=== PATIENT | female | born 1965 ===

== ENCOUNTER → 2020-07-31 13:25 | Outpatient (BNVA) | payer OTHER, SELFPAY | PROVIDERS: PCP Nurse Practitioner Family; Referring Provider Nurse Practitioner Family; Visit Provider Nurse Practitioner | DX: Z76.89 Persons encountering health services in other specified circumstances (principal) ==

== ENCOUNTER → 2020-09-20 13:15 | Outpatient (BNVA) | payer OTHER, SELFPAY | PROVIDERS: PCP Nurse Practitioner Family; Visit Provider Urology | DX: N39.41 Urge incontinence (principal); N32.81 Overactive bladder | CPT/HCPCS: 52000; 81002; 99212 ==

== ENCOUNTER 2020-09-25 07:12 | Day surgery (SDC) | payer OTHER, SELFPAY ==
[2020-09-19 10:15] VITALS: BMI 29.0
--- NOTE | 2020-09-22 08:25 | HO.ANESPROP2 ---
Documented by User: Zhanna Negroney 09/22/20 08:26 HPI - Anesthesia Eval Consult details Narrative: 54yo F for Colonoscopy *multiple allergies* PMFSH Past Medical History Medical History Anxiety Arthritis Asthma Back pain COPD (chronic obstructive pulmonary disease) Depression Erosive esophagitis GERD (gastroesophageal reflux disease) History of bipolar disorder Hx of ulcer disease Hx pulmonary embolism Lumbar herniated disc Panic attacks Family History Family History Father No problems noted. 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 If so, by whom?: No Advance Directives: No Advance Directives Information Provided: No Advance Directives on File: No Recently lost weight without trying: No Meds Allergies Allergy/AdvReac Type Severity Reaction Status Date / Time Sulfa (Sulfonamide Allergy Severe Swelling Verified 09/25/20 07:48 Antibiotics) azithromycin [Zithromax] Allergy Intermediate hives/GI Verified 09/25/20 07:48 upset hydrocodone [From VICODIN] Allergy Intermediate Rash Verified 09/25/20 07:48 naproxen [Aleve] Allergy Intermediate Rash Verified 09/25/20 07:48 oxycodone [OXYCODONE] Allergy Intermediate Rash Verified 09/25/20 07:48 Vicodin Allergy Intermediate Rash Verified 09/25/20 07:48 acetaminophen [From TYLENOL] AdvReac Intermediate RASH ALL Verified 09/25/20 07:48 OVER BODY Home Medications Medication Instructions Recorded Confirmed Type cholecalciferol (vitamin D3) 1 tab PO DAILY 09/19/20 09/19/20 History pantoprazole 1 tab PO BID 09/19/20 09/19/20 History ziprasidone HCl 1 cap PO BID 09/19/20 09/19/20 History zolpidem 1 tab PO BEDTIME 09/19/20 09/19/20 History Exam Exam Date and Time: September 22, 2020 0825 Height,Weight and Vital Signs: Height 5 ft 4 in Weight 76.657 kg Assessment and Plan Assessment Anesthesia Assessment: Chart Reviewed Documented by User: Ema Talbot 09/25/20 08:23 [facility] Past Medical History Medical History Anxiety Arthritis Asthma Back pain COPD (chronic obstructive pulmonary disease) Depression Erosive esophagitis GERD (gastroesophageal reflux disease) History of bipolar disorder Hx of ulcer disease Hx pulmonary embolism Lumbar herniated disc Panic attacks Family History Family History Father No problems noted. 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 If so, by whom?: No Advance Directives: No Advance Directives Information Provided: No Advance Directives on File: No Recently lost weight without trying: No Meds Allergies Allergy/AdvReac Type Severity Reaction Status Date / Time Sulfa (Sulfonamide Allergy Severe Swelling Verified 09/25/20 07:48 Antibiotics) azithromycin [Zithromax] Allergy Intermediate hives/GI Verified 09/25/20 07:48 upset hydrocodone [From VICODIN] Allergy Intermediate Rash Verified 09/25/20 07:48 naproxen [Aleve] Allergy Intermediate Rash Verified 09/25/20 07:48 oxycodone [OXYCODONE] Allergy Intermediate Rash Verified 09/25/20 07:48 Vicodin Allergy Intermediate Rash Verified 09/25/20 07:48 acetaminophen [From TYLENOL] AdvReac Intermediate RASH ALL Verified 09/25/20 07:48 OVER BODY Home Medications Medication Instructions Recorded Confirmed Type cholecalciferol (vitamin D3) 1 tab PO DAILY 09/19/20 09/19/20 History pantoprazole 1 tab PO BID 09/19/20 09/19/20 History ziprasidone HCl 1 cap PO BID 09/19/20 09/19/20 History zolpidem 1 tab PO BEDTIME 09/19/20 09/19/20 History Exam Airway Mallampati Class: II TM Dist: >3cm Neck ROM: Full Heart: RRR Lungs: CTA Assessment and Plan Assessment Anesthesia Assessment: Anesthesia Plan Discussed Final Anesthetic Review NPO: Yes ASA Class: II Final Preanesthetic Review: Meds/Allgs Chart Reviewed, Consent Obtained/Reviewed and Anes Risks/Benef Reviewed Patient Risk: Intermediate Procedure Risk: Low Anesthetic Plan Anesthetic Plan: MAC: Disposition: Standard PACU
[2020-09-25 07:50] VITALS: BP 109/72; PULSE 96; RESP 18; TEMP 36.6; O2SAT 97
[2020-09-25] MEDS: Lactated Ringers 1,000 ML 100 ML IVCONT (08:01)
--- NOTE | 2020-09-25 08:08 | W.PM.OPN ---
Operative Note Operative Note Date of Service: 09/25/20 Narrative: Pre-op diagnosis: Colon cancer screening, chronic constipation, FH of colon cancer, Post-op diagnosis: other (diverticulosis) Procedure: COLONOSCOPY TILL CECUM WITH RANDOM BIOPSIES Consent: Indications for the procedure and potential complications of bleeding, perforation, reaction to medications and missed diagnosis were discussed with the patient and informed consent was obtained. Instrument: Olympus PCF H 190 L variable stiffness pediatric colonoscope Monitoring: Vital signs and clinical assessment, intermittent blood pressure monitoring, continuous EKG monitoring, Pulse oximetry and Carbon Dioxide monitoring were done throughout the procedure. Colon withdrawl time was 16 minutes. Procedure: The patient was placed in the left lateral decubitis position and pre-procedure medications were administered. After a digital rectal examination of the ano-rectum, the video colonoscope was inserted into the rectum and advanced through the colon to the cecum. The colonoscope was slowly withdrawn in a retrograde panoramic fashion and the colon mucosa was carefully examined including a retroflexed view of the rectum. Findings and interventions are described below. Procedure Difficulty: Without difficulty Findings: Terminal Ileum: Not evaluated Cecum: Normal Ascending Colon: Normal Transverse Colon: Normal Descending Colon: Normal Sigmoid Colon: Patchy erythema with some scarring - biopsies were obtained. Moderate diverticulosis Rectum: Normal Ano-rectum: Moderate internal hemorrhoids Colon preparation: Excellent Impression and Post Procedure Diagnosis: Colonoscopy Findings: No polyps were detected. Patchy erythema with some scarring in the sigmoid colon - random biopsies were obtained from the right and left colon to check for IBD/microscopic colitis. Moderate diverticulosis seen in the sigmoid colon Plan: Await pathology results Patient has an appointment on 10/16/20 in the GI Clinic with Charisse Naranjo NP. Repeat Colonoscopy interval based on path results - in 5 years due to positive Family history Above findings were reviewed with the patient and diverticulosis handouts was given in the discharge area Surgeon: Julio Torres MD Anesthesia: MAC (Annie Parks, GHADA & Dr Talbot) Estimated blood loss (mL): 0 Pathology: other (A. Right colon, B. Left colon) Condition: stable Disposition: PACU
--- NOTE | 2020-09-25 08:08 | MHC.SHP ---
Pre-Procedural Eval Section A The patient is an INPATIENT: No The History & Physical has been completed within 30 days and I have reviewed it.: No Section B Chief Complaint: family hx of malignant neoplasm of digestive organ Details of Present Illness: She suffers from constipation and she has been using Miralax and MOM. She denies any upper GI problems. There are no prior problems with anesthesia or sedation. She has an extensive list of allergies. She denies any chronic respiratory problems or cardiac problems. Her sister of CRC at age 57. Relevant Family History (Specify if Yes): Yes Relevant Social History: Tobacco Use Present Medications: see Short Stay [facility] assessment Medical History: Significant History (Herniated disc, overactive bladder with urge incontinence, ) History of Previous Operations: Relevant previous surgery/procedure and date(s) (H/O esophagogastroduodenoscopy History of hysterectomy Hx of appendectomy Hx of colonoscopy) Allergies: Allergies Allergy/AdvReac Type Severity Reaction Status Date / Time Sulfa (Sulfonamide Allergy Severe Swelling Verified 09/25/20 07:48 Antibiotics) azithromycin [Zithromax] Allergy Intermediate hives/GI Verified 09/25/20 07:48 upset hydrocodone [From VICODIN] Allergy Intermediate Rash Verified 09/25/20 07:48 naproxen [Aleve] Allergy Intermediate Rash Verified 09/25/20 07:48 oxycodone [OXYCODONE] Allergy Intermediate Rash Verified 09/25/20 07:48 Vicodin Allergy Intermediate Rash Verified 09/25/20 07:48 acetaminophen [From TYLENOL] AdvReac Intermediate RASH ALL Verified 09/25/20 07:48 OVER BODY Review of Systems Sugical H&P ROS: Negative: Constitution, Cardiovascular and Respiratory and Yes, Specify: Gastrointestinal (chronic constipation) Exam Surgical H&P Exam: Normal: Heart, Normal: Lungs, Normal: Extremities and Normal: Abdomen Plan Diagnosis/Plan: Unchanged I have reviewed the history and physical and performed a pertinent physical examination on my patient. No changes have occurred unless specified.
--- NOTE | 2020-09-25 08:30 | HO.ANESPROP2 ---
ON LICENSE OF [facility] Past Medical History Medical History Anxiety Arthritis Asthma Back pain COPD (chronic obstructive pulmonary disease) Depression Erosive esophagitis GERD (gastroesophageal reflux disease) History of bipolar disorder Hx of ulcer disease Hx pulmonary embolism Lumbar herniated disc Panic attacks Family History Family History Father No problems noted. 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 If so, by whom?: No Advance Directives: No Advance Directives Information Provided: No Advance Directives on File: No Recently lost weight without trying: No Meds Allergies Allergy/AdvReac Type Severity Reaction Status Date / Time Sulfa (Sulfonamide Allergy Severe Swelling Verified 09/25/20 07:48 Antibiotics) azithromycin [Zithromax] Allergy Intermediate hives/GI Verified 09/25/20 07:48 upset hydrocodone [From VICODIN] Allergy Intermediate Rash Verified 09/25/20 07:48 naproxen [Aleve] Allergy Intermediate Rash Verified 09/25/20 07:48 oxycodone [OXYCODONE] Allergy Intermediate Rash Verified 09/25/20 07:48 Vicodin Allergy Intermediate Rash Verified 09/25/20 07:48 acetaminophen [From TYLENOL] AdvReac Intermediate RASH ALL Verified 09/25/20 07:48 OVER BODY Home Medications Medication Instructions Recorded Confirmed Type cholecalciferol (vitamin D3) 1 tab PO DAILY 09/19/20 09/19/20 History pantoprazole 1 tab PO BID 09/19/20 09/19/20 History ziprasidone HCl 1 cap PO BID 09/19/20 09/19/20 History zolpidem 1 tab PO BEDTIME 09/19/20 09/19/20 History Exam Exam Date and Time: September 25, 2020 0830 Height,Weight and Vital Signs: Height 5 ft 4 in Weight 76.657 kg Last Vital Signs Temp 97.8 F 09/25/20 07:50 Pulse 96 09/25/20 07:50 Resp 18 09/25/20 07:50 BP 109/72 09/25/20 07:50 Pulse Ox 97 09/25/20 07:50
[2020-09-25 09:26] VITALS: BP 117/75; PULSE 88; RESP 20; TEMP 36.8; O2SAT 98
[2020-09-25 09:41] VITALS: BP 115/71; PULSE 85; RESP 20; TEMP 36.8; O2SAT 98
--- NOTE | 2020-09-25 10:12 | HO.POSTANES ---
Post Anesthesia Evaluation Post Anesthesia Evaluation Vital Signs: Vital Signs Temp Pulse Resp BP Pulse Ox 09/25/20 09:41 98.3 F 85 20 115/71 98 09/25/20 09:26 98.3 F 88 20 117/75 98 09/25/20 07:50 97.8 F 96 18 109/72 97 Anesthesia: Monitored Mental Status: Awake Pain Control: Satisfactory Nausea/Vomiting: None Hydration: Adequate Anesthesia-Related Issues: No Anes. Related Issues
== END 2020-09-25 09:48 | disposition home or self-care (01) ==
PROVIDERS: PCP Nurse Practitioner Family; Visit Provider Internal Medicine Gastroenterology
PROC: 0DJD8ZZ Inspection of Lower Intestinal Tract, Via Natural or Artificial Opening Endoscopic (ICD-10-PCS; CPT 45378; principal; 2020-09-25 08:30)
DX: Z12.11 Encounter for screening for malignant neoplasm of colon (principal); Z80.0 Family history of malignant neoplasm of digestive organs; K63.89 Other specified diseases of intestine; K57.30 Diverticulosis of large intestine without perforation or abscess without bleeding; K59.09 Other constipation; K64.8 Other hemorrhoids; K21.9 Gastro-esophageal reflux disease without esophagitis; J44.9 Chronic obstructive pulmonary disease, unspecified; Z90.49 Acquired absence of other specified parts of digestive tract; Z86.711 Personal history of pulmonary embolism; F17.210 Nicotine dependence, cigarettes, uncomplicated; Z79.51 Long term (current) use of inhaled steroids; Z79.899 Other long term (current) drug therapy; Z88.1 Allergy status to other antibiotic agents; Z88.2 Allergy status to sulfonamides; Z88.8 Allergy status to other drugs, medicaments and biological substances; Z86.16 Personal history of COVID-19
CPT/HCPCS: 45380; 88305

== ENCOUNTER 2020-09-28 14:01 | Outpatient (REF) | payer OTHER, SELFPAY ==
--- NOTE | ~2020-09-28 | MR_ITS ---
MR LUMBAR SPINE WITHOUT IV CONTRAST CLINICAL INFORMATION: Urge incontinence. COMPARISON: Lumbar spine MRI 09/15/2017. TECHNIQUE: MRI of the lumbar spine was obtained using routine sequences without contrast. FINDINGS: There are 5 nonrib-bearing lumbar-type vertebral bodies. Lumbar alignment is normal. The vertebral body heights are maintained. Mild disc volume loss and partial disc desiccation at L1-L2. There is partial disc desiccation at the remaining lumbar levels which exhibit preserved disc volume. There is no bone marrow edema. There are no acute fractures. The conus terminates at the L1-L2 level. There are no significant soft tissue findings. L1-L2: A stable shallow central disc protrusion mildly narrows the central canal. There is no foraminal stenosis. L2-L3: Disc contour is normal. No central canal stenosis and no foraminal stenosis. L3-L4: There is a diffuse annular disc bulge exhibiting a similar superimposed small right lateral disc protrusion associated with a right lateral annular fissure. No central canal stenosis and no foraminal stenosis. L4-L5: Diffuse annular disc bulge with a superimposed small right lateral disc protrusion associated with an annular fissure that mildly narrows the right neural foramen without contacting the exiting right nerve root. L5-S1: Small annular disc bulge and mild bilateral facet arthropathy. No central canal stenosis. No foraminal stenosis. MR/MR lumbar spine wo con IMPRESSION: - At L1-L2, there is a stable small shallow central disc protrusion that mildly narrows the central canal. - At L3-L4, there is a stable small right lateral disc protrusion associated with an annular fissure that does not result in significant foraminal stenosis. - At L4-L5, there is a stable small right lateral disc protrusion associated with an annular fissure that mildly narrows the right neural foramen without contacting the exiting right nerve root.
== END 2020-09-28 14:02 | disposition home or self-care (01) ==
LOC: HO.MRI 14:01
PROVIDERS: Visit Provider Urology
DX: N39.41 Urge incontinence (principal)
CPT/HCPCS: 72148

== ENCOUNTER → 2020-10-16 10:00 | Outpatient (BNVA) | payer OTHER, SELFPAY | PROVIDERS: PCP Nurse Practitioner Family; Visit Provider Nurse Practitioner ==

== ENCOUNTER → 2020-10-20 12:56 | Outpatient (BNVA) | payer OTHER, SELFPAY | PROVIDERS: PCP Nurse Practitioner Family; Visit Provider Urology | DX: Z13.9 Encounter for screening, unspecified (principal); N32.81 Overactive bladder | CPT/HCPCS: 51798; 81002; 99212 ==

== ENCOUNTER → 2020-12-12 13:18 | Outpatient (BNVA) | payer OTHER, SELFPAY | PROVIDERS: PCP Nurse Practitioner Family; Visit Provider Urology | DX: N32.81 Overactive bladder (principal) | CPT/HCPCS: 99212 ==

== ENCOUNTER → 2021-02-08 14:56 | Outpatient (BNVA) | payer OTHER, SELFPAY | PROVIDERS: PCP Nurse Practitioner Family; Visit Provider Urology | DX: N32.81 Overactive bladder (principal) | CPT/HCPCS: 52287; J0585 ==

== ENCOUNTER → 2021-03-12 12:42 | Outpatient (BNVA) | payer OTHER, SELFPAY | PROVIDERS: PCP Nurse Practitioner Family | DX: N32.81 Overactive bladder (principal); N39.41 Urge incontinence | CPT/HCPCS: 51798; 99212 ==

== ENCOUNTER 2021-04-18 15:22 | Emergency (ER) | payer OTHER, SELFPAY ==
[2021-04-18 15:44] VITALS: BP 129/89; PULSE 88; RESP 18; TEMP 36.7; O2SAT 96; BMI 28.3
--- NOTE | 2021-04-18 15:58 | ED.GENADULT ---
HPI - General Adult General Chief complaint: Upper Respiratory Symptoms Stated complaint: cough, fever Time Seen by Provider: 04/18/21 15:58 Source: patient Mode of arrival: ambulatory Limitations: no limitations History of Present Illness HPI narrative: Patient history of asthma been coughing the last few days using inhaler no fever no body aches no headache patient already been vaccinated in January 2021 Related Data Home Medications Medication Instructions Recorded Confirmed cholecalciferol (vitamin D3) 50 1 tab PO DAILY 09/19/20 09/19/20 mcg (2,000 unit) tablet pantoprazole 40 mg tablet,delayed 1 tab PO BID 09/19/20 09/19/20 release ziprasidone HCl 60 mg capsule 1 cap PO BID 09/19/20 09/19/20 zolpidem 10 mg tablet 1 tab PO BEDTIME 09/19/20 09/19/20 Previous Rx's Medication Instructions Recorded lidocaine 5 % topical patch 1 patch TOPICAL DAILY PRN 30 Days 07/17/20 #30 ea mirabegron 25 mg tablet,extended 25 mg PO DAILY #60 tab 07/26/20 release 24 hr (Myrbetriq) clonazepam 0.5 mg tablet 0.5 mg PO BID PRN 30 Days #60 tab 08/02/20 tramadol 50 mg tablet 50 mg PO BID PRN #14 tab 10/17/20 oxybutynin chloride 10 mg 10 mg PO DAILY 90 Days #90 tab 10/20/20 tablet,extended release 24 hr mirabegron 50 mg tablet,extended 50 mg PO DAILY 90 Days #90 tab 11/13/20 release 24 hr ciprofloxacin HCl 250 mg tablet 250 mg PO DAILY 7 Days #7 tab 12/12/20 terazosin 1 mg capsule 1 mg PO BEDTIME 60 Days #60 cap 12/19/20 fluticasone 250 mcg-salmeterol 50 1 inh INHALATION BID 30 Days #60 ea 01/01/21 mcg/dose blistr powdr for inhalation albuterol sulfate 90 mcg/actuation 2 puff INHALATION Q4-6H PRN 30 01/15/21 aerosol inhaler Days #8.5 g trimethoprim 100 mg tablet 200 mg PO BID 5 Days #20 tab 02/08/21 cetirizine 10 mg tablet 10 mg PO DAILY #30 tab 02/12/21 tramadol 50 mg tablet 50 mg PO DAILY PRN 10 Days #10 tab 03/15/21 cyclobenzaprine 10 mg tablet 10 mg PO BID PRN #60 tab 03/31/21 meloxicam 15 mg tablet 15 mg PO DAILY PRN #30 tab 03/31/21 amoxicillin 875 mg-potassium 1 tab PO BID #20 tab 04/18/21 clavulanate 125 mg tablet (Augmentin) Allergies Allergy/AdvReac Type Severity Reaction Status Date / Time Sulfa (Sulfonamide Allergy Severe Swelling Verified 04/18/21 15:43 Antibiotics) azithromycin [Zithromax] Allergy Intermediate hives/GI Verified 04/18/21 15:43 upset hydrocodone [From VICODIN] Allergy Intermediate Rash Verified 04/18/21 15:43 naproxen [Aleve] Allergy Intermediate Rash Verified 04/18/21 15:43 oxycodone [OXYCODONE] Allergy Intermediate Rash Verified 04/18/21 15:43 acetaminophen [From TYLENOL] AdvReac Intermediate RASH ALL Verified 04/18/21 15:43 OVER BODY Review of Systems Review of Systems: Yes all other systems are reviewed and are negative PMFSH Past Medical History Medical History Anxiety Arthritis Asthma Back pain COPD (chronic obstructive pulmonary disease) Depression Erosive esophagitis GERD (gastroesophageal reflux disease) History of bipolar disorder Hx of ulcer disease Hx pulmonary embolism Lumbar herniated disc Panic attacks Surgical History H/O esophagogastroduodenoscopy History of hysterectomy Hx of appendectomy Hx of cholecystectomy Hx of colonoscopy Family History Family History Father No problems noted. 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 Oriented X3. No acute distress. ENT: Pharynx normal. Oral Mucosa moist Neck: Normal inspection. Neck supple. CVS: Normal heart rate and rhythm. Pulses normal. Respiratory: No respiratory distress. Equal air entry bilateral, no wheezing/rales/rhonchi Abdomen: Soft and nontender. Skin: Skin warm and dry. Normal skin color. Normal skin turgor. Extremities: No lower extremity edema. No calf tenderness Neuro: Oriented X 3. No motor deficit. Medical Decision Making MDM Narrative Medical decision making narrative: Patient with mild asthma and cough likely bronchitis discharge patient home on Augmentin Lab Data Lab results reviewed: Yes I reviewed the patient's lab results. Labs: Lab Results 04/18/21 Range/Units 16:30 COVID-19 ([facility]) Negative (Negative) COVID-19 Clin Com See Note Discharge Plan Discharge Clinical Impression: Acute bronchitis Patient Disposition: Home, Self-Care Instructions: Acute Bronchitis (ED) Additional Instructions: Take antibiotic and cough syrup as prescribed and follow with PCP Use inhaler as advised Prescriptions: New amoxicillin-pot clavulanate [Augmentin] 875-125 mg tablet 1 tab PO BID Qty: 20 RF: 0 No Action lidocaine 5 % adhesive patch,medicated 1 patch topical DAILY PRN (Reason: pain) 30 Days Qty: 30 RF: 0 mirabegron [Myrbetriq] 25 mg tablet extended release 24 hr 25 mg PO DAILY Qty: 60 RF: 3 clonazepam 0.5 mg tablet 0.5 mg PO BID PRN (Reason: anxiety) 30 Days Qty: 60 RF: 0 tramadol 50 mg tablet 50 mg PO BID PRN (Reason: pain) Qty: 14 RF: 0 oxybutynin chloride 10 mg tablet extended release 24hr 10 mg PO DAILY 90 Days Qty: 90 RF: 1 mirabegron 50 mg tablet extended release 24 hr 50 mg PO DAILY 90 Days Qty: 90 RF: 2 terazosin 1 mg capsule 1 mg PO BEDTIME 60 Days Qty: 60 RF: 4 fluticasone propion-salmeterol 250-50 mcg/dose blister with device 1 inh inhalation BID 30 Days Qty: 60 RF: 3 albuterol sulfate 90 mcg/actuation HFA aerosol inhaler 2 puff inhalation Q4-6H PRN (Reason: shortness of breath or wheezing) 30 Days Qty: 8.5 RF: 4 cetirizine 10 mg tablet 10 mg PO DAILY Qty: 30 RF: 2 tramadol 50 mg tablet 50 mg PO DAILY PRN (Reason: pain) 10 Days Qty: 10 RF: 0 cyclobenzaprine 10 mg tablet 10 mg PO BID PRN (Reason: for muscle spasm) Qty: 60 RF: 0 meloxicam 15 mg tablet 15 mg PO DAILY PRN (Reason: for joint pain) Qty: 30 RF: 2 pantoprazole 40 mg tablet,delayed release (DR/EC) 1 tab PO BID RF: 0 zolpidem 10 mg tablet 1 tab PO BEDTIME RF: 0 ziprasidone HCl 60 mg capsule 1 cap PO BID RF: 0 cholecalciferol (vitamin D3) 50 mcg (2,000 unit) tablet 1 tab PO DAILY RF: 0 ciprofloxacin HCl 250 mg tablet 250 mg PO DAILY 7 Days Qty: 7 RF: 0 trimethoprim 100 mg tablet 200 mg PO BID 5 Days Qty: 20 RF: 0 Interventions: ED Discharge Assessment Last Done: 04/18/21 17:31 Discharge Date/Time: 04/18/21 17:32
[2021-04-18 17:03] LABS: COVID-19 Test Negative (Negative)
== END 2021-04-18 17:32 | disposition home or self-care (01) ==
PROVIDERS: Emergency Provider Internal Medicine; PCP Nurse Practitioner Family
DX: J20.9 Acute bronchitis, unspecified (principal); R05 Cough; R50.9 Fever, unspecified; F17.210 Nicotine dependence, cigarettes, uncomplicated; Z71.6 Tobacco abuse counseling; Z79.899 Other long term (current) drug therapy; Z20.822 Contact with and (suspected) exposure to COVID-19
CPT/HCPCS: 36415; 87635; 99282; 99283

== ENCOUNTER → 2021-06-06 13:10 | Outpatient (BNVA) | payer OTHER, SELFPAY | PROVIDERS: PCP Nurse Practitioner Family | DX: N39.41 Urge incontinence (principal); R33.9 Retention of urine, unspecified | CPT/HCPCS: 51798; 99212 ==

== ENCOUNTER 2021-11-19 14:44 | Outpatient (REF) | payer OTHER, SELFPAY ==
--- NOTE | ~2021-11-19 | XR_ITS ---
EXAMINATION: XR KNEE, RIGHT CLINICAL INFORMATION: Sprain COMPARISON: None TECHNIQUE: Four views of the right knee. FINDINGS: Bones and soft tissues are normal. No fracture or joint effusion. Alignment is anatomic. Joint spaces are well maintained. No abnormal soft tissue calcification. XR/XR knee RT 4V IMPRESSION: Normal right knee.
== END 2021-11-19 14:45 | disposition home or self-care (01) ==
LOC: HO.HMGCX 14:44
PROVIDERS: PCP Nurse Practitioner Family; Visit Provider Internal Medicine
DX: S83.91XA Sprain of unspecified site of right knee, initial encounter (principal)
CPT/HCPCS: 73564

== ENCOUNTER 2022-11-19 11:26 | Outpatient (REF) | payer OTHER, SELFPAY ==
--- NOTE | ~2022-11-19 | XR_ITS ---
EXAMINATION: XR CHEST CLINICAL INFORMATION: Shortness of breath. COMPARISON: 01/26/2020 chest and rib radiographs. TECHNIQUE: 2 views of the chest were obtained. FINDINGS: No significant abnormality is noted involving the heart, lungs, mediastinum, bony thorax or soft tissues. XR/XR chest 2V IMPRESSION: No acute cardiopulmonary process.
[2022-11-19 14:15] LABS: Appearance Urine Clear; Color Urine Yellow; Glucose Urine UA Negative (Negative); Leukocyte Esterase Urine Small (1+) (Negative); Nitrite Urine Negative (Negative); Specific Gravity - Urine <= 1.005 (1.005-1.025); UMIC TRIGGER UACC YES; Urine Blood Negative (Negative); Urine Ketones Negative (Negative); Urine Protein Negative (Neg-Trace)
[2022-11-19 14:25] LABS: Basophils Absolute Auto 0.1 X10*3/uL (0.0-0.2); Basophils Percent Auto 1.6 % (0-2); Eosinophils Absolute Auto 0.2 X10*3/uL (0.0-0.4); Eosinophils Percent Auto 6.5 % (0-4); Hematocrit 27.8 % (37.0-47.0); Imm Gran Abs Auto 0.01 X10*3/uL (0.00-0.03); Imm Gran Pct Auto 0.3 % (0.0-0.4); Lymphocytes Absolute Auto 1.1 X10*3/uL (1.2-4.9); Lymphocytes Percent Auto 29.2 % (20-40); MANUAL DIFF FLAG SCAN; Mean Corpuscular HGB Conc 28.8 g/dl (31.0-35.0); Mean Corpuscular Hemoglobin 19.4 pg (27.0-33.0); Mean Corpuscular Volume 67.5 fL (80.0-98.0); Monocytes Absolute Auto 0.5 X10*3/uL (0.1-1.2); Monocytes Percent Auto 12.3 % (2-11); Neutrophils Absolute Auto 1.8 x10*3/uL (2.0-8.3); Neutrophils Percent Auto 50.1 % (45-73); PLT CLUMP 1; Red Blood Count 4.12 X10*6/uL (4.20-5.50); Red Cell Distribution Width 19.3 % (11.0-16.0); SCAN SMEAR FLAG 1
[2022-11-19 14:35] LABS: Bacteria Urine None Seen (None Seen); Hyaline Casts Urine 0-2 /LPF (0-2); RBC Urine 0-2 /HPF (0-2); Squamous Epithelial Cell Urine 0-2 /HPF (0-2); UACC Culture Trigger YES; WBC Urine 0-5 /HPF (0-5)
[2022-11-19 14:50] LABS: Platelet Count 351 X10*3/uL (160-400); White Blood Count 3.7 X10*3/uL (4.8-10.8)
[2022-11-19 15:01] LABS: Erythrocyte Sedimentation Rate 13 MM/HR (0-20)
[2022-11-19 15:23] LABS: SLIDE REVIEW VERIFIED
[2022-11-19 18:13] LABS: Alanine Aminotransferase < 6 U/L (0-31); Albumin Level 3.7 g/dL (3.5-5.0); Alkaline Phosphatase 39 U/L (39-117); Anion Gap 14 (12-20); Aspartate Amino Transferase 9 U/L (5-31); Bilirubin Total 0.6 mg/dL (0.0-1.0); Blood Urea Nitrogen 6 mg/dL (9-16); C Reactive Protein < 0.10 mg/dL (< or = 0.50); Calcium 9.2 mg/dL (8.4-10.2); Carbon Dioxide 23 mmol/L (22-29); Chloride 105 mmol/L (96-108); Cholesterol 125 mg/dL; Estimated Glomerular Filt Rate 55; Glucose Fasting 92 mg/dL (60-99); HDL Cholesterol 40 mg/dL; LDL Cholesterol Calculated 70 mg/dl; Potassium 3.7 mmol/L (3.3-5.1); Rheumatoid Factor < 13.0 IU/mL (<15.0); Sodium 138 mmol/L (135-145); Total Protein 6.9 g/dL (6.5-8.0); Triglycerides 76 mg/dL
[2022-11-19 18:18] LABS: TSH reflex Free T4 2.93 uIU/mL (0.32-4.0)
[2022-11-21 07:33] LABS: Lyme Abs Screen <0.90 index
[2022-11-21 13:53] LABS: Antibody to SS-A Antigen <1.0 NEG AI (<1.0 NEG); Antibody to SS-B Antigen <1.0 NEG AI (<1.0 NEG)
[2022-11-21 14:48] LABS: Cyclic Citrullinated Peptide <16 UNITS
[2022-11-21 15:59] LABS: Anti Nuclear Antibody Screen NEGATIVE (NEGATIVE)
== END 2022-11-19 11:27 | disposition home or self-care (01) ==
LOC: HO.HMGCX 11:26
PROVIDERS: PCP Nurse Practitioner Family; Visit Provider Nurse Practitioner Family
DX: Z00.00 Encounter for general adult medical examination without abnormal findings (principal); R06.02 Shortness of breath; M19.90 Unspecified osteoarthritis, unspecified site; S83.91XA Sprain of unspecified site of right knee, initial encounter; S83.92XA Sprain of unspecified site of left knee, initial encounter; X58.XXXA Exposure to other specified factors, initial encounter; Y93.9 Activity, unspecified; Y92.9 Unspecified place or not applicable; Y99.9 Unspecified external cause status
CPT/HCPCS: 36415; 71046; 80053; 80061; 81001; 84443; 85025; 85652; 86038; 86039; 86140; 86200; 86235; 86431; 86617; 86618; 87086

== ENCOUNTER 2022-11-20 12:40 | Emergency (ER) | payer OTHER, SELFPAY ==
[2022-11-20] VITALS (7 sets, daily range): BP systolic 113–140; BP diastolic 69–89; PULSE 83–97; RESP 14–22; TEMP 36.6–36.8; O2SAT 92–98; BMI 26.6
--- NOTE | ~2022-11-20 | CT_ITS ---
EXAMINATION: CT ABDOMEN AND PELVIS WITH CONTRAST CLINICAL INFORMATION: Left lower quadrant pain COMPARISON: CT scan abdomen pelvis 06/12/2018 TECHNIQUE: Multidetector volumetric images were obtained from the superior aspect of the liver through the pubic symphysis following administration 85 mL of Omnipaque 350 intravenous contrast. Sagittal and coronal reformatted images were obtained on the technologist's workstation. Oral contrast: No This CT examination was performed using dose optimization techniques as appropriate, variously including the following: *Automated exposure control *Adjustment of mA and/or kV according to patient size (this includes techniques or standardized protocols for targeted exams where dose is matched to indication/reason for exam; i.e. extremities or head) *Use of iterative reconstruction technique DLP: 614 mGy-cm FINDINGS: LUNG BASES: The visualized lung bases are unremarkable. LIVER, GALLBLADDER, AND BILIARY TREE: The liver is normal in size, shape, and attenuation. No focal hepatic lesion or biliary ductal dilatation is present. Status post cholecystectomy PANCREAS: Unremarkable. SPLEEN: Unremarkable. ADRENAL GLANDS: Unremarkable. KIDNEYS AND URETERS: The kidneys are normal in size, shape, and attenuation. No hydronephrosis, hydroureter, or calculi seen. No perinephric stranding. BLADDER: Unremarkable. GASTROINTESTINAL TRACT: The small and large bowel are unremarkable. The appendix is nonvisualized. Surgical clips right abdomen near the cecum may be from prior appendectomy. Correlate with history.. ABDOMINAL WALL: No significant hernia is appreciated. LYMPH NODES: Normal. VASCULAR: Unremarkable. PELVIC VISCERA: Unremarkable. OSSEOUS STRUCTURES: Unremarkable. CT/CT abdomen pelvis w IV con IMPRESSION: No acute abnormality CT scan abdomen pelvis. Fleischner guidelines were followed.
--- NOTE | ~2022-11-20 | XR_ITS ---
EXAMINATION: XR CHEST CLINICAL INFORMATION: Dyspnea on exertion COMPARISON: November 19, 2022 and January 26, 2020 TECHNIQUE: 2 views of the chest were obtained. FINDINGS: No significant abnormality is noted involving the heart, lungs, mediastinum, bony thorax or soft tissues. XR/XR chest 2V IMPRESSION: No acute disease.
--- NOTE | 2022-11-20 12:45 | ED.SOB ---
HPI - SOB/Dyspnea General Chief Complaint: Upper Respiratory Symptoms <ELISA Masterson - Last Filed: 11/20/22 12:51> Stated Complaint: Diff Breathing Trouble Walking <ELISA Masterson - Last Filed: 11/20/22 12:51> Time Seen by Provider: 11/20/22 15:55 <ELISA Masterson - Last Filed: 11/20/22 12:51> Source: patient and RN notes reviewed <Jose Miguel Gracia - Last Filed: 11/20/22 20:13> Mode of arrival: ambulatory <Jose Miguel Gracia - Last Filed: 11/20/22 20:13> Limitations: no limitations <Jose Miguel Gracia - Last Filed: 11/20/22 20:13> History of Present Illness HPI Narrative: 57-year-old female with past medical history significant for depression, anxiety, COPD, arthritis overactive bladder presents for evaluation of low H&H. Patient reports she has had dyspnea on exertion for over 1 month She states after walking for short distance she has to stop and catch her breath because she is fatigued Patient also reports nausea and vomiting for last 2 days. She states that she has had black stools for the last 4 weeks She has not seen any bright red blood in her stool Patient reports increased anxiety and depression because ?I had to bury my mother last week. ? Patient went to her PCP yesterday for depression and also mention that she was short of breath. She had labs and a chest x-ray. Patient was told by her PCP to come to the hospital today because her hemoglobin was 8 and the last test they had was over 11. <Jose Miguel Gracia - Last Filed: 11/20/22 20:13> Related Data Home Medications: Home Medications Medication Instructions Recorded Confirmed ziprasidone HCl 60 mg capsule 1 cap PO BID 09/19/20 11/19/22 Previous Rx's Medication Instructions Recorded cetirizine 10 mg tablet 10 mg PO DAILY #90 tabs 07/21/22 fluticasone 250 mcg-salmeterol 50 1 inh inhalation Q12H 30 days #60 07/21/22 mcg/dose blistr powdr for ea inhalation (Advair Diskus) tramadol 50 mg tablet 50 mg PO DAILY PRN pain 14 days 07/31/22 #14 tabs cholecalciferol (vitamin D3) 50 50 mcg PO DAILY 30 days #30 tabs 08/15/22 mcg (2,000 unit) tablet sennosides 8.6 mg tablet (Senna 8.6 mg PO BEDTIME PRN constipation 09/25/22 Lax) #90 tabs meloxicam 15 mg tablet 15 mg PO DAILY PRN for joint pain 10/20/22 #30 tabs pantoprazole 40 mg tablet,delayed 40 mg PO BID 30 days #60 tabs 10/20/22 release fluticasone propionate 50 1 spray intranasal DAILY #9.9 mL 11/02/22 mcg/actuation nasal spray,suspension (Flonase Allergy Relief) clonazepam 0.5 mg tablet 0.5 mg PO BID PRN anxiety 30 days 11/05/22 #60 tabs albuterol sulfate 90 mcg/actuation 2 puff inhalation Q4-6H PRN 11/11/22 aerosol inhaler shortness of breath or wheezing 30 days #8.5 grams cyclobenzaprine 10 mg tablet 10 mg PO DAILY PRN muscle spasm 30 11/14/22 days #30 tabs hydroxyzine HCl 25 mg tablet 25 mg PO BEDTIME PRN severe 11/19/22 anxiety 30 days #30 tabs <ELISA Masterson - Last Filed: 11/20/22 12:51> Allergies/Adverse Reactions: Allergies Allergy/AdvReac Type Severity Reaction Status Date / Time Sulfa (Sulfonamide Allergy Severe Swelling Verified 11/20/22 12:43 Antibiotics) azithromycin [Zithromax] Allergy Intermediate hives/GI Verified 11/20/22 12:43 upset hydrocodone [From VICODIN] Allergy Intermediate Rash Verified 11/20/22 12:43 naproxen [Aleve] Allergy Intermediate Rash Verified 11/20/22 12:43 oxycodone [OXYCODONE] Allergy Intermediate Rash Verified 11/20/22 12:43 acetaminophen [From TYLENOL] AdvReac Intermediate RASH ALL Verified 11/20/22 12:43 OVER BODY <ELISA Masterson - Last Filed: 11/20/22 12:51> Review of Systems Constitutional: Constitutional: Reports as per HPI, Denies chills, Denies fever(s) and Denies headache(s) <Jose Miguel Gracia - Last Filed: 11/20/22 20:13> ENT: Denies headache(s) <Jose Miguel Gracia - Last Filed: 11/20/22 20:13> Cardiovascular: Cardiovascular: Denies chest pain, Denies chest pain at rest, Denies chest pain with activity, Reports dyspnea and Reports dyspnea on exertion <Jose Miguel Gracia - Last Filed: 11/20/22 20:13> Respiratory: Respiratory: Denies chest congestion, Denies cough, Denies pain with cough, Reports dyspnea and Reports dyspnea on exertion <Jose Miguel Gracia - Last Filed: 11/20/22 20:13> Gastrointestinal: Gastrointestinal: Reports abdominal pain, Reports melena, Denies hematochezia, Denies loose stools, Reports vomiting and Denies hematemesis <Jose Miguel Gracia - Last Filed: 11/20/22 20:13> Genitourinary: Genitourinary: Denies dysuria <Jose Miguel Gracia - Last Filed: 11/20/22 20:13> Musculoskeletal: Musculoskeletal: Denies back pain <Jose Miguel Gracia - Last Filed: 11/20/22 20:13> Neurologic: Denies headache(s) and Denies focal weakness <Jose Miguel Gracia - Last Filed: 11/20/22 20:13> [facility] Past Medical History Medical History: Medical History (Updated 11/20/22 @ 20:13 by Jose Miguel Gracia) Anxiety Arthritis Asthma Back pain COPD (chronic obstructive pulmonary disease) Depression Erosive esophagitis GERD (gastroesophageal reflux disease) History of bipolar disorder Hx of ulcer disease Hx pulmonary embolism Lumbar herniated disc Panic attacks Urinary retention <ELISA Masterson - Last Filed: 11/20/22 12:51> Surgical History: Surgical History H/O esophagogastroduodenoscopy History of hysterectomy Hx of appendectomy Hx of cholecystectomy Hx of colonoscopy <ELISA Masterson - Last Filed: 11/20/22 12:51> Family History Family History: Family History Father No problems noted. Mother HTN (hypertension) Asthma High cholesterol Heart problem Diabetes mellitus Sister Liver cancer <ELISA Masterson - Last Filed: 11/20/22 12:51> Social History Social History: Social History Housing: Apartment Are you a primary child care sitter to a significant other at home: No Do you presently have visiting nurse or other home services: Yes ([employer]) Alcohol intake: current Alcohol intake frequency: holidays/special occasions only Alcohol type: beer and wine Patient Tobacco Use Status: Former Tobacco user Cigarettes Per Day: 2 Years Smoked: 10+ Smoked in Last 30 Days: No e-Cigarette/Vaping Use: Currently Using Second Hand Smoke Exposure: No Use of substances other than those prescribed or required for medical reasons: No Advance Directives: No Advance Directives Information Provided: No Patient : No service: No Current occupational status: unemployed Cognitive needs: No Hearing needs: No Vision needs: Yes <ELISA Masterson - Last Filed: 11/20/22 12:51> Physical Exam Vital Signs: Vital Signs: Last Vital Signs Temp 97.8 F 11/20/22 19:41 Pulse 89 11/20/22 19:41 Resp 22 H 11/20/22 19:41 BP 139/88 11/20/22 19:41 Pulse Ox 98 11/20/22 18:38 O2 Del Method Room Air 11/20/22 18:38 BMI result Body Mass Index 26.6 <ELISA Masterson - Last Filed: 11/20/22 12:51> Vital Signs: Last Vital Signs Temp 97.8 F 11/20/22 19:41 Pulse 89 11/20/22 19:41 Resp 22 H 11/20/22 19:41 BP 139/88 11/20/22 19:41 Pulse Ox 98 11/20/22 18:38 O2 Del Method Room Air 11/20/22 18:38 BMI result Body Mass Index 26.6 <Jose Miguel Gracia - Last Filed: 11/20/22 20:13> Const: General: healthy appearing, comfortable, no acute distress, alert and awake <Jose Miguel Gracia - Last Filed: 11/20/22 20:13> Nutritional Appearance: well nourished < Last Filed: 11/20/22 20:13> Orientation/consciousness: patient oriented x3 < Last Filed: 11/20/22 20:13> HEENT: Head: Yes normocephalic and Yes atraumatic < Last Filed: 11/20/22 20:13> Throat: Yes posterior oropharynx normal < Last Filed: 11/20/22 20:13> Eyes: Eyelids: Yes eyelids normal < Last Filed: 11/20/22 20:13> Conjunctivae: conjunctivae normal < Last Filed: 11/20/22 20:13> Sclerae: sclerae normal < Last Filed: 11/20/22 20:13> Corneas: corneas normal < Last Filed: 11/20/22 20:13> Pupils: Equal, round and reactive pupils present < Last Filed: 11/20/22 20:13> EOM: EOMs intact bilaterally < Last Filed: 11/20/22 20:13> Neck: Neck: Yes full ROM < Last Filed: 11/20/22 20:13> Resp: Effort & Inspection: normal respiratory effort, able to speak in complete sentences, no audible wheezes and not labored < Last Filed: 11/20/22 20:13> Auscultation: clear to auscultation bilaterally < Last Filed: 11/20/22 20:13> Cardio: Rate: regular rate < Last Filed: 11/20/22 20:13> Rhythm: regular rhythm < Last Filed: 11/20/22 20:13> GI: Inspection: No distended < Last Filed: 11/20/22 20:13> Palpation (GI): Soft to palpation, not firm, Tenderness to palpation present (GI) (without rebound or guarding) in the LLQ, no guarding and not rigid <Jose Miguel Gracia - Last Filed: 11/20/22 20:13> Auscultation: normoactive bowel sounds <Jose Miguel Gracia - Last Filed: 11/20/22 20:13> Skin: General skin exam: no rashes or lesions noted and elasticity normal <Jose Miguel Gracia - Last Filed: 11/20/22 20:13> Neuro: General: patient oriented x3 <Jose Miguel Gracia - Last Filed: 11/20/22 20:13> Cranial nerves: Yes CN's II-XII intact bilaterally, Yes Equal, round and reactive pupils present and Yes Bilaterally intact EOM present <Jose Miguel Gracia - Last Filed: 11/20/22 20:13> Cognition (Neuro): normal cognition <Jose Miguel Gracia - Last Filed: 11/20/22 20:13> Course Course Course Narrative: RME - 57 yo female with history of anxiety/depression, former smoker, bipolar disorder, PTSD, PUD, COPD who presents to the ER for evaluation of abnormal labs done at PCP yesterday. H/H 8/27.8 from 11.3/34.4 five years prior. She has history of anemia requiring transfusion in 2018. She reports worsening [place] for the last 2-3 month and generalized weakness with exertion. Last few days with ongoing nausea and vomiting, decreased PO since her mother . Vomitus yellow and brown. Also intermittent chest pains. Plan: repeat labs, EKG, CXR, guaiac stool <ELISA Masterson - Last Filed: 11/20/22 12:51> Medications Administered Discontinued Medications Generic Name Dose Route Start Last Admin Trade Name Freq PRN Reason Stop Dose Admin Magnesium Sulfate 2 gm in 50 mls @ 25 mls/hr 11/20/22 16:34 11/20/22 19:02 Magnesium Sulfate/H2o IV 11/20/22 18:33 Infused ONCE ONE Infusion Iohexol 100 ml 11/20/22 17:05 11/20/22 17:05 Iohexol 350 Mg/Ml 100 Ml Infus..Btl IV 11/20/22 17:06 85 ml ONCE ONE Administration Magnesium Oxide 800 mg 11/20/22 16:34 11/20/22 16:44 Magnesium Oxide 400 Mg Tablet PO 11/20/22 16:35 800 mg ONCE ONE Administration <ELISA Masterson - Last Filed: 11/20/22 12:51> Medications Administered Discontinued Medications Generic Name Dose Route Start Last Admin Trade Name Johanna PRN Reason Stop Dose Admin Magnesium Sulfate 2 gm in 50 mls @ 25 mls/hr 11/20/22 16:34 11/20/22 19:02 Magnesium Sulfate/H2o IV 11/20/22 18:33 Infused ONCE ONE Infusion Iohexol 100 ml 11/20/22 17:05 11/20/22 17:05 Iohexol 350 Mg/Ml 100 Ml Infus..Btl IV 11/20/22 17:06 85 ml ONCE ONE Administration Magnesium Oxide 800 mg 11/20/22 16:34 11/20/22 16:44 Magnesium Oxide 400 Mg Tablet PO 11/20/22 16:35 800 mg ONCE ONE Administration <Jose Miguel Gracia - Last Filed: 11/20/22 20:13> Medical Decision Making Medical Decision Making [facility] Narrative: 57-year-old female presents for evaluation of multiple complaints including shortness of breath on exertion, abdominal pain black stools. Patient's hemoglobin is 7.6. Her last outpatient hemoglobin was 07/07/2018 was 11.3. Then of course yesterday she was 8.0 she reported. Given that she is 7.6 today and short of breath on exertion, we will transfuse 1 unit packed red blood cells. The patient's guaiac negative from below with brown stool. Will get a CT scan given her abdominal pain. She did have a colonoscopy in September of 2020 that did not show any evidence of malignancy. Patient's magnesium was noted to be low at 1.3 and this will be replaced IV and p.o.. Further workup as indicated by imaging. Patient's vital signs remained stable. Chest x-ray is clear <Jose Miguel Gracia - Last Filed: 11/20/22 20:13> Differential Diagnosis Symptomatic anemia Blood loss anemia GI bleed Bronchitis Pneumonia CHF <Jose Miguel Gracia - Last Filed: 11/20/22 20:13> Lab Data [facility] Lab Attestation statement: I reviewed the patient's lab results. <Jose Miguel Gracia - Last Filed: 11/20/22 20:13> Critical magnesium of 1.3 <Jose Miguel Gracia - Last Filed: 11/20/22 20:13> Result Diagrams: 11/20/22 13:05 11/20/22 13:05 <ELISA Masterson - Last Filed: 11/20/22 12:51> Labs: Lab Results 11/20/22 11/20/22 11/20/22 Range/Units 13:05 13:05 13:05 WBC 5.1 (4.8-10.8) X10*3/uL RBC 3.83 L (4.20-5.50) X10*6/uL Hgb 7.6 L (12.0-16.0) g/dl Hct 25.6 L (37.0-47.0) % MCV 66.8 L (80.0-98.0) fL MCH 19.8 L (27.0-33.0) pg MCHC 29.7 L (31.0-35.0) g/dl RDW 19.2 H (11.0-16.0) % Plt Count 317 (160-400) X10*3/uL MPV 10.7 (9.4-12.3) fL Immature Gran % (Auto) 0.0 (0.0-0.4) % Neut % (Auto) 61.9 (45-73) % Lymph % (Auto) 19.7 L (20-40) % [place] % (Auto) 9.1 (2-11) % Eos % (Auto) 8.1 H (0-4) % Baso % (Auto) 1.2 (0-2) % Lymph # (Auto) 1.0 L (1.2-4.9) X10*3/uL [place] # (Auto) 0.5 (0.1-1.2) X10*3/uL Eos # (Auto) 0.4 (0.0-0.4) X10*3/uL Baso # (Auto) 0.1 (0.0-0.2) X10*3/uL Abs Immat Gran (auto) 0.00 (0.00-0.03) X10*3/uL Absolute Neuts (auto) 3.1 (2.0-8.3) x10*3/uL Absolute Nucleated RBC 0.000 (0.0-0.012) X10*3/uL Nucleated RBC % (auto) 0.0 (0.0-0.2) /100WBC Smear Tech's Comments VERIFIED PT 12.6 (10.0-13.1) SEC INR 1.1 (0.9-1.1) APTT 40.1 H (26.0-36.4) SEC Sodium 138 (135-145) mmol/L Potassium 3.7 (3.3-5.1) mmol/L Chloride 105 (96-108) mmol/L Carbon Dioxide 24 (22-29) mmol/L Anion Gap 13 (12-20) BUN 8 L (9-16) mg/dL Creatinine 1.16 (0.5-1.4) mg/dL Estim Creat Clear Calc 50.2 Estimated GFR 48 Random Glucose 105 (60-115) mg/dL Calcium 8.7 (8.4-10.2) mg/dL Magnesium 1.3 L* (1.6-2.6) mg/dL Iron 8 L (30-160) mcg/dL TIBC 277 (228-428) mcg/dL % Saturation 3 L (15-50) % Unsat Iron Binding 269 ug/dL Total Bilirubin 0.4 (0.0-1.0) mg/dL Direct Bilirubin < 0.2 (0.0-0.5) mg/dL AST 9 (5-31) U/L ALT < 6 (0-31) U/L Alkaline Phosphatase 38 L (39-117) U/L Troponin I High Sens (<3.5-17.0) ng/L B-Natriuretic Peptide (<100) pg/mL Total Protein 6.3 L (6.5-8.0) g/dL Albumin 3.4 L (3.5-5.0) g/dL Urine Color Urine Appearance Urine pH (5.0-9.0) Ur Specific [place] (1.005-1.025) Urine Protein (Neg-Trace) mg/dL Urine Glucose (UA) (Negative) mg/dL Urine Ketones (Negative) mg/dL Urine Blood (Negative) Urine Nitrite (Negative) Ur Leukocyte Esterase (Negative) Urine RBC (0-2) /HPF Urine WBC (0-5) /HPF Ur Squamous Epith Cells (0-2) /HPF Urine Bacteria (None Seen) Hyaline Casts (0-2) /LPF Stool Occult Blood (NEGATIVE) Blood Type Antibody Screen Crossmatch 11/20/22 11/20/22 11/20/22 Range/Units 13:05 13:05 14:55 WBC (4.8-10.8) X10*3/uL RBC (4.20-5.50) X10*6/uL Hgb (12.0-16.0) g/dl Hct (37.0-47.0) % MCV (80.0-98.0) fL MCH (27.0-33.0) pg MCHC (31.0-35.0) g/dl RDW (11.0-16.0) % Plt Count (160-400) X10*3/uL MPV (9.4-12.3) fL Immature Gran % (Auto) (0.0-0.4) % Neut % (Auto) (45-73) % Lymph % (Auto) (20-40) % [place] % (Auto) (2-11) % Eos % (Auto) (0-4) % Baso % (Auto) (0-2) % Lymph # (Auto) (1.2-4.9) X10*3/uL [place] # (Auto) (0.1-1.2) X10*3/uL Eos # (Auto) (0.0-0.4) X10*3/uL Baso # (Auto) (0.0-0.2) X10*3/uL Abs Immat Gran (auto) (0.00-0.03) X10*3/uL Absolute Neuts (auto) (2.0-8.3) x10*3/uL Absolute Nucleated RBC (0.0-0.012) X10*3/uL Nucleated RBC % (auto) (0.0-0.2) /100WBC Smear Tech's Comments PT (10.0-13.1) SEC INR (0.9-1.1) APTT (26.0-36.4) SEC Sodium (135-145) mmol/L Potassium (3.3-5.1) mmol/L Chloride (96-108) mmol/L Carbon Dioxide (22-29) mmol/L Anion Gap (12-20) BUN (9-16) mg/dL Creatinine (0.5-1.4) mg/dL Estim Creat Clear Calc Estimated GFR Random Glucose (60-115) mg/dL Calcium (8.4-10.2) mg/dL Magnesium (1.6-2.6) mg/dL Iron (30-160) mcg/dL TIBC (228-428) mcg/dL % Saturation (15-50) % Unsat Iron Binding ug/dL Total Bilirubin (0.0-1.0) mg/dL Direct Bilirubin (0.0-0.5) mg/dL AST (5-31) U/L ALT (0-31) U/L Alkaline Phosphatase (39-117) U/L Troponin I High Sens 4.1 (<3.5-17.0) ng/L B-Natriuretic Peptide 382 H (<100) pg/mL Total Protein (6.5-8.0) g/dL Albumin (3.5-5.0) g/dL Urine Color Urine Appearance Urine pH (5.0-9.0) Ur Specific [place] (1.005-1.025) Urine Protein (Neg-Trace) mg/dL Urine Glucose (UA) (Negative) mg/dL Urine Ketones (Negative) mg/dL Urine Blood (Negative) Urine Nitrite (Negative) Ur Leukocyte Esterase (Negative) Urine RBC (0-2) /HPF Urine WBC (0-5) /HPF Ur Squamous Epith Cells (0-2) /HPF Urine Bacteria (None Seen) Hyaline Casts (0-2) /LPF Stool Occult Blood (NEGATIVE) Blood Type AB Positive Antibody Screen NEGATIVE Crossmatch See Detail 11/20/22 11/20/22 Range/Units 16:17 16:47 WBC (4.8-10.8) X10*3/uL RBC (4.20-5.50) X10*6/uL Hgb (12.0-16.0) g/dl Hct (37.0-47.0) % MCV (80.0-98.0) fL MCH (27.0-33.0) pg MCHC (31.0-35.0) g/dl RDW (11.0-16.0) % Plt Count (160-400) X10*3/uL MPV (9.4-12.3) fL Immature Gran % (Auto) (0.0-0.4) % Neut % (Auto) (45-73) % Lymph % (Auto) (20-40) % [place] % (Auto) (2-11) % Eos % (Auto) (0-4) % Baso % (Auto) (0-2) % Lymph # (Auto) (1.2-4.9) X10*3/uL [place] # (Auto) (0.1-1.2) X10*3/uL Eos # (Auto) (0.0-0.4) X10*3/uL Baso # (Auto) (0.0-0.2) X10*3/uL Abs Immat Gran (auto) (0.00-0.03) X10*3/uL Absolute Neuts (auto) (2.0-8.3) x10*3/uL Absolute Nucleated RBC (0.0-0.012) X10*3/uL Nucleated RBC % (auto) (0.0-0.2) /100WBC Smear Tech's Comments PT (10.0-13.1) SEC INR (0.9-1.1) APTT (26.0-36.4) SEC Sodium (135-145) mmol/L Potassium (3.3-5.1) mmol/L Chloride (96-108) mmol/L Carbon Dioxide (22-29) mmol/L Anion Gap (12-20) BUN (9-16) mg/dL Creatinine (0.5-1.4) mg/dL Estim Creat Clear Calc Estimated GFR Random Glucose (60-115) mg/dL Calcium (8.4-10.2) mg/dL Magnesium (1.6-2.6) mg/dL Iron (30-160) mcg/dL TIBC (228-428) mcg/dL % Saturation (15-50) % Unsat Iron Binding ug/dL Total Bilirubin (0.0-1.0) mg/dL Direct Bilirubin (0.0-0.5) mg/dL AST (5-31) U/L ALT (0-31) U/L Alkaline Phosphatase (39-117) U/L Troponin I High Sens (<3.5-17.0) ng/L B-Natriuretic Peptide (<100) pg/mL Total Protein (6.5-8.0) g/dL Albumin (3.5-5.0) g/dL Urine Color Yellow Urine Appearance Clear Urine pH 6.0 (5.0-9.0) Ur Specific [place] <= 1.005 (1.005-1.025) Urine Protein Negative (Neg-Trace) mg/dL Urine Glucose (UA) Negative (Negative) mg/dL Urine Ketones Negative (Negative) mg/dL Urine Blood Negative (Negative) Urine Nitrite Negative (Negative) Ur Leukocyte Esterase Large (3+) H (Negative) Urine RBC 0-2 (0-2) /HPF Urine WBC 6-10 H (0-5) /HPF Ur Squamous Epith Cells 3-5 (0-2) /HPF Urine Bacteria None Seen (None Seen) Hyaline Casts 3-5 (0-2) /LPF Stool Occult Blood NEGATIVE (NEGATIVE) Blood Type Antibody Screen Crossmatch <ELISA Masterson - Last Filed: 11/20/22 12:51> Lab Results 11/20/22 11/20/22 11/20/22 Range/Units 13:05 13:05 13:05 WBC 5.1 (4.8-10.8) X10*3/uL RBC 3.83 L (4.20-5.50) X10*6/uL Hgb 7.6 L (12.0-16.0) g/dl Hct 25.6 L (37.0-47.0) % MCV 66.8 L (80.0-98.0) fL MCH 19.8 L (27.0-33.0) pg MCHC 29.7 L (31.0-35.0) g/dl RDW 19.2 H (11.0-16.0) % Plt Count 317 (160-400) X10*3/uL MPV 10.7 (9.4-12.3) fL Immature Gran % (Auto) 0.0 (0.0-0.4) % Neut % (Auto) 61.9 (45-73) % Lymph % (Auto) 19.7 L (20-40) % [place] % (Auto) 9.1 (2-11) % Eos % (Auto) 8.1 H (0-4) % Baso % (Auto) 1.2 (0-2) % Lymph # (Auto) 1.0 L (1.2-4.9) X10*3/uL [place] # (Auto) 0.5 (0.1-1.2) X10*3/uL Eos # (Auto) 0.4 (0.0-0.4) X10*3/uL Baso # (Auto) 0.1 (0.0-0.2) X10*3/uL Abs Immat Gran (auto) 0.00 (0.00-0.03) X10*3/uL Absolute Neuts (auto) 3.1 (2.0-8.3) x10*3/uL Absolute Nucleated RBC 0.000 (0.0-0.012) X10*3/uL Nucleated RBC % (auto) 0.0 (0.0-0.2) /100WBC Smear Tech's Comments VERIFIED PT 12.6 (10.0-13.1) SEC INR 1.1 (0.9-1.1) APTT 40.1 H (26.0-36.4) SEC Sodium 138 (135-145) mmol/L Potassium 3.7 (3.3-5.1) mmol/L Chloride 105 (96-108) mmol/L Carbon Dioxide 24 (22-29) mmol/L Anion Gap 13 (12-20) BUN 8 L (9-16) mg/dL Creatinine 1.16 (0.5-1.4) mg/dL Estim Creat Clear Calc 50.2 Estimated GFR 48 Random Glucose 105 (60-115) mg/dL Calcium 8.7 (8.4-10.2) mg/dL Magnesium 1.3 L* (1.6-2.6) mg/dL Iron 8 L (30-160) mcg/dL TIBC 277 (228-428) mcg/dL % Saturation 3 L (15-50) % Unsat Iron Binding 269 ug/dL Total Bilirubin 0.4 (0.0-1.0) mg/dL Direct Bilirubin < 0.2 (0.0-0.5) mg/dL AST 9 (5-31) U/L ALT < 6 (0-31) U/L Alkaline Phosphatase 38 L (39-117) U/L Troponin I High Sens (<3.5-17.0) ng/L B-Natriuretic Peptide (<100) pg/mL Total Protein 6.3 L (6.5-8.0) g/dL Albumin 3.4 L (3.5-5.0) g/dL Urine Color Urine Appearance Urine pH (5.0-9.0) Ur Specific [place] (1.005-1.025) Urine Protein (Neg-Trace) mg/dL Urine Glucose (UA) (Negative) mg/dL Urine Ketones (Negative) mg/dL Urine Blood (Negative) Urine Nitrite (Negative) Ur Leukocyte Esterase (Negative) Urine RBC (0-2) /HPF Urine WBC (0-5) /HPF Ur Squamous Epith Cells (0-2) /HPF Urine Bacteria (None Seen) Hyaline Casts (0-2) /LPF Stool Occult Blood (NEGATIVE) Blood Type Antibody Screen Crossmatch 11/20/22 11/20/22 11/20/22 Range/Units 13:05 13:05 14:55 WBC (4.8-10.8) X10*3/uL RBC (4.20-5.50) X10*6/uL Hgb (12.0-16.0) g/dl Hct (37.0-47.0) % MCV (80.0-98.0) fL MCH (27.0-33.0) pg MCHC (31.0-35.0) g/dl RDW (11.0-16.0) % Plt Count (160-400) X10*3/uL MPV (9.4-12.3) fL Immature Gran % (Auto) (0.0-0.4) % Neut % (Auto) (45-73) % Lymph % (Auto) (20-40) % [place] % (Auto) (2-11) % Eos % (Auto) (0-4) % Baso % (Auto) (0-2) % Lymph # (Auto) (1.2-4.9) X10*3/uL [place] # (Auto) (0.1-1.2) X10*3/uL Eos # (Auto) (0.0-0.4) X10*3/uL Baso # (Auto) (0.0-0.2) X10*3/uL Abs Immat Gran (auto) (0.00-0.03) X10*3/uL Absolute Neuts (auto) (2.0-8.3) x10*3/uL Absolute Nucleated RBC (0.0-0.012) X10*3/uL Nucleated RBC % (auto) (0.0-0.2) /100WBC Smear Tech's Comments PT (10.0-13.1) SEC INR (0.9-1.1) APTT (26.0-36.4) SEC Sodium (135-145) mmol/L Potassium (3.3-5.1) mmol/L Chloride (96-108) mmol/L Carbon Dioxide (22-29) mmol/L Anion Gap (12-20) BUN (9-16) mg/dL Creatinine (0.5-1.4) mg/dL Estim Creat Clear Calc Estimated GFR Random Glucose (60-115) mg/dL Calcium (8.4-10.2) mg/dL Magnesium (1.6-2.6) mg/dL Iron (30-160) mcg/dL TIBC (228-428) mcg/dL % Saturation (15-50) % Unsat Iron Binding ug/dL Total Bilirubin (0.0-1.0) mg/dL Direct Bilirubin (0.0-0.5) mg/dL AST (5-31) U/L ALT (0-31) U/L Alkaline Phosphatase (39-117) U/L Troponin I High Sens 4.1 (<3.5-17.0) ng/L B-Natriuretic Peptide 382 H (<100) pg/mL Total Protein (6.5-8.0) g/dL Albumin (3.5-5.0) g/dL Urine Color Urine Appearance Urine pH (5.0-9.0) Ur Specific [place] (1.005-1.025) Urine Protein (Neg-Trace) mg/dL Urine Glucose (UA) (Negative) mg/dL Urine Ketones (Negative) mg/dL Urine Blood (Negative) Urine Nitrite (Negative) Ur Leukocyte Esterase (Negative) Urine RBC (0-2) /HPF Urine WBC (0-5) /HPF Ur Squamous Epith Cells (0-2) /HPF Urine Bacteria (None Seen) Hyaline Casts (0-2) /LPF Stool Occult Blood (NEGATIVE) Blood Type AB Positive Antibody Screen NEGATIVE Crossmatch See Detail 11/20/22 11/20/22 Range/Units 16:17 16:47 WBC (4.8-10.8) X10*3/uL RBC (4.20-5.50) X10*6/uL Hgb (12.0-16.0) g/dl Hct (37.0-47.0) % MCV (80.0-98.0) fL MCH (27.0-33.0) pg MCHC (31.0-35.0) g/dl RDW (11.0-16.0) % Plt Count (160-400) X10*3/uL MPV (9.4-12.3) fL Immature Gran % (Auto) (0.0-0.4) % Neut % (Auto) (45-73) % Lymph % (Auto) (20-40) % [place] % (Auto) (2-11) % Eos % (Auto) (0-4) % Baso % (Auto) (0-2) % Lymph # (Auto) (1.2-4.9) X10*3/uL [place] # (Auto) (0.1-1.2) X10*3/uL Eos # (Auto) (0.0-0.4) X10*3/uL Baso # (Auto) (0.0-0.2) X10*3/uL Abs Immat Gran (auto) (0.00-0.03) X10*3/uL Absolute Neuts (auto) (2.0-8.3) x10*3/uL Absolute Nucleated RBC (0.0-0.012) X10*3/uL Nucleated RBC % (auto) (0.0-0.2) /100WBC Smear Tech's Comments PT (10.0-13.1) SEC INR (0.9-1.1) APTT (26.0-36.4) SEC Sodium (135-145) mmol/L Potassium (3.3-5.1) mmol/L Chloride (96-108) mmol/L Carbon Dioxide (22-29) mmol/L Anion Gap (12-20) BUN (9-16) mg/dL Creatinine (0.5-1.4) mg/dL Estim Creat Clear Calc Estimated GFR Random Glucose (60-115) mg/dL Calcium (8.4-10.2) mg/dL Magnesium (1.6-2.6) mg/dL Iron (30-160) mcg/dL TIBC (228-428) mcg/dL % Saturation (15-50) % Unsat Iron Binding ug/dL Total Bilirubin (0.0-1.0) mg/dL Direct Bilirubin (0.0-0.5) mg/dL AST (5-31) U/L ALT (0-31) U/L Alkaline Phosphatase (39-117) U/L Troponin I High Sens (<3.5-17.0) ng/L B-Natriuretic Peptide (<100) pg/mL Total Protein (6.5-8.0) g/dL Albumin (3.5-5.0) g/dL Urine Color Yellow Urine Appearance Clear Urine pH 6.0 (5.0-9.0) Ur Specific [place] <= 1.005 (1.005-1.025) Urine Protein Negative (Neg-Trace) mg/dL Urine Glucose (UA) Negative (Negative) mg/dL Urine Ketones Negative (Negative) mg/dL Urine Blood Negative (Negative) Urine Nitrite Negative (Negative) Ur Leukocyte Esterase Large (3+) H (Negative) Urine RBC 0-2 (0-2) /HPF Urine WBC 6-10 H (0-5) /HPF Ur Squamous Epith Cells 3-5 (0-2) /HPF Urine Bacteria None Seen (None Seen) Hyaline Casts 3-5 (0-2) /LPF Stool Occult Blood NEGATIVE (NEGATIVE) Blood Type Antibody Screen Crossmatch <Jose Miguel Gracia - Last Filed: 11/20/22 20:13> Independent Interpretation I performed an independent interpretation of an: EKG (Sinus rhythm with a rate of 91 beats per minute. No ST segment elevation VA) and Plain X-Ray <Jose Miguel Gracia - Last Filed: 11/20/22 20:13> Interpretation: Chest x-ray without acute finding <Jose Miguel Gracia - Last Filed: 11/20/22 20:13> Discharge Plan Discharge Clinical Impression: Symptomatic anemia <ELISA Masterson - Last Filed: 11/20/22 12:51> Patient Disposition: Home, Self-Care <ELISA Masterson - Last Filed: 11/20/22 12:51> Instructions: Anemia (ED) <ELISA Masterson - Last Filed: 11/20/22 12:51> Additional Instructions: Your blood work was significant for an anemia with a hemoglobin of 7.6. Given that your short of breath and fatigue, your given 1 unit packed red blood cell transfusion to treat symptomatic anemia. There was no evidence of bleeding including in your stool CT scan did not show any acute findings Follow-up with your primary doctor and your GI doctor <ELISA Masterson - Last Filed: 11/20/22 12:51> Prescriptions: No Action cetirizine 10 mg tablet 10 mg PO DAILY Qty: 90 2RF fluticasone propion-salmeterol [Advair Diskus] 250-50 mcg/dose blister with device 1 inh inhalation Q12H 30 Days Qty: 60 2RF tramadol 50 mg tablet 50 mg PO DAILY PRN (Reason: pain) 14 Days Qty: 14 0RF cholecalciferol (vitamin D3) 50 mcg (2,000 unit) tablet 50 mcg PO DAILY 30 Days Qty: 30 3RF sennosides [Senna Lax] 8.6 mg tablet 8.6 mg PO BEDTIME PRN (Reason: constipation) Qty: 90 0RF meloxicam 15 mg tablet 15 mg PO DAILY PRN (Reason: for joint pain) Qty: 30 2RF pantoprazole 40 mg tablet,delayed release (DR/EC) 40 mg PO BID 30 Days Qty: 60 1RF fluticasone propionate [Flonase Allergy Relief] 50 mcg/actuation spray,suspension 1 spray intranasal DAILY Qty: 9.9 1RF Rx Instructions: administer into each nostril clonazepam 0.5 mg tablet 0.5 mg PO BID PRN (Reason: anxiety) 30 Days Qty: 60 0RF albuterol sulfate 90 mcg/actuation HFA aerosol inhaler 2 puff inhalation Q4-6H PRN (Reason: shortness of breath or wheezing) 30 Days Qty: 8.5 4RF cyclobenzaprine 10 mg tablet 10 mg PO DAILY PRN (Reason: muscle spasm) 30 Days Qty: 30 0RF ziprasidone HCl 60 mg capsule 1 cap PO BID hydroxyzine HCl 25 mg tablet 25 mg PO BEDTIME PRN (Reason: severe anxiety) 30 Days Qty: 30 0RF <ELISA Masterson - Last Filed: 11/20/22 12:51>
--- NOTE | 2022-11-20 12:49 | ECG_ITS ---
Test Reason : sob Blood Pressure : / mmHG Vent. Rate : 091 BPM Atrial Rate : 091 BPM P-R Int : 164 ms QRS Dur : 096 ms QT Int : 324 ms P-R-T Axes : 067 017 -19 degrees QTc Int : 398 ms Normal sinus rhythm Minimal voltage criteria for LVH, may be normal variant ( Hung product ) Nonspecific ST and T wave abnormality Abnormal ECG When compared with ECG of 11-JUN-2018 22:00, Nonspecific T wave abnormality now evident in Inferior leads T wave inversion now evident in Anterior leads QT has shortened Referred By: Kate Manzano Electronically Signed By:DEANGELO ABTISTA
[2022-11-20 13:29] LABS: Basophils Absolute Auto 0.1 X10*3/uL (0.0-0.2); Basophils Percent Auto 1.2 % (0-2); Eosinophils Absolute Auto 0.4 X10*3/uL (0.0-0.4); Eosinophils Percent Auto 8.1 % (0-4); Hematocrit 25.6 % (37.0-47.0); Hemoglobin 7.6 g/dl (12.0-16.0); Lymphocytes Percent Auto 19.7 % (20-40); MANUAL DIFF FLAG SCAN; Mean Corpuscular HGB Conc 29.7 g/dl (31.0-35.0); Mean Corpuscular Hemoglobin 19.8 pg (27.0-33.0); Mean Corpuscular Volume 66.8 fL (80.0-98.0); Mean Platelet Volume 10.7 fL (9.4-12.3); Monocytes Absolute Auto 0.5 X10*3/uL (0.1-1.2); Monocytes Percent Auto 9.1 % (2-11); Neutrophils Absolute Auto 3.1 x10*3/uL (2.0-8.3); Neutrophils Percent Auto 61.9 % (45-73); PLT CLUMP 1; Red Blood Count 3.83 X10*6/uL (4.20-5.50); Red Cell Distribution Width 19.2 % (11.0-16.0); SCAN SMEAR FLAG 1
[2022-11-20 13:35] LABS: INTERNATIONAL NORM RATIO 1.1 (0.9-1.1); Prothrombin Time 12.6 SEC (10.0-13.1)
[2022-11-20 13:37] LABS: Partial Thromboplastin Time 40.1 SEC (26.0-36.4)
[2022-11-20 13:44] LABS: B Type Natriuretic Peptide 382 pg/mL (<100)
[2022-11-20 13:49] LABS: Troponin-I High Sensitivity 4.1 ng/L (<3.5-17.0)
[2022-11-20 13:52] LABS: Platelet Count 317 X10*3/uL (160-400); White Blood Count 5.1 X10*3/uL (4.8-10.8)
[2022-11-20 13:53] LABS: Alanine Aminotransferase < 6 U/L (0-31); Albumin Level 3.4 g/dL (3.5-5.0); Alkaline Phosphatase 38 U/L (39-117); Anion Gap 13 (12-20); Aspartate Amino Transferase 9 U/L (5-31); Bilirubin Direct < 0.2 mg/dL (0.0-0.5); Bilirubin Total 0.4 mg/dL (0.0-1.0); Blood Urea Nitrogen 8 mg/dL (9-16); Calcium 8.7 mg/dL (8.4-10.2); Carbon Dioxide 24 mmol/L (22-29); Chloride 105 mmol/L (96-108); Creatinine Clr Calc Pharmacy 50.2; Estimated Glomerular Filt Rate 48; Glucose Random 105 mg/dL (60-115); Iron 8 mcg/dL (30-160); Magnesium 1.3 mg/dL (1.6-2.6); Percent Iron Saturation 3 % (15-50); Potassium 3.7 mmol/L (3.3-5.1); SLIDE REVIEW VERIFIED; Sodium 138 mmol/L (135-145); Total Iron Binding Capacity 277 mcg/dL (228-428); Total Protein 6.3 g/dL (6.5-8.0); Unsaturated Iron Binding 269 ug/dL
--- OUTSIDE RECORDS SUMMARY | 2022-11-20 15:15 | XMS_ITS ---
Author Name Sylvester Cortez Jr Address [address] [place] [address] Organization [facility] Address [address] [place] [address] Care Team Providers Care Apparatus Operator Name Role Phone Sylvester Cortez Jr Unavailable PROBLEMS Type Condition ICD9-CM Code [id number] Code Onset Dates Condition Status SNOMED Code Problem Epigastric pain R10.13 Active 99879523 Problem Gastroesophageal reflux disease with esophagitis without hemorrhage K21.00 Active Problem Gastroesophageal reflux disease without esophagitis K21.9 Active 28333340 5 Problem Erosive esophagitis K22.10 Active 4071 9004 ALLERGIES Substance Reaction Event Type Date Status Tylenol Unknown Drug Allergy Oct, Active ENCOUNTERS Encounter Location Date Diagnosis [facility] [address] [place] [phone] Oct, [facility] [address] [place] [phone] Oct, [facility] [address] [place] [address] Sep, [facility] [address] [place] [address] Sep, [facility] [address] [place] [address] Mar, [facility] [address] [place] [phone] Mar, [facility] [address] [place] [address] 08 Feb, 2021 [facility] [address] [place] [address] Oct, [facility] [address] [place] [address] 04 Oct, 2020 Gastroesophageal reflux disease with esophagitis without hemorrhage K21.00 [facility] [address] [place] [address] 03 Oct, 2020 [facility] [address] [place] [address] 13 Aug, 2020 [facility] [address] [place] [address] Jun, [facility] [address] [place] [address] Oct, [facility] [address] [place] [address] Jun, Epigastric pain R10.13 [facility] [address] [place] [address] December, Epigastric pain R10.13 [facility] [address] [place] [phone] Aug, [facility] [address] [place] [address] 15 Aug, 2018 Epigastric pain R10.13 [facility] [address] [place] [address] 16 Jun, 2018 Erosive esophagitis K22.10 and Epigastric pain R10.13 [facility] [address] [place] [address] May, [facility] [address] [place] [address] 05 Jan, 2018 Gastroesophageal reflux disease without esophagitis K21.9 [facility] [address] [place] [address] 04 Jul, 2017 Gastroesophageal reflux disease without esophagitis K21.9 [facility] [address] [place] [address] 05 Feb, 2017 Gastroesophageal reflux disease without esophagitis K21.9 [facility] [address] [place] [address] 14 Sep, 2016 [facility] [address] [place] [address] Aug, Gastroesophageal reflux disease without esophagitis K21.9 [facility] [address] [place] [address] Jun, [facility] [address] [place] [address] December, [facility] [address] [place] [address] May, [facility] [address] [place] [address] Jan, [facility] [address] [place] [address] Nov, [facility] [address] [place] [address] Oct, [facility] [address] [place] [address] Apr, [facility] [address] [place] [address] December, [facility] [address] [place] [address] December, [facility] [address] [place] [address] Jul, [facility] [address] [place] [address] Aug, [facility] [address] [place] [address] Aug, Esophageal reflux 530.81 [facility] [address] [place] [address] Jul, [facility] [address] [place] [address] Mar, [facility] [address] [place] [address] December, [facility] [address] [place] [address] December, [facility] [address] [place] [address] December, [facility] [address] [place] [address] December, [facility] [address] [place] [address] December, [facility] [address] [place] [address] December, [facility] [address] [place] [address] May, [facility] [address] [place] [address] May, [facility] [address] [place] [phone] Jun, [facility] [address] [place] [phone] May, [facility] [address] [place], [place] [phone] May, [facility] [address] [place], [place] [phone] Feb, IMMUNIZATIONS Vaccine Route Administration Date Status Influenza Unknown Jul 11, 2017 Administered SOCIAL HISTORY Qualifiers Date Current Smoker REASON FOR REFERRAL FUNCTIONAL STATUS PLAN OF CARE Activity Details VITAL SIGNS Weight 172 lbs 2020-10-26 Weight 185 lbs 2018-07-10 Weight 200 lbs 2016-09-18 Weight 154 lbs 2012-09-24 Height 65.5 in 2020-10-26 Height 65.5 in 2018-07-10 Height 65.5 in 2016-09-18 Height 65.5 in 2012-09-24 BMI 28.18 kg/m2 2020-10-26 BMI 30.31 kg/m2 2018-07-10 BMI 32.77 kg/m2 2016-09-18 BMI 25.23 kg/m2 2012-09-24 Heart Rate 88 /min 2016-09-18 Heart Rate 76 /min 2012-09-24 Temperature 97.3 degrees Fahrenheit Blood pressure systolic 000 mm Hg Blood pressure diastolic 00 mm Hg 2020-10 MEDICATIONS Medication Instructions Dosage Frequency Start Date End Date Duration Status Ibuprofen Active clonazePAM 0.5mg Orally prn 1 tablet Active Vitamin D Active Pantoprazole Sodium 40 MG Orally Once a day 1 tablet 24h Sep, 30 days Active Cyclobenzaprine HCl Active Geodon 60 MG Orally Twice a day 1 capsule with food 12h Active PROCEDURES Procedure Date Ordered Result Body Site BMI<30 AND >=22 CALC & DOCU Jul 10, 2018 COLORECTAL CA SCREEN DOC REV Jul 10, 2018 DOC MEDS VERIFIED W/PT OR RE October 26, 2020 UPPER GI ENDOSCOPY, BIOPSY Jun 12, 2018 COLORECTAL CA SCREEN DOC REV October 26, 2020 FLU IMMUNIZE ORDER/ADMIN Jul 10, 2018 PT TOBACCO SCREEN RCVD TLK Jul 10, 2018 DOC MEDS VERIFIED W/PT OR RE Jul 10, 2018 BP NOT ASSESS PATIENT NOT ELIGIBLE October 26, 2020 PT TOBACCO SCREEN RCVD TLK October 26, 2020 BP SCR PRFRM RCMDD DEFIND SCR INTVL Jul 10, 2018 RESULTS Name Result Date Reference Range GI BIOPSY 2018-09-11 G.I. BIOPSY GI BIOPSY 2018-06-12 G.I. BIOPSY REASON FOR VISIT PT TO GO TO ER, new script for pantoprazole , pantoprazole , refill pantoprazole, need PA for protonix , refill, pantoprazole refill, ov recall, patient presents today for esophagitis , COVID Screen,r/f request protonix , Refill , , requesting r/f protonix, r/f request protonix, erosive esophag itis, refill, patient presents today for epigastric pain, ? ov/procedure, refill on protonix, refill request/protonix 40 mg, requesting refill on protonix, vomiting, Patient presents today for a follow up for reflux., Needs refill, refill, refill/protonix/rite aid, Pt no show, FOLLOW UP, Needs refills, Pt no show, esophageal reflux, esophageal reflux, Pt no show, OFFICE FOLLOW UP, office recall, refill request, refil request, Needs RX Refill on Protonix, Office F/up, Follow up reflux, f/u reflux, cancelling appointment, refill, Protonix Prescription , NEED HARD COPY, RX, NO SHOW, Refills Insurance Providers Health Insurance Type Health Plan Insurance Address Health Plan Insurance Phone Health Plan Insurance Name Health Plan Coverage Dates Member ID Patient Relationship to Subscriber Patient Address Patient Phone Patient Name Patient Date of Subscriber ID Subscriber Name Subscriber Date of Group No MEDICAID OF [employer] [address] [place] [phone] [place] self [place] Mikey LOPEZ [id number] [facility] [address] [facility] [phone] [facility] self [place] Mikey LOPEZ [id number] [facility] [address] [address] [facility] [id number] [facility] self [place] Mikey LOPEZ [id number]
[2022-11-20 16:27] LABS: OBS Int Ctl Valid YES; OBS1 NEGATIVE (NEGATIVE)
[2022-11-20] MEDS: Magnesium Oxide 400 MG TABLET 800 MG PO (16:44)
[2022-11-20] MEDS: Magnesium Sulfate/H2O 2 GM/50 ML PIGGYBACK IV (16:45)
[2022-11-20] MEDS: iohexoL 350 MG/ML 100 ML INFUS..BTL IV (17:05)
[2022-11-20 17:08] LABS: Appearance Urine Clear; Color Urine Yellow; Glucose Urine UA Negative (Negative); Leukocyte Esterase Urine Large (3+) (Negative); Nitrite Urine Negative (Negative); Specific Gravity - Urine <= 1.005 (1.005-1.025); UMIC TRIGGER UACC YES; Urine Blood Negative (Negative); Urine Ketones Negative (Negative); Urine Protein Negative (Neg-Trace)
[2022-11-20 17:54] LABS: Bacteria Urine None Seen (None Seen); RBC Urine 0-2 /HPF (0-2); UACC Culture Trigger YES
== END 2022-11-20 22:37 | disposition home or self-care (01) ==
PROVIDERS: Physician Assistant; Emergency Provider Emergency Medicine; PCP Nurse Practitioner Family
DX: D64.9 Anemia, unspecified (principal); R06.02 Shortness of breath; J44.9 Chronic obstructive pulmonary disease, unspecified; R10.2 Pelvic and perineal pain; Z87.891 Personal history of nicotine dependence; Z79.899 Other long term (current) drug therapy
CPT/HCPCS: 36415; 36430; 71046; 74177; 80048; 80076; 81001; 81003; 82272; 83540; 83735; 83880; 84484; 85025; 85610; 85730; 86850; 86900; 86901; 86923; 93005; 96365; 99285; J3475; P9016; Q9967

== ENCOUNTER 2022-11-29 12:51 | Outpatient (REF) | payer OTHER, SELFPAY ==
--- NOTE | 2022-11-29 17:22 | PFT_ITS ---
FLOWS: 1. FEV1 72% of predicted at 1.87 L. 2. FVC 73% of predicted at 2.40 L. 3. FEV1 to FVC ratio of 0.78. 4. No bronchodilator response. LUNG VOLUMES: 1. Total lung capacity 76% of predicted at 3.87 L. 2. Residual volume 80% of predicted at 1.60 L. 3. Slow vital capacity 73% of predicted at 2.27 L. 4. Expiratory reserve volume 89% of predicted at 0.79 L. 5. Diffusion capacity is moderately decreased, diffusion capacity adjusted, being mildly decreased after correction for alveolar ventilation. IMPRESSION: Moderate restrictive ventilatory defect with no bronchodilator response. Decreased diffusion capacity to give restrictive ventilatory defect suggest underlying pulmonary parenchymal disease. Clinical correlation is advised. MD NESSA Lambert/MODL / [id number]
== END 2022-11-29 12:52 | disposition home or self-care (01) ==
LOC: HO.RESP 12:51
PROVIDERS: PCP Nurse Practitioner Family; Visit Provider Nurse Practitioner Family
DX: R06.02 Shortness of breath (principal); F17.200 Nicotine dependence, unspecified, uncomplicated
CPT/HCPCS: 94060; 94727; 94729

== ENCOUNTER 2022-12-02 14:30 | Outpatient (REF) | payer OTHER, SELFPAY ==
[2022-12-02 16:40] LABS: Hemoglobin 11.3 g/dl (12.0-16.0)
[2022-12-02 16:42] LABS: Hematocrit 38.3 % (37.0-47.0); Immature Retic Fraction 27.3 % (3.0-15.9); Mean Corpuscular HGB Conc 29.5 g/dl (31.0-35.0); Mean Corpuscular Hemoglobin 20.5 pg (27.0-33.0); Mean Corpuscular Volume 69.4 fL (80.0-98.0); Platelet Count 387 X10*3/uL (160-400); Red Blood Count 5.52 X10*6/uL (4.20-5.50); Red Cell Distribution Width 25.7 % (11.0-16.0); Retic HGB Equivalent 31.7 pg (30.0-35.0); Reticulocyte Percent 1.4 % (0.5-1.8); Reticulocytes Absolute 0.076 X10*6/uL (0.026-0.095); White Blood Count 7.7 X10*3/uL (4.8-10.8)
[2022-12-02 17:01] LABS: PLT ABN DIST 1
[2022-12-02 17:03] LABS: Alanine Aminotransferase 9 U/L (0-31); Albumin Level 4.4 g/dL (3.5-5.0); Alkaline Phosphatase 51 U/L (39-117); Anion Gap 14 (12-20); Aspartate Amino Transferase 15 U/L (5-31); Bilirubin Total 1.3 mg/dL (0.0-1.0); Blood Urea Nitrogen 10 mg/dL (9-16); Calcium 10.2 mg/dL (8.4-10.2); Carbon Dioxide 24 mmol/L (22-29); Chloride 106 mmol/L (96-108); Estimated Glomerular Filt Rate 50; Glucose Random 88 mg/dL (60-115); Potassium 4.8 mmol/L (3.3-5.1); Sodium 139 mmol/L (135-145); Total Protein 8.4 g/dL (6.5-8.0)
== END 2022-12-02 14:31 | disposition home or self-care (01) ==
LOC: HO.HMGCLDS 14:30
PROVIDERS: PCP Nurse Practitioner Family; Visit Provider Nurse Practitioner Family
DX: D64.9 Anemia, unspecified (principal)
CPT/HCPCS: 36415; 80053; 85027; 85045

== ENCOUNTER 2023-03-17 11:01 | Outpatient (AMB) | payer OTHER, SELFPAY ==
--- OUTSIDE RECORDS SUMMARY | 2023-03-17 11:03 | XMS_ITS ---
Author Name Sylvester Cortez Jr Address [address] [place] [address] Organization [facility] Address [address] [place] [address] Care Team Providers Care Summer Child Caregiver Name Role Phone Sylvester Cortez Jr Unavailable PROBLEMS Type Condition ICD9-CM Code [id number] Code Onset Dates Condition Status SNOMED Code Problem Epigastric pain R10.13 Active 78018423 Problem Gastroesophageal reflux disease with esophagitis without hemorrhage K21.00 Active Problem Gastroesophageal reflux disease without esophagitis K21.9 Active 98162108 5 Problem Erosive esophagitis K22.10 Active 4071 9004 ALLERGIES Substance Reaction Event Type Date Status Tylenol Unknown Drug Allergy Oct, Active ENCOUNTERS Encounter Location Date Diagnosis [facility] [address] [place] [address] December, [facility] [address] [place] [address] Oct, [facility] [address] [place] [address] Oct, [facility] [address] [place] [address] Oct, [facility] [address] [place] [address] Sep, [facility] [address] [place] [address] Sep, [facility] [address] [place] [address] 10 Mar, 2021 [facility] [address] [place] [address] Mar, [facility] [address] [place] [address] 08 Feb, 2021 [facility] [address] [place] [address] 04 Oct, 2020 [facility] [address] [place] [address] 04 Oct, 2020 Gastroesophageal reflux disease with esophagitis without hemorrhage K21.00 [facility] [address] [place] [address] 03 Oct, 2020 [facility] [address] [place] [address] 13 Aug, 2020 [facility] [address] [place] [address] Jun, [facility] [address] [place] [address] Oct, [facility] [address] [place] [address] Jun, Epigastric pain R10.13 [facility] [address] [place] [address] December, Epigastric pain R10.13 [facility] [address] [place] [phone] Aug, [facility] [address] [place] [address] 15 Aug, 2018 Epigastric pain R10.13 [facility] [address] [place] [address] 16 Jun, 2018 Erosive esophagitis K22.10 and Epigastric pain R10.13 [facility] [address] [place] [address] May, [facility] [address] [place] [address] 05 Jan, 2018 Gastroesophageal reflux disease without esophagitis K21.9 [facility] [address] [place] [address] 04 Jul, 2017 Gastroesophageal reflux disease without esophagitis K21.9 [facility] [address] [place] [address] Feb, Gastroesophageal reflux disease without esophagitis K21.9 [facility] [address] [place] [address] 14 Sep, 2016 [facility] [address] [place] [address] Aug, Gastroesophageal reflux disease without esophagitis K21.9 [facility] [address] [place] [address] Jun, [facility] [address] [place] [address] December, [facility] [address] [place] [address] May, [facility] [address] [place] [address] Jan, [facility] [address] [place] [address] Nov, [facility] [address] [place] [address] Oct, [facility] [address] [place] [address] Apr, [facility] [address] [place] [address] December, [facility] [address] [place] [address] December, [facility] [address] [place] [address] Jul, [facility] [address] [place] [address] Aug, [facility] [address] [place] [address] Aug, Esophageal reflux 530.81 [facility] [address] [place] [address] Jul, [facility] [address] [place] [address] Mar, [facility] [address] [place] [address] December, [facility] [address] [place] [address] December, [facility] [address] [place] [address] December, [facility] [address] [place] [address] December, [facility] [address] [place] [address] December, [facility] [address] [place] [address] December, [facility] [address] [place] [address] May, [facility] [address] [place] [address] May, [facility] [address] [place], [place] [phone] Jun, [facility] [address] [place] [phone] May, [facility] [address] [place], [place] [phone] May, [facility] [address] [place], [place] [phone] Feb, IMMUNIZATIONS Vaccine Route Administration Date Status [...] ASSESS PATIENT NOT ELIGIBLE October 26, 2020 INIT HOSP-MOD CPLX Jun 12, 2018 PT TOBACCO SCREEN RCVD TLK October 26, 2020 BP SCR PRFRM RCMDD DEFIND SCR INTVL Jul 10, 2018 RESULTS Name Result Date Reference Range GI BIOPSY 2018-09-11 G.I. BIOPSY GI BIOPSY 2018-06-12 G.I. BIOPSY REASON FOR VISIT abd pain, Pr was running late/N/S as well, Patient presents today for anemia, PT TO GO TO ER, new script for pantoprazole , pantoprazole , refill pantoprazole, need PA for protonix , refill, pantoprazole refill, ov recall, patient presents today for esophagitis , COVID Screen, r/f request protonix , Refill , , requesting r/f protonix, r/f request protonix, erosive esophagitis, refill, patientpresents today for epigastric pain, ? ov/procedure, refill [...] ID Subscriber Name Subscriber Date of Group [facility] [address] [facility] [id number] [facility] self PERSIDIA Mikey LOPEZ [id number] [facility] [address] [address] [facility] [id number] [facility] self PERSIDIA Mikey LOPEZ [id number] [employer] [place] [facility] [address] [facility] [place] [address] [employer] [place] [facility] self PERSIDIA Mikey LOPEZ [id number] 4
--- NOTE | 2023-03-17 12:38 | AM.OFFWIN_ITS ---
Intake Vital Signs 03/17/23 12:39 Height 5 ft 4 in BP 120/72 Blood Pressure Location Lt brachial Position Sitting Pulse 92 Pulse Source Pulse Oximeter Temp 95.6 F L Temp Source Temporal Artery Scan Pulse Oximetry (%) 95 Oxygen Delivery Method Room Air Intake Visit Reasons: EST/nose bleeds/Face swelling Intake Note: Pt is here c/o constant nose bleeds and face swelling. Patient Tobacco Use Status: Current everyday Tobacco user Allergies Sulfa (Sulfonamide Antibiotics) Allergy (Severe, Verified 03/17/23 12:38) Swelling azithromycin [Zithromax] Allergy (Intermediate, Verified 03/17/23 12:38) hives/GI upset hydrocodone [From VICODIN] Allergy (Intermediate, Verified 03/17/23 12:38) Rash naproxen [Aleve] Allergy (Intermediate, Verified 03/17/23 12:38) Rash oxycodone [OXYCODONE] Allergy (Intermediate, Verified 03/17/23 12:38) Rash acetaminophen [From TYLENOL] Adverse Reaction (Intermediate, Verified 03/17/23 12:38) RASH ALL OVER BODY Do you need a note to return to daycare/school/sports/work: No HPI HPI Comments History of Present Illness Details 57-year-old female presents with 2 months of daily nose bleeds, h eadaches, and the swelling in the bridge of her nose. She has tried izto-lmm-kaqhzhc medications to help alleviate her headache, and the swelling, and has used nose sprays to stop the bleeding with no effect. PFSH Medical History Anxiety Arthritis Asthma Back pain COPD (chronic obstructive pulmonary disease) Depression Disorder of lung parenchyma Erosive esophagitis GERD (gastroesophageal reflux disease) History of bipolar disorder Hx of ulcer disease Hx pulmonary embolism Lumbar herniated disc Panic attacks Urinary retention Surgical History H/O esophagogastroduodenoscopy History of hysterectomy Hx of appendectomy Hx of cholecystectomy Hx of colonoscopy Family History Father No problems noted. 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) Alcohol intake: current Alcohol intake frequency: holidays/special occasions only Alcohol type: beer and wine Patient Tobacco Use Status: Current everyday Tobacco user Cigarettes Per Day: 2 Years Smoked: 10+ e-Cigarette/Vaping Use: Currently Using Second Hand Smoke Exposure: No service: No Current occupational status: unemployed Cognitive needs: No Hearing needs: No Vision needs: Yes Review of Systems Const Details: Constitutional: No Fever, No Chills ENT/Mouth: No Ear Pain, No Hoarseness, No sore throat, positive nose bleeds, pos itive facial swelling Eyes: No Eye Pain, No Swelling, No Redness, No Foreign Body Cardiovascular: No Chest Pain, No SOB Respiratory: No Cough, No Dyspnea Gastrointestinal: No Nausea, No Vomiting, No Diarrhea, No abdominal Pain Genitourinary: No Dysuria, No Hematuria Musculoskeletal: No joint pain, No Myalgias, No Joint Swelling Skin: No Skin lacerations, No rash Neuro: No Weakness, No Numbness, No Paresthesias, No Loss of Consciousness, No Dizziness, positive Headache All systems reviewed & are unremarkable except as noted in HPI and below Physical Exam Vital Signs: Last Vital Signs Temp 95.6 F L 03/17/23 12:39 Pulse 92 03/17/23 12:39 BP 120/72 03/17/23 12:39 Pulse Ox 95 03/17/23 12:39 Oxygen Delivery Method Room Air 03/17/23 12:39 Appearance: Alert. Oriented X3. No acute distress. Eyes: Pupils equal, round and reactive to light. ENT: Pharynx normal. Dried blood to the left naris. Nasal bridge is swollen bilaterally, tender to palpation. Neck: Normal inspection. Neck supple. CVS: Normal heart rate and rhythm. Pulses normal. Respiratory: No respiratory distress. Breath sounds normal. Skin: Skin warm and dry. Normal skin color. Normal skin turgor. Extremities: Gait balanced and coordinated. Neuro: No motor deficit. No sensory deficit. Cranial nerves 2-12 intact. Assessment & Plan Assessment & Plan (1) Facial swelling: Code(s): R22.0 - Localized swelling, mass and lump, head Plan 57-year-old female presents with 2 months of daily nose bleeds, increase in facial swelling. Specifically around the bridge of the nose bilaterally, and headaches that have worsened over the past 2 weeks. Patient states that her son came home from the , and stated that she needed to see a doctor. Patient states that she did not seek medical attention because she could not get into her primary care. Patient has dried blood clots to the left narrow, swelling from the bridge of the nose that extends to the infraorbital hollows bilaterally. Bridge of nose is tender to palpation. This patient requires CT scan imaging and labs. Highly suspicious for septal and sinus abscess versus malignancy. High suspicion for infectious etiology. Plan of care is for patient to follow up in the emergency department. Patient would like to present to [facility]. Provider to provider report given by this FOREST WORKER to provider in triage. Patient understands the gravity of her situation, and that she must present to the emergency department for evaluation. Patient Instructions: You presented to urgent care for evaluation of 2 months of nose bleeding and facial swelling with headaches. Please present to the emergency department for evaluation. Coding Level of Care Code Est Pt Level 3 (97195) Diagnoses Facial swelling R22.0
[2023-03-17 12:39] VITALS: BP 120/72; PULSE 92; TEMP 35.3; O2SAT 95
== END 2023-03-17 13:06 | disposition home or self-care (01) ==
PROVIDERS: PCP Nurse Practitioner Family; Visit Provider Nurse Practitioner Family
DX: R22.0 Localized swelling, mass and lump, head (principal)
CPT/HCPCS: 99213

== ENCOUNTER 2023-03-17 14:01 | Outpatient (REF) | payer OTHER, SELFPAY | END 2023-03-17 14:02 | disposition home or self-care (01) | LOC: HO.XRAY 14:01 | PROVIDERS: PCP Nurse Practitioner Family; Visit Provider Nurse Practitioner Family | DX: Z13.89 Encounter for screening for other disorder (principal) ==

== ENCOUNTER 2023-03-17 14:15 | Emergency (ER) | payer OTHER, SELFPAY ==
--- OUTSIDE RECORDS SUMMARY | 2023-03-17 14:52 | XMS_ITS ---
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 Name Role Phone Sylvester Cortez Jr Unavailable PROBLEMS Type Condition ICD9-CM Code [id number] Code Onset Dates Condition Status SNOMED Code Problem Epigastric pain R10.13 Active 10638758 Problem Gastroesophageal reflux disease with esophagitis without hemorrhage K21.00 Active Problem Gastroesophageal reflux disease without esophagitis K21.9 Active 34019854 5 Problem Erosive esophagitis K22.10 Active 4071 9004 ALLERGIES Substance Reaction Event Type Date Status Tylenol Unknown Drug Allergy Oct, Active ENCOUNTERS Encounter Location Date Diagnosis [facility] [address] [place] [address] December, [facility] [address] [place] [address] Oct, [facility] [address] [place] [address] Oct, [facility] [address] [place] [address] Oct, [facility] [address] [place] [address] Sep, [facility] [address] [place] [address] Sep, [facility] [address] [place] [address] 10 Mar, 2021 [facility] [address] [place] [address] Mar, [facility] [address] [place] [address] 08 Feb, 2021 [facility] [address] [place] [address] 04 Oct, 2020 [facility] [address] [place] [address] 04 Oct, 2020 Gastroesophageal reflux disease with esophagitis without hemorrhage K21.00 [facility] [address] [place] [address] 03 Oct, 2020 [facility] [address] [place] [address] 13 Aug, 2020 [facility] [address] [place] [address] Jun, [facility] [address] [place] [address] Oct, [facility] [address] [place] [address] Jun, Epigastric pain R10.13 [facility] [address] [place] [address] December, Epigastric pain R10.13 [facility] Out[facility] [address] [place] [id number] Aug, [facility] [address] [place] [address] 15 Aug, 2018 Epigastric pain R10.13 [facility] [address] [place] [address] 16 Jun, 2018 Erosive esophagitis K22.10 and Epigastric pain R10.13 [facility] [address] [place] [address] May, [facility] [address] [place] [address] 05 Jan, 2018 Gastroesophageal reflux disease without esophagitis K21.9 [facility] [address] [place] [address] 04 Jul, 2017 Gastroesophageal reflux disease without esophagitis K21.9 [facility] [address] [place] [address] Feb, Gastroesophageal reflux disease without esophagitis K21.9 [facility] [address] [place] [address] 14 Sep, 2016 [facility] [address] [place] [address] Aug, Gastroesophageal reflux disease without esophagitis K21.9 [facility] [address] [place] [address] Jun, [facility] [address] [place] [address] December, [facility] [address] [place] [address] May, [facility] [address] [place] [address] Jan, [facility] [address] [place] [address] Nov, [facility] [address] [place] [address] Oct, [facility] [address] [place] [address] Apr, [facility] [address] [place] [address] December, [facility] [address] [place] [address] December, [facility] [address] [place] [address] Jul, [facility] [address] [place] [address] Aug, [facility] [address] [place] [address] Aug, Esophageal reflux 530.81 [facility] [address] [place] [address] Jul, [facility] [address] [place] [address] Mar, [facility] [address] [place] [address] December, [facility] [address] [place] [address] December, [facility] [address] [place] [address] December, [facility] [address] [place] [address] December, [facility] [address] [place] [address] December, [facility] [address] [place] [address] December, [facility] [address] [place] [address] May, [facility] [address] [place] [address] May, [facility] [address] [place] [id number] Jun, [facility] [address] [place] [id number] May, [facility] [address] [place], [place] [phone] May, [facility] [address] [place], [place] [phone] Feb, IMMUNIZATIONS Vaccine Route Administration Date Status [...] ID Subscriber Name Subscriber Date of Group [facility] [address] [facility] [id number] [facility] self PERSIDIA Mikey LOPEZ [id number] [facility] [address] [address] [employer] [id number] [facility] self PERSIDIA Mikey LOPEZ [id number] [employer] [place] [facility] [address] [facility] [address] [employer] [place] [facility] self PERSIDIA Mikey LOPEZ [id number]
== END 2023-03-17 14:56 | disposition left against medical advice (07) ==
PROVIDERS: Emergency Provider Emergency Medicine; PCP Nurse Practitioner Family
DX: R04.0 Epistaxis (principal); S09.90XA Unspecified injury of head, initial encounter; X58.XXXA Exposure to other specified factors, initial encounter; Y93.9 Activity, unspecified; Y92.9 Unspecified place or not applicable; Y99.9 Unspecified external cause status

== ENCOUNTER 2023-03-17 15:03 | Emergency (ER) | payer OTHER, SELFPAY ==
--- NOTE | ~2023-03-17 | XR_ITS ---
EXAMINATION: XR CHEST CLINICAL INFORMATION: Shortness of breath. COMPARISON: 11/20/2022 chest radiographs. TECHNIQUE: 2 views of the chest were obtained. FINDINGS: Mild asymmetric markings are seen in the left perihilar region. There are no pleural effusions. The heart and mediastinal structures are unremarkable. XR/XR chest 2V IMPRESSION: Asymmetric left perihilar region appear mildly increased compared to the previous study. This could be projectional however a developing infiltrate cannot be excluded. If symptoms persist or worsen, short-term repeat PA and lateral views of chest are recommended as clinically indicated to assess for more short-term change.
[2023-03-17 15:05] VITALS: BP 138/93; PULSE 96; RESP 18; TEMP 36; O2SAT 92; BMI 26.3
--- NOTE | 2023-03-17 15:07 | ED.GENADULT ---
HPI - General Adult General Chief complaint: Epistaxis Stated complaint: nose bleed Related Data Home Medications Medication Instructions Recorded Confirmed ziprasidone HCl 60 mg capsule 1 cap PO BID 09/19/20 12/02/22 Previous Rx's Medication Instructions Recorded albuterol sulfate 90 mcg/actuation 2 puff inhalation Q4-6H PRN 11/11/22 aerosol inhaler shortness of breath or wheezing 30 days #8.5 grams tramadol 50 mg tablet 50 mg PO DAILY PRN pain 14 days 12/05/22 #14 tabs clonazepam 0.5 mg tablet 0.5 mg PO BID PRN anxiety 30 days 12/10/22 #60 tabs cetirizine 10 mg tablet 10 mg PO DAILY #90 tabs 01/01/23 albuterol sulfate 90 mcg/actuation 2 puff inhalation Q6H PRN 02/13/23 aerosol inhaler shortness of breath or wheezing #6.7 grams doxycycline hyclate 100 mg capsule 100 mg PO BID 7 days #14 caps 02/13/23 prednisone 20 mg tablet 40 mg (2 x 20 mg) PO DAILY 5 days 02/13/23 #10 tabs fluticasone propionate 50 1 spray intranasal DAILY #9.9 mL 02/21/23 mcg/actuation nasal spray,suspension (Flonase Allergy Relief) fluticasone 250 mcg-salmeterol 50 1 inh inhalation Q12H #180 ea 02/24/23 mcg/dose blistr powdr for inhalation (Advair Diskus) pantoprazole 40 mg tablet,delayed 40 mg PO BID #180 tabs 03/07/23 release amoxicillin 875 mg-potassium 1 tab PO BID #20 tabs 03/19/23 clavulanate 125 mg tablet fluticasone propionate 50 1 spray intranasal DAILY #16 grams 03/19/23 mcg/actuation nasal spray,suspension meloxicam 15 mg tablet 15 mg PO DAILY PRN for joint pain 03/19/23 #30 tabs cholecalciferol (vitamin D3) 50 50 mcg PO DAILY #90 tabs 04/04/23 mcg (2,000 unit) tablet cyclobenzaprine 10 mg tablet 10 mg PO DAILY PRN muscle spasm 30 04/07/23 days #30 tabs hydroxyzine HCl 25 mg tablet 25 mg PO BEDTIME PRN severe 04/30/23 anxiety 30 days #30 tabs Allergies Allergy/AdvReac Type Severity Reaction Status Date / Time Sulfa (Sulfonamide Allergy Severe Swelling Verified 03/19/23 09:38 Antibiotics) azithromycin [Zithromax] Allergy Intermediate hives/GI Verified 03/19/23 09:38 upset hydrocodone [From VICODIN] Allergy Intermediate Rash Verified 03/19/23 09:38 naproxen [Aleve] Allergy Intermediate Rash Verified 03/19/23 09:38 oxycodone [OXYCODONE] Allergy Intermediate Rash Verified 03/19/23 09:38 acetaminophen [From TYLENOL] AdvReac Intermediate RASH ALL Verified 03/19/23 09:38 OVER BODY PMFSH Past Medical History Medical History Anxiety Arthritis Asthma Back pain COPD (chronic obstructive pulmonary disease) Depression Disorder of lung parenchyma Erosive esophagitis GERD (gastroesophageal reflux disease) History of bipolar disorder Hx of ulcer disease Hx pulmonary embolism Lumbar herniated disc Panic attacks Urinary retention Surgical History H/O esophagogastroduodenoscopy History of hysterectomy Hx of appendectomy Hx of cholecystectomy Hx of colonoscopy Family History Family History Father No problems noted. Mother HTN (hypertension) Asthma High cholesterol Heart problem Diabetes mellitus Sister Liver cancer Social History Social History Housing: Apartment Are you a primary care management assistant to a significant other at home: No Do you presently have visiting nurse or other home services: Yes ([employer]) Alcohol intake: current Alcohol intake frequency: holidays/special occasions only Alcohol type: beer and wine Patient Tobacco Use Status: Current everyday Tobacco user Cigarettes Per Day: 2 Years Smoked: 10+ e-Cigarette/Vaping Use: Currently Using Second Hand Smoke Exposure: No service: No Current occupational status: unemployed Cognitive needs: No Hearing needs: No Vision needs: Yes Physical Exam ED Vital Signs: BMI result Body Mass Index 26.3 Course Course Course Narrative: RME- 57-year-old female presents for evaluation of swelling to the left side of the face and nose. She also reports frequent nose bleeds and ?pus. ? She states that it is draining ?orange fluid. Also complains of congestion, facial pain and headaches. Plan for labs including coags, LFTs pain with a CT scan of the sinuses with IV contrast and a CT scan of brain without contrast. Patient was sent from urgent care. Patient's oxygen saturation 92% on room air in triage Medical Decision Making Lab Data 03/17/23 15:52 03/17/23 15:52 Labs: Lab Results 03/17/23 Range/Units 15:52 WBC 9.0 (4.8-10.8) X10*3/uL RBC 4.45 (4.20-5.50) X10*6/uL Hgb 12.2 (12.0-16.0) g/dl Hct 37.0 (37.0-47.0) % MCV 83.1 (80.0-98.0) fL MCH 27.4 (27.0-33.0) pg MCHC 33.0 (31.0-35.0) g/dl RDW 19.6 H (11.0-16.0) % Plt Count 322 (160-400) X10*3/uL MPV 10.9 (9.4-12.3) fL Immature Gran % (Auto) 0.2 (0.0-0.4) % Neut % (Auto) 63.0 (45-73) % Lymph % (Auto) 20.5 (20-40) % [place] % (Auto) 8.0 (2-11) % Eos % (Auto) 7.7 H (0-4) % Baso % (Auto) 0.6 (0-2) % Lymph # (Auto) 1.8 (1.2-4.9) X10*3/uL [place] # (Auto) 0.7 (0.1-1.2) X10*3/uL Eos # (Auto) 0.7 H (0.0-0.4) X10*3/uL Baso # (Auto) 0.1 (0.0-0.2) X10*3/uL Abs Immat Gran (auto) 0.02 (0.00-0.03) X10*3/uL Absolute Neuts (auto) 5.6 (2.0-8.3) x10*3/uL Absolute Nucleated RBC 0.000 (0.0-0.012) X10*3/uL Nucleated RBC % (auto) 0.0 (0.0-0.2) /100WBC PT 12.2 (10.0-13.1) SEC INR 1.1 (0.9-1.1) APTT 42.5 H (26.0-36.4) SEC Sodium 142 (135-145) mmol/L Potassium 3.9 (3.3-5.1) mmol/L Chloride 108 (96-108) mmol/L Carbon Dioxide 27 (22-29) mmol/L Anion Gap 11 L (12-20) BUN 8 L (9-16) mg/dL Creatinine 0.80 (0.5-1.4) mg/dL Estim Creat Clear Calc 72.3 Estimated GFR > 60 Random Glucose 94 (60-115) mg/dL Calcium 9.6 (8.4-10.2) mg/dL Total Bilirubin 0.9 (0.0-1.0) mg/dL AST 12 (5-31) U/L ALT 8 (0-31) U/L Alkaline Phosphatase 56 (39-117) U/L Total Protein 7.4 (6.5-8.0) g/dL Albumin 3.7 (3.5-5.0) g/dL Lipase 7 L (8-78) U/L Discharge Plan Discharge Clinical Impression: Headache Patient Disposition: Elopement Prescriptions: No Action albuterol sulfate 90 mcg/actuation HFA aerosol inhaler 2 puff inhalation Q4-6H PRN (Reason: shortness of breath or wheezing) 30 Days Qty: 8.5 4RF tramadol 50 mg tablet 50 mg PO DAILY PRN (Reason: pain) 14 Days Qty: 14 0RF clonazepam 0.5 mg tablet 0.5 mg PO BID PRN (Reason: anxiety) 30 Days Qty: 60 0RF cetirizine 10 mg tablet 10 mg PO DAILY Qty: 90 2RF fluticasone propionate [Flonase Allergy Relief] 50 mcg/actuation spray,suspension 1 spray intranasal DAILY Qty: 9.9 1RF Rx Instructions: administer into each nostril fluticasone propion-salmeterol [Advair Diskus] 250-50 mcg/dose blister with device 1 inh inhalation Q12H Qty: 180 1RF pantoprazole 40 mg tablet,delayed release (DR/EC) 40 mg PO BID Qty: 180 1RF meloxicam 15 mg tablet 15 mg PO DAILY PRN (Reason: for joint pain) Qty: 30 2RF cholecalciferol (vitamin D3) 50 mcg (2,000 unit) tablet 50 mcg PO DAILY Qty: 90 1RF cyclobenzaprine 10 mg tablet 10 mg PO DAILY PRN (Reason: muscle spasm) 30 Days Qty: 30 0RF hydroxyzine HCl 25 mg tablet 25 mg PO BEDTIME PRN (Reason: severe anxiety) 30 Days Qty: 30 0RF ziprasidone HCl 60 mg capsule 1 cap PO BID amoxicillin-pot clavulanate 875-125 mg tablet 1 tab PO BID Qty: 20 0RF fluticasone propionate 50 mcg/actuation spray,suspension 1 spray intranasal DAILY Qty: 16 0RF Rx Instructions: administer into each nostril doxycycline hyclate 100 mg capsule 100 mg PO BID 7 Days Qty: 14 0RF prednisone 20 mg tablet 40 mg PO DAILY 5 Days Qty: 10 0RF albuterol sulfate 90 mcg/actuation HFA aerosol inhaler 2 puff inhalation Q6H PRN (Reason: shortness of breath or wheezing) Qty: 6.7 0RF Interventions: ED Discharge Assessment Last Done: 03/17/23 19:37 Discharge Date/Time: 03/17/23 19:37
[2023-03-17 15:58] LABS: MANUAL DIFF FLAG NO
[2023-03-17 16:06] LABS: Basophils Absolute Auto 0.1 X10*3/uL (0.0-0.2); Basophils Percent Auto 0.6 % (0-2); Eosinophils Absolute Auto 0.7 X10*3/uL (0.0-0.4); Eosinophils Percent Auto 7.7 % (0-4); Hemoglobin 12.2 g/dl (12.0-16.0); INTERNATIONAL NORM RATIO 1.1 (0.9-1.1); Imm Gran Abs Auto 0.02 X10*3/uL (0.00-0.03); Imm Gran Pct Auto 0.2 % (0.0-0.4); Lymphocytes Absolute Auto 1.8 X10*3/uL (1.2-4.9); Lymphocytes Percent Auto 20.5 % (20-40); Mean Corpuscular Hemoglobin 27.4 pg (27.0-33.0); Mean Corpuscular Volume 83.1 fL (80.0-98.0); Mean Platelet Volume 10.9 fL (9.4-12.3); Monocytes Absolute Auto 0.7 X10*3/uL (0.1-1.2); Neutrophils Absolute Auto 5.6 x10*3/uL (2.0-8.3); Platelet Count 322 X10*3/uL (160-400); Prothrombin Time 12.2 SEC (10.0-13.1); Red Blood Count 4.45 X10*6/uL (4.20-5.50); Red Cell Distribution Width 19.6 % (11.0-16.0)
[2023-03-17 16:09] LABS: Partial Thromboplastin Time 42.5 SEC (26.0-36.4)
[2023-03-17 16:16] LABS: Alanine Aminotransferase 8 U/L (0-31); Albumin Level 3.7 g/dL (3.5-5.0); Alkaline Phosphatase 56 U/L (39-117); Anion Gap 11 (12-20); Aspartate Amino Transferase 12 U/L (5-31); Bilirubin Total 0.9 mg/dL (0.0-1.0); Blood Urea Nitrogen 8 mg/dL (9-16); Calcium 9.6 mg/dL (8.4-10.2); Carbon Dioxide 27 mmol/L (22-29); Chloride 108 mmol/L (96-108); Creatinine Clr Calc Pharmacy 72.3; Estimated Glomerular Filt Rate > 60; Glucose Random 94 mg/dL (60-115); Lipase 7 U/L (8-78); Potassium 3.9 mmol/L (3.3-5.1); Sodium 142 mmol/L (135-145); Total Protein 7.4 g/dL (6.5-8.0)
--- OUTSIDE RECORDS SUMMARY | 2023-03-17 19:36 | XMS_ITS ---
Author Name Sylvester Cortez Jr Address [address] [place] [address] 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 [address] [place] [address] December, [facility] [address] [place] [address] Oct, [facility] [address] [place] [address] Oct, [facility] [address] [place] [phone] Oct, [facility] [address] [place] [address] Sep, [facility] [address] [place] [address] Sep, [facility] [address] [place] [address] 10 Mar, 2021 [facility] [address] [place] [address] Mar, [facility] [address] [place] [address] 08 Feb, 2021 [facility] [address] [place] [address] 04 Oct, 2020 [facility] [address] [place] [address] 04 Oct, 2020 Gastroesophageal reflux disease with esophagitis without hemorrhage K21.00 [facility] [address] [place] [address] 03 Oct, 2020 [facility] [address] [place] [address] 13 Aug, 2020 [facility] [address] [place] [address] Jun, [facility] [address] [place] [address] Oct, [facility] [address] [place] [address] Jun, Epigastric pain R10.13 [facility] [address] [place] [address] December, Epigastric pain R10.13 [facility] Outpatient [address] [place] [id number] Aug, [facility] [address] [place] [address] 15 Aug, 2018 Epigastric pain R10.13 [facility] [address] [place] [address] 16 Jun, 2018 Erosive esophagitis K22.10 and Epigastric pain R10.13 [facility] [address] [place] [address] May, [facility] [address] [place] [address] 05 Jan, 2018 Gastroesophageal reflux disease without esophagitis K21.9 [facility] [address] [place] [address] 04 Jul, 2017 Gastroesophageal reflux disease without esophagitis K21.9 [facility] [address] [place] [address] Feb, Gastroesophageal reflux disease without esophagitis K21.9 [facility] [address] [place] [address] 14 Sep, 2016 [facility] [address] [place] [address] Aug, Gastroesophageal reflux disease without esophagitis K21.9 [facility] [address] [place] [address] Jun, [facility] [address] [place] [address] December, [facility] [address] [place] [address] May, [facility] [address] [place] [address] Jan, [facility] [address] [place] [address] Nov, [facility] [address] [place] [address] Oct, [facility] [address] [place] [address] Apr, [facility] [address] [place] [address] December, [facility] [address] [place] [address] December, [facility] [address] [place] [address] Jul, [facility] [address] [place] [address] Aug, [facility] [address] [place] [address] Aug, Esophageal reflux 530.81 [facility] [address] [place] [address] Jul, [facility] [address] [place] [address] Mar, [facility] [address] [place] [address] December, [facility] [address] [place] [address] December, [facility] [address] [place] [address] December, [facility] [address] [place] [address] December, [facility] [address] [place] [address] December, [facility] [address] [place] [address] December, [facility] [address] [place] [address] May, [facility] [address] [place] [address] May, [facility] ER [address] [place] [phone] Jun, [facility] ER [address] [place], [place] [phone] May, [facility] ER [address] [place], [place] [id number] May, [facility] ER [address] [place], [place] [phone] Feb, IMMUNIZATIONS Vaccine Route Administration Date Status [...] Subscriber Name Subscriber Date of Group No [facility] [address] [address] [facility] [id number] [facility] Plan self PERSNOY LOPEZ [id number] [employer] [place] [employer]HEALTH [address] [facility] [address] [employer] [place] self PERSIDIA Mikey LOPEZ [id number] [address] [place] [address] [address] [facility] [address] [facility] self PERSIDIA Mikey LOPEZ [id number]
== END 2023-03-17 19:37 | disposition left against medical advice (07) ==
LOC: HO.ED 19:34
PROVIDERS: Physician Assistant; Emergency Provider Emergency Medicine; PCP Nurse Practitioner Family
DX: R04.0 Epistaxis (principal); R22.0 Localized swelling, mass and lump, head; F17.210 Nicotine dependence, cigarettes, uncomplicated; Z86.711 Personal history of pulmonary embolism; Z79.899 Other long term (current) drug therapy
CPT/HCPCS: 36415; 71046; 80053; 83690; 85025; 85610; 85730; 99282; 99283

== ENCOUNTER 2023-03-19 09:29 | Emergency (ER) | payer OTHER, SELFPAY ==
[2023-03-19 09:38] VITALS: BP 158/98; PULSE 92; RESP 16; TEMP 36.6; O2SAT 98; BMI 26.3
--- OUTSIDE RECORDS SUMMARY | 2023-03-19 10:08 | XMS_ITS ---
Author Name Sylvester Cortez Jr Address [address] [place] [address] Organization [facility] Address [address] [place] [address] Care Team Providers Care Bottom Presser Name Role Phone Sylvester Cortez Jr Unavailable [phone] PROBLEMS Type Condition ICD9-CM Code [id number] Code Onset Dates Condition Status SNOMED Code Problem Epigastric pain R10.13 Active 62095193 Problem Gastroesophageal reflux disease with esophagitis without hemorrhage K21.00 Active Problem Gastroesophageal reflux disease without esophagitis K21.9 Active 78591015 5 Problem Erosive esophagitis K22.10 Active 4071 9004 ALLERGIES Substance Reaction Event Type Date Status Tylenol Unknown Drug Allergy Oct, Active ENCOUNTERS Encounter Location Date Diagnosis [facility] [address] [place] [address] December, [facility] [address] [place] [address] Oct, [facility] [address] [place] [address] Oct, [facility] [address] [place] [address] Oct, [facility] [address] [place] [address] Sep, [facility] [address] [place] [address] Sep, [facility] [address] [place] [address] 10 Mar, 2021 [facility] [address] [place] [address] Mar, [facility] [address] [place] [address] 08 Feb, 2021 [facility] [address] [place] [address] 04 Oct, 2020 [facility] [address] [place] [address] 04 Oct, 2020 Gastroesophageal reflux disease with esophagitis without hemorrhage K21.00 [facility] [address] [place] [address] 03 Oct, 2020 [facility] [address] [place] [address] 13 Aug, 2020 [facility] [address] [place] [address] Jun, [facility] [address] [place] [address] Oct, [facility] [address] [place] [address] Jun, Epigastric pain R10.13 [facility] [address] [place] [address] December, Epigastric pain R10.13 [facility] Outpatient [address] [place] [phone] Aug, [facility] [address] [place] [address] 15 Aug, 2018 Epigastric pain R10.13 [facility] [address] [place] [address] 16 Jun, 2018 Erosive esophagitis K22.10 and Epigastric pain R10.13 [facility] [address] [place] [address] May, [facility] [address] [place] [address] 05 Jan, 2018 Gastroesophageal reflux disease without esophagitis K21.9 [facility] [address] [place] [address] 04 Jul, 2017 Gastroesophageal reflux disease without esophagitis K21.9 [facility] [address] [place] [address] Feb, Gastroesophageal reflux disease without esophagitis K21.9 [facility] [address] [place] [address] 14 Sep, 2016 [facility] [address] [place] [address] Aug, Gastroesophageal reflux disease without esophagitis K21.9 [facility] [address] [place] [address] Jun, [facility] [address] [place] [address] December, [facility] [address] [place] [address] May, [facility] [address] [place] [address] Jan, [facility] [address] [place] [address] Nov, [facility] [address] [place] [address] Oct, [facility] [address] [place] [address] Apr, [facility] [address] [place] [address] December, [facility] [address] [place] [address] December, [facility] [address] [place] [address] Jul, [facility] [address] [place] [address] Aug, [facility] [address] [place] [address] Aug, Esophageal reflux 530.81 [facility] [address] [place] [address] Jul, [facility] [address] [place] [address] Mar, [facility] [address] [place] [address] December, [facility] [address] [place] [address] December, [facility] [address] [place] [address] December, [facility] [address] [place] [address] December, [facility] [address] [place] [address] December, [facility] [address] [place] [address] December, [facility] [address] [place] [address] May, [facility] [address] [place] [address] May, [facility] ER [address] [place], [place] [phone] Jun, [facility] ER [address] [place], [place] [phone] May, [facility] ER [address] [place], [place] [phone] May, [facility] ER [address] [place], [place] [phone] Feb, IMMUNIZATIONS Vaccine Route Administration Date Status [...] TOBACCO SCREEN RCVD TLK Jul 10, 2018 [facility] Jun 12, 2018 BP NOT ASSESS PATIENT NOT ELIGIBLE October 26, 2020 DOC MEDS VERIFIED W/PT OR RE Jul 10, 2018 PT TOBACCO SCREEN RCVD TLK October [...] Subscriber Date of Group No [place] [address] [facility] [place] [address] [place] self PERSIDIA Mikey LOPEZ [id number] [address] [place] [address] [address] [facility] [place] [address] [facility] self PERSIDIA Mikey LOPEZ [id number] [facility] Plan [address] [address] [facility] [id number] [facility] Plan self PERSIDIA Mikey LOPEZ [id number]
--- NOTE | 2023-06-05 10:05 | ED.GENADULT ---
HPI - General Adult General Chief complaint: Headache Stated complaint: Recheck on ct scan? Time Seen by Provider: 03/19/23 10:17 Source: patient Limitations: no limitations History of Present Illness HPI narrative: Patient presents for headache. Patient was seen on March 17 for nose bleed. Patient has a history of arthritis, asthma, COPD, depression, reflux, bipolar disorder. She is complaining of swelling of the left side of her face and nose. She was having frequent nose bleeds and pus. She states that she was having orange fluid drainage at that time. Patient have a lab testing at that time with a normal CBC, normal metabolic panel. A CT scan was ordered but she did not get the results of that she left prior to full evaluation. Patient does report improving symptoms at this time. Pain is mild to moderate nature. There is no clear relieving or exacerbating features. The pain does not radiate. Patient is unable to describe the pain Related Data Home Medications Medication Instructions Recorded Confirmed ziprasidone HCl 60 mg capsule 1 cap PO BID 09/19/20 12/02/22 Previous Rx's Medication Instructions Recorded tramadol 50 mg tablet 50 mg PO DAILY PRN pain 14 days 12/05/22 #14 tabs clonazepam 0.5 mg tablet 0.5 mg PO BID PRN anxiety 30 days 12/10/22 #60 tabs cetirizine 10 mg tablet 10 mg PO DAILY #90 tabs 01/01/23 albuterol sulfate 90 mcg/actuation 2 puff inhalation Q6H PRN 02/13/23 aerosol inhaler shortness of breath or wheezing #6.7 grams doxycycline hyclate 100 mg capsule 100 mg PO BID 7 days #14 caps 02/13/23 prednisone 20 mg tablet 40 mg (2 x 20 mg) PO DAILY 5 days 02/13/23 #10 tabs fluticasone propionate 50 1 spray intranasal DAILY #9.9 mL 02/21/23 mcg/actuation nasal spray,suspension (Flonase Allergy Relief) fluticasone 250 mcg-salmeterol 50 1 inh inhalation Q12H #180 ea 02/24/23 mcg/dose blistr powdr for inhalation (Advair Diskus) pantoprazole 40 mg tablet,delayed 40 mg PO BID #180 tabs 03/07/23 release amoxicillin 875 mg-potassium 1 tab PO BID #20 tabs 03/19/23 clavulanate 125 mg tablet fluticasone propionate 50 1 spray intranasal DAILY #16 grams 03/19/23 mcg/actuation nasal spray,suspension meloxicam 15 mg tablet 15 mg PO DAILY PRN for joint pain 03/19/23 #30 tabs cholecalciferol (vitamin D3) 50 50 mcg PO DAILY #90 tabs 04/04/23 mcg (2,000 unit) tablet cyclobenzaprine 10 mg tablet 10 mg PO DAILY PRN muscle spasm 30 04/07/23 days #30 tabs hydroxyzine HCl 25 mg tablet 25 mg PO BEDTIME PRN severe 04/30/23 anxiety 30 days #30 tabs albuterol sulfate 90 mcg/actuation 2 puff inhalation Q4-6H PRN 05/26/23 aerosol inhaler shortness of breath or wheezing 30 days #8.5 grams Allergies Allergy/AdvReac Type Severity Reaction Status Date / Time Sulfa (Sulfonamide Allergy Severe Swelling Verified 03/19/23 09:38 Antibiotics) azithromycin [Zithromax] Allergy Intermediate hives/GI Verified 03/19/23 09:38 upset hydrocodone [From VICODIN] Allergy Intermediate Rash Verified 03/19/23 09:38 naproxen [Aleve] Allergy Intermediate Rash Verified 03/19/23 09:38 oxycodone [OXYCODONE] Allergy Intermediate Rash Verified 03/19/23 09:38 acetaminophen [From TYLENOL] AdvReac Intermediate RASH ALL Verified 03/19/23 09:38 OVER BODY PMFSH Past Medical History Medical History Disorder of lung parenchyma Urinary retention Arthritis Lumbar herniated disc Back pain GERD (gastroesophageal reflux disease) Hx pulmonary embolism Erosive esophagitis Hx of ulcer disease Depression Anxiety Panic attacks History of bipolar disorder COPD (chronic obstructive pulmonary disease) Asthma Surgical History Hx of cholecystectomy Hx of colonoscopy H/O esophagogastroduodenoscopy Hx of appendectomy History of hysterectomy Family History Family History Father No problems noted. 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) Alcohol intake: current Alcohol intake frequency: holidays/special occasions only Alcohol type: beer and wine Patient Tobacco Use Status: Current everyday Tobacco user Cigarettes Per Day: 2 Years Smoked: 10+ e-Cigarette/Vaping Use: Currently Using Second Hand Smoke Exposure: No service: No Current occupational status: unemployed Cognitive needs: No Hearing needs: No Vision needs: Yes Physical Exam ED Vital Signs: BMI result Body Mass Index 26.3 GEN: Well developed, no acute distress, alert, oriented HEENT: Normocephalic, atraumatic, normal external ears, nose appears normal Eyes: Normal to appearance Neck: Supple, no lymphadenopathy Respiratory: Talks in complete sentences, no respiratory distress Extremities: No clubbing cyanosis or edema Neurologic: No focal neurologic deficits, cranial nerves 2-12 intact, gait normal Skin: No rash Course Reevaluation(s) Reevaluation #1: I reviewed lab test, chest x-ray.. There are abnormalities noted compared to previous imaging. Patient will be treated for sinusitis. This could also treat any pulmonary infiltrate. Medical Decision Making Medical Decision Making MDM Narrative: Patient presents for nasal discharge, and sinus pressure. I reviewed previous imaging study, laboratory analysis. Differential diagnosis includes sinusitis, viral infection, bacterial infection. Plan will be to discharge patient on Augmentin and Flonase. Patient follow-up with her primary care provider as needed Differential Diagnosis Differential Diagnoses: The differential diagnosis associated with the presentation includes (See above) Independent Interpretation I performed an independent interpretation of an: Plain X-Ray (Increased markings noted on chest x-ray) Prescription Management I considered prescription management with: Antibiotic Chronic Conditions Patient?s care impacted by: Other (Asthma) Discharge Plan Discharge Clinical Impression: Facial swelling, Sinusitis Patient Disposition: Home, Self-Care Instructions: Rhinosinusitis (ED) Prescriptions: New amoxicillin-pot clavulanate 875-125 mg tablet 1 tab PO BID Qty: 20 0RF fluticasone propionate 50 mcg/actuation spray,suspension 1 spray intranasal DAILY Qty: 16 0RF Rx Instructions: administer into each nostril No Action tramadol 50 mg tablet 50 mg PO DAILY PRN (Reason: pain) 14 Days Qty: 14 0RF clonazepam 0.5 mg tablet 0.5 mg PO BID PRN (Reason: anxiety) 30 Days Qty: 60 0RF cetirizine 10 mg tablet 10 mg PO DAILY Qty: 90 2RF fluticasone propionate [Flonase Allergy Relief] 50 mcg/actuation spray,suspension 1 spray intranasal DAILY Qty: 9.9 1RF Rx Instructions: administer into each nostril fluticasone propion-salmeterol [Advair Diskus] 250-50 mcg/dose blister with device 1 inh inhalation Q12H Qty: 180 1RF pantoprazole 40 mg tablet,delayed release (DR/EC) 40 mg PO BID Qty: 180 1RF meloxicam 15 mg tablet 15 mg PO DAILY PRN (Reason: for joint pain) Qty: 30 2RF cholecalciferol (vitamin D3) 50 mcg (2,000 unit) tablet 50 mcg PO DAILY Qty: 90 1RF cyclobenzaprine 10 mg tablet 10 mg PO DAILY PRN (Reason: muscle spasm) 30 Days Qty: 30 0RF hydroxyzine HCl 25 mg tablet 25 mg PO BEDTIME PRN (Reason: severe anxiety) 30 Days Qty: 30 0RF albuterol sulfate 90 mcg/actuation HFA aerosol inhaler 2 puff inhalation Q4-6H PRN (Reason: shortness of breath or wheezing) 30 Days Qty: 8.5 4RF ziprasidone HCl 60 mg capsule 1 cap PO BID doxycycline hyclate 100 mg capsule 100 mg PO BID 7 Days Qty: 14 0RF prednisone 20 mg tablet 40 mg PO DAILY 5 Days Qty: 10 0RF albuterol sulfate 90 mcg/actuation HFA aerosol inhaler 2 puff inhalation Q6H PRN (Reason: shortness of breath or wheezing) Qty: 6.7 0RF Referrals: Gregory Redd MD [Physician] - 1 week Interventions: ED Discharge Assessment Last Done: 03/19/23 11:35 Discharge Date/Time: 03/19/23 11:35
== END 2023-03-19 11:35 | disposition home or self-care (01) ==
PROVIDERS: Emergency Provider Emergency Medicine; PCP Nurse Practitioner Family
DX: R51.9 Headache, unspecified (principal); R04.0 Epistaxis; F17.200 Nicotine dependence, unspecified, uncomplicated
CPT/HCPCS: 99282; 99283

== ENCOUNTER 2023-06-23 13:18 | Outpatient (AMB) | payer OTHER, SELFPAY ==
--- OUTSIDE RECORDS SUMMARY | 2023-06-23 13:21 | XMS_ITS | Patient Health Record ---
Author Name Unknown Organization [facility] Address [address] [place] [address] Care Team Providers Care Audio Visual Specialist Name Role Phone RAMON WILD Primary Care Provider Sylvester Hernadez Jr Unavailable oyula, ignatiuis Unavailable Unavailable ALLERGIES Allergen (clinical drug ingredient) Drug/Non Drug Allergy documented on EMR Reaction Allergy Type Onset Date Status acetaminophen Tylenol Unknown Drug Allergy Act esteban REASON FOR REFERRAL No Information MEDICATIONS Medication SIG (Take, Route, Frequency, Duration) Notes Start Date End Date Status Vitamin D Active Cyclobenzaprine HCl Active Ibuprofen PRN Active clonazePAM 0.5mg 1 tablet Orally prn Active Geodon 60 MG 1 capsule with food Orally Twice a day Active Pantoprazole Sodium 40 MG 1 tablet Orall y Once a day for 30 days 10/02/2022 Active IMMUNIZATIONS Vaccine Route Administration Date Status Comme nts Influenza Unknown 07/11/2017 Administered Influenza Unknown 10/26/2020 Refused SOCIAL HISTORY Tobacco Use: Social History Observation Description Date Details (start date - stop date) Current Smoker NA - NA Sex Assigned At : Social History Observation Description Sex Assigned At Unknown Tobacco Use/Smoking Question Answer Notes Patient is a current smoker How often do you smoke cigarettes? some days, bu t not every day How many cigarettes a day do you smoke? 5 or les s How soon after you wake up d o you smoke your first cigarette? after 60 minutes Are you interested in quitting? Thinking about q uitting PROBLEMS Problem Type ICD Code Onset Dates Problem Status W/U Status Risk SNOMED Code Notes Problem Epigastric pain (R10.13) Active confirmed 48172140 Problem Gastroesophageal reflux disease without esophagitis (K21.9) Active confirmed 066966506 Problem Erosive esophagitis (K22.10) Active confirmed 55404204 Problem Gastroesophageal reflux disease with esophagitis without hemorrhage (K21.00) Active confirmed 980841805 Encounters Encounter Location Date Provider Diagnosis [facility] [address] [place] [phone] 02/17/2023 Sylvester Cortez Jr [facility] [address] [place] [address] 12/23/2022 Sylvester Cortez Jr [facility] [address] [place] [address] 09/27/2022 Sylvester Cortez Jr [facility] [address] [place] [address] 2022 Sylvester Cortez Jr [facility] [address] [place] [address] 11/13/2022 Sylvester Cortez Jr [facility] [address] [place] [phone] 11/19/2022 Sylvester Cortez Jr [facility] [address] [place] [phone] 11/21/2022 Sylvester Cortez Jr [facility] [address] [place] [phone] 12/23/2022 Sylvester Cortez Jr PLAN OF TREATMENT No Information Insurance Providers Payer Name Payer Address Payer Phone Subscriber Number Group Number Insured Name Patient Relationship to Insured Coverage Start Date Coverage End Date [facility]ister [facility] [address] [address] [place], [place] [id number] NADIA LOPEZ Self - patient is the insured [place] [address] [place] [address] [id number] NADIA LOPEZ Self - patient is the insured MEDICAL (GENERAL) HISTORY Medical History History ICD Code gerd liver abscess many years ago blood clots and pulmonary emboli many ye ars ago bipolar disease COPD back pain Surgical History Surgery Date(Month/Year) hysterectomy appendectomy cholecystectomy 08/2016
[2023-06-23 15:21] VITALS: BP 148/80; PULSE 113; O2SAT 90; BMI 25.1
--- NOTE | 2023-06-23 15:21 | MHC.OFFWIV ---
Intake Vital Signs 06/23/23 15:21 Height 5 ft 4 in Weight 146 lb 8 oz BMI 25.1 BP 148/80 H Blood Pressure Location Rt brachial Position Sitting Pulse 113 H Pulse Source Pulse Oximeter Pulse Oximetry (%) 90 L Oxygen Delivery Method Room Air Intake Visit Reasons: EP, sinus congestion (masked) Intake Note: Patient is here today for sinus infection, Pt states was treated at an urgent care, but symptoms haven't got better. Patient Tobacco Use Status: Former Tobacco user Allergies Sulfa (Sulfonamide Antibiotics) Allergy (Severe, Verified 06/23/23 15:47) Swelling azithromycin [Zithromax] Allergy (Intermediate, Verified 06/23/23 15:47) hives/GI upset hydrocodone [From VICODIN] Allergy (Intermediate, Verified 06/23/23 15:47) Rash naproxen [Aleve] Allergy (Intermediate, Verified 06/23/23 15:47) Rash oxycodone [OXYCODONE] Allergy (Intermediate, Verified 06/23/23 15:47) Rash acetaminophen [From TYLENOL] Adverse Reaction (Intermediate, Verified 06/23/23 15:47) RASH ALL OVER BODY Medication List - Last Reconciled 06/23/23 by Abdullahi Chavez MD albuterol sulfate 90 mcg/actuation 2 puffs inhalation Q4-6H PRN 30 days albuterol sulfate 90 mcg/actuation 2 puffs inhalation Q6H PRN amoxicillin-pot clavulanate 875-125 mg 1 tab PO BID cetirizine 10 mg PO DAILY cholecalciferol (vitamin D3) 50 mcg PO DAILY clonazepam 0.5 mg PO BID PRN 30 days cyclobenzaprine 10 mg PO DAILY PRN 30 days doxycycline hyclate 100 mg PO BID 7 days fluticasone propion-salmeterol 250-50 mcg/dose (Advair Diskus) 1 inh inhalation Q12H fluticasone propionate 50 mcg/actuation 1 spray intranasal DAILY fluticasone propionate 50 mcg/actuation (Flonase Allergy Relief) 1 spray intranasal DAILY hydroxyzine HCl 25 mg PO BEDTIME PRN 30 days meloxicam 15 mg PO DAILY PRN pantoprazole 40 mg PO BID prednisone 40 mg (2 x 20 mg) PO DAILY 5 days tramadol 50 mg PO DAILY PRN 14 days ziprasidone HCl 1 cap PO BID HPI EP, sinus congestion (masked) HPI Details 57-year-old female presents to the office for a sick visit. Patient is reporting a nonhealing ulcer near the nasal septum. patient has received 1 round of antibiotics and cream with minimal relief. Continues to have discomfort at the edge of the ulcer. [facility] Medical History Disorder of lung parenchyma Urinary retention Arthritis Lumbar herniated disc Back pain GERD (gastroesophageal reflux disease) Hx pulmonary embolism Erosive esophagitis Hx of ulcer disease Depression Anxiety Panic attacks History of bipolar disorder COPD (chronic obstructive pulmonary disease) Asthma Surgical History Hx of cholecystectomy Hx of colonoscopy H/O esophagogastroduodenoscopy Hx of appendectomy History of hysterectomy Family History Father No problems noted. 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) Alcohol intake: current Alcohol intake frequency: holidays/special occasions only Alcohol type: beer and wine Patient Tobacco Use Status: Former Tobacco user Cigarettes Per Day: 2 Years Smoked: 10+ e-Cigarette/Vaping Use: Currently Using Second Hand Smoke Exposure: No service: No Current occupational status: unemployed Cognitive needs: No Hearing needs: No Vision needs: Yes Physical Exam Vital Signs: Last Vital Signs Pulse 113 H 06/23/23 15:21 BP 148/80 H 06/23/23 15:21 Pulse Ox 90 L 06/23/23 15:21 Oxygen Delivery Method Room Air 06/23/23 15:21 BMI result Body Mass Index 25.1 Skin Other: Ulcerating lesion at the nasal septum. No bleeding. Pale granulation tissue. Assessment & Plan Assessment & Plan (1) Ulcer, nasal, septum: Code(s): J34.0 - Abscess, furuncle and carbuncle of nose Plan: bacitracin ointment and stat ENT appointment requested. PCP informed of the same. Coding Level of Care Code Est Pt Level 4 (32942) Diagnoses Ulcer, nasal, septum J34.0
== END 2023-06-23 15:41 | disposition home or self-care (01) ==
PROVIDERS: PCP Nurse Practitioner Family; Visit Provider Internal Medicine
DX: J34.0 Abscess, furuncle and carbuncle of nose (principal)
CPT/HCPCS: 99214

== ENCOUNTER 2023-10-14 08:37 | Outpatient (AMB) | payer OTHER, SELFPAY ==
--- NOTE | 2023-10-14 08:43 | A.OFFPC_ITS ---
Vital Signs 10/14/23 08:47 Height 5 ft 4 in Weight 154 lb 4 oz BMI 26.5 BP 138/82 Blood Pressure Location Lt brachial Position Sitting Pulse 90 Pulse Source Pulse Oximeter Pulse Oximetry (%) 95 Oxygen Delivery Method Room Air Intake Visit Reasons: PE Intake Note: pt is here for physical exam ,requesting handicap placard. General Maintenance Helper Required: No Allergies Sulfa (Sulfonamide Antibiotics) Allergy (Severe, Verified 10/14/23 08:48) Swelling azithromycin [Zithromax] Allergy (Intermediate, Verified 10/14/23 08:48) hives/GI upset hydrocodone [From VICODIN] Allergy (Intermediate, Verified 10/14/23 08:48) Rash naproxen [Aleve] Allergy (Intermediate, Verified 10/14/23 08:48) Rash oxycodone [OXYCODONE] Allergy (Intermediate, Verified 10/14/23 08:48) Rash acetaminophen [From TYLENOL] Adverse Reaction (Intermediate, Verified 10/14/23 08:48) RASH ALL OVER BODY Medication List - Last Reconciled 10/14/23 by KASH Urbina- cetirizine 10 mg PO DAILY cholecalciferol (vitamin D3) 50 mcg PO DAILY clonazepam 0.5 mg PO BID PRN 30 days cyclobenzaprine 10 mg PO DAILY PRN 30 days fluticasone propion-salmeterol 250-50 mcg/dose (Advair Diskus) 1 inh inhalation Q12H fluticasone propionate 50 mcg/actuation (Flonase Allergy Relief) 1 spray intranasal DAILY hydroxyzine HCl 25 mg PO BEDTIME PRN 30 days meloxicam 15 mg PO DAILY PRN pantoprazole 40 mg PO BID tramadol 50 mg PO DAILY PRN 14 days ziprasidone HCl 1 cap PO BID Tobacco use date assessed: 10/14/23 Dental Screening Dental Screen Date: 10/14/23 Did you have a dental visit in the last 12 months?: Yes Did you have a dental problem in the last 6 months where you did not have access to dental care?: No Was dental information given to patient?: Patient has dentist HPI PE HPI Details Pt is here for a PE. Will order labs. Colon screen is up to date. Due for mammo, will order. Pt has a hx of vitamin D deficiency, will order bone density. Pt c/o right hip pain. She reports that this is worse with movement. Will order XR. Pt has been smoking up to a pack per day since age 11. Will refer to thoracic. [facility] Medical History Disorder of lung parenchyma Urinary retention Arthritis Lumbar herniated disc Back pain GERD (gastroesophageal reflux disease) Hx pulmonary embolism Erosive esophagitis Hx of ulcer disease Depression Anxiety Panic attacks History of bipolar disorder COPD (chronic obstructive pulmonary disease) Asthma Surgical History Hx of cholecystectomy Hx of colonoscopy H/O esophagogastroduodenoscopy Hx of appendectomy History of hysterectomy Family History Father No problems noted. Mother HTN (hypertension) Asthma High cholesterol Heart problem Diabetes mellitus Sister Liver cancer Social History Housing: Apartment Are you a primary medicare nurse to a significant other at home: No Do you presently have visiting nurse or other home services: Yes ([employer]) Alcohol intake: current Alcohol intake frequency: holidays/special occasions only Alcohol type: beer and wine Patient Tobacco Use Status: Former Tobacco user Cigarettes Per Day: 2 Years Smoked: 10+ e-Cigarette/Vaping Use: Currently Using Second Hand Smoke Exposure: No service: No Current occupational status: unemployed Cognitive needs: No Hearing needs: No Vision needs: Yes Questionnaire PHQ-9 Over the last 2 weeks, how often have you been bothered by any of the following problems? 1. Little interest or pleasure in doing things: nearly every day 2. Feeling down, depressed, or hopeless: nearly every day 3. Trouble falling or staying asleep, or sleeping too much: nearly every day 4. Feeling tired or having little energy: nearly every day 5. Poor appetite or overeating: nearly every day 6. Feeling bad about yourself - or that you are a failure or have let yourself or your family down: nearly every day 7. Trouble concentrating on things, such as reading the newspaper or watching television: nearly every day 8. Moving or speaking so slowly that other people could have noticed. Or the opposite - being so fidgety or restless that you have been moving around a lot more than usual: nearly every day 9. Thoughts that you would be better off or of hurting yourself in some way: nearly every day Total score: 27 Depression Screening Interpretation: Positive Depression Screening Done: Yes [id number] - PHQ-9 Billing: Yes Source: Developed by Drs. Ovi Portillo, Tila Herrera, Sam Montesinos and colleagues, with an educational sherine from [email or web address]. Thrive Questionnaire Date Thrive assessed: 10/14/23 I am a: Patient What is your living situation today?: I have a steady place to live Within the past 12 months, did the food you bought not last and you didn't have the money to get more?: Never true Within the past 12 months, did you worry whether your food would run out before you got money to buy more?: Never true Do you have trouble paying for medicines?: No Do you have trouble getting transportation to medical appointments?: No Do you have trouble paying your heating and electricity bill?: No Do you have trouble taking care of your child, family member or friend?: No Do you have trouble with day-to-day activities such as bathing, preparing meals, shopping, managing finances, etc.?: No Are you currently unemployed and looking for a job?: No Are you interested in more education?: No Please select the resources that you would like help with: None Currently or been in a relationship where the following occur: no concerns reported THRIVE Score: 0 ANTOINETTE-7 AMB Questionnaire ANTOINETTE-7 Date ANTOINETTE - 7 assessed: 10/14/23 Feeling nervous, anxious, or on edge: 3 = Nearly every day Not being able to stop or control worryin = Nearly every day Worrying too much about different things: 3 = Nearly every day Trouble relaxin = Nearly every day Being so restless that it is hard to sit still: 3 = Nearly every day Becoming easily annoyed or irritable: 3 = Nearly every day Feeling afraid as if something awful might happen: 3 = Nearly every day Total ANTOINETTE-7 score (0-4 normal; 5-9 mild; 10-14 moderate; 15-21 severe): 21 Source: Developed by Drs. Ovi Portillo, Tila Herrera, Sam Montesinos and colleagues, with an educational sherine from [email or web address]. ANTOINETTE-7 Assessment Billing ANTOINETTE-7 Assessment Tool: ANTOINETTE-7 Assessment 03315 Review of Systems Const Denies chills and Denies fever(s) Eyes Denies blurry vision ENT Denies vertigo, Denies dizziness and Denies sore throat Card Denies chest pain at rest, Denies chest pain with activity, Denies diaphoresis, Denies dyspnea and Denies dyspnea on exertion Resp Denies cough, Denies dyspnea, Denies dyspnea on exertion and Denies wheezing GI Denies abdominal pain, Denies melena, Denies hematochezia, Denies constipation, Denies diarrhea and Denies loose stools Denies hematuria Musc Denies numbness and Denies tingling Skin/Breast Denies lesions Neuro Denies vertigo, Denies dizziness, Denies numbness and Denies tingling Psych Denies anxiety, Denies depression, Denies homicidal ideation, Denies suicidal ideation and Denies other (substance abuse) Aller/Immun Denies wheezing Physical exam (Primary Care) Vital Signs: Last Vital Signs Pulse 90 10/14/23 08:47 BP 138/82 10/14/23 08:47 Pulse Ox 95 10/14/23 08:47 Oxygen Delivery Method Room Air 10/14/23 08:47 BMI result Body Mass Index 26.5 Tobacco/Smoking Status: Tobacco use Status Tobacco use date assessed 10/14/23 10/14/23 08:53 Patient Tobacco Use Status Former Tobacco user 10/14/23 08:43 e-Cigarette/Vaping Use Currently Using 10/14/23 08:43 PHQ-9: PHQ-9 Score PHQ-9: Total score 27 10/14/23 08:58 Depression Screening Interpretation: Positive Thrive Assessment: Date of Thrive Assessment Date Thrive assessed 10/14/23 10/14/23 08:53 Currently or been in a relationship where the following occur: no concerns reported Const General: cooperative Nutritional Appearance: well nourished Orientation/consciousness: patient oriented x3 HENMT Other: cerumen noted bilat, after ear lavage TMs not seen Head: Yes normal to inspection, Yes normocephalic and Yes atraumatic Eyes General: appearance normal, both eyes and all related structures Alignment and Position: alignment normal and position normal Neck Neck: Yes normal visual inspection and Yes no lymphadenopathy Thyroid: Thyroid normal Resp Effort & Inspection: normal respiratory effort Auscultation: clear to auscultation bilaterally Cardio Rate: regular rate Rhythm: regular rhythm Heart sounds: S1 normal heart sound present, S2 normal heart sound present and no murmurs GI Palpation (GI): Soft to palpation and nontender Auscultation: normal bowel sounds Skin Rashes: no rashes Neuro General: patient oriented x3, moves all extremities, no focal motor deficits and deep tendon reflexes 2+ bilaterally Romberg Test: Negative Extrem Other: right hip pain exacerbated with pt in supine position with right knee to chest raises and RLE raises, pain with deep palpation of right hip Psych Appearance: grossly normal Mental Status: mental status grossly normal Speech and movement: Normal speech and movement present Affect: normal affect Attitude: cooperative Thought process: Normal thought process present Thought content: Normal thought content present Insight: Good insight present (Psych) Judgement: Good judgement present (Psych) Office Procedures Cerumen Removal From which ear canal was the cerumen removed: bilateral Removal: irrigation Notes: patient tolerated procedure well (unable to extract cerumen, recommended use of drops to soften cerumen) and no complications [id number] Irrigation/Lavage Immunizations pneumoc 20-marily conj-dip cr(PF) 0.5 mL IM syringe Performing Provider: ROSANA Urbina Performing Location: [facility] Administered by: Mitul Dickens CMA on 10/14/23 09:29 Dose Route Admin Location Dispensed Lot Number Expiration Date [facility] Learning Officer 0.5 mL IM Left Deltoid 0.5 mL [id number] 03/25/24 [employer] VIS Given Date VIS Provided VIS Publication Date 10/14/23 Single Vaccine 21 Eligibility Eligibility Date Funding Source Not [facility] Eligible 10/14/23 Private Assessment and Plan Assessment & Plan (1) Physical exam: Code(s): Z00.00 - Encounter for general adult medical examination without abnormal findings Plan: Labs ordered (2) Vitamin D deficiency: Code(s): E55.9 - Vitamin D deficiency, unspecified Plan: Bone density ordered (3) Smoker: Code(s): F17.200 - Nicotine dependence, unspecified, uncomplicated Plan: Referred to thoracic (4) Right hip pain: Code(s): M25.551 - Pain in right hip Plan: XR ordered (5) Excessive cerumen in both ear canals: Code(s): H61.23 - Impacted cerumen, bilateral Plan: Will have pt use debrox at home, will follow up in 3 months for ear lavage Plan The patient agreed to the use of a ophthalmic medical technician for this encounter. Scribed for KASH Burciaga-BC by Corinne Fletcher ophthalmic medical technician, on 10/14/2023 at 08:55 EST. Orders: Orders TSH reflex Free T4 Today Z00.00 - Encounter for general adult medical examination without abnormal findings UA CC w/rflx Micro + Cult Today Z00.00 - Encounter for general adult medical examination without abnormal findings Vitamin D 25-OH Total Today E55.9 - Vitamin D deficiency, unspecified MM screening mammo BI Today Z12.31 - Encounter for screening mammogram for malignant neoplasm of breast XR DEXA axial skeleton Today E55.9 - Vitamin D deficiency, unspecified XR hip RT min 2V Today M25.551 - Pain in right hip Pneumococcal 20 Immunization Today Z23 - Encounter for immunization Complete Blood Count Auto Diff Today Z00.00 - Encounter for general adult medical examination without abnormal findings Comprehensive [place]. Panel Fast Today Z00.00 - Encounter for general adult medical examination without abnormal findings Lipid Panel Today Z00.00 - Encounter for general adult medical examination without abnormal findings Referrals Thoracic Surgery Referral F17.200 - Nicotine dependence, unspecified, uncomplicated Coding Level of Care Code Est Pt Prev Care 40-64y(01759) Diagnoses Physical exam Z00.00 Vitamin D deficiency E55.9 Smoker F17.200 Right hip pain M25.551 Excessive cerumen in both ear canals H61.23 CPT Codes Office Procedure - CPT: 13013-Atx Irrigation/Lavage ([id number]) Additional Codes ANTOINETTE-7 Assessment Billing - ANTOINETTE-7 Assessment Tool: ANTOINETTE-7 Assessment [id number] ([id number])
[2023-10-14 08:47] VITALS: BP 138/82; PULSE 90; O2SAT 95; BMI 26.5
== END 2023-10-14 09:31 | disposition home or self-care (01) ==
PROVIDERS: PCP Nurse Practitioner Family; Visit Provider Nurse Practitioner Family
DX: Z00.00 Encounter for general adult medical examination without abnormal findings (principal); E55.9 Vitamin D deficiency, unspecified; F17.210 Nicotine dependence, cigarettes, uncomplicated; Z23 Encounter for immunization; H61.23 Impacted cerumen, bilateral; M25.551 Pain in right hip
CPT/HCPCS: 69209; 90471; 90677; 99396

== ENCOUNTER 2023-11-11 08:53 | Outpatient (AMB) | payer OTHER, SELFPAY ==
[2023-11-11 09:23] VITALS: BP 110/90; PULSE 103; TEMP 36.2; O2SAT 95; BMI 25.1
--- NOTE | 2023-11-11 09:23 | AM.OFFWIN_ITS ---
Intake Vital Signs 11/11/23 09:23 Height 5 ft 4 in Weight 146 lb BMI 25.1 BP 110/90 H Blood Pressure Location Lt brachial Position Sitting Pulse 103 H Pulse Source Pulse Oximeter Temp 97.2 F Temp Source Temporal Artery Scan Pulse Oximetry (%) 95 Oxygen Delivery Method Room Air Intake Visit Reasons: EP Allergic reaction Intake Note: pt is here today for allergic reaction started 2 weeks ago Patient Tobacco Use Status: Former Tobacco user Allergies Sulfa (Sulfonamide Antibiotics) Allergy (Severe, Verified 11/11/23 10:03) Swelling azithromycin [Zithromax] Allergy (Intermediate, Verified 11/11/23 10:03) hives/GI upset hydrocodone [From VICODIN] Allergy (Intermediate, Verified 11/11/23 10:03) Rash naproxen [Aleve] Allergy (Intermediate, Verified 11/11/23 10:03) Rash oxycodone [OXYCODONE] Allergy (Intermediate, Verified 11/11/23 10:03) Rash acetaminophen [From TYLENOL] Adverse Reaction (Intermediate, Verified 11/11/23 10:03) RASH ALL OVER BODY Medication List - Last Reconciled 11/11/23 by Abdullahi Chavez MD cetirizine 10 mg PO DAILY cholecalciferol (vitamin D3) 50 mcg PO DAILY clonazepam 0.5 mg PO BID PRN 30 days cyclobenzaprine 10 mg PO DAILY PRN 30 days fluticasone propion-salmeterol 250-50 mcg/dose (Advair Diskus) 1 inh inhalation Q12H fluticasone propionate 50 mcg/actuation (Flonase Allergy Relief) 1 spray intranasal DAILY hydroxyzine HCl 25 mg PO BEDTIME PRN 30 days meloxicam 15 mg PO DAILY PRN pantoprazole 40 mg PO BID tramadol 50 mg PO DAILY PRN 14 days ziprasidone HCl 1 cap PO BID Do you need a note to return to daycare/school/sports/work: No HPI EP Allergic reaction HPI Details 58-year-old female presents to the [facility] for a sick visit. She is complaining of swelling around the right eye, swelling on the right side of the cheek for the past few days. Running nose and itchy eyes. Postnasal drip present. No fevers or chills. [facility] Medical History Disorder of lung parenchyma Urinary retention Arthritis Lumbar herniated disc Back pain GERD (gastroesophageal reflux disease) Hx pulmonary embolism Erosive esophagitis Hx of ulcer disease Depression Anxiety Panic attacks History of bipolar disorder COPD (chronic obstructive pulmonary disease) Asthma Surgical History Hx of cholecystectomy Hx of colonoscopy H/O esophagogastroduodenoscopy Hx of appendectomy History of hysterectomy Family History Father No problems noted. Mother HTN (hypertension) Asthma High cholesterol Heart problem Diabetes mellitus Sister Liver cancer Social History Housing: Apartment Are you a primary lawn care professional to a significant other at home: No Do you presently have visiting nurse or other home services: Yes ([employer]) Alcohol intake: current Alcohol intake frequency: holidays/special occasions only Alcohol type: beer and wine Patient Tobacco Use Status: Former Tobacco user Cigarettes Per Day: 2 Years Smoked: 10+ e-Cigarette/Vaping Use: Currently Using Second Hand Smoke Exposure: No service: No Current occupational status: unemployed Cognitive needs: No Hearing needs: No Vision needs: Yes Physical Exam Vital Signs: Last Vital Signs Temp 97.2 F 11/11/23 09:23 Pulse 103 H 11/11/23 09:23 BP 110/90 H 11/11/23 09:23 Pulse Ox 95 11/11/23 09:23 Oxygen Delivery Method Room Air 11/11/23 09:23 BMI result Body Mass Index 25.1 Const General: cooperative and healthy appearing Nutritional Appearance: well nourished Orientation/consciousness: patient oriented x3 Limitations: no limitations HEENT Head: Yes normal to inspection Eyes General: appearance normal, both eyes and all related structures Neck Neck: Yes normal visual inspection Chest Chest palpation & inspection: normal palpation of entire chest wall Resp Effort & Inspection: normal respiratory effort Skin Other: Face: Mild periorbital puffiness and skin over the maxillary sinus slightly puffy skin. Conjunctiva in both eyes appear normal. Neuro General: patient oriented x3 Assessment & Plan Assessment & Plan (1) Facial swelling: Code(s): R22.0 - Localized swelling, mass and lump, head Plan: Trial of prednisone given. If symptoms do not improve to follow-up here. Coding Level of Care Code Est Pt Level 3 (37878) Diagnoses Facial swelling R22.0
== END 2023-11-11 10:24 | disposition home or self-care (01) ==
PROVIDERS: PCP Nurse Practitioner Family; Visit Provider Internal Medicine
DX: R22.0 Localized swelling, mass and lump, head (principal)
CPT/HCPCS: 99213

== ENCOUNTER 2023-12-08 09:39 | Outpatient (REF) | payer OTHER, SELFPAY ==
--- NOTE | ~2023-12-08 | XR_ITS ---
EXAMINATION: XR HIP, RIGHT CLINICAL INFORMATION: Right hip pain. COMPARISON: 07/29/2019. TECHNIQUE: Two views of the right hip. FINDINGS: Redemonstration of clips in the right pelvis. Mild degenerative changes with joint space narrowing and hypertrophic change right hip. Right hip alignment preserved. Degenerative changes in the imaged lower lumbar spine. Mild degenerative changes right sacroiliac joint. XR/XR hip RT min 2V IMPRESSION: Mild degenerative changes in the right hip.
[2023-12-08 10:34] LABS: MANUAL DIFF FLAG NO
[2023-12-08 10:40] LABS: Basophils Absolute Auto 0.1 X10*3/uL (0.0-0.2); Basophils Percent Auto 0.8 % (0-2); Eosinophils Absolute Auto 0.8 X10*3/uL (0.0-0.4); Eosinophils Percent Auto 12.5 % (0-4); Hematocrit 38.4 % (37.0-47.0); Hemoglobin 13.2 g/dl (12.0-16.0); Imm Gran Abs Auto 0.02 X10*3/uL (0.00-0.03); Imm Gran Pct Auto 0.3 % (0.0-0.4); Lymphocytes Absolute Auto 1.9 X10*3/uL (1.2-4.9); Lymphocytes Percent Auto 29.4 % (20-40); Mean Corpuscular HGB Conc 34.4 g/dl (31.0-35.0); Mean Corpuscular Hemoglobin 29.5 pg (27.0-33.0); Mean Corpuscular Volume 85.7 fL (80.0-98.0); Mean Platelet Volume 11.6 fL (9.4-12.3); Monocytes Absolute Auto 0.5 X10*3/uL (0.1-1.2); Monocytes Percent Auto 8.5 % (2-11); Neutrophils Absolute Auto 3.1 x10*3/uL (2.0-8.3); Neutrophils Percent Auto 48.5 % (45-73); Platelet Count 289 X10*3/uL (160-400); Red Blood Count 4.48 X10*6/uL (4.20-5.50); Red Cell Distribution Width 14.4 % (11.0-16.0); White Blood Count 6.4 X10*3/uL (4.8-10.8)
[2023-12-08 12:01] LABS: Alanine Aminotransferase 9 U/L (0-31); Albumin Level 3.7 g/dL (3.5-5.0); Alkaline Phosphatase 52 U/L (39-117); Anion Gap 12 (12-20); Aspartate Amino Transferase 14 U/L (5-31); Bilirubin Total 0.4 mg/dL (0.0-1.0); Blood Urea Nitrogen 14 mg/dL (9-16); Calcium 9.5 mg/dL (8.4-10.2); Carbon Dioxide 21 mmol/L (22-29); Chloride 109 mmol/L (96-108); Cholesterol 160 mg/dL (<200); Estimated Glomerular Filt Rate > 60; Glucose Fasting 93 mg/dL (60-99); HDL Cholesterol 37 mg/dL (>40); LDL Cholesterol Calculated 99 mg/dL (<100); Potassium 3.9 mmol/L (3.3-5.1); Sodium 138 mmol/L (135-145); TSH reflex Free T4 2.25 uIU/mL (0.32-4.0); Total Protein 7.6 g/dL (6.5-8.0); Triglycerides 121 mg/dL (<150); Vitamin D 25-OH Total 51.2 ng/mL (>30)
[2023-12-08 13:57] LABS: Appearance Urine Cloudy; Color Urine Yellow; Glucose Urine UA Negative (Negative); Leukocyte Esterase Urine Large (3+) (Negative); Nitrite Urine Negative (Negative); PH 5.5 (5.0-9.0); Specific Gravity - Urine 1.025 (1.005-1.025); UMIC TRIGGER UACC YES; Urine Blood Negative (Negative); Urine Ketones Negative (Negative); Urine Protein Trace mg/dL (Neg-Trace)
[2023-12-08 14:00] LABS: Bacteria Urine Trace (None Seen); Hyaline Casts Urine 0-2 /LPF (0-2); RBC Urine 0-2 /HPF (0-2); Squamous Epithelial Cell Urine >20 /HPF (0-2); UACC Culture Trigger YES; WBC Urine 21-50 /HPF (0-5)
== END 2023-12-08 09:40 | disposition home or self-care (01) ==
LOC: HO.HMGCX 09:39
PROVIDERS: PCP Nurse Practitioner Family; Visit Provider Nurse Practitioner Family
DX: Z00.00 Encounter for general adult medical examination without abnormal findings (principal); E55.9 Vitamin D deficiency, unspecified; M25.551 Pain in right hip
CPT/HCPCS: 36415; 73502; 80053; 80061; 81001; 82306; 84443; 85025; 87086

== ENCOUNTER 2023-12-21 13:38 | Emergency (ER) | payer OTHER, SELFPAY ==
--- NOTE | ~2023-12-21 | CT_ITS ---
EXAMINATION: CT HEAD WITHOUT CONTRAST CT FACIAL BONES WITHOUT CONTRAST CLINICAL INFORMATION: Bilateral sinus mass. Oral infection. Assess for osteomyelitis or abscess. COMPARISON: CT scan of the head 01/26/2020. TECHNIQUE: Multidetector CT imaging of the head and facial bones was performed following the intravenous administration of 85 mL of Omnipaque 350. Coronal and sagittal reformatted images were generated at the technologist workstation. DLP: 1783 mGy-cm. FINDINGS: CT head: There is no evidence of acute intracranial hemorrhage or territorial infarction. No abnormal mass-effect or midline shift is seen. Kim to white matter differentiation is well preserved. No extra-axial fluid collections are identified. There is no abnormal enhancement. The ventricles and sulci are normal in size. Brain parenchymal attenuation is unremarkable. There are no acute osseous or soft tissue abnormalities. There is severe hyperostosis frontalis interna. The mastoid air cells are well-aerated. Multiple polyps/cysts are demonstrated in the bilateral maxillary sinuses and there is mucoperiosteal thickening in the anterior left ethmoid air cells. The nasal septum is deviated to the right. There are secretions in the superior nasopharynx posteriorly. Please see below for more complete details. CT facial bones: There is extensive thickening of the anterior soft tissues in the nasal region and upper lip particularly on the right. There is a defect in the cartilaginous nasal septum. There is soft tissue fullness deep to the nasal bones bilaterally. There are no discrete fluid collections and there are no radiodense foreign bodies. FRONTAL SINUSES AND DRAINAGE PATHWAYS: The frontal sinuses are well developed bilaterally. They are well-aerated with patent frontal sinus drainage pathways. MAXILLARY SINUSES AND DRAINAGE PATHWAYS: The maxillary sinuses are well-developed bilaterally. There is relatively extensive mucoperiosteal thickening in the maxillary sinuses bilaterally with retention cyst formation and polyps. There is opacification of the left ostiomeatal complex. ETHMOID SINUSES: The ethmoid sinuses are well-developed bilaterally. There is mucoperiosteal thickening in the anterior and mid left ethmoid air cells. SPHENOID SINUSES AND DRAINAGE PATHWAYS: The sphenoid sinuses are well-aerated bilaterally. They are clear with patent sphenoethmoidal recesses.. NASAL CAVITY AND NASAL SEPTUM: As described above, there is a defect in the anterior nasal septum. The nasal septum is deviated to the right and there is a right-sided bony nasal septal spur. There are secretions in the superior nasopharynx posteriorly. There is no acute maxillofacial fracture. The mandible and mandibular condyles are intact. The bony orbital rims are intact. There is caries in multiple anterior mandibular teeth. There are no periapical lucencies in the mandible. In the maxilla there is severe caries of the residual T8 anteriorly, and there is a completely broken down right maxillary 2nd premolar tooth with periapical lucency. There are mildly prominent cervical lymph nodes, measuring up to 1.6 cm in the left level IIA region. The visualized upper cervical spine appears normal. The temporomandibular joints are intact.. CT/CT facial bones w IV con IMPRESSION: CT Head: 1. There are no acute bleeds or territorial infarcts. No masses are demonstrated. There is no abnormal enhancement. 2. There are no acute osseous or soft tissue abnormalities. CT Maxillofacial: 1. There is extensive thickening of the anterior soft tissues in the nasal region and upper lip particularly on the right. There is a defect in the cartilaginous nasal septum. There are no discrete fluid collections and there are no radiodense foreign bodies. 2. There is extensive paranasal sinus disease. There is rightward deviation of the nasal septum with a bony nasal septal spur. There are secretions in the posterior nasopharynx. 3. There is extensive caries in the maxilla and mandible. There is a broken down right maxillary 2nd premolar tooth with periapical lucency. 4. There are mildly prominent cervical lymph nodes.
[2023-12-21 14:16] VITALS: BP 154/106; PULSE 107; RESP 18; TEMP 36.5; O2SAT 94; BMI 24.9
--- NOTE | 2023-12-21 14:22 | ED_ITS ---
HPI - General Adult General Chief complaint: Dental/Oral Stated complaint: Oral infection Time Seen by Provider: 12/21/23 14:33 Source: patient Mode of arrival: ambulatory History of Present Illness HPI narrative: 58-year-old female with presentation for increasing mass and deformity of nose, she has been on several courses of nose drops and antibiotics, denies ever history of cocaine use and denies any fevers or chills. Related Data Home Medications ?Medication ?Instructions ?Recorded ?Confirmed ziprasidone HCl 60 mg capsule 1 cap PO BID 09/19/20 10/14/23 Previous Rx's ?Medication ?Instructions ?Recorded tramadol 50 mg tablet 50 mg PO DAILY PRN pain 14 days 12/05/22 #14 tabs clonazepam 0.5 mg tablet 0.5 mg PO BID PRN anxiety 30 days 12/10/22 #60 tabs pantoprazole 40 mg tablet,delayed 40 mg PO BID #180 tabs 03/07/23 release cyclobenzaprine 10 mg tablet 10 mg PO DAILY PRN muscle spasm 30 04/07/23 days #30 tabs fluticasone propionate 50 1 spray intranasal DAILY #48 grams 08/21/23 mcg/actuation nasal spray,suspension (Flonase Allergy Relief) cholecalciferol (vitamin D3) 50 50 mcg PO DAILY #90 tabs 09/29/23 mcg (2,000 unit) tablet fluticasone 250 mcg-salmeterol 50 1 inh inhalation Q12H #180 ea 09/29/23 mcg/dose blistr powdr for inhalation (Advair Diskus) cetirizine 10 mg tablet 10 mg PO DAILY PRN allergy 11/11/23 symptoms #10 tabs prednisone 20 mg tablet 60 mg (3 x 20 mg) PO DAILY #9 tabs 11/11/23 meloxicam 15 mg tablet 15 mg PO DAILY PRN for joint pain 11/18/23 #30 tabs amoxicillin 875 mg-potassium 1 tab PO BID #20 tabs 12/21/23 clavulanate 125 mg tablet tramadol 50 mg tablet 50 mg PO Q6H PRN pain #20 tabs 12/21/23 Allergies Allergy/AdvReac Type Severity Reaction Status Date / Time Sulfa (Sulfonamide Allergy Severe Swelling Verified 12/21/23 14:19 Antibiotics) azithromycin [Zithromax] Allergy Intermediate hives/GI Verified 12/21/23 14:19 upset hydrocodone [From VICODIN] Allergy Intermediate Rash Verified 12/21/23 14:19 naproxen [Aleve] Allergy Intermediate Rash Verified 12/21/23 14:19 oxycodone [OXYCODONE] Allergy Intermediate Rash Verified 12/21/23 14:19 acetaminophen [From TYLENOL] AdvReac Intermediate RASH ALL Verified 12/21/23 14:19 OVER BODY Review of Systems 2 Review of Systems: Pertinent positives and negatives as stated in HPI PMFSH Past Medical History Source: nursing notes reviewed Medical History Disorder of lung parenchyma Urinary retention Arthritis Lumbar herniated disc Back pain GERD (gastroesophageal reflux disease) Hx pulmonary embolism Erosive esophagitis Hx of ulcer disease Depression Anxiety Panic attacks History of bipolar disorder COPD (chronic obstructive pulmonary disease) Asthma Surgical History Hx of cholecystectomy Hx of colonoscopy H/O esophagogastroduodenoscopy Hx of appendectomy History of hysterectomy Family History Family History Father No problems noted. Mother HTN (hypertension) Asthma High cholesterol Heart problem Diabetes mellitus Sister Liver cancer Social History Social History Housing: Apartment Are you a primary post acute care nurse to a significant other at home: No Do you presently have visiting nurse or other home services: Yes ([employer]) Alcohol intake: current Alcohol intake frequency: holidays/special occasions only Alcohol type: beer and wine Patient Tobacco Use Status: Former Tobacco user Cigarettes Per Day: 2 Years Smoked: 10+ e-Cigarette/Vaping Use: Currently Using Second Hand Smoke Exposure: No Advance Directives: No Advance Directives Information Provided: Yes service: No Current occupational status: unemployed Cognitive needs: No Hearing needs: No Vision needs: Yes Physical Exam ED Vital Signs: Vital Signs - 24 hr 12/21/23 14:16 12/21/23 15:04 Temperature 97.7 F 98.6 F Pulse Rate 107 H 90 Respiratory Rate 18 18 Blood Pressure 154/106 H 146/91 H Pulse Oximetry 94 94 Oxygen Delivery Method Room Air Room Air BMI result Body Mass Index 24.9 VITAL SIGNS: Reviewed. GENERAL: Well developed, well nourished, in no acute distress. HEAD: Normocephalic/atraumatic, EYES: PERRLA, EOMI intact without pain, no nystagmus/pallor/icterus noted EARS: Ext canals without abnormality, TMs non-bulging and non-erythematous NOSE: Nose is shifted to the right with complete loss of nasolabial fold on the right and a swelling that is non erythematous or indurated located, the right nare is noted to be somewhat edematous with what appears to be necrotic tissue, left Moss demonstrates what appears to be a clot and involvement of the sinus cavity on correlating with intra oral evaluation I see no violation of the hard palate OROPHARYNX: no oral lesions noted, multiple dental caries, intact hard and soft palate, posterior pharynx clear and non-erythematous without noted tonsillar enlargement/erythema/exudates NECK: Supple, no adenopathy LUNGS: Normal breath sounds. No adventitious sounds or accessory muscle use. SpO2<97> CARDIOVASCULAR: Regular rate and rhythm without noted murmurs ABDOMEN: Soft, non-tender, non-distended with bowel sounds. MUSCULOSKELETAL: No tenderness, deformities, or effusions noted on gross inspection. EXTREMITIES: No cyanosis, clubbing or edema. SKIN: Inspection of the skin reveals no rashes NEUROLOGIC: Alert and oriented x 4. Strength and sensation to light touch were grossly intact x 4. Course Course Course Narrative: RME: 58 year female presents to ED severe nasal sinus infection chronic for the past 3 months. Patient face disifigured and left nares has ulcerated chronic wound with drainge. patient brought to the ED immediatley. labs, clindamycin, and CT scan face ordreed Medications Administered Discontinued Medications Generic Name Dose Route Start Last Admin Trade Name Freq PRN Reason Stop Dose Admin Sodium Chloride 1,000 mls @ 999 mls/hr 12/21/23 14:19 12/21/23 16:32 Ns IV 12/21/23 15:19 Infused .Q1H1M STA Infusion Piperacillin Sod/Tazobactam 50 mls @ 100 mls/hr 12/21/23 17:25 12/21/23 17:36 Sod 3.375 gm/ Sodium Chloride IV 12/21/23 17:54 100 mls/hr ONCE ONE Administration Iohexol 100 ml 12/21/23 15:43 12/21/23 15:44 Iohexol 350 Mg/Ml 100 Ml Infus..Btl IV 12/21/23 15:44 85 ml ONCE ONE Administration Ketorolac Tromethamine 30 mg 12/21/23 17:25 12/21/23 17:36 Ketorolac Tromethamine 30 Mg/Ml Vial IVPUSH 12/21/23 17:26 30 mg ONCE ONE Administration Medical Decision Making Medical Decision Making MDM Narrative: 58-year-old female with history and clinical presentation that appears to be a mass, patient does have history of smoking but denies any cocaine use, states that she has used a significant amount of nasal sprays previously, she has been evaluated several times by both primary care as well as ENT and as per her history everyone thought it was secondary to dental infection. I did tell the patient I had concerns that it was a mass. Signed out to Dr Sanchez. Patient's CT scan reviewed shows chronic sinusitis with bone loss will advised to continue clindamycin which was prescribed by nurse practitioner on 12/13 patient will be seeing Dr. Arboleda for further evaluation Differential Diagnosis Differential Diagnoses: The differential diagnosis associated with the presentation includes Please see the discussion above Admission/Observation Consideration of admission/observation: Escalation of care including admission/observation considered Please see the discussion above Lab Data 12/21/23 14:38 12/21/23 14:38 Labs: Lab Results 12/21/23 12/21/23 Range/Units 14:38 15:56 WBC 10.3 (4.8-10.8) X10*3/uL RBC 4.42 (4.20-5.50) X10*6/uL Hgb 13.3 (12.0-16.0) g/dl Hct 37.1 (37.0-47.0) % MCV 83.9 (80.0-98.0) fL MCH 30.1 (27.0-33.0) pg MCHC 35.8 H (31.0-35.0) g/dl RDW 15.0 (11.0-16.0) % Plt Count 297 (160-400) X10*3/uL MPV 11.8 (9.4-12.3) fL Immature Gran % (Auto) Cancelled Neut % (Auto) Cancelled Lymph % (Auto) Cancelled [place] % (Auto) Cancelled Eos % (Auto) Cancelled Baso % (Auto) Cancelled Lymph # (Auto) Cancelled [place] # (Auto) Cancelled Eos # (Auto) Cancelled Baso # (Auto) Cancelled Abs Immat Gran (auto) Cancelled Absolute Neuts (auto) Cancelled Absolute Nucleated RBC 0.000 (0.0-0.012) X10*3/uL Nucleated RBC % (auto) 0.0 (0.0-0.2) /100WBC Neutrophils % (Manual) 77 H (45-73) % Band Neutrophils % 0 L (3-5) % Lymphocytes % (Manual) 12 L (20-40) % Monocytes % (Manual) 7 (2-11) % Eosinophils % (Manual) 4 (0-4) % Abs Neuts (Manual) 7.9 (2.0-8.3) X10*3/uL Lymphocytes # (Manual) 1.2 (1.2-4.9) X10*3/uL Monocytes # (Manual) 0.7 (0.1-1.2) X10*3/uL Eosinophils # (Manual) 0.4 (0.0-0.4) X10*3/uL Platelet Estimate NORMAL (NORMAL) Plt Morphology Comment NORMAL RBC Morphology NOTED Ovalocytes 1+ (5-14) /OIF Acanthocytes (Spur) 1+ (0-2) /OIF Rouleaux PRESENT Sodium 138 (135-145) mmol/L Potassium 4.3 (3.3-5.1) mmol/L Chloride 108 (96-108) mmol/L Carbon Dioxide 20 L (22-29) mmol/L Anion Gap 14 (12-20) BUN 10 (9-16) mg/dL Creatinine 1.25 (0.5-1.4) mg/dL Estim Creat Clear Calc 44.6 Estimated GFR 44 Random Glucose 102 (60-115) mg/dL Lactic Acid 1.5 (0.5-2.0) mmol/L Calcium 9.9 (8.4-10.2) mg/dL Total Bilirubin 0.4 (0.0-1.0) mg/dL AST 16 (5-31) U/L ALT 8 (0-31) U/L Alkaline Phosphatase 51 (39-117) U/L Total Protein 8.3 H (6.5-8.0) g/dL Albumin 4.0 (3.5-5.0) g/dL Urine Color Yellow Urine Appearance Clear Urine pH 6.0 (5.0-9.0) Ur Specific [place] 1.015 (1.005-1.025) Urine Protein Negative (Neg-Trace) mg/dL Urine Glucose (UA) Negative (Negative) mg/dL Urine Ketones Negative (Negative) mg/dL Urine Blood Negative (Negative) Urine Nitrite Negative (Negative) Ur Leukocyte Esterase Negative (Negative) Discharge Plan Discharge Clinical Impression: Facial swelling, Chronic frontoethmoidal sinusitis Patient Disposition: Home, Self-Care Instructions: Sinusitis (ED) Additional Instructions: You have severe sinusitis with loss of bone likely chronic See ENT specialist as advised Take antibiotic Augmentin twice daily for 10 days Tramadol for pain Prescriptions: New tramadol 50 mg tablet 50 mg PO Q6H PRN (Reason: pain) Qty: 20 0RF amoxicillin-pot clavulanate 875-125 mg tablet 1 tab PO BID Qty: 20 0RF No Action tramadol 50 mg tablet 50 mg PO DAILY PRN (Reason: pain) 14 Days Qty: 14 0RF clonazepam 0.5 mg tablet 0.5 mg PO BID PRN (Reason: anxiety) 30 Days Qty: 60 0RF pantoprazole 40 mg tablet,delayed release (DR/EC) 40 mg PO BID Qty: 180 1RF cyclobenzaprine 10 mg tablet 10 mg PO DAILY PRN (Reason: muscle spasm) 30 Days Qty: 30 0RF fluticasone propionate [Flonase Allergy Relief] 50 mcg/actuation spray,suspension 1 spray intranasal DAILY Qty: 48 1RF Rx Instructions: administer into each nostril fluticasone propion-salmeterol [Advair Diskus] 250-50 mcg/dose blister with device 1 inh inhalation Q12H Qty: 180 1RF cholecalciferol (vitamin D3) 50 mcg (2,000 unit) tablet 50 mcg PO DAILY Qty: 90 1RF meloxicam 15 mg tablet 15 mg PO DAILY PRN (Reason: for joint pain) Qty: 30 0RF ziprasidone HCl 60 mg capsule 1 cap PO BID prednisone 20 mg tablet 60 mg PO DAILY Qty: 9 0RF cetirizine 10 mg tablet 10 mg PO DAILY PRN (Reason: allergy symptoms) Qty: 10 0RF Referrals: Farzad Lafleur [Physician] - 1 week Print Language: Polish
[2023-12-21 14:53] LABS: Lactic Acid 1.5 mmol/L (0.5-2.0)
[2023-12-21 14:56] LABS: Hematocrit 37.1 % (37.0-47.0); Hemoglobin 13.3 g/dl (12.0-16.0); Mean Corpuscular HGB Conc 35.8 g/dl (31.0-35.0); Mean Corpuscular Hemoglobin 30.1 pg (27.0-33.0); Mean Corpuscular Volume 83.9 fL (80.0-98.0); Mean Platelet Volume 11.8 fL (9.4-12.3); Platelet Count 297 X10*3/uL (160-400); Red Blood Count 4.42 X10*6/uL (4.20-5.50)
[2023-12-21] MEDS: 0.9 % Sodium Chloride 1,000 ML 999 ML IV (14:56)
[2023-12-21 14:57] LABS: WBC ABN SCTR FOR CBC 1
[2023-12-21 14:58] LABS: Alanine Aminotransferase 8 U/L (0-31); Alkaline Phosphatase 51 U/L (39-117); Anion Gap 14 (12-20); Aspartate Amino Transferase 16 U/L (5-31); Bilirubin Total 0.4 mg/dL (0.0-1.0); Blood Urea Nitrogen 10 mg/dL (9-16); Calcium 9.9 mg/dL (8.4-10.2); Carbon Dioxide 20 mmol/L (22-29); Chloride 108 mmol/L (96-108); Creatinine Clr Calc Pharmacy 44.6; Estimated Glomerular Filt Rate 44; Glucose Random 102 mg/dL (60-115); Potassium 4.3 mmol/L (3.3-5.1); Sodium 138 mmol/L (135-145); Total Protein 8.3 g/dL (6.5-8.0)
[2023-12-21 15:04] VITALS: BP 146/91; PULSE 90; RESP 18; TEMP 37; O2SAT 94
[2023-12-21 15:16] LABS: Band Neutrophils Percent 0 % (3-5); Eosinophils Percent Manual 4 % (0-4); Lymphocytes Percent Manual 12 % (20-40); Monocytes Percent Manual 7 % (2-11); Neutrophils Percent Manual 77 % (45-73)
[2023-12-21 15:18] LABS: RBC Morphology NOTED
[2023-12-21 15:19] LABS: Acanthocytes 1+ (0-2) /OIF; Ovalocytes 1+ (5-14) /OIF; Rouleau PRESENT
[2023-12-21 15:21] LABS: Platelet Estimate NORMAL (NORMAL)
[2023-12-21 15:22] LABS: Eosinophils Absolute Manual 0.4 X10*3/uL (0.0-0.4); Lymphocytes Absolute Manual 1.2 X10*3/uL (1.2-4.9); Monocytes Absolute Manual 0.7 X10*3/uL (0.1-1.2); Neutrophils Absolute Manual 7.9 X10*3/uL (2.0-8.3); Platelet Morphology Comment NORMAL; White Blood Count 10.3 X10*3/uL (4.8-10.8)
[2023-12-21] MEDS: iohexoL 350 MG/ML 100 ML INFUS..BTL IV (15:44)
--- NOTE | 2023-12-21 16:00 | PC.NURSE ---
iv established, fluids infusing. patient alert and oriented with even and unlabored respirations. growth noted to patient's nose - states this has been ongoing. ambulated to bathroom independently with steady gait to provide urine sample. awaiting results from ct scan. call rodrigues within reach.
[2023-12-21 16:05] LABS: Appearance Urine Clear; Color Urine Yellow; Glucose Urine UA Negative (Negative); Leukocyte Esterase Urine Negative (Negative); Nitrite Urine Negative (Negative); Specific Gravity - Urine 1.015 (1.005-1.025); Urine Blood Negative (Negative); Urine Ketones Negative (Negative); Urine Protein Negative (Neg-Trace)
[2023-12-21] MEDS: Ketorolac Tromethamine 30 MG/ML VIAL IVPUSH (17:36)
[2023-12-21] MEDS: Piperacillin Sodium/Tazobactam 3.375 GM in 0.9 % Sodium Chloride 50 ML IV (17:36)
--- NOTE | 2023-12-21 17:44 | PC.NURSE ---
antibiotics infusing, plan for discharge after
[2023-12-21 18:23] VITALS: BP 146/91; PULSE 90; RESP 18; TEMP 37; O2SAT 94
== END 2023-12-21 18:24 | disposition home or self-care (01) ==
PROVIDERS: Physician Assistant; Student in an Organized Health Care Education/Training Program; Emergency Provider Internal Medicine; PCP Nurse Practitioner Family
DX: J32.9 Chronic sinusitis, unspecified (principal); R22.0 Localized swelling, mass and lump, head; J44.9 Chronic obstructive pulmonary disease, unspecified; Z86.711 Personal history of pulmonary embolism
CPT/HCPCS: 36415; 70460; 70487; 80053; 81003; 83605; 85007; 85027; 87040; 96361; 96374; 96375; 99285; J1885; J2543; Q9967

== ENCOUNTER 2024-02-16 12:49 | Outpatient (AMB) | payer OTHER, SELFPAY ==
--- NOTE | 2024-02-16 13:01 | A.OFFPC_ITS ---
Vital Signs 02/16/24 13:02 Height 5 ft 4 in Weight 142 lb BMI 24.4 BP 110/68 Blood Pressure Location Lt brachial Position Sitting Pulse 98 Pulse Source Pulse Oximeter Pulse Oximetry (%) 96 Oxygen Delivery Method Room Air Intake Visit Reasons: Pre Op-bilat nasal procedure Intake Note: pt is here for pre-op clearance for nasal surgery Allergies Sulfa (Sulfonamide Antibiotics) Allergy (Severe, Verified 02/16/24 13:40) Swelling azithromycin [Zithromax] Allergy (Intermediate, Verified 02/16/24 13:40) hives/GI upset hydrocodone [From VICODIN] Allergy (Intermediate, Verified 02/16/24 13:40) Rash naproxen [Aleve] Allergy (Intermediate, Verified 02/16/24 13:40) Rash oxycodone [OXYCODONE] Allergy (Intermediate, Verified 02/16/24 13:40) Rash tramadol Allergy (Intermediate, Verified 02/16/24 13:40) Itching,burning skin acetaminophen [From TYLENOL] Adverse Reaction (Intermediate, Verified 02/16/24 13:40) RASH ALL OVER BODY Medication List - Last Reconciled 02/16/24 by KASH Fisher cetirizine 10 mg PO DAILY PRN cholecalciferol (vitamin D3) 50 mcg PO DAILY clonazepam 0.5 mg PO BID PRN 30 days ferrous sulfate 324 mg PO DAILY fluticasone propion-salmeterol 250-50 mcg/dose (Advair Diskus) 1 inh inhalation Q12H meloxicam 15 mg PO DAILY PRN pantoprazole 40 mg PO BID trazodone 100 mg PO BEDTIME PRN ziprasidone HCl 1 cap PO BID zolpidem 10 mg PO BEDTIME PRN Tobacco use date assessed: 02/16/24 Dental Screening Dental Screen Date: 10/14/23 HPI HPI Comments History of Present Illness Details Patient is a 58-year-old female who I am meeting for the 1st time in for preoperative clearance. Patient is having procedure bilateral nasal procedure for frequent nasal bleeds and thickening of the anterior soft tissues of the nasal and upper lip region with a cartilaginous defect. Patient was also found to have large perforation of the nasal septum and right-sided nasal mass. She has a past medical history significant for: Anemia, depression anxiety, asthma, insomnia, bipolar disorder, GERD. Patient has been instructed to withhold clonazepam, zolpidem, cetirizine, and meloxicam prior to the surgical procedure. She states this procedure will be taking place in x3 days. Patient had EKG performed in office. 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 1. Little interest or pleasure in doing things: nearly every day 2. Feeling down, depressed, or hopeless: nearly every day 3. Trouble falling or staying asleep, or sleeping too much: nearly every day 4. Feeling tired or having little energy: nearly every day 5. Poor appetite or overeating: nearly every day 6. Feeling bad about yourself - or that you are a failure or have let yourself or your family down: nearly every day 7. Trouble concentrating on things, such as reading the newspaper or watching television: not at all 8. Moving or speaking so slowly that other people could have noticed. Or the opposite - being so fidgety or restless that you have been moving around a lot more than usual: nearly every day 9. Thoughts that you would be better off or of hurting yourself in some way: nearly every day Total score: 24 Depression Screening Interpretation: Positive Depression Screening Done: Yes 52986 - PHQ-9 Billing: Yes Source: Developed by Drs. Ovi Portillo, Tila Herrera, Sam Montesinos and colleagues, with an educational sherine from [employer]. Thrive Questionnaire Date Thrive assessed: 10/14/23 AUDIT C Alcohol Use Questionnaire (AUDIT-C) 1. How often do you have a drink containing alcohol?: Monthly or less 2. How many drinks containing alcohol do you have on a typical day when you are drinking?: 1 or 2 3. How often do you have six or more drinks on one occasion?: Never Total Score: 1 ANTOINETTE-7 AMB Questionnaire ANTOINETTE-7 Date ANTOINETTE - 7 assessed: 02/16/24 Feeling nervous, anxious, or on edge: 2 = More than half the days Not being able to stop or control worryin = Nearly every day Worrying too much about different things: 3 = Nearly every day Trouble relaxin = Nearly every day Being so restless that it is hard to sit still: 0 = Not at all Becoming easily annoyed or irritable: 3 = Nearly every day Feeling afraid as if something awful might happen: 1 = Several days Total ANTOINETTE-7 score (0-4 normal; 5-9 mild; 10-14 moderate; 15-21 severe): 15 Source: Developed by Drs. Ovi Portillo, Tila Herrera, Sam Montesinos and colleagues, with an educational sherine from [employer]. ANTOINETTE-7 Assessment Billing ANTOINETTE-7 Assessment Tool: ANTOINETTE-7 Assessment 38086 Review of Systems Const All systems reviewed & are unremarkable except as noted in HPI and below Denies chills and Denies fever(s) Card Denies chest pain and Denies dyspnea Resp Denies chest congestion, Denies cough, Denies dyspnea and Denies wheezing GI Denies diarrhea, Denies nausea and Denies vomiting Psych Denies homicidal ideation and Denies suicidal ideation Aller/Immun Denies wheezing Physical exam (Primary Care) Vital Signs: Last Vital Signs Pulse 98 02/16/24 13:02 BP 110/68 02/16/24 13:02 Pulse Ox 96 02/16/24 13:02 Oxygen Delivery Method Room Air 02/16/24 13:02 Care Plan Goal for BP management: Blood pressure is controlled, vitals are stable. BMI result Body Mass Index 24.4 Tobacco/Smoking Status: Tobacco use Status Tobacco use date assessed 02/16/24 02/16/24 13:12 Patient Tobacco Use Status Former Tobacco user 02/16/24 13:12 e-Cigarette/Vaping Use Currently Using 02/16/24 13:12 PHQ-9: PHQ-9 Score PHQ-9: Total score 02/16/24 13:12 Depression Screening Interpretation: Positive Thrive Assessment: Date of Thrive Assessment Date Thrive assessed 10/14/23 02/16/24 13:12 Const Other: Appearance: Alert.? Oriented X3.? No acute distress.? Head: Normocephalic. Eyes: Pupils equal, round and reactive to light.? ENT: Pharynx normal.?+right nasal mass. Neck: Normal inspection.? Neck supple.? CVS: Normal heart rate and rhythm.? Pulses normal.?+Systolic murmur. Respiratory: No respiratory distress.? Breath sounds normal.? Abdomen: Soft and nontender.? Neuro: Oriented X 3.? No motor deficit.? No sensory deficit. CN 2-12 intact Office Procedures EKG [id number], Complete Assessment and Plan Assessment & Plan (1) Pre-operative clearance: Comment: Patient is moderate cardiac risk for procedure. She has a past medical history significant for: Anemia, depression anxiety, asthma, insomnia, bipolar disorder, GERD. Patient has been instructed to withhold clonazepam, zolpidem, cetirizine, and meloxicam prior to the surgical procedure. She states this procedure will be taking place in x3 days. Patient had EKG performed in office. Code(s): Z01.818 - Encounter for other preprocedural examination (2) Anemia: Comment: H&H from 2 months prior is normal. Code(s): D64.9 - Anemia, unspecified Qualifiers: Anemia type: unspecified type Qualified Code(s): D64.9 - Anemia, unspecified (3) Bipolar disorder: Comment: Controlled, utilizing zaprasidone Code(s): F31.9 - Bipolar disorder, unspecified Qualifiers: Active/Remission status: remission status unspecified Qualified Code(s): F31.9 - Bipolar disorder, unspecified (4) Anxiety: Comment: Patient utilizing 0.5 clonazepam and zolpidem 10 mg p.o. bedtime. Patient has been instructed to withhold these medications the night before and day of procedure. Code(s): F41.9 - Anxiety disorder, unspecified (5) Reactive airway disease: Comment: Utilizing Advair Diskus with good effect Code(s): J45.909 - Unspecified asthma, uncomplicated Qualifiers: Asthma severity: unspecified severity Asthma persistence: unspecified Asthma complication type: uncomplicated Qualified Code(s): J45.909 - Unspecified asthma, uncomplicated Orders: Orders AMB EKG-In Office Today Z13.6 - Encounter for screening for cardiovascular disorders Coding Level of Care Code Est Pt Level 3 (70685) Diagnoses Pre-operative clearance Z01.818 Anemia, unspecified type D64.9 Anemia type: unspecified type Bipolar affective disorder, remission status unspecified F31.9 Active/Remission status: remission status unspecified Anxiety F41.9 Reactive airway disease without complication, unspecified asthma severity, unspecified whether persistent J45.909 Asthma severity: unspecified severity Asthma persistence: unspecified Asthma complication type: uncomplicated CPT Codes EKG - CPT: 32324-[id number], Complete ([id number]) Additional Codes ANTOINETTE-7 Assessment Billing - ANTOINETTE-7 Assessment Tool: ANTOINETTE-7 Assessment 59574 ([id number]) Time Spent (min) 28
[2024-02-16 13:02] VITALS: BP 110/68; PULSE 98; O2SAT 96; BMI 24.4
== END 2024-02-16 13:59 | disposition home or self-care (01) ==
PROVIDERS: PCP Nurse Practitioner Family; Visit Provider Nurse Practitioner Primary Care
DX: D64.9 Anemia, unspecified (principal); Z01.818 Encounter for other preprocedural examination; Z13.6 Encounter for screening for cardiovascular disorders; F31.9 Bipolar disorder, unspecified; F41.9 Anxiety disorder, unspecified; J45.909 Unspecified asthma, uncomplicated
CPT/HCPCS: 93000; 99213

== ENCOUNTER → 2024-04-06 11:20 | Outpatient (BNVA) | payer OTHER, SELFPAY | PROVIDERS: PCP Nurse Practitioner Family; Visit Provider Nurse Practitioner ==

== ENCOUNTER 2024-04-07 15:46 | Outpatient (AMB) | payer OTHER, SELFPAY ==
[2024-04-07 15:52] VITALS: BP 118/70; PULSE 98; O2SAT 96; BMI 24.2
--- NOTE | 2024-04-07 15:52 | A.OFFPC_ITS ---
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 Allergies Sulfa (Sulfonamide Antibiotics) Allergy (Severe, Verified 04/07/24 17:47) Swelling azithromycin [Zithromax] Allergy (Intermediate, Verified 04/07/24 17:47) hives/GI upset hydrocodone [From VICODIN] Allergy (Intermediate, Verified 04/07/24 17:47) Rash naproxen [Aleve] Allergy (Intermediate, Verified 04/07/24 17:47) Rash oxycodone [OXYCODONE] Allergy (Intermediate, Verified 04/07/24 17:47) Rash tramadol Allergy (Intermediate, Verified 04/07/24 17:47) Itching,burning skin acetaminophen [From TYLENOL] Adverse Reaction (Intermediate, Verified 04/07/24 17:47) RASH ALL OVER BODY Tobacco use date assessed: 02/16/24 Dental Screening Dental Screen Date: 10/14/23 HPI FOLLOW UP HPI Details Pt c/o confusion. She reports intermittently forgetting where she is when driving. Will order labs. Pt sees a psychiatrist and therapist. Denies any SI and HI. 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 1. Little interest or pleasure in doing things: nearly every day 2. Feeling down, depressed, or hopeless: nearly every day 3. Trouble falling or staying asleep, or sleeping too much: nearly every day 4. Feeling tired or having little energy: nearly every day 5. Poor appetite or overeating: nearly every day 6. Feeling bad about yourself - or that you are a failure or have let yourself or your family down: nearly every day 7. Trouble concentrating on things, such as reading the newspaper or watching television: nearly every day 8. Moving or speaking so slowly that other people could have noticed. Or the opposite - being so fidgety or restless that you have been moving around a lot more than usual: nearly every day 9. Thoughts that you would be better off or of hurting yourself in some way: more than half the days Total score: 26 Depression Screening Interpretation: Positive Depression Screening Follow-up: Existing condition and In treatment Depression Screening Done: Yes 70743 - PHQ-9 Billing: Yes Source: Developed by Drs. Ovi Portillo, Tila Herrera, Sam Montesinos and colleagues, with an educational sherine from [employer]. Thrive Questionnaire Date Thrive assessed: 04/07/24 I am a: Parent/Caregiver What is your living situation today?: I have a steady place to live Within the past 12 months, did the food you bought not last and you didn't have the money to get more?: I choose not to answer this question Within the past 12 months, did you worry whether your food would run out before you got money to buy more?: I choose not to answer this question Do you have trouble paying for medicines?: I choose not to answer this question Do you have trouble getting transportation to medical appointments?: I choose not to answer this question Do you have trouble paying your heating and electricity bill?: I choose not to answer this question Do you have trouble taking care of your child, family member or friend?: I choose not to answer this question Do you have trouble with day-to-day activities such as bathing, preparing meals, shopping, managing finances, etc.?: I choose not to answer this question Are you currently unemployed and looking for a job?: I choose not to answer this question Are you interested in more education?: I choose not to answer this question Please select the resources that you would like help with: None Currently or been in a relationship where the following occur: I choose not to answer THRIVE Score: 0 AUDIT C Alcohol Use Questionnaire (AUDIT-C) 1. How often do you have a drink containing alcohol?: 2-4 times a month 2. How many drinks containing alcohol do you have on a typical day when you are drinking?: 1 or 2 3. How often do you have six or more drinks on one occasion?: Never Total Score: 2 Score Reviewed/Action Taken: Yes ANTOINETTE-7 AMB Questionnaire ANTOINETTE-7 Date ANTOINETTE - 7 assessed: 04/07/24 Feeling nervous, anxious, or on edge: 1 = Several days Not being able to stop or control worryin = Several days Worrying too much about different things: 1 = Several days Trouble relaxin = Several days Being so restless that it is hard to sit still: 2 = More than half the days Becoming easily annoyed or irritable: 1 = Several days Feeling afraid as if something awful might happen: 1 = Several days Total ANTOINETTE-7 score (0-4 normal; 5-9 mild; 10-14 moderate; 15-21 severe): 8 Source: Developed by Drs. Ovi Portillo, Tila Herrera, Sam Montesinos and colleagues, with an educational sherine from [employer]. ANTOINETTE-7 Assessment Billing ANTOINETTE-7 Assessment Tool: ANTOINETTE-7 Assessment 26527 Review of Systems Const Reports as per HPI Physical exam (Primary Care) Vital Signs: Last Vital Signs Pulse 98 04/07/24 15:52 BP 118/70 04/07/24 15:52 Pulse Ox 96 04/07/24 15:52 Oxygen Delivery Method Room Air 04/07/24 15:52 BMI result Body Mass Index 24.2 Tobacco/Smoking Status: Tobacco use Status Tobacco use date assessed 02/16/24 04/07/24 15:52 Patient Tobacco Use Status Former Tobacco user 04/07/24 15:52 e-Cigarette/Vaping Use Currently Using 04/07/24 15:52 PHQ-9: PHQ-9 Score PHQ-9: Total score 26 04/07/24 17:52 Depression Screening Interpretation: Positive Depression Screening Follow-up: Existing condition and In treatment Thrive Assessment: Date of Thrive Assessment Date Thrive assessed 04/07/24 04/07/24 15:53 Currently or been in a relationship where the following occur: I choose not to answer Const General: cooperative Orientation/consciousness: patient oriented x3 Resp Effort & Inspection: normal respiratory effort Auscultation: clear to auscultation bilaterally Cardio Rate: regular rate Rhythm: regular rhythm Heart sounds: S1 normal heart sound present and S2 normal heart sound present General: Yes no CVA tenderness Back/Spine/Pelvis Back: no CVA tenderness Neuro General: patient oriented x3 Cranial nerves: Yes CN's II-XII intact bilaterally Psych Appearance: grossly normal Mental Status: mental status grossly normal Speech and movement: Normal speech and movement present Affect: normal affect Attitude: cooperative Thought process: Normal thought process present Thought content: Normal thought content present Insight: Good insight present (Psych) Judgement: Good judgement present (Psych) Results AMB Urinalysis, Automated UA Leukoctes 15 Mekhi/uL Last Edit by Mitul Dickens CMA on 04/07/24 16:28 UA Nitrite Negative Last Edit by Mitul Dickens CMA on 04/07/24 16:28 UA Urobilinogen 0.2 mg/dL Last Edit by Mitul Dickens CMA on 04/07/24 16 :28 UA Protein 15 mg/dL Last Edit by Mitul Dickens CMA on 04/07/24 16:28 UA pH 6.0 Last Edit by Mitul Dickens CMA on 04/07/24 16:28 UA Blood 0 Sameer/uL Last Edit by Mitul Dickens CMA on 04/07/24 16:28 UA Specific [place] 1.025 Last Edit by Mitul Dickens CMA on 04/07/24 16:28 UA Ketone Positive Last Edit by Mitul Dickens CMA on 04/07/24 16:28 UA Bilirubin 1 mg/dL Last Edit by Mitul Dickens CMA on 04/07/24 16:28 UA Glucose 0 mg/dL Last Edit by Mitul Dickens CMA on 04/07/24 16:28 Results Reviewed Results Reviewed: Laboratory Last Values Urine pH (Auto) 6.0 04/07/24 16:27 Specific [place] (Auto) 1.025 04/07/24 16:27 Urine Protein (Auto) 15 mg/dL 04/07/24 16:27 Glucose (UA)(Auto) 0 mg/dL 04/07/24 16:27 Urine Ketones (Auto) Positive 04/07/24 16:27 Urine Blood (Auto) 0 Sameer/uL 04/07/24 16:27 Urine Nitrite (Auto) Negative 04/07/24 16:27 Urine Bilirubin (Auto) 1 mg/dL 04/07/24 16:27 Urine Urobilinogen (Auto) 0.2 mg/dL 04/07/24 16:27 Leukocyte Esterase (Auto) 15 Mekhi/uL 04/07/24 16:27 Assessment and Plan Assessment & Plan (1) Confusion: Code(s): R41.0 - Disorientation, unspecified Plan: Labs ordered, CT of head performed 11/2023. Plan The patient agreed to the use of a auditor medical claims for this encounter. Scribed for KP Burciaga by Corinne Fletcher auditor medical claims, on 04/07/2024 at 16:35 EST. Orders: Orders Comprehensive Met. Panel Today R41.0 - Disorientation, unspecified TSH reflex Free T4 Today R41.0 - Disorientation, unspecified Vitamin B12 and Folate Today R41.0 - Disorientation, unspecified Methylmalonic Acid Today R41.0 - Disorientation, unspecified Syphilis Screen Today R41.0 - Disorientation, unspecified AMB Urinalysis Automated Today Z13.9 - Encounter for screening, unspecified Complete Blood Count Auto Diff Today R41.0 - Disorientation, unspecified Homocysteine Today R41.0 - Disorientation, unspecified Lyme IgG/IgM w/reflex to WB Today R41.0 - Disorientation, unspecified Tick-borne Disease Molecular Today R41.0 - Disorientation, unspecified Medications: New cephalexin 250 mg PO BID 6 caps 0RF 3 days Coding Level of Care Code Est Pt Level 3 (74752) Diagnoses Confusion R41.0 Additional Codes ANTOINETTE-7 Assessment Billing - ANTOINETTE-7 Assessment Tool: ANTOINETTE-7 Assessment 59758 ([id number])
== END 2024-04-07 17:09 | disposition home or self-care (01) ==
PROVIDERS: PCP Nurse Practitioner Family; Visit Provider Nurse Practitioner Family
DX: R41.0 Disorientation, unspecified (principal)
CPT/HCPCS: 81003; 99213

== ENCOUNTER 2024-05-19 14:36 | Outpatient (AMB) | payer OTHER, SELFPAY ==
--- NOTE | 2024-05-19 11:17 | A.OFFVIS_ITS ---
Intake Visit Reasons: HDF Allergies Sulfa (Sulfonamide Antibiotics) Allergy (Severe, Verified 04/07/24 17:47) Swelling azithromycin [Zithromax] Allergy (Intermediate, Verified 04/07/24 17:47) hives/GI upset hydrocodone [From VICODIN] Allergy (Intermediate, Verified 04/07/24 17:47) Rash naproxen [Aleve] Allergy (Intermediate, Verified 04/07/24 17:47) Rash oxycodone [OXYCODONE] Allergy (Intermediate, Verified 04/07/24 17:47) Rash tramadol Allergy (Intermediate, Verified 04/07/24 17:47) Itching,burning skin acetaminophen [From TYLENOL] Adverse Reaction (Intermediate, Verified 04/07/24 17:47) RASH ALL OVER BODY HPI HPI HDF: Details: 58-year-old female recently seen [facility], with a history of PTSD, anxiety, gastric ulcer, tobacco use, cocaine use a nasal septal perforation found to have a nasal cavity mass with evidence of a lamellar osteomyelitis with the PSAR. She was eventually admitted for nasal debridement biopsy and started on IV antibiotics. During her hospital stay, on 05/02/2024, patient reported feeling anxious and had some shortness of breath. EKG showed abnormality, including anterior ST depressions. She was eventually seen by Pulmonary. Capillary TTE right heart strain noted with elevated pulmonary artery pressures, severely dilated RV with mildly decreased function and a capsule PASP of 108. RHC performed confirming diagnosis of pulmonary hypertension with a predominant pre capillary component. There was a suspected group for capital PH/CTEPH given CTPA with chronic appearing segmental and subsegmental pulmonary artery filling defects. Patient was then started onApixaban and was diuresed with IV Lasix for 2 days and then eventually transitioned to p.o. Lasix. Patient did receive a PICC line and was started on an IV cefepime. 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 U tox was positive for cocaine inpatient admitted to using inhalation cocaine. No DVTs noted to right lower extremity. Again, V/Q scan was abnormal with chronic pulmonary emboli found. In the setting of increased pulmonary artery systolic pressure is consistent with diagnosis of chronic thromboembolic pulmonary hypertension. [facility] Medical History (Updated 05/09/24 @ 13:05 by KP Urbina) Osteomyelitis of facial bone Cocaine use disorder Right leg pain Joint pain Herniated disc Urinary retention Sprain of left knee Sprain of right knee Arthritis Physical exam Screening for cervical cancer SOB (shortness of breath) Anxiety Carcinoma of nasal cavity Ulcer, nasal, septum Excessive cerumen in both ear canals Pre-operative clearance Nasal septum perforation Disorder of lung parenchyma Lumbar herniated disc Back pain GERD (gastroesophageal reflux disease) Hx pulmonary embolism Erosive esophagitis Hx of ulcer disease Depression Panic attacks History of bipolar disorder COPD (chronic obstructive pulmonary disease) Asthma Surgical History Hx of cholecystectomy Hx of colonoscopy H/O esophagogastroduodenoscopy Hx of appendectomy History of hysterectomy Family History Father No problems noted. Mother HTN (hypertension) Asthma High cholesterol Heart problem Diabetes mellitus Sister Liver cancer Social History Housing: Apartment Are you a primary emergency care attendant to a significant other at home: No Do you presently have visiting nurse or other home services: Yes ([employer]) Alcohol intake: current Alcohol intake frequency: holidays/special occasions only Alcohol type: beer and wine Patient Tobacco Use Status: Former Tobacco user Cigarettes Per Day: 2 Years Smoked: 10+ e-Cigarette/Vaping Use: Currently Using Second Hand Smoke Exposure: No service: No Current occupational status: unemployed Cognitive needs: No Hearing needs: No Vision needs: Yes Coding
[2024-05-19 14:39] VITALS: BP 88/56; PULSE 96; O2SAT 95; BMI 24.2
--- NOTE | 2024-05-19 14:45 | A.OFFPC_ITS ---
Vital Signs 05/19/24 14:39 05/19/24 16:18 Height 5 ft 4 in Weight 141 lb BMI 24.2 BP 88/56 L Blood Pressure Location Lt brachial Position Sitting Pulse 96 Pulse Source Pulse Oximeter Temp 98.9 F Temp Source Oral Pulse Oximetry (%) 95 Oxygen Delivery Method Room Air Intake Visit Reasons: HDF Allergies Sulfa (Sulfonamide Antibiotics) Allergy (Severe, Verified 05/19/24 14:42) Swelling azithromycin [Zithromax] Allergy (Intermediate, Verified 05/19/24 14:42) hives/GI upset hydrocodone [From VICODIN] Allergy (Intermediate, Verified 05/19/24 14:42) Rash naproxen [Aleve] Allergy (Intermediate, Verified 05/19/24 14:42) Rash oxycodone [OXYCODONE] Allergy (Intermediate, Verified 05/19/24 14:42) Rash tramadol Allergy (Intermediate, Verified 05/19/24 14:42) Itching,burning skin acetaminophen [From TYLENOL] Adverse Reaction (Intermediate, Verified 05/19/24 14:42) RASH ALL OVER BODY Medication List - Last Reconciled 05/19/24 by Dave Wray, MEDICAL DIRECTOR OCCUPATIONAL HEALTH- apixaban 5 mg PO BID cetirizine 10 mg PO DAILY cholecalciferol (vitamin D3) 50 mcg PO DAILY clonazepam 0.5 mg PO BID PRN 30 days ferrous sulfate 324 mg PO DAILY fluticasone propion-salmeterol 250-50 mcg/dose (Advair Diskus) 1 inh inhalation Q12H furosemide 20 mg PO DAILY [handheld showerhead As directed] meloxicam 15 mg PO DAILY PRN pantoprazole 40 mg PO BID Shower Chair As directed sodium chloride 0.65% (Saline Nasal) 2 sprays intranasal PRN trazodone 100 mg PO BEDTIME PRN ziprasidone HCl 1 cap PO BID ziprasidone HCl 80 mg PO BID zolpidem 10 mg PO BEDTIME PRN Tobacco use date assessed: 02/16/24 Dental Screening Dental Screen Date: 10/14/23 HPI HDF HPI Details Ms. Coffman was seen at [facility] on the 30 of April. History of PTSD, anxiety, tobacco use, cocaine use, and found to have a nasal septal perforation in the nasal cavity mass with evidence of a Lamellar osteomyelitis with PSAR. She was eventually admitted for nasal debridement and the biopsy and IV antibiotics were given postop. During her hospital stay she was found have shortness of breath and feeling anxious, EKG showed a anterior ST depression, she was then transferred to internal medicine service. At this point she was seen by pulmonary services TTE showed right heart strain and an elevated pulmonary artery pressure (severely dilated RV with mildly decreased function and capsule PASP of 108). Diagnosis of pulmonary hypertension was confirmed. Suspect group for PH/CTEPH given CTPA demonstrating chronic appearing segmental and subsegmental pulmonary artery filling defects. Patient was started on Apixaban and diuresed with IV Lasix for 2 days then transition to p.o. Lasix at the time of discharge. Patient was started on IV cefepime, via PICC line, on 05/01 and is to remain on this medication until 06/12/2024. Eventually a V/Q scan on 05/05/2024 did show evidence of CTEPH. There was a rheumatological workup pending. U tox screen did show positive for cocaine, patient reported using inhalation cocaine. Infectious Disease, Cardiology, Pulmonary, ENT all involved with her care, in the [facility]. Today, pt is here with her TRAINING AND DEVELOPMENT ASSISTANT. TRAINING AND DEVELOPMENT ASSISTANT and pt spoke. Follow up Appt as follows: May 25 pulmonary, jun 02 ID. Pt has a follow up with ENT during first week of May, reconstruction surgery scheduled during mid May. Pt reports she also has a follow up with cardiology during the beginning of May. Pt has VNA comes once a week, blood drawn from her PICC (assuming ID).VNA is also changing her PICC dressing weekly. TID antibiotics given via PICC, by TRAINING AND DEVELOPMENT ASSISTANT. Pt reports vomiting black tar , then clear phelgm x 2 small amt over last 2 days. Patient reported that this since ceased. She denies any bleeding from GI tract or urinary tract. She denies any bleeding from her nares. Pt further reports the chills currently, neg fever in office. Pt reported not using anymore cocaine since discharge. TRAINING AND DEVELOPMENT ASSISTANT reports last hemoglobin was 8.9 (drawn 2 days ago). Will repeat CBC, CMP, tomorrow (pt promised as did her TRAINING AND DEVELOPMENT ASSISTANT). Patient reports using a cream and nasal saline to her left nasal passage. She does report feeling fatigued overall, but seeing what she has went through, her current H&H, and current BP, this makes sense. Will continue to monitor labs myself as well. I plan to follow up with the patient next week, and also watching her closely. She further does report pains throughout her face and ribcage. I explained I will give her some tramadol. She know she cannot share this medication, drive on this medication, and only take as prescribed. Patient is also reporting some nausea, I will prescribed her Zofran. Major procedures: Endoscopy with nasal cautery on 04/30/2024 and a right heart catheterization on 05/04/2024. NOTE: I did mention to patient that if anything changes she needs to go directly to the ER. This includes any more vomiting/spitting up blood, increased nausea, feeling dizzy, feeling more fatigued, fevers, chills, blurred vision, or bleeding noted in her bowels, urine, vagina, nose. Will await H+H tomorrow. Denies any current CP, SOB, vomiting, bleeding. [facility] Medical History (Updated 05/19/24 @ 17:41 by KP Urbina) Osteomyelitis of facial bone Cocaine use disorder Right leg pain Joint pain Herniated disc Urinary retention Sprain of left knee Sprain of right knee Arthritis Physical exam Screening for cervical cancer SOB (shortness of breath) Anxiety Carcinoma of nasal cavity Ulcer, nasal, septum Excessive cerumen in both ear canals Pre-operative clearance Nasal septum perforation Disorder of lung parenchyma Lumbar herniated disc Back pain GERD (gastroesophageal reflux disease) Hx pulmonary embolism Erosive esophagitis Hx of ulcer disease Depression Panic attacks History of bipolar disorder COPD (chronic obstructive pulmonary disease) Asthma Surgical History Hx of cholecystectomy Hx of colonoscopy H/O esophagogastroduodenoscopy Hx of appendectomy History of hysterectomy Family History Father No problems noted. Mother HTN (hypertension) Asthma High cholesterol Heart problem Diabetes mellitus Sister Liver cancer Social History Housing: Apartment Are you a primary animal caretaker supervisor to a significant other at home: No Do you presently have visiting nurse or other home services: Yes (TRAINING AND DEVELOPMENT ASSISTANT) Alcohol intake: current Alcohol intake frequency: holidays/special occasions only Alcohol type: beer and wine Patient Tobacco Use Status: Former Tobacco user Cigarettes Per Day: 2 Years Smoked: 10+ e-Cigarette/Vaping Use: Currently Using Second Hand Smoke Exposure: No service: No Current occupational status: unemployed Cognitive needs: No Hearing needs: No Vision needs: Yes Questionnaire Thrive Questionnaire Date Thrive assessed: 04/07/24 ANTOINETTE-7 AMB Questionnaire ANTOINETTE-7 Date ANTOINETTE - 7 assessed: 04/07/24 Source: Developed by Drs. Ovi Portillo, Tila Herrera, Sam Montesinos and colleagues, with an educational sherine from [employer]. Review of Systems Const Reports as per HPI Physical exam (Primary Care) Vital Signs: Last Vital Signs Pulse 96 05/19/24 14:39 BP 88/56 L 05/19/24 14:39 Pulse Ox 95 05/19/24 14:39 Oxygen Delivery Method Room Air 05/19/24 14:39 BMI result Body Mass Index 24.2 Tobacco/Smoking Status: Tobacco use Status Tobacco use date assessed 02/16/24 05/19/24 14:46 Patient Tobacco Use Status Former Tobacco user 05/19/24 14:46 e-Cigarette/Vaping Use Currently Using 05/19/24 14:46 Thrive Assessment: Date of Thrive Assessment Date Thrive assessed 04/07/24 05/19/24 14:46 Const Other: speaking in complete sentences, joking around periodically (her typical) General: cooperative and no acute distress HENMT Other: Large open region visually tthrough left nare. Dried blood noted. No signs of facial cellulitis. Minimal maxillary tenderness noted with palpation. Head: Yes normal to inspection Resp Effort & Inspection: normal respiratory effort Auscultation: clear to auscultation bilaterally Cardio Rate: regular rate Rhythm: regular rhythm Heart sounds: S1 normal heart sound present, S2 normal heart sound present and Murmur heart sound present systolic (faint) Psych Appearance: well kempt Speech and movement: Normal speech and movement present Affect: normal affect Attitude: cooperative Assessment and Plan Assessment & Plan (1) Pulmonary HTN: Code(s): I27.20 - Pulmonary hypertension, unspecified Plan: Following up with pulmonology and Cardiology, denies any current shortness of breath, lungs are fairly clear. Reinforced the importance of her following up with her specialists (2) Cocaine abuse: Code(s): F14.10 - Cocaine abuse, uncomplicated Plan: Patient reports the last time she did cocaine this was 1 year ago, despite U tox positive. She reports no longer using cocaine (3) Osteomyelitis of facial bone: Comment: chronic lamellar osteomyelitis with PSAR and saddle nose deformity Code(s): M86.9 - Osteomyelitis, unspecified Plan: Continue antibiotics via PICC line, follow-up with the ENT as scheduled and ID. Reinforced the importance of keeping all specialist appointments (4) CTEPH (chronic thromboembolic pulmonary hypertension): Code(s): I27.24 - Chronic thromboembolic pulmonary hypertension Plan: Currently on Eliquis and taking as prescribed. (5) Fatigue: Code(s): R53.83 - Other fatigue Plan: Watching patient closely, will await H&H tomorrow in further labs. With any worsening symptoms patient knows to go to the ER Orders: Orders Complete Blood Count Auto Diff Today F14.10 - Cocaine abuse, uncomplicated, I27.20 - Pulmonary hypertension, unspecified, M86.9 - Osteomyelitis, unspecified TSH reflex Free T4 Today F14.10 - Cocaine abuse, uncomplicated, I27.20 - Pulmo nary hypertension, unspecified, M86.9 - Osteomyelitis, unspecified Ferritin Today F14.10 - Cocaine abuse, uncomplicated, I27.20 - Pulmonary hypertension, unspecified, M86.9 - Osteomyelitis, unspecified IRON PROFILE Today F14.10 - Cocaine abuse, uncomplicated, I27.20 - Pulmonary hypertension, unspecified, M86.9 - Osteomyelitis, unspecified Comprehensive Met. Panel Today F14.10 - Cocaine abuse, uncomplicated, I27.20 - Pulmonary hypertension, unspecified, M86.9 - Osteomyelitis, unspecified Magnesium Today R53.83 - Other fatigue Medications: New docusate sodium (Colace) 100 mg PO BID 30 days 60 caps 3RF ondansetron 4 mg PO Q8H 10 days PRN 30 tabs 0RF nausea and vomiting Discontinued meloxicam use sparingly, at risk for excessive bleeding Discontinued Reason: Doctor's Order 15 mg PO DAILY PRN 30 tabs 0RF for joint pain Coding Level of Care Code Est Pt Level 4 (44723) Diagnoses Pulmonary HTN I27.20 Cocaine abuse F14.10 Osteomyelitis of facial bone M86.9 CTEPH (chronic thromboembolic pulmonary hypertension) I27.24 Fatigue R53.83
[2024-05-19 16:18] VITALS: TEMP 37.2
== END 2024-05-19 16:28 | disposition home or self-care (01) ==
LOC: HO.HMCC 14:36
PROVIDERS: PCP Nurse Practitioner Family; Visit Provider Nurse Practitioner Family
DX: I27.20 Pulmonary hypertension, unspecified (principal); F14.10 Cocaine abuse, uncomplicated; M86.9 Osteomyelitis, unspecified; I27.24 Chronic thromboembolic pulmonary hypertension; R53.83 Other fatigue

== ENCOUNTER → 2024-05-19 14:36 | Outpatient (BNVA) | payer OTHER, SELFPAY | PROVIDERS: PCP Nurse Practitioner Family; Visit Provider Nurse Practitioner Family | DX: F14.10 Cocaine abuse, uncomplicated (principal); M86.9 Osteomyelitis, unspecified; I27.24 Chronic thromboembolic pulmonary hypertension | CPT/HCPCS: 99212 ==

== ENCOUNTER 2024-06-09 11:11 | Outpatient (AMB) | payer OTHER, SELFPAY ==
--- NOTE | 2024-06-09 11:13 | A.OFFPC_ITS ---
Vital Signs 06/09/24 11:14 Height 5 ft 4 in Weight 142 lb BMI 24.4 BP 100/60 Blood Pressure Location Rt brachial Position Sitting Pulse 96 Pulse Source Pulse Oximeter Pulse Oximetry (%) 94 Oxygen Delivery Method Room Air Intake Visit Reasons: F [facility] Intake Note: pt is here for HDF f/up for [facility], left against medical advise but states she wants tot go to ER [place] Required: No Allergies Sulfa (Sulfonamide Antibiotics) Allergy (Severe, Verified 06/09/24 12:33) Swelling azithromycin [Zithromax] Allergy (Intermediate, Verified 06/09/24 12:33) hives/GI upset hydrocodone [From VICODIN] Allergy (Intermediate, Verified 06/09/24 12:33) Rash naproxen [Aleve] Allergy (Intermediate, Verified 06/09/24 12:33) Rash oxycodone [OXYCODONE] Allergy (Intermediate, Verified 06/09/24 12:33) Rash tramadol Allergy (Intermediate, Verified 06/09/24 12:33) Itching,burning skin acetaminophen [From TYLENOL] Adverse Reaction (Intermediate, Verified 06/09/24 12:33) RASH ALL OVER BODY Medication List - Last Reconciled 06/09/24 by Dave Wray, KASH-BC cetirizine 10 mg PO DAILY cholecalciferol (vitamin D3) 50 mcg PO DAILY clonazepam 0.5 mg PO BID PRN 30 days docusate sodium (Colace) 100 mg PO BID 30 days ferrous sulfate 324 mg PO DAILY fluticasone propion-salmeterol 250-50 mcg/dose (Advair Diskus) 1 inh inhalation Q12H furosemide 20 mg PO DAILY [handheld showerhead As directed] ondansetron 4 mg PO Q8H PRN 10 days pantoprazole 40 mg PO BID Shower Chair As directed sodium chloride 0.65% (Saline Nasal) 2 sprays intranasal PRN tramadol 50 mg PO BID PRN 10 days trazodone 100 mg PO BEDTIME PRN ziprasidone HCl 1 cap PO BID ziprasidone HCl 80 mg PO BID zolpidem 10 mg PO BEDTIME PRN Tobacco use date assessed: 02/16/24 Dental Screening Dental Screen Date: 10/14/23 HPI [facility] HPI Details Pt was seen in the ER on 05/20 c/o fatigue, abdominal pain, dark stools, and coffee ground emesis. Hematocrit was less than 15 and hemoglobin was approximately 4. She was given 2 units PRBCs. Pt was noted to be hypotensive and her BP improved. CT of the chest/abdomen/pelvis showed no concerning findings including no PE or active extravasation. Pt was admitted for GI bleed and anemia. EGD was performed and showed no active source of bleeding, showed erosive esophagitis and a duodenal polyp. Her bleeding was thought to be due to pt possibly taking 3 doses of eliquis which caused bleeding from her previous nasal biopsy site. Pt's eliquis was held. Pt was on IV antibiotics for osteomyelitis through a PICC line but the company refused to continue providing this due to ongoing cocaine use (thought to be using the PICC for drug administration). Urine toxicology was positive for cocaine. She reports being given cocaine by her sister in a drink? She poses harm to herself due to using substances via her PICC line. Pt's PICC line was removed. Pt left the hospital AMA. She has not had any further bleeding from her nares, rectum, or vagina, I have boogers. Pt does report increased fatigue. She has been off her antibiotics for over a week. Pt looks better than when I saw her on 05/19. She is able to hold a conversation and speak in complete sentences. Sending pt to [place] ER for possible IV antibiotics/ CT scan for assessing PEs. Pt refuses to go to [facility]. [facility] [place] [facility]. Denies fever, chills, and dizziness. [facility] Medical History Osteomyelitis of facial bone Cocaine use disorder Right leg pain Joint pain Herniated disc Urinary retention Sprain of left knee Sprain of right knee Arthritis Physical exam Screening for cervical cancer SOB (shortness of breath) Anxiety Carcinoma of nasal cavity Ulcer, nasal, septum Excessive cerumen in both ear canals Pre-operative clearance Nasal septum perforation Disorder of lung parenchyma Lumbar herniated disc Back pain GERD (gastroesophageal reflux disease) Hx pulmonary embolism Erosive esophagitis Hx of ulcer disease Depression Panic attacks History of bipolar disorder COPD (chronic obstructive pulmonary disease) Asthma Surgical History Hx of cholecystectomy Hx of colonoscopy H/O esophagogastroduodenoscopy Hx of appendectomy History of hysterectomy Family History Father No problems noted. 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 10534 - PHQ-9 Billing: Patient declined-do not bill Source: Developed by Drs. Ovi Protillo, Tila Herrera, Sam Montesinos and colleagues, with an educational sherine from [email or web address]. Thrive Questionnaire Date Thrive assessed: 04/06/24 I am a: Parent/Caregiver What is your living situation today?: I have a steady place to live Within the past 12 months, did the food you bought not last and you didn't have the money to get more?: I choose not to answer this question Within the past 12 months, did you worry whether your food would run out before you got money to buy more?: I choose not to answer this question Do you have trouble paying for medicines?: I choose not to answer this question Do you have trouble getting transportation to medical appointments?: I choose not to answer this question Do you have trouble paying your heating and electricity bill?: I choose not to answer this question Do you have trouble taking care of your child, family member or friend?: I choose not to answer this question Do you have trouble with day-to-day activities such as bathing, preparing meals, shopping, managing finances, etc.?: I choose not to answer this question Are you currently unemployed and looking for a job?: I choose not to answer this question Are you interested in more education?: I choose not to answer this question Please select the resources that you would like help with: None Currently or been in a relationship where the following occur: I choose not to answer THRIVE Score: 0 ANTOINETTE-7 AMB Questionnaire ANTOINETTE-7 Date ANTOINETTE - 7 assessed: 04/07/24 Source: Developed by Drs. Ovi Portillo, Tila Herrera, Sam Montesinos and colleagues, with an educational sherine from [email or web address]. ANTOINETTE-7 Assessment Billing ANTOINETTE-7 Assessment Tool: pt declined-do not bill Review of Systems Const Reports as per HPI Physical exam (Primary Care) Vital Signs: Last Vital Signs Pulse 96 06/09/24 11:14 BP 100/60 06/09/24 11:14 Pulse Ox 94 06/09/24 11:14 Oxygen Delivery Method Room Air 06/09/24 11:14 BMI result Body Mass Index 24.4 Tobacco/Smoking Status: Tobacco use Status Tobacco use date assessed 02/16/24 06/09/24 11:17 Patient Tobacco Use Status Former Tobacco user 06/09/24 11:17 e-Cigarette/Vaping Use Currently Using 06/09/24 11:17 Thrive Assessment: Date of Thrive Assessment Date Thrive assessed 04/06/24 06/09/24 11:17 Currently or been in a relationship where the following occur: I choose not to answer Const General: cooperative Orientation/consciousness: patient oriented x3 HENMT Other: visualization through left nare large open cavity noted, no bloody drainage Resp Other: lungs fairly clear Effort & Inspection: normal respiratory effort and able to speak in complete sentences Cardio Rate: regular rate Rhythm: regular rhythm Heart sounds: S1 normal heart sound present and S2 normal heart sound present Neuro General: patient oriented x3 Psych Appearance: grossly normal Mental Status: mental status grossly normal Speech and movement: Normal speech and movement present Affect: normal affect Attitude: cooperative Thought process: Normal thought process present Thought content: Normal thought content present Insight: Good insight present (Psych) Judgement: Good judgement present (Psych) Coding Level of Care Code Est Pt Level 4 (14699) Diagnoses CTEPH (chronic thromboembolic pulmonary hypertension) I27.24 Cocaine abuse F14.10 Osteomyelitis of facial bone M86.9 Assessment & Plan Assessment & Plan (1) CTEPH (chronic thromboembolic pulmonary hypertension): Code(s): I27.24 - Chronic thromboembolic pulmonary hypertension Category: Medical Plan: referrd to ER (2) Cocaine abuse: Code(s): F14.10 - Cocaine abuse, uncomplicated Category: Medical Plan: referred to ER, despite pt saying she no longer uses (+ on drug screen recently, see [facility] documentation) (3) Osteomyelitis of facial bone: Comment: chronic lamellar osteomyelitis with PSAR and saddle nose deformity Code(s): M86.9 - Osteomyelitis, unspecified Category: Medical Plan: referred to ER (possible picc and antibiotic infusions)
[2024-06-09 11:14] VITALS: BP 100/60; PULSE 96; O2SAT 94; BMI 24.4
== END 2024-06-09 16:11 | disposition home or self-care (01) ==
PROVIDERS: PCP Nurse Practitioner Family; Visit Provider Nurse Practitioner Family
DX: I27.24 Chronic thromboembolic pulmonary hypertension (principal); F14.10 Cocaine abuse, uncomplicated; M86.9 Osteomyelitis, unspecified

== ENCOUNTER → 2024-06-09 11:11 | Outpatient (BNVA) | payer OTHER, SELFPAY | PROVIDERS: PCP Nurse Practitioner Family; Visit Provider Nurse Practitioner Family | DX: I27.24 Chronic thromboembolic pulmonary hypertension (principal); M86.9 Osteomyelitis, unspecified; F14.10 Cocaine abuse, uncomplicated | CPT/HCPCS: 99212 ==

== ENCOUNTER 2024-06-09 16:12 | Emergency (ER) | payer OTHER, SELFPAY ==
--- NOTE | ~2024-06-09 | CT_ITS ---
EXAMINATION: CT MAXILLOFACIAL WITHOUT CONTRAST CLINICAL INFORMATION: Osteomyelitis. COMPARISON: CT maxillofacial bones from 12/21/2023. TECHNIQUE: Multidetector helical imaging of the maxillofacial bones was performed in the axial plane without intravenous contrast. Generation of coronal and sagittal reformatted images. This CT examination was performed using dose optimization techniques as appropriate, variously including the following: *Automated exposure control *Adjustment of mA and/or kV according to patient size (this includes techniques or standardized protocols for targeted exams where dose is matched to indication/reason for exam; i.e. extremities or head) *Use of iterative reconstruction technique DLP: 517 mGy-cm FINDINGS: FRONTAL SINUSES AND DRAINAGE PATHWAYS: The frontal sinuses are clear. The frontoethmoidal recesses are patent. MAXILLARY SINUSES AND DRAINAGE PATHWAYS: Moderate mucosal thickening of the left maxillary sinus. Mild minimal thickening of the right maxillary sinus. The maxillary ostia and infundibula are patent. ETHMOID SINUSES: The ethmoid air cells are clear. The ethmoid roofs appear symmetric and intact. SPHENOID SINUS AND DRAINAGE PATHWAYS: The sphenoid sinus is clear. The sphenoethmoidal recesses are patent. The carotid canals are normally covered by bone. NASAL PASSAGE: Chronic dehiscence of the cartilaginous nasal septum. Moderate rightward nasal septal deviation of the remaining nasal septum. Moderate irregular soft tissue thickening in the anterior nasal cavity. Mild mucosal thickening of the remainder of the nasal passages. ORBITS: Normal appearance of the osseous orbits. The lamina papyracea are intact. No significant preseptal or retrobulbar edema. Bilateral lens extractions. Otherwise, normal appearance of the globes. Normal symmetric appearance of the extraocular musculature. No abnormalities of the intraconal or extraconal adipose tissue. Normal appearance of the optic nerve sheaths. Normal appearance of the lacrimal glands. No orbital fluid collections. No abnormalities of the orbital apices. TEMPOROMANDIBULAR JOINTS: The temporomandibular joints remain well aligned. Normal appearance of the temporomandibular joints. ADDITIONAL RELEVANT FINDINGS: No new osseous erosive changes. No evidence of maxillofacial bone fractures. The zygomatic arches remain intact. No nasal bone fracture. No evidence of mandibular or maxillary fracture. Multifocal odontogenic enamel erosions and periapical lucencies. The visualized mastoid air cells and middle ear cavities remain well aerated. Limited evaluation of the intracranial structures without significant abnormalities. The premaxillary, retromaxillary, pterygopalatine fossa, temporal fossa, and parapharyngeal adipose tissue is maintained. No demonstrated soft tissue abnormalities within the intrinsic tissues of the tongue. CT/CT facial bones wo IV con IMPRESSION: 1. No new osseous erosive changes to suggest osteomyelitis. 2. Chronic dehiscence of the cartilaginous nasal septum. Moderate rightward nasal septal deviation of the remaining nasal septum. Moderate irregular soft tissue thickening in the anterior nasal cavity. Mild mucosal thickening of the remainder of the nasal passages. 3. Moderate multifocal odontogenic disease. Electronically signed by: Anthony Garcia DO 06/10/2024 01:58 AM EDT RP
--- NOTE | ~2024-06-09 | CT_ITS ---
EXAMINATION: CT ANGIOGRAM OF THE CHEST WITH AND WITHOUT CONTRAST (CT PULMONARY ANGIOGRAM FOR PE) CLINICAL INFORMATION: rule out pe; SOB COMPARISON: CTA chest 04/12/2014 TECHNIQUE: Prior to contrast administration, noncontrast localization images were obtained. Subsequently, multidetector volumetric imaging was performed from the thoracic inlet to the pubic symphysis through the chest, abdomen, and pelvis following the administration of 65 mL Omnipaque 350 intravenous contrast. No contrast reaction reported Sagittal, coronal, and MIP oblique sagittal (through the chest only) reformatted images were obtained on the CT workstation, uploaded to PACS, and reviewed. This CT examination was performed using dose optimization techniques as appropriate, variously including the following: *Automated exposure control *Adjustment of mA and/or kV according to patient size (this includes techniques or standardized protocols for targeted exams where dose is matched to indication/reason for exam; i.e. extremities or head) *Use of iterative reconstruction technique Total exam dose-length product: 227 mGy-cm FINDINGS: QUALITY OF STUDY/CONTRAST BOLUS: Satisfactory. PULMONARY ARTERIES: There appears to be chronic appearing thrombus in a right lower lobe pulmonary artery which appears recanalized with a widely patent vessel running through this (see turner images). Aside from this, no other pulmonary artery abnormality is seen. No distal emboli are detected. In 2014, this blood vessel was normal. The pulmonary artery is dilated measuring 3.3 cm whereas in 2014 this measured 2.3 cm. There is also flattening of the intraventricular septum indicative of elevated right heart pressure. CORONARY ARTERY CALCIUM: None visualized THORACIC AORTA: No aneurysm or dissection. LUNG: There are nonspecific groundglass changes in the lungs along with bronchial thickening without bronchiectasis. No suspicious lung masses are seen. PLEURA: No pleural effusion or pneumothorax. MEDIASTINUM: There is mild cardiac enlargement which has increased in size when compared to 2014. No pericardial effusion. No hilar or mediastinal lymphadenopathy. There is mild septal bowing suggesting right heart strain. CHEST WALL/AXILLA: No axillary or internal mammary lymphadenopathy. OSSEOUS STRUCTURES: No acute or suspicious osseous abnormality. VISUALIZED ABDOMEN: No significant findings in the upper abdomen. CT/CT angio chest PE protocol IMPRESSION: 1. There is a chronic appearing thrombus in a right lower lobe pulmonary artery which appears recanalized and now widely patent with circumferential chronic mural thrombus. Treatment with anticoagulation and a repeat study in 3- 6 months may be of value. 2. Interval increase in heart size since 2014 with new evidence of elevated right heart pressure with dilated pulmonary artery and flattening of the intraventricular septum. 3. Nonspecific groundglass changes in the lungs with bronchial thickening. VTE: positive for chronic disease. Fleischner guidelines were followed. This critical result was discussed with Dr Rush immediately after the exam and it was ascertained that the content and urgency of the report was understood at the time of direct communication. Electronically signed by: Ravi Pulliam MD 06/09/2024 11:55 PM EDT
[2024-06-09 16:16] VITALS: BP 115/75; PULSE 100; RESP 19; TEMP 36.6; O2SAT 93; BMI 24.7
--- NOTE | 2024-06-09 16:29 | ED_ITS ---
HPI - General Adult General Chief complaint: General Medical Stated complaint: sent by DR Wray for antibiotics Time Seen by Provider: 06/09/24 19:20 History of Present Illness ED Provider: Adri SARABIA narrative: 58-year-old female with past medical history of osteomyelitis facial bone, substance abuse, acid reflux, pulmonary embolism currently not on eliquis, COPD/asthma, bipolar disorder, depression recently admitted to [facility] for hematemesis and osteomyelitis presenting at the request of her PCP for treatment of her osteomyelitis. Patient reportedly left [facility] AMA after she was reportedly found to be using her PICC line for cocaine. She was seen by her PCP today who told her to come into the emergency department for IV antibiotics. Patient states she is still experiencing chest pain, shortness of breath, nasal discharge. Related Data Home Medications ?Medication ?Instructions ?Recorded ?Confirmed ziprasidone HCl 60 mg capsule 1 cap PO BID 09/19/20 06/09/24 trazodone 50 mg tablet 100 mg PO BEDTIME PRN 02/16/24 06/09/24 zolpidem 10 mg tablet 10 mg PO BEDTIME PRN 02/16/24 06/09/24 furosemide 20 mg tablet 20 mg PO DAILY 05/19/24 06/09/24 sodium chloride 0.65 % nasal spray 2 spray intranasal PRN congestion 05/19/24 06/09/24 aerosol (Saline Nasal) ziprasidone HCl 80 mg capsule 80 mg PO BID 05/19/24 06/09/24 Previous Rx's ?Medication ?Instructions ?Recorded clonazepam 0.5 mg tablet 0.5 mg PO BID PRN anxiety 30 days 12/10/22 #60 tabs Shower Chair #1 ea 03/09/24 handheld showerhead #1 ea 03/09/24 ferrous sulfate 324 mg (65 mg 324 mg PO DAILY #90 tabs 03/17/24 iron) tablet,delayed release cetirizine 10 mg tablet 10 mg PO DAILY #90 tabs 03/22/24 fluticasone 250 mcg-salmeterol 50 1 inh inhalation Q12H #180 ea 03/22/24 mcg/dose blistr powdr for inhalation (Advair Diskus) cholecalciferol (vitamin D3) 50 50 mcg PO DAILY #90 tabs 03/31/24 mcg (2,000 unit) tablet pantoprazole 40 mg tablet,delayed 40 mg PO BID #180 tabs 05/13/24 release docusate sodium 100 mg capsule 100 mg PO BID 30 days #60 caps 05/19/24 (Colace) ondansetron 4 mg disintegrating 4 mg PO Q8H PRN nausea and 05/19/24 tablet vomiting 10 days #30 tabs tramadol 50 mg tablet 50 mg PO BID PRN pain 10 days #20 05/29/24 tabs amoxicillin 875 mg-potassium 1 tab PO BID 10 days #20 tabs 06/10/24 clavulanate 125 mg tablet Allergies Allergy/AdvReac Type Severity Reaction Status Date / Time Sulfa (Sulfonamide Allergy Severe Swelling Verified 06/09/24 16:18 Antibiotics) azithromycin [Zithromax] Allergy Intermediate hives/GI Verified 06/09/24 16:18 upset hydrocodone [From VICODIN] Allergy Intermediate Rash Verified 06/09/24 16:18 naproxen [Aleve] Allergy Intermediate Rash Verified 06/09/24 16:18 oxycodone [OXYCODONE] Allergy Intermediate Rash Verified 06/09/24 16:18 acetaminophen [From TYLENOL] AdvReac Intermediate RASH ALL Verified 06/09/24 16:18 OVER BODY Review of Systems 2 Review of Systems: Patient endorses chest pain, shortness of breath, back pain, rhinorrhea Yes all other systems are reviewed and are negative PMFSH Past Medical History Medical History Osteomyelitis of facial bone Cocaine use disorder Right leg pain Joint pain Herniated disc Urinary retention Sprain of left knee Sprain of right knee Arthritis Physical exam Screening for cervical cancer SOB (shortness of breath) Anxiety Carcinoma of nasal cavity Ulcer, nasal, septum Excessive cerumen in both ear canals Pre-operative clearance Nasal septum perforation Disorder of lung parenchyma Lumbar herniated disc Back pain GERD (gastroesophageal reflux disease) Hx pulmonary embolism Erosive esophagitis Hx of ulcer disease Depression Panic attacks History of bipolar disorder COPD (chronic obstructive pulmonary disease) Asthma Surgical History Hx of cholecystectomy Hx of colonoscopy H/O esophagogastroduodenoscopy Hx of appendectomy History of hysterectomy Family History Family History Father No problems noted. Mother HTN (hypertension) Asthma High cholesterol Heart problem Diabetes mellitus Sister Liver cancer Social History Social History Housing: Apartment Are you a primary care support representative to a significant other at home: No Do you presently have visiting nurse or other home services: Yes ([employer]) Alcohol intake: current Alcohol intake frequency: holidays/special occasions only Alcohol type: beer and wine Patient Tobacco Use Status: Former Tobacco user Cigarettes Per Day: 2 Years Smoked: 10+ Smoked in Last 30 Days: Yes e-Cigarette/Vaping Use: Currently Using Second Hand Smoke Exposure: No Use of substances other than those prescribed or required for medical reasons: Yes Substance Use Type: Crack/Cocaine Advance Directives: No Advance Directives Information Provided: No Do you have a plan to hurt others: No Plan Patient : No service: No Current occupational status: unemployed Cognitive needs: No Hearing needs: No Vision needs: Yes Physical Exam ED Vital Signs: Vital Signs - 24 hr 06/09/24 16:16 06/09/24 19:42 06/10/24 01:43 Temperature 98 F 98.4 F 98.3 F Pulse Rate 100 93 89 Respiratory Rate 19 16 16 Blood Pressure 115/75 106/83 114/79 Pulse Oximetry 93 92 94 Oxygen Delivery Method Room Air Room Air Room Air BMI result Body Mass Index 24.7 Lungs clear to auscultation bilaterally; normal S1-S2 regular rate and rhythm Serous nasal drainage; maxillary tenderness to palpation Abdomen is soft nontender nondistended Course Course Course Narrative: This is a Rapid Medical Examination (RME) performed by Smith Kumari PA-C in triage. Full HPI, ROS, assessment and treatment plan per primary provider in the Main ED. 58 yo female w/ hx of arthritis, asthma, copd, depression, GERD, bipolar disorder, and polysubstnace use here requesting IV abx for osteomyelitis. I received an expect from [facility] Cheryl - patient has extensive recent medical history. She was recently evaluated at [facility] after snorting large amounts of cocaine leading to destruction of her nasal bone. Required facial reconstruction. She was also diagnosed with osteomyelitis at that time. PICC line was inserted and she was receiving IV antibiotics. She was also found to have multiple pulmonary emboli and started on Eliquis. Subsequently began to have epistaxis requiring nasal cauterization. Eliquis was discontinued 1 week ago. At [facility], it was suspected that patient was injecting drugs into her PICC line and this was removed. She then left [facility] AM. Presents today requesting further treatment. Plan: labs, lactic, blood cultures Records requested from [facility]. Reevaluation(s) Reevaluation #1: The patient was signed out to me by the previous emergency physician pending a 2nd troponin. The plan was to discharge the patient on Augmentin if the 2nd troponin was negative. The 2nd troponin is negative and the patient will be discharged. The patient is very eager for discharge. She will be given her 1st dose of Augmentin. Time: 03:27 Medications Administered Discontinued Medications Generic Name Dose Route Start Last Admin Trade Name Freq PRN Reason Stop Dose Admin Iohexol 100 ml 06/09/24 20:35 06/09/24 20:36 Iohexol 350 Mg/Ml 100 Ml Infus..Btl IV 06/09/24 20:36 65 ml ONCE ONE Administration Tramadol HCl 50 mg 06/10/24 02:30 06/10/24 02:39 Tramadol Hcl 50 Mg Tablet PO 06/10/24 02:31 50 mg ONCE ONE Administration Medical Decision Making Medical Decision Making MDM Narrative: This is a 58-year-old female here with a concerns for facial osteomyelitis. I am also considering PE, electrolyte abnormality, other underlying infection, sinusitis -labs and imaging studies ordered -labs notable for stable H&H, electrolytes within normal limits, mildly elevated creatinine, 1st troponin was 6.9 -UA clean and urine drug -CT showing chronic thrombus and pulmonary HTN which is not a new finding - patient's CT face did not show any new osteomyelitis - given patient's workup I feel that she will be safe for discharge of her 2nd troponin is negative. I told her that she needs to talk with her PCP about restarting her Eliquis. I did prescribe her Augmentin for nasal discharge the case this is a bacterial sinusitis. - I signed out to the night provider Lab Data 06/09/24 17:02 06/09/24 17:02 Labs: Lab Results 06/09/24 06/09/24 06/09/24 Range/Units 17:02 19:39 21:04 WBC 6.3 (4.8-10.8) X10*3/uL RBC 3.70 L (4.20-5.50) X10*6/uL Hgb 10.3 L D (12.0-16.0) g/dl Hct 31.7 L (37.0-47.0) % MCV 85.7 (80.0-98.0) fL MCH 27.8 (27.0-33.0) pg MCHC 32.5 (31.0-35.0) g/dl RDW 16.5 H (11.0-16.0) % Plt Count 373 D (160-400) X10*3/uL MPV 10.9 (9.4-12.3) fL Immature Gran % (Auto) Cancelled Neut % (Auto) Cancelled Lymph % (Auto) Cancelled [place] % (Auto) Cancelled Eos % (Auto) Cancelled Baso % (Auto) Cancelled Lymph # (Auto) Cancelled [place] # (Auto) Cancelled Eos # (Auto) Cancelled Baso # (Auto) Cancelled Abs Immat Gran (auto) Cancelled Absolute Neuts (auto) Cancelled Absolute Nucleated RBC 0.000 (0.0-0.012) X10*3/uL Nucleated RBC % (auto) 0.0 (0.0-0.2) /100WBC Neutrophils % (Manual) 67 (45-73) % Band Neutrophils % 0 L (3-5) % Lymphocytes % (Manual) 19 L (20-40) % Monocytes % (Manual) 9 (2-11) % Eosinophils % (Manual) 5 H (0-4) % Abs Neuts (Manual) 4.2 (2.0-8.3) X10*3/uL Lymphocytes # (Manual) 1.2 (1.2-4.9) X10*3/uL Monocytes # (Manual) 0.6 (0.1-1.2) X10*3/uL Eosinophils # (Manual) 0.3 (0.0-0.4) X10*3/uL Platelet Estimate NORMAL (NORMAL) Plt Morphology Comment NORMAL RBC Morphology NOTED Schistocytes 1+ (0-2) /OIF ESR 16 (0-20) MM/HR PT 12.2 (10.9-12.4) SEC INR 1.0 (0.9-1.1) APTT 30.7 (26.0-36.8) SEC Sodium 140 (135-145) mmol/L Potassium 3.8 (3.3-5.1) mmol/L Chloride 103 (96-108) mmol/L Carbon Dioxide 28 (22-29) mmol/L Anion Gap 13 (12-20) BUN 12 (9-16) mg/dL Creatinine 1.26 (0.5-1.4) mg/dL Estim Creat Clear Calc 41.0 Estimated GFR 43 Random Glucose 119 H (60-115) mg/dL Lactic Acid 1.8 (0.5-2.0) mmol/L Calcium 10.1 (8.4-10.2) mg/dL Magnesium 1.7 (1.6-2.6) mg/dL Total Bilirubin 0.7 (0.0-1.0) mg/dL AST 14 (5-31) U/L ALT 9 (0-31) U/L Alkaline Phosphatase 49 (39-117) U/L Troponin I High Sens 6.9 D (<3.5-17.0) ng/L C-Reactive Protein < 0.04 (< or = 0.50) mg/dL Total Protein 7.1 (6.5-8.0) g/dL Albumin 4.1 (3.5-5.0) g/dL Lipase 13 (8-78) U/L Procalcitonin < 0.02 ng/mL Urine Color Yellow Urine Appearance Clear Urine pH 8.5 (5.0-9.0) Ur Specific [place] 1.010 (1.005-1.025) Urine Protein Negative (Neg-Trace) mg/dL Urine Glucose (UA) Negative (Negative) mg/dL Urine Ketones Negative (Negative) mg/dL Urine Blood Negative (Negative) Urine Nitrite Negative (Negative) Ur Leukocyte Esterase Negative (Negative) Urine Opiates Screen Not Detected (Not Detect) Ur Buprenorphine Scrn Not Detected (Not Detect) ng/mL Ur Oxycodone Screen Not Detected (Not Detect) ng/mL Urine Methadone Screen Not Detected (Not Detect) ng/mL Urine Fentanyl Screen Not Detected (Not Detect) Ur Barbiturates Screen Not Detected (Not Detect) Ur Phencyclidine Scrn Not Detected (Not Detect) Ur Amphetamines Screen Not Detected (Not Detect) U Benzodiazepines Scrn Not Detected (Not Detect) Urine Cocaine Screen POSITIVE H (Not Detect) U Marijuana (THC) Screen Not Detected (Not Detect) 06/10/24 Range/Units 02:37 WBC (4.8-10.8) X10*3/uL RBC (4.20-5.50) X10*6/uL Hgb (12.0-16.0) g/dl Hct (37.0-47.0) % MCV (80.0-98.0) fL MCH (27.0-33.0) pg MCHC (31.0-35.0) g/dl RDW (11.0-16.0) % Plt Count (160-400) X10*3/uL MPV (9.4-12.3) fL Immature Gran % (Auto) Neut % (Auto) Lymph % (Auto) [place] % (Auto) Eos % (Auto) Baso % (Auto) Lymph # (Auto) [place] # (Auto) Eos # (Auto) Baso # (Auto) Abs Immat Gran (auto) Absolute Neuts (auto) Absolute Nucleated RBC (0.0-0.012) X10*3/uL Nucleated RBC % (auto) (0.0-0.2) /100WBC Neutrophils % (Manual) (45-73) % Band Neutrophils % (3-5) % Lymphocytes % (Manual) (20-40) % Monocytes % (Manual) (2-11) % Eosinophils % (Manual) (0-4) % Abs Neuts (Manual) (2.0-8.3) X10*3/uL Lymphocytes # (Manual) (1.2-4.9) X10*3/uL Monocytes # (Manual) (0.1-1.2) X10*3/uL Eosinophils # (Manual) (0.0-0.4) X10*3/uL Platelet Estimate (NORMAL) Plt Morphology Comment RBC Morphology Schistocytes /OIF ESR (0-20) MM/HR PT (10.9-12.4) SEC INR (0.9-1.1) APTT (26.0-36.8) SEC Sodium (135-145) mmol/L Potassium (3.3-5.1) mmol/L Chloride (96-108) mmol/L Carbon Dioxide (22-29) mmol/L Anion Gap (12-20) BUN (9-16) mg/dL Creatinine (0.5-1.4) mg/dL Estim Creat Clear Calc Estimated GFR Random Glucose (60-115) mg/dL Lactic Acid (0.5-2.0) mmol/L Calcium (8.4-10.2) mg/dL Magnesium (1.6-2.6) mg/dL Total Bilirubin (0.0-1.0) mg/dL AST (5-31) U/L ALT (0-31) U/L Alkaline Phosphatase (39-117) U/L Troponin I High Sens 9.3 (<3.5-17.0) ng/L C-Reactive Protein (< or = 0.50) mg/dL Total Protein (6.5-8.0) g/dL Albumin (3.5-5.0) g/dL Lipase (8-78) U/L Procalcitonin ng/mL Urine Color Urine Appearance Urine pH (5.0-9.0) Ur Specific [place] (1.005-1.025) Urine Protein (Neg-Trace) mg/dL Urine Glucose (UA) (Negative) mg/dL Urine Ketones (Negative) mg/dL Urine Blood (Negative) Urine Nitrite (Negative) Ur Leukocyte Esterase (Negative) Urine Opiates Screen (Not Detect) Ur Buprenorphine Scrn (Not Detect) ng/mL Ur Oxycodone Screen (Not Detect) ng/mL Urine Methadone Screen (Not Detect) ng/mL Urine Fentanyl Screen (Not Detect) Ur Barbiturates Screen (Not Detect) Ur Phencyclidine Scrn (Not Detect) Ur Amphetamines Screen (Not Detect) U Benzodiazepines Scrn (Not Detect) Urine Cocaine Screen (Not Detect) U Marijuana (THC) Screen (Not Detect) Discharge Plan Discharge Clinical Impression: Discharge from nose Patient Disposition: Home, Self-Care Additional Instructions: You have been started on an antibiotic for a possible sinus infection. The antibiotic is amoxicillin/clavulanate (also known as Augmentin). Please pick and shovel man the antibiotic at your pharmacy and take this medication 2 times a day, approximately every 12 hours. Please follow up soon with your primary care doctor. If you feel significantly worse please return to the emergency department. Prescriptions: New amoxicillin-pot clavulanate 875-125 mg tablet 1 tab PO BID 10 Days Qty: 20 0RF No Action clonazepam 0.5 mg tablet 0.5 mg PO BID PRN (Reason: anxiety) 30 Days Qty: 60 0RF (DME) Shower Chair Misc See Rx Instructions .Route Qty: 1 0RF Rx Instructions: As directed (DME) handheld showerhead See Rx Instructions .Route .MEDSUPPLY Qty: 1 0RF Rx Instructions: As directed ferrous sulfate 324 mg (65 mg iron) tablet,delayed release (DR/EC) 324 mg PO DAILY Qty: 90 1RF fluticasone propion-salmeterol [Advair Diskus] 250-50 mcg/dose blister with device 1 inh inhalation Q12H Qty: 180 1RF cetirizine 10 mg tablet 10 mg PO DAILY Qty: 90 1RF cholecalciferol (vitamin D3) 50 mcg (2,000 unit) tablet 50 mcg PO DAILY Qty: 90 1RF pantoprazole 40 mg tablet,delayed release (DR/EC) 40 mg PO BID Qty: 180 1RF tramadol 50 mg tablet 50 mg PO BID PRN (Reason: pain) 10 Days Qty: 20 0RF Rx Instructions: please take only as prescribed, do not share med, this is a Narcotic ziprasidone HCl 60 mg capsule 1 cap PO BID trazodone 50 mg tablet 100 mg PO BEDTIME PRN zolpidem 10 mg tablet 10 mg PO BEDTIME PRN ziprasidone HCl 80 mg capsule 80 mg PO BID furosemide 20 mg tablet 20 mg PO DAILY Saline Nasal 0.65 % aerosol,spray 2 spray intranasal PRN (Reason: congestion) docusate sodium [Colace] 100 mg capsule 100 mg PO BID 30 Days Qty: 60 3RF ondansetron 4 mg tablet,disintegrating 4 mg PO Q8H PRN (Reason: nausea and vomiting) 10 Days Qty: 30 0RF Referrals: Dave Wray, INDUSTRI[employer] TWISTING MACHINE OPERATOR-BC [Primary Care Provider] - (Sinusitis?) Print Language: [place] Islander
[2024-06-09 17:13] LABS: Hematocrit 31.7 % (37.0-47.0); Hemoglobin 10.3 g/dl (12.0-16.0); Mean Corpuscular HGB Conc 32.5 g/dl (31.0-35.0); Mean Corpuscular Hemoglobin 27.8 pg (27.0-33.0); Mean Corpuscular Volume 85.7 fL (80.0-98.0); Mean Platelet Volume 10.9 fL (9.4-12.3); Platelet Count 373 X10*3/uL (160-400); Red Cell Distribution Width 16.5 % (11.0-16.0)
[2024-06-09 17:30] LABS: Lactic Acid 1.8 mmol/L (0.5-2.0)
[2024-06-09 17:35] LABS: Alanine Aminotransferase 9 U/L (0-31); Albumin Level 4.1 g/dL (3.5-5.0); Alkaline Phosphatase 49 U/L (39-117); Anion Gap 13 (12-20); Aspartate Amino Transferase 14 U/L (5-31); Bilirubin Total 0.7 mg/dL (0.0-1.0); Blood Urea Nitrogen 12 mg/dL (9-16); C Reactive Protein < 0.04 mg/dL (< or = 0.50); Calcium 10.1 mg/dL (8.4-10.2); Carbon Dioxide 28 mmol/L (22-29); Chloride 103 mmol/L (96-108); Estimated Glomerular Filt Rate 43; Glucose Random 119 mg/dL (60-115); Lipase 13 U/L (8-78); Magnesium 1.7 mg/dL (1.6-2.6); Potassium 3.8 mmol/L (3.3-5.1); Sodium 140 mmol/L (135-145); Total Protein 7.1 g/dL (6.5-8.0)
[2024-06-09 17:43] LABS: WBC ABN SCTR FOR CBC 1
[2024-06-09 18:32] LABS: Erythrocyte Sedimentation Rate 16 MM/HR (0-20)
[2024-06-09 18:54] LABS: Eosinophils Percent Manual 5 % (0-4); Lymphocytes Percent Manual 19 % (20-40); Monocytes Percent Manual 9 % (2-11); Neutrophils Percent Manual 67 % (45-73)
[2024-06-09 18:56] LABS: Platelet Estimate NORMAL (NORMAL); Platelet Morphology Comment NORMAL; RBC Morphology NOTED; Schistocytes 1+ (0-2) /OIF
[2024-06-09 18:57] LABS: Band Neutrophils Percent 0 % (3-5); Eosinophils Absolute Manual 0.3 X10*3/uL (0.0-0.4); Lymphocytes Absolute Manual 1.2 X10*3/uL (1.2-4.9); Monocytes Absolute Manual 0.6 X10*3/uL (0.1-1.2); Neutrophils Absolute Manual 4.2 X10*3/uL (2.0-8.3); White Blood Count 6.3 X10*3/uL (4.8-10.8)
[2024-06-09 19:42] VITALS: BP 106/83; PULSE 93; RESP 16; TEMP 36.9; O2SAT 92
[2024-06-09 20:01] LABS: Appearance Urine Clear; Color Urine Yellow; Glucose Urine UA Negative (Negative); Leukocyte Esterase Urine Negative (Negative); Nitrite Urine Negative (Negative); PH 8.5 (5.0-9.0); Urine Blood Negative (Negative); Urine Ketones Negative (Negative); Urine Protein Negative (Neg-Trace)
[2024-06-09 20:10] LABS: Amphetamine Screen Urine Not Detected (Not Detect); Barbiturates, Urine Not Detected (Not Detect); Benzodiazepines Screen Urine Not Detected (Not Detect); Buprenorphine Scr Not Detected (Not Detect); Cannabinoid Screen Urine Not Detected (Not Detect); Cocaine Screen Urine POSITIVE (Not Detect); Fentanyl, urine Not Detected (Not Detect); Methadone Screen, Urine Not Detected (Not Detect); Opiate Screen Urine Not Detected (Not Detect); Oxycodone Screen Urine Not Detected (Not Detect); Phencyclidine Screen Urine Not Detected (Not Detect)
--- NOTE | 2024-06-09 20:30 | PC.NURSE ---
20gIV placed in the right outer forearm - patent/intact. pt waiting to go to CT at this time. plan of care ongoing.
[2024-06-09] MEDS: iohexoL 350 MG/ML 100 ML INFUS..BTL IV (20:36)
--- NOTE | 2024-06-09 21:08 | PC.NURSE ---
pt returned from CT at this time. labs obtained/sent to lab by [facility].
[2024-06-09 21:18] LABS: Prothrombin Time 12.2 SEC (10.9-12.4)
[2024-06-09 21:21] LABS: Partial Thromboplastin Time 30.7 SEC (26.0-36.8)
--- NOTE | 2024-06-09 21:35 | PC.NURSE ---
requesting for pt's belongings to be searched d/t previous incident at [facility] placed in pt's records. pt's belongings searched by security. no contraband found. belongings remain bedside w/ pt. CT scans remain pending at this time. otherwise resting in no apparent distress. no sob/wob noted. respirations remain even/unlabored. plan of care ongoing. call rodrigues placed within reach.
[2024-06-09 21:41] LABS: Troponin-I High Sensitivity 6.9 ng/L (<3.5-17.0)
[2024-06-09 21:57] LABS: Procalcitonin < 0.02 ng/mL
[2024-06-10 01:43] VITALS: BP 114/79; PULSE 89; RESP 16; TEMP 36.8; O2SAT 94
--- NOTE | 2024-06-10 01:53 | ECG_ITS ---
Test Reason : EVAL Blood Pressure : / mmHG Vent. Rate : 086 BPM Atrial Rate : 086 BPM P-R Int : 160 ms QRS Dur : 094 ms QT Int : 404 ms P-R-T Axes : 067 062 001 degrees QTc Int : 483 ms Normal sinus rhythm Right atrial enlargement Right ventricular hypertrophy with repolarization abnormality Prolonged QT Abnormal ECG When compared with ECG of 20-NOV-2022 13:21, T wave inversion more evident in Anterior leads QT has lengthened Referred By: Danny Rush Electronically Signed By:DEANGELO BATISTA
[2024-06-10] MEDS: traMADoL HCL 50 MG TABLET PO (02:39)
[2024-06-10 03:05] LABS: Troponin-I High Sensitivity 9.3 ng/L (<3.5-17.0)
[2024-06-10] MEDS: Amoxicillin/Potassium Clav 875 MG TABLET PO (03:29)
[2024-06-10 03:38] VITALS: BP 114/79; PULSE 89; RESP 16; TEMP 36.8; O2SAT 94
== END 2024-06-10 03:40 | disposition home or self-care (01) ==
PROVIDERS: Physician Assistant Medical; Student in an Organized Health Care Education/Training Program; Emergency Provider Emergency Medicine; PCP Nurse Practitioner Family
DX: J34.89 Other specified disorders of nose and nasal sinuses (principal); M86.9 Osteomyelitis, unspecified; F14.10 Cocaine abuse, uncomplicated; R06.02 Shortness of breath; J45.909 Unspecified asthma, uncomplicated; D64.9 Anemia, unspecified; Z87.891 Personal history of nicotine dependence; Z86.711 Personal history of pulmonary embolism; Z79.01 Long term (current) use of anticoagulants; Z79.899 Other long term (current) drug therapy
CPT/HCPCS: 36415; 70486; 71275; 80053; 80307; 81003; 83605; 83690; 83735; 84145; 84484; 85007; 85027; 85610; 85652; 85730; 86140; 87040; 93005; 99284; 99285; Q9967

== ENCOUNTER → 2024-06-10 01:53 | Outpatient (BNV) | payer OTHER, SELFPAY | PROVIDERS: Emergency Provider Emergency Medicine; PCP Nurse Practitioner Family; Visit Provider Internal Medicine | DX: R94.31 Abnormal electrocardiogram [ECG] [EKG] (principal) | CPT/HCPCS: 93010 ==

== ENCOUNTER 2024-08-02 15:34 | Outpatient (AMB) | payer OTHER, SELFPAY ==
[2024-08-02 15:36] VITALS: BP 118/76; PULSE 97; O2SAT 93; BMI 24.9
--- NOTE | 2024-08-02 15:36 | A.OFFPC_ITS ---
Vital Signs 08/02/24 15:36 Height 5 ft 4 in Weight 145 lb BMI 24.9 BP 118/76 Blood Pressure Location Rt brachial Position Sitting Pulse 97 Pulse Source Pulse Oximeter Pulse Oximetry (%) 93 Oxygen Delivery Method Room Air Intake Visit Reasons: 4 month f/u Intake Note: pt is here for 4 month follow up [employer] Officer Required: No Accompanied by: Self / Same As Patient Allergies Sulfa (Sulfonamide Antibiotics) Allergy (Severe, Verified 08/02/24 15:37) Swelling azithromycin [Zithromax] Allergy (Intermediate, Verified 08/02/24 15:37) hives/GI upset hydrocodone [From VICODIN] Allergy (Intermediate, Verified 08/02/24 15:37) Rash naproxen [Aleve] Allergy (Intermediate, Verified 08/02/24 15:37) Rash oxycodone [OXYCODONE] Allergy (Intermediate, Verified 08/02/24 15:37) Rash acetaminophen [From TYLENOL] Adverse Reaction (Intermediate, Verified 08/02/24 15:37) RASH ALL OVER BODY Tobacco use date assessed: 02/16/24 Dental Screening Dental Screen Date: 10/14/23 HPI 4 month f/u HPI Details Chief Complaint Follow-up for chronic health issues including osteomyelitis and gastrointestinal bleeding. History of Present Illness The patient is a 58-year-old female presenting with management needs for chronic and complex health conditions. Her issues include chronic osteomyelitis of the maxilla, originally diagnosed at the medial wall of the maxillary sinus due to cocaine use. She has had intermittent hospitalizations, on 07/16/2024, she was admitted due to coffee ground emesis, signifying a gastrointestinal bleed. This event required four units of blood cells for transfusion, though pressers were not needed. 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 Her bleeding was further exacerbated by Peptic Ulcer Disease, likely induced by NSAID use, and resulted in hemorrhagic shock. Diagnostic endoscopy revealed a [place] ([place]) Grade D esophageal ulcer, believed to be the bleeding source. The gastrointestinal team recommended follow-up endoscopy with in three to four months. Her hypotension, initially speculated to be due to cardiogenic shock, resolved without a clear source upon management of the GI bleed. Renal function, initially impaired with acute kidney injury, improved following fluid resuscitation. Despite the complex backgrounds, infectious disease specialists advised against further IV antibiotics, instead recommending follow-up with [facility]. Regarding pain management, the patient was transitioned to tramadol for minimal chest wall discomfort. Throughout, her hemoglobin improved, and she resumed normal dietary intake. Social History - Recent discharge from hospital stay, c madelinetly involved with visiting nursing services, every 2 days. - History of significant cocaine use, co ntributing to current medical conditions. - Expressed feelings of exhaustion from frequent hospitalizations. - Mentioned family dynamics concerning l ack of contact and support, pt denies any si or hi - Discussed challenges with medication m anagement, pt's [facility] provider will call me with updated med list (pt appears to be tolerating eliquis 5mg bid) Health Maintenance - Follow-up endoscopy recommended in thr ee to four months for GI tract assessment. - Close monitoring of anticoagulation th erapy due to bleeding risks. - Continuous follow-up with ear, nose, a nd throat (ENT) specialists and pulmonary care team advised. - Recommendations for substance use jonas hoskins noted. Review of Systems - Constitutional: Reports feeling tired and exhausted. - Cardiovascular: Denies current chest d iscomfort, palpitations reported previously. - Gastrointestinal: Reports tolerating f ood, denies current melena. - Musculoskeletal: Reports weakness and some difficulty with mobility. - Neurological: Denies current acute chloe rological deficits. - Psychiatric: Reports anxiety and stres s-related symptoms (denies any si or hi) Physical Exam General: Cooperative,comfortable, no acute distress and well developed Orientation: Patient oriented x3 Head: Normal to inspection Nose: Normal external nose present Eyes: Appearance normal, both eyes and all related structures Neck: Normal visual inspection and Yes full ROM Respiratory: Normal respiratory effort and able to speak in complete sentences. Clear to auscultation bilaterally Cardiovascular: Regular rate and rhythm. Normal S1 and S2 GI: Normal to inspection. Soft to palpation and nontender Skin: No rashes or lesions noted Neuro: Patient oriented x3 Extremities: Normal to inspection Results - Diagnostic endoscopy: [place] Grade D esoph ageal ulcer with a clean base discovered. - Blood transfusions: Administered due t o acute blood loss anemia secondary to GI bleed. Plan - Osteomyelitis: Follow up with [facility] for ongoing assessment and management (appt already set) - Gastrointestinal Bleeding: Continued m anagement with scheduled endoscopy in three to four months. - Chronic Thromboembolic Pulmonary Hyper tension: Restart Eliquis at a reduced dose under close monitoring given bleeding risks. follow up with [facility] (appt already set) - Hypotension Management: Ongoing monito ring of blood pressure within stable limits. - Acute Kidney Injury: Monitor renal fun ction, noting improvement upon fluid therapy. pt reports [facility] takes her blood often, sending to [facility] provider. Recommend labs sent to myself as well. - Peptic Ulcer Disease: Avoid NSAIDs, co ntinue observing dietary habits. follow up with gastro for follow up endo - Substance Use Disorder: Emphasize the importance of avoiding illicit drug use. Patient was informed and verbally consented to the use of an ambient scribe for clinic note documentation during this visit. Discussion Notes During our discussion, we reviewed the complex interplay of the patient?s medical conditions and the necessity for continued surveillance and specialty follow-ups. I reiterated the importance of compliance with anticoagulation therapy while balancing bleeding risk. The risks of her multiple underlying conditions, including osteomyelitis and chronic pulmonary hypertension, were discussed in-depth. The necessity of timely follow-up visits with ENT, pulmonary, and GI specialists was emphasized for closer observation. I reassured the patient regarding her recent progress, acknowledging the psychological burden of her health journey, while supporting incremental improvements. Patient Instructions - Follow up consistently with [facility] and pulmonary specialty teams. - Adhere strictly to medication regimen, specifically Eliquis. (requested pt drop off her CURRENT med list) Especially with eliquis dose. Was apparently last discharged on eliquid 2.5mg bid (started after 1 week from discharge), pt thinks she is currently on 5mg bid (without any current bleeding), will check into this with her home med list (her [facility] nurse could even call with her med list) - Monitor for any signs of bleeding or a cute symptoms and seek emergency care if they occur. - Maintain regular contact with her [facility]ly[facility]ant[facility] nurse and ensure medication adjustments are communicated. - Avoid NSAIDs and illicit drugs to prev ent exacerbation of current conditions. - Schedule and attend follow-up endoscop y in three to four months as recommended. - Implement strategies to manage stress and ensure adequate nutrition for recovery. [facility] Medical History Osteomyelitis of facial bone Cocaine use disorder Right leg pain Joint pain Herniated disc Urinary retention Sprain of left knee Sprain of right knee Arthritis Physical exam Screening for cervical cancer SOB (shortness of breath) Anxiety Carcinoma of nasal cavity Ulcer, nasal, septum Excessive cerumen in both ear canals Pre-operative clearance Nasal septum perforation Disorder of lung parenchyma Lumbar herniated disc Back pain GERD (gastroesophageal reflux disease) Hx pulmonary embolism Erosive esophagitis Hx of ulcer disease Depression Panic attacks History of bipolar disorder COPD (chronic obstructive pulmonary disease) Asthma Surgical History Hx of cholecystectomy Hx of colonoscopy H/O esophagogastroduodenoscopy Hx of appendectomy History of hysterectomy Family History Father No problems noted. Mother HTN (hypertension) Asthma High cholesterol Heart problem Diabetes mellitus Sister Liver cancer Social History Housing: Apartment Are you a primary healthcare architect to a significant other at home: No Do you presently have visiting nurse or other home services: Yes ([employer]) Alcohol intake: current Alcohol intake frequency: holidays/special occasions only Alcohol type: beer and wine Patient Tobacco Use Status: Former Tobacco user Cigarettes Per Day: 2 Years Smoked: 10+ e-Cigarette/Vaping Use: Currently Using Second Hand Smoke Exposure: No Substance Use Type: Crack/Cocaine service: No Current occupational status: unemployed Cognitive needs: No Hearing needs: No Vision needs: Yes Questionnaire Thrive Questionnaire Date Thrive assessed: 04/06/24 I am a: Parent/Caregiver What is your living situation today?: I have a steady place to live Within the past 12 months, did the food you bought not last and you didn't have the money to get more?: I choose not to answer this question Within the past 12 months, did you worry whether your food would run out before you got money to buy more?: I choose not to answer this question Do you have trouble paying for medicines?: I choose not to answer this question Do you have trouble getting transportation to medical appointments?: I choose not to answer this question Do you have trouble paying your heating and electricity bill?: I choose not to answer this question Do you have trouble taking care of your child, family member or friend?: I choose not to answer this question Do you have trouble with day-to-day activities such as bathing, preparing meals, shopping, managing finances, etc.?: I choose not to answer this question Are you currently unemployed and looking for a job?: I choose not to answer this question Are you interested in more education?: I choose not to answer this question Please select the resources that you would like help with: None Currently or been in a relationship where the following occur: I choose not to answer THRIVE Score: 0 ANTOINETTE-7 AMB Questionnaire ANTOINETTE-7 Date ANTOINETTE - 7 assessed: 04/07/24 Source: Developed by Drs. Ovi Portillo, Tila Herrera, Sam Montesinos and colleagues, with an educational sherine from [employer]. Physical exam (Primary Care) Vital Signs: Last Vital Signs Pulse 97 08/02/24 15:36 BP 118/76 08/02/24 15:36 Pulse Ox 93 08/02/24 15:36 Oxygen Delivery Method Room Air 08/02/24 15:36 BMI result Body Mass Index 24.9 Tobacco/Smoking Status: Tobacco use Status Tobacco use date assessed 02/16/24 08/02/24 15:39 Patient Tobacco Use Status Former Tobacco user 08/02/24 15:39 e-Cigarette/Vaping Use Currently Using 08/02/24 15:39 Thrive Assessment: Date of Thrive Assessment Date Thrive assessed 04/06/24 08/02/24 15:39 Currently or been in a relationship where the following occur: I choose not to answer Coding Level of Care Code Est Pt Level 4 (75036) Diagnoses CTEPH (chronic thromboembolic pulmonary hypertension) I27.24 Cocaine abuse F14.10 Osteomyelitis of facial bone M86.9 Esophageal bleeding K22.89 Anemia, unspecified type D64.9 Anemia type: unspecified type Assessment & Plan Assessment & Plan (1) CTEPH (chronic thromboembolic pulmonary hypertension): Code(s): I27.24 - Chronic thromboembolic pulmonary hypertension Category: Medical (2) Cocaine abuse: Code(s): F14.10 - Cocaine abuse, uncomplicated Category: Medical (3) Osteomyelitis of facial bone: Comment: 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
--- OUTSIDE RECORDS SUMMARY | 2024-08-04 16:24 | XMS_ITS | Continuity of Care Document ---
Author Organization [facility] ter Address [address] [place] [id number]- Care Team Providers Care Engineering Technician Parking Name Role Phone Kamala EMMANUEL, Dave Javier Primary Care Physician Encounter [facility] Date(s): 07/11/24 - 07/16/[address] [address]- Encounter Diagnosis GI bleed(Final) - 07/11/24 Hypotension(Final) - 07/11/24 Melena(Final) - 07/11/24 Esophagitis(Final) - 07/11/24 Discharge Disposition: A-Transfer VNA/Home Health Attending Physician: Apoorva Blue MD Admitting Physician: Paresh Giang MD Referring Physician: Not on Staff, Referring MD Encounter Type: Disch IP Allergies, Adverse Reactions, Alerts Substance Criticality Severity Reaction Reaction Severity Status acetaminophen Active penicillins Rash Active Immunizations Given and Recorded Vaccine Date Status Refusal Reason influenza virus vaccine, inactivated 05/21/24 Give n Medications Adempas 1 mg oral tablet 1 tablet = 1 mg, By Mouth, 3 times a day, # 90 tablet, 0 Refills, Maintenance, 07/11/24 12:29:00 PMEST, Tablet, Partial fill upon patient request if the prescription is for a schedule II opioid drug. Start Date: 07/11/24 Status: Ordered Quantity: 90.0 Unit: tablet Repeat number: 1 Advair Diskus 250 mcg-50 mcg inhalation powder 1, puffs, Inhalation, 2 times a day, # 180 each, Refills 0, Maintenance, 05/21/24 8:28:00 AM EDT, Powder Start Date: 05/21/24 Status: Ordered Quantity: 180.0 Unit: each Repeat number: 1 Ambien 10 mg oral tablet 1 tablet = 10 mg, By Mouth, Daily at bedtime, PRN for sleep, 0 Refills, Maintenance, 05/13/13 2:25:07 PM EDT, Tablet Start Date: 05/13/13 Status: Ordered Repeat number: 1 apixaban 2.5 mg oral tablet 1 tablet = 2.5 mg, By Mouth, 2 times a day, Start on 07/19, # 60 tablet, 0 Refills, Maintenance, 07/16/24 4:18:00 PM EST, Tablet, [facility], Partial fill upon patient request if the prescription is for a schedule II opioid drug., 163, cm, 07/15/24 15:04:00 EST, Height, 64.7, kg, 07/11/24 10:56:00 EST, Dry Weight Start Date: 07/16/24 Status: Ordered Quantity: 60.0 Unit: tablet Repeat number: 1 cetirizine 10 mg oral tablet 1 tablet = 10 mg, By Mouth, Daily, # 30 tablet, 0 Refills, Maintenance, 05/21/24 8:28:00 AM EDT, Tablet, Partial fill upon patient request if the prescription is for a schedule II opioid drug. Start Date: 05/21/24 Status: Ordered Quantity: 30.0 Unit: tablet Repeat number: 1 cholecalciferol 2000 intl units oral tablet 0 Refills, Maintenance, 05/21/24 8:28:00 AM EDT, Partial fill upon patient request if the prescription is for a schedule II opioid drug. Start Date: 05/21/24 Status: Ordered Repeat number: 1 ferrous sulfate 324 mg (65 mg elemental iron) oral delayed release tablet 1 tablet = 324 mg, By Mouth, Daily, # 100 tablet, 0 Refills, Maintenance, 05/21/24 8:28:00 AM EDT, CR Tablet, Partial fill upon patient request if the prescription is for a schedule II opioid drug. Start Date: 05/21/24 Status: Ordered Quantity: 100.0 Unit: tablet Repeat number: 1 furosemide 20 mg oral tablet 20 mg, 1, tablet, By Mouth, Daily, # 30 tablet, Refills 0, Maintenance, 05/21/24 8:28:00 AM EDT, Partial fill upon patient request if the prescription is for a schedule II opioid drug. Start Date: 05/21/24 Status: Ordered Quantity: 30.0 Unit: tablet Repeat number: 1 Klonopin 1 mg oral tablet 1 mg, 1, tablet, By Mouth, 2 times a day, PRN Anxiety, 0 Refills Start Date: 04/12/08 Status: Ordered Repeat number: 1 lidocaine 5% topical film 1 patch, Topically, Daily, remove patches after 12 hours, # 30 patch, 0 Refills, Maintenance, 07/11/24 12:30:00 PM EST, Film, Partial fill upon patient request if the prescription is for a schedule II opioid drug. Start Date: 07/11/24 Status: Ordered Quantity: 30.0 Unit: patch Repeat number: 1 ondansetron 4 mg oral tablet, disintegrating 1 tablet = 4 mg, By Mouth, Every 8 hours, PRN as needed for nausea/vomiting, 0 Refills, Maintenance, 05/21/24 8:27:00 AM EDT, DIS Tablet, Partial fill upon patient request if the prescription is for aschedule II opioid drug. Start Date: 05/21/24 Status: Ordered Repeat number: 1 pantoprazole 40 mg oral delayed release tablet = 40 mg, By Mouth, 2 times a day, # 180 tablet, 0 Refills, Maintenance, 07/16/24 4:16:00 PM EST, ECTablet, 163, cm, 07/15/24 15:04:00 EST, Height, 64.7, kg, 07/11/24 10:56:00 EST, Dry Weight Start Date: 07/16/24 Stop Date: 10/14/24 Status: Ordered Quantity: 180.0 Unit: tablet Repeat number: 1 sucralfate 1 gm/10 ml oral suspension 10 mL = 1 Gm, By Mouth, 3 times a day with meals and bedtime, # 840 mL, 0 Refills, Maintenance, 07/16/24 4:18:00 PM EST, Suspension, [facility], Partial fill upon patient request if theprescription is for a schedule II opioid drug., 163, cm, 07/15/24 15:04:00 EST, Height, 64.7, kg, 07/11/24 10:56:00 EST, Dry Weight Start Date: 07/16/24 Stop Date: 08/06/24 Status: Ordered Quantity: 840.0 Unit: mL Repeat number: 1 traMADol 50 mg oral tablet = 25 mg, By Mouth, Every 8 hours, PRN Pain , Moderate, for 3 days, # 7 tablet, 0 Refills, Acute 07/19/24 4:18:00 PM EST, 07/16/24 4:18:00 PM EST, Tablet, [facility], Partial fill upon patient request if the prescription is for a schedule II opioid drug., 163, cm, 07/15/24 15:04:00 EST, Height, 64.7, kg, 07/11/24 10:56:00 EST, Dry Weight Start Date: 07/16/24 Stop Date: 07/19/24 Status: Ordered Quantity: 7.0 Unit: tablet Repeat number: 1 traMADol 50 mg oral tablet 25 mg, Tablet, By Mouth, Every 6 hours, PRN for Pain , Moderate, Routine, 07/12/24 7:29:00 PM EST Start Date: 07/12/24 Stop Date: 07/17/24 Status: Discontinued Repeat number: 1 traZODone 50 mg oral tablet 50 mg, 1, tablet, By Mouth, Daily at bedtime, # 15 tablet, Refills 0, Maintenance, 05/21/24 8:27:00 AM EDT, Partial fill upon patient request if the prescription is for a schedule II opioid drug. Start Date: 05/21/24 Status: Ordered Quantity: 15.0 Unit: tablet Repeat number: 1 ziprasidone 80 mg oral capsule 1 capsule = 80 mg, By Mouth, 2 times a day, # 180 capsule, 0 Refills, Maintenance, 05/21/24 8:28:00 AM EDT, Capsule, Partial fill upon patient request if the prescription is for a schedule II opioid drug. Start Date: 05/21/24 Status: Ordered Quantity: 180.0 Unit: capsule Repeat number: 1 Results Radiology Reports * Exam Date Time Procedure Performing Provider Status 07/11/24 7:03 AM Chest Portable Stephani Irene; Auth (Verified) Notes: (Chest Portable) Reason For Exam: GI bleed;Other: RESULT: Chest Portable AP upright portable chest dated July 11, 2024 0654 hours. Comparison films are from May 20, 2024. HISTORY: GI bleed. FINDINGS: The cardiac silhouette is within normal limits for size. Hilar and mediastinal structuresare unremarkable. A PICC line is noted from the right. The tip of the catheter overlies the distal SVC. No airspace infiltrate or pleural effusion is identified. Visualized osseous structures are unremarkable. IMPRESSION: No evidence of acute pulmonary disease. Examination [address]. Thank you for allowing me to participate in the care of this patient. WSN: [id number] Ordering Physician: Penny Cordoba Dictated By: Ravi Ramirez MD Dictated Date/Time: 07/11/24 8:04 am Reviewed By: Ravi Ramirez MD Signed By: Ravi Ramirez MD Signed Date/Time: 07/11/24 8:04 am Transcribed By: DON Transcribed Date/Time: 07/11/24 8:04 am Vital Signs Most recent to oldest [Reference Range]: 1 2 3 Height 163 cm (07/15/24 3:04 PM) 163 cm (07/15/24 8:17 AM) 163 cm (07/15/24 8:06 AM) Weight 64.7 kg (07/11/24 10:56 AM) Oxygen Saturation [94-100 %] 90 % *L* (07/16/24 7:00 AM) 99 % (07/16/24 1:15 AM) 94 % (07/15/24 8:47 PM) Pulse Rate [55-90 bpm] 80 bpm (07/16/24 7:00 AM) 76 bpm (07/16/24 1:15 AM) 83 bpm (07/15/24 8:47 PM) Body Mass Index [18.5-24.99 kg/m2] 24.35 kg/m2 (07/11/24 10:56 AM) Blood Pressure [90-138/55-84 mm Hg] 132/77mm Hg (07/16/24 7:00 AM) 101/67mm Hg (07/16/24 1:15 AM) 130/75mm Hg (07/15/24 8:47 PM) Respiratory Rate [16-30 br/min] 16 br/min (07/16/24 9:07 AM) 18 br/min (07/16/24 7:00 AM) 16 br/min (07/16/24 1:15 AM) Temperature [96.8-100.4 DegF] 97.5 DegF (07/16/24 7:00 AM) 98.0 DegF (07/16/24 1:15 AM) 98.7 DegF (07/15/24 8:47 PM) Liters per Minute 2 L/min (07/13/24 9:11 AM) 2 L/min (07/13/24 6:00 AM) 2 L/min (07/13/24 12:49 AM) Mode of Delivery (Oxygen) Room air (07/16/24 7:00 AM) Room air (07/16/24 1:15 AM) Room air (07/15/24 8:47 PM) Blood pressure sites Arm, left (07/16/24 7:00 AM) Arm, left (07/16/24 1:15 AM) Arm, left (07/15/24 8:47 PM) Temperature Route Axillary (07/16/24 7:00 AM) Oral (07/16/24 1:15 AM) Oral (07/15/24 8:47 PM) Dry Weight 64.7 kg (07/11/24 10:56 AM) Weight Obtained Via Bed scale (07/11/24 10:56 AM) Dry Weight Obtained Via Bed scale (07/11/24 10:56 AM) Consult note * Jody MARS, Binh: PERFORM Event Display: Consultation Note Authored Date: Patient: ??NADIA LOPEZ ? Age:??58 Years?Sex:??Female?:??1965?? History of Present Illness Reason for consult: Hx of??pseudomonas OM??of maxillary sinus in a cocaine abuser?? 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 She was found to have bleed from the??distal esophageal ulcer which is now controlled.Throughout hospital course infectious workup remains negative. PT does not have any issues with hermaxillary sinus.? Review of Systems Neg for fevers, chills, n/v/d Physical Exam Vitals & Measurements Vital Signs?? Temperature: 97.5 DegF (07/16/24 07:00:00) Temperature Route: Axillary (07/16/24 07:00:00) Pulse Rate: 80 bpm (07/16/24 07:00:00) Respiratory Rate: 16 br/min (07/16/24 09:07:00) Systolic Blood Pressure: 132 mm Hg (07/16/24 07:00:00) Diastolic Blood Pressure: 77 mm Hg (07/16/24 07:00:00) Blood pressure sites: Arm, left (07/16/24 07:00:00) Mean Arterial Pressure: 89 mm Hg (07/15/24 15:04:00) Pulse Pressure: 55 mm Hg (07/16/24 07:00:00) Oxygen Saturation:??90 %??Low (07/16/24 07:00:00) Mode of Delivery (Oxygen): Room air (07/16/24 07:00:00) Early Warning Score: 4 (07/16/24 09:59:36) GEN: Comfortable on RA, NAD HEENT: MMM, anicteric, PERRLA, neck supple, normal exam of the sinuses?? CV: RRR no murmur is appreciated Pulm: CTABL lungs GI/: Soft, non-tender MSK: No joint swelling noted, no edema noted Assessment/Plan Assessment:??Pt with hx of??cocaine abuse??c/b Pseudomonas osteomyelitis (dx in early apr) who completed a course of IV abx is??here for GIB c/b??hemorrhagic shock. Pt has no clinical evidence of ongoing sinus infection or OM.?? -I do not see any indication to continue abx -She should f/u with ENT in [place] on discharge? ID will sing off care?? THank you?? Please reach out with any questions or concerns Total Time Spent I spent a total of?? 60+ minutes today reviewing the chart/medical records, speaking with the patient, formulating and discussing the treatment plan, and documenting the findings and encounter Problem List/Past Medical History Ongoing No qualifying data Medications Inpatient Ambien 5 mg oral tablet, 10 mg, By Mouth, Daily at bedtime, PRN Bisacodyl Supp, 10 mg= 1 supp, Rectally, 2 times a day, PRN Breo Ellipta 100 mcg-25 mcg Inhaler, 1 puffs, Inhalation, Daily Carafate Suspension, 1 Gm= 10 mL, By Mouth, 3 times a day with meals and bedtime Cefepime Extended IVPB, 2000 mg, IVPB, Every 12 hours GuaiFENEsin /Dextromethorphan Liquid, 5 mL, By Mouth, Every 4 hours, PRN KlonoPIN 1 mg oral tablet, 1 mg, By Mouth, 2 times a day, PRN Lidocaine 5% Patch, 1 each, Topically, Daily pantoprazole 40 mg oral delayed release tablet, 40 mg, By Mouth, 2 times a day Remove Lidocaine Patch, 1 each, Topically, Daily at bedtime traMADol 50 mg oral tablet, 25 mg, By Mouth, Every 6 hours, PRN traZODone 50 mg oral tablet, 50 mg, By Mouth, Daily at bedtime ziprasidone 80 mg oral capsule, 80 mg, By Mouth, 2 times a day Home Adempas 1 mg oral tablet, 1 mg= 1 tablet, By Mouth, 3 times a day Advair Diskus 250 mcg-50 mcg inhalation powder, 1 puffs, Inhalation, 2 times a day Ambien 10 mg oral tablet, 10 mg= 1 tablet, By Mouth, Daily at bedtime, PRN cetirizine 10 mg oral tablet, 10 mg= 1 tablet, By Mouth, Daily cholecalciferol 2000 intl units oral tablet Eliquis 5 mg oral tablet, 5 mg= 1 tablet, By Mouth, 2 times a day ferrous sulfate 324 mg (65 mg elemental iron) oral delayed release tablet, 324 mg= 1 tablet, By Mouth, Daily furosemide 20 mg oral tablet, 20 mg= 1 tablet, By Mouth, Daily ibuprofen 200 mg oral tablet, 400 mg= 2 tablet, By Mouth, 2 times a day, PRN Klonopin 1 mg oral tablet, 1 mg= 1 tablet, By Mouth, 2 times a day, PRN lidocaine 5% topical film, 1 patch, Topically, Daily ondansetron 4 mg oral tablet, disintegrating, 4 mg= 1 tablet, By Mouth, Every 8 hours, PRN pantoprazole 40 mg oral delayed release tablet, 40 mg= 1 tablet, By Mouth, Daily traZODone 50 mg oral tablet, 50 mg= 1 tablet, By Mouth, Daily at bedtime ziprasidone 80 mg oral capsule, 80 mg= 1 capsule, By Mouth, 2 times a day Antibiotic History Active Antibiotics Calendar Day Last Administered First Administered Cefepime??2,000 mg, 33.33 mL/hr, IVPB, Every 12 hours ?3 07/16/2024 03:21 07/14/2024 16:27 ? Stopped Antibiotics Stop Date/Time Last Administered First Administered Vancomycin??1,000 mg, 200 mL, 200 mL/hr, IVPB, Every 24 hours 07/15/2024 07:44 07/14/2024 10:49 07/12/2024 11:03 Cefepime??2,000 mg, 33.33 mL/hr, IVPB, Every 12 hours 07/14/2024 11:22 07/14/2024 05:28 07/12/2024 11:03 Allergies acetaminophen penicillins??(Rash) Social History Substance Abuse Use: Current. Type: Cocaine. Immunizations Vaccine Date Status influenza virus vaccine, inactivated 05/21/2024 Given * Palmer MARS, EDWARD,Karlo ISBELL: PERFORM Event Display: Consult Authored Date: [id number] Patient: ??NADIA LOPEZ ? Age:??58 Years?Sex:??Female?:??1965?? Department of Medicine Division of Pulmonary Medicine and Critical Care Pulmonary??Medicine ?? Pulmonary Vascular Disease Brief Input Note ?? 58-year-old female with past medical history of chronic thromboembolic pulmonary hypertension whichshe is currently on apixaban and riociguat.?? She had a history of Pseudomonas osteomyelitis where she has chronic pain issues following that and receives a lot of nonsteroidal anti-inflammatory drugs.?? She presented with upper GI bleeding that is leading to a concern of hemorrhagic shock and acute blood loss anemia.?? She had evidence of lactic acidosis as well.?? While anticoagulation was helduntil the episode of erosive esophagitis as a source of upper GI bleeding from NSAIDs to be sorted out, she needs to continue riociguat for preserving right ventricular function and avoid rebound pulmonary hypertension issues. ?? It seems that we might run into concerns of drug drug interaction between proton pump inhibitors and soluble granulate cyclase stimulators.?? I think it is important that we continue home medicationsto preserve the right ventricular function.?? If that is an absolute contraindication, I would probably favor considering sildenafil instead of riociguat if there are no as such drug drug interactions.?? However the dose of sildenafil might need to be considered on the upper dosage ranges of at least 40 mg 3 times a day. ?? In summary; 1.?? Continue riociguat 2.5 mg 3 times a day. 2.?? If there are concerns about continuing riociguat with drug drug interaction in the setting of PPIs, please run with pharmacy concerns about this drug drug interaction if they persist on sildenafil or not. 3.?? I would favor that we hold anticoagulation for a duration more than 1 week before we have to start back at least half dose apixaban of 2.5 mg twice a day if not a full dose after controlling thecurrent episodes of upper GI bleeding. ?? Karlo Chakraborty MD, MMWILIAN, A Rounding??Inpatient Pulmonary??vascular disease attending Division of Pulmonary Medicine and Critical Care Department of Medicine [facility]? Complex case with multiple medical problems that all are contributing to her underlying pulmonary disease situation. This note was dictated using a voice recognition software. Please excuse errors? * Camille Robison MD: PERFORM Event Display: Consultation Note Authored Date: Patient: ??NADIA LOPEZ ? Age:??58 Years?Sex:??Female?:??1965?? Referrring Provider Rochelle Sanchez MD Chief Complaint hematemesis Reason for Consultation hematemesis, melena, upper GI bleed History of Present Illness This is a 58-year-old female with a past medical history of GERD, prior history of peptic ulcer disease at outside hospitals requiring endoscopic therapy, anxiety, depression, history of pulmonary embolisms on Eliquis, pulmonary hypertension, question of a nasal mass being followed at [facility], Pseudomonas osteomyelitis of the laminar bone treated with IV cefepime via a PICC line whopresented to the ED with coffee-ground emesis. ?? Patient was recently at an assisted living facility and was found by staff covered in dark black emesis.?? Patient reports she was doing well until last night when she just suddenly began vomiting pitch black content.?? EMS were immediately called and she was brought into the ED for further evaluation.?? She states that previously her stools were brown however overnight noted very dark stool thatshe compares to ensure.?? Does not report any tobacco use, alcohol use, recent NSAID use.?? Of noteshe had a previous admission where she left AMA on 05/25 during which her course was also complicated by coffee-ground emesis for which upper endoscopy was performed revealing LA grade a erosive esophagitis, Pardeep lesions, and a duodenal bulb polyp.?? There was no clear source of her bleeding at the time but was felt that it may be related to the Pardeep lesions which were found.?? 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 ?? Upon arrival to the ED, patient had an episode of large-volume emesis which was consistent with coffee-ground/blood.?? She was tachycardic as well as hypotensive.?? I-STAT labs showed hematocrit less than 15 and undetectable hemoglobin.?? Blood was drawn patient was immediately started on uncrossed matched blood of which she received 2 units with improvement in her vitals.?? Unfortunately, patient became febrile after second unit and thus third unit could not be started.?? Aside from this she was also noted to have mild leukocytosis of 12.0, formal labs showing hemoglobin of 4.7 with MCV of 80.3, platelets 297, INR 1.1, unremarkable electrolytes, BUN 55, creatinine 1.30, normal liver enzymes and bilirubin, lactate 2.9.?? She also received IV PPI and 2000 units of Kcentra for Eliquis reversal.?? The case was ultimately discussed with the medical ICU team who will be taken the patient to their unit for further management. Review of Systems All relevant systems reviewed and are negative with the exception of those discussed in HPI Physical Exam Vitals & Measurements T:??100.3?F?? TMIN:??97.9?F?? TMAX:??100.3?F?? HR:??108??(Peripheral)?? RR:??16?? BP:??99/68?? SpO2:??99%?? General: No acute distress. Somewhat drowsy and slow to respond. HEENT: EOMI, mucous membranes moist Abdominal: Soft, nontender. Bowel sounds noted Extremities: No lower extremity edema Neuro: AAO x3 Psych: Affect appropriate Rectal: Unable to be performed by me personally as patient refused, ED team were able to perform earlier??and noted melena Assessment/Plan Assessment:??Problems ??? Acute on chronic anemia ??? Hematemesis/melena ??? History of Pardeep erosions ?? This patient's presentation with hematemesis, melena, and profound anemia likely point to a relatively slow upper GI bleed.??The fact that her hemoglobin was still low on initial arrival tells us that she probably was having a slow bleed for a long period and was able to compensate this long.??A brisk upper GI bleed likely would have resulted in hemodynamic instability with a higher hemoglobin due to lack of time for compensation.??At this point she has received 2 units of PRBCs and is relatively stable.??She will be going to the medical ICU for further management where we can also plan for endoscopic intervention.??In terms of differentials, she may be bleeding from her prior Pardeep erosions versus having developed ulceration from her prior esophagitis.??Either way needs upper endoscopyfor diagnostic and therapeutic purposes. ?? Recommendation/plan ??? IV PPI twice daily ??? Trend hemoglobin ??? Transfuse for hemoglobin less than 7 or if actively bleeding and hemodynamically unstable (as able with issue of tranfusion reaction) - Hold Eliquis ??? Maintain 2 large-bore IVs ??? We will plan for upper endoscopy at some point today.??Patient will need to be sedated for procedure.??Will leave decision to intubate to primary team. ?? Patient has been??seen and??discussed with Dr. Pal Robison PGY4 Pager: [phone] Problem List/Past Medical History Ongoing No qualifying data Medications Inpatient Zofran Inj, 4 mg, IV Push, Once, PRN Home Advair Diskus 250 mcg-50 mcg inhalation powder, 1 puffs, Inhalation, 2 times a day Ambien 10 mg oral tablet, 10 mg= 1 tablet, By Mouth, Daily at bedtime, PRN cetirizine 10 mg oral tablet, 10 mg= 1 tablet, By Mouth, Daily cholecalciferol 2000 intl units oral tablet ferrous sulfate 324 mg (65 mg elemental iron) oral delayed release tablet, 324 mg= 1 tablet, By Mouth, Daily furosemide 20 mg oral tablet, 20 mg= 1 tablet, By Mouth, Daily ibuprofen 200 mg oral tablet, 400 mg= 2 tablet, By Mouth, 2 times a day, PRN Klonopin 1 mg oral tablet, 1 mg= 1 tablet, By Mouth, 2 times a day, PRN meloxicam 15 mg oral tablet, 15 mg= 1 tablet, By Mouth, Daily, PRN ondansetron 4 mg oral tablet, disintegrating, 4 mg= 1 tablet, By Mouth, Every 8 hours, PRN pantoprazole 40 mg oral delayed release tablet, 40 mg= 1 tablet, By Mouth, Daily traZODone 50 mg oral tablet, 50 mg= 1 tablet, By Mouth, Daily at bedtime ziprasidone 80 mg oral capsule, 80 mg= 1 capsule, By Mouth, 2 times a day Allergies acetaminophen penicillins??(Rash) Lab Results Test Name Test Result Date/Time WBC 12.0 k/mm3 07/11/2024 06:46 EST RBC 1.83 m/mm3 07/11/2024 06:46 EST Hgb 4.7 Gm/dL 07/11/2024 06:46 EST Hct 14.7 % 07/11/2024 06:46 EST MCV 80.3 femtoliters 07/11/2024 06:46 EST MCH 25.7 pg 07/11/2024 06:46 EST MCHC 32.0 Gm/dL 07/11/2024 06:46 EST Platelet Count 297 k/mm3 07/11/2024 06:46 EST RDW-SD 50.7 femtoliters 07/11/2024 06:46 EST MPV 12.2 femtoliters 07/11/2024 06:46 EST Nucleated RBC (Automated) 1.0 #/100 WBC'S 07/11/2024 06:46 EST Abs. NRBC 0.1 k/mm3 07/11/2024 06:46 EST Abs. Neut 10.2 k/mm3 07/11/2024 06:46 EST Abs. Lymph 0.8 k/mm3 07/11/2024 06:46 EST Abs. Pine 0.9 k/mm3 07/11/2024 06:46 EST Abs. Eo 0.0 k/mm3 07/11/2024 06:46 EST Abs. Baso 0.0 k/mm3 07/11/2024 06:46 EST Neut % 84.8 % 07/11/2024 06:46 EST Lymph % 6.7 % 07/11/2024 06:46 EST Pine % 7.6 % 07/11/2024 06:46 EST Eos % 0.1 % 07/11/2024 06:46 EST Baso % 0.2 % 07/11/2024 06:46 EST Hematocrit (POC) POC Cartridge <15 % 07/11/2024 06:46 EST Imm Gran 0.6 % 07/11/2024 06:46 EST Abs. Imm Gran 0.1 k/mm3 07/11/2024 06:46 EST INR 1.1 07/11/2024 06:46 EST Sodium 140 mmol/L 07/11/2024 06:46 EST Potassium 3.8 mmol/L 07/11/2024 06:46 EST Chloride 101 mmol/L 07/11/2024 06:46 EST Bicarbonate Level 25 mmol/L 07/11/2024 06:46 EST Anion Gap 14 07/11/2024 06:46 EST Sodium (POC) POC Cartridge 138 mmol/L 07/11/2024 06:46 EST Potassium (POC) POC Cartridge 3.6 mmol/L 07/11/2024 06:46 EST Glucose Level 143 mg/dL 07/11/2024 06:46 EST Glucose (POC) POC Cartridge 137 07/11/2024 06:46 EST BUN 55 mg/dL 07/11/2024 06:46 EST Creatinine-Blood 1.30 mg/dL 07/11/2024 06:46 EST Estimated GFR Creatinine 47 ML/MIN/1.73 M2 07/11/2024 06:46 EST Calcium 9.7 mg/dL 07/11/2024 06:46 EST Ionized Calcium (POC) POC Cartridge 1.24 mmol/L 07/11/2024 06:46 EST Protein, Total 5.6 Gm/dL 07/11/2024 06:46 EST Albumin 3.3 Gm/dL 07/11/2024 06:46 EST AG Ratio 1.4 07/11/2024 06:46 EST Alkaline Phosphatase 48 units/L 07/11/2024 06:46 EST AST (SGOT) 17 units/L 07/11/2024 06:46 EST ALT (SGPT) 13 units/L 07/11/2024 06:46 EST Bilirubin, Total 0.5 mg/dL 07/11/2024 06:46 EST Lactate 2.9 mmol/L 07/11/2024 08:25 EST Lactate 2.9 mmol/L 07/11/2024 06:46 EST * Pal Manriquez MD, Dave Alcala: PERFORM Event Display: Consultation Note Authored Date: Attending Attestation:??I have seen and evaluated this patient. ??I have discussed the case and itsmanagement with the fellow and agree with the findings and plan as documented in the fellow???s note.? Admission evaluation note * Gracie MARS, Ruddy: PERFORM, MODIFY, MODIFY Event Display: Admission Note Authored Date: Patient: ??NADIA LOPEZ ? Age:??58 Years?Sex:??Female?:??1965?? 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 ?? Patient was??staying??at an assisted living facility and was found by staff covered in dark black emesis.??Patient reports she was doing well until last night when she just suddenly began vomiting pitch black content.??EMS were immediately called and she was brought into the ED for further evaluation.??She states that previously her stools were brown however overnight noted very dark stool that she compares to Ensure.??Does not report any tobacco use, alcohol use, recent NSAID use.??Of note shehad a previous admission where she left AMA on 05/25 during which her course was also complicated bycoffee-ground emesis for which upper endoscopy was performed revealing [place]??grade??A erosive esophagitis, Pardeep lesions, and a duodenal bulb polyp.??There was no clear source of her bleeding at the time but was felt that it may be related to the Pardeep lesions which were found.??There was also thoughts that the vomiting at that time may also been related to bleeding from this nasal mass that she has which is being followed by [facility]. ?? ED Course Upon arrival to the ED, patient had an episode of large-volume emesis which was consistent with coffee-ground/blood.?? She was tachycardic as well as hypotensive.?? I-STAT labs showed hematocrit lessthan 15 and undetectable hemoglobin.?? Blood was drawn patient was immediately started on uncrossed matched blood of which she received 2 units with improvement in her vitals.?? Unfortunately, patient became febrile after second unit and thus third unit could not be started.?? Aside from this she was also noted to have mild leukocytosis of 12.0, formal labs showing hemoglobin of 4.7 with MCV of 80.3, platelets 297, INR 1.1, unremarkable electrolytes, BUN 55, creatinine 1.30, normal liver enzymes and bilirubin, lactate 2.9.?? She also received IV PPI and 2000 units of Kcentra for apixaban reversal.? Interval events Patient arrived to the MICU on room air and not on vasopressors. Patient was calm, cooperative and oriented to time, place and person. No further vomiting or GI bleeding was noticed from the time of transport from the ED. Patient did complain that her mouth was dry. Physical exam revealed only mild??right subcostal tenderness. CXR was normal. A further 2 units of pRBC were ordered along with a unit of FFP and a unit of platelets. Discussed the patient with the blood bank, reported Tmax was 100.3 which was after a period of hypothermia which is not suggestive of a reaction. Workup ongoing but transfusions continued as risk is low and outweighed by benefit. Discussed with GI, initial thought was to stabilize further and potentially scope tomorrow but considering that patient likely had a slow chronic bleed and is high risk with her CTEPH medication and home blood thinners plan for endoscopy this afternoon per their recommendations. Patient maintained NPO. Review of Systems A full review of systems was completed and??was otherwise negative except as mentioned in history of present illness. Objective Measurements?? Height: 163 cm (07/11/24) Weight: 64.7 kg (07/11/24) Dry Weight: 64.7 kg (07/11/24) Body Mass Index: 24.35 kg/m2 (07/11/24) ? Vital Signs?? Temperature: 98 DegF (07/11/24 10:56:00) Temperature Route: Oral (07/11/24 10:56:00) Pulse Rate:??105 bpm??High (07/11/24 10:56:00) Heart Rate Monitored:??101 bpm??High (07/11/24 13:46:24) Respiratory Rate: 27 br/min (07/11/24 13:46:24) Systolic Blood Pressure: 105 mm Hg (07/11/24 13:40:00) Diastolic Blood Pressure:??86 mm Hg??High (07/11/24 13:40:00) Blood pressure sites: Arm, left (07/11/24 12:40:00) Mean Arterial Pressure: 82 mm Hg (07/11/24 10:56:00) Pulse Pressure: 24 mm Hg (07/11/24 11:00:00) Oxygen Saturation: 99 % (07/11/24 12:49:26) Liters per Minute: 2 L/min (07/11/24 12:00:00) Mode of Delivery (Oxygen): Nasal cannula (07/11/24 12:00:00) ? Physical Exam Constitutional: Alert, in no acute distress. Head EENT: Extraocular muscle movement intact.??Moist mucous membranes.?? Neck: Supple. No JVD. Cardiovascular: S1, S2 regular. No murmurs, rubs or gallops. Respiratory: Clear to auscultation. No wheezing or crackles. No use of accessory muscles. Gastrointestinal: Abdomen soft, non-tender, non-distended. Normal bowel sounds. Mild tenderness of the inferior margin of ribcage on the right but no abdominal tenderness. Extremities: No lower extremity pitting??edema. Neurologic: Awake, alert and oriented to time, place and person, Speech normal. No focal neurological deficits. Skin: No rash. Psychiatric: Normal mood and affect.?? 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 ? Neurologic Anxiety/Depression Insomnia History of cocaine use ?? Plan: - Delirium precautions - Continue home ziprasidone 80 mg BID??and trazodone 50 mg qHS, clonazepam 1 mg BID PRN, zolpidem 10 mg qHS PRN - Allergy to acetaminophen (hives),may need to consider other modalities for analgesia ? Cardiovascular Hemorrhagic shock Will focus on replation of blood rather than isotonic fluids or vasopressors ?? Plan: - Transfusing a total of 4 pRBCs, 1 FFP, 1 platelets ?? Respiratory Chronic thromboembolic Pulmonary Hypertension (CTEPH) Reportedly diagnosed with echo, right heart cath and VQ scan at [facility] within the past year On riociguat (guanylate cyclase agonist) and apixaban ?? Plan: - Hold riociguat temporarily due to potential concerns for hypotension as well as potential reactions with PPIs - Will attempt to contact patient's Pulm HTN clinic??at [facility]??(Dr. Judy Molina) to discuss continuation of medication ?? 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 Plan: - Blood cultures f/u - Monitor fever and WBC curve ?? Gastrointestinal Hematemesis Upper GI Bleed History of GERD with Grade A esophagitis History of peptic ulcer disease ?? Plan: - Pantoprazole 40 mg IV BID - GI consulted, plan for endoscopy later today - NPO until endoscopy -??Transfuse for hemoglobin less than 7 or if actively bleeding and hemodynamically unstable?? - Maintain 2 large-bore IVs - Hold apixaban ?? Renal Acute kidney injury stage 1 Likely secondary to ischemic ATN in the setting of reduced renal perfusion for an unknown amount oftime,may have some component of prerenal hypovolemic KATIE in the setting of acute hypovolemia ?? Plan: - Monitor I+O - Renally dose meds - Avoid nephrotoxins ?? Hematology/Oncology Acute blood loss anemia Patient has probably been slowly bleeding for a while as there is a significant H+H drop Unlikely had a true transfusion reactino, went from hypothermic to normothermic with transfusion oftrauma blood, no true fevers ?? Plan: - Repeat CBC after completing RBC and platelet transfusions - Followup transfusion reaction workup with blood bank - Hold apixaban - Monitor for signs of bleeding ?? Endocrinology/Nutrition No acute concerns ?? Plan: - POC q6h for 6 times ?? Musculoskeletal Right subcostal pain Pain likely in the setting of severe retching and vomiting Moving limbs independently ?? Plan: - Lidocaine patch for pain - Recommend PT evaluation post ICU stay ? Patient seen and discussed with the attending physician, Dr. Goldman. Ruddy Bowman?? Internal Medicine Resident PGY-2 Pager #[phone] Histories Allergies Allergies ?(Active and Proposed Allergies Only) penicillins? (Severity: Unknown severity, Onset: Unknown) ?Reactions: Rash acetaminophen? (Severity: Unknown severity, Onset: Unknown) ? Past Medical History/Problem List No problems documented. ? Past Surgical History No surgery history documented. ? Social History No social history documented. ? Family History No Family History documented. ? Medications Home Medications apixaban (Eliquis 5 mg oral tablet)?1?tab(s)?5?Milligram?By Mouth?2 times a day Cetirizine (cetirizine 10 mg oral tablet)?1?tab(s)?10?Milligram?By Mouth?Daily Clonazepam (Klonopin 1 mg oral tablet)?1?Milligram?1?tab(s)?By Mouth?Daily at Bedtime?0.5?0.5?1?1?twice a day?as needed?Anxiety Ferrous Sulfate (ferrous sulfate 324 mg (65 mg elemental iron) oral delayed release tablet)?1?tab(s)?324?Milligram?By Mouth?Daily Fluticasone-Salmeterol (Advair Diskus 250 mcg-50 mcg inhalation powder)?1?puff(s)?Inhalation?2 times a day Furosemide (furosemide 20 mg oral tablet)?20?Milligram?1?tablet?By Mouth?Daily Ibuprofen (ibuprofen 200 mg oral tablet)?400?Milligram?2?tablet?By Mouth?2 times a day?as needed?for pain Lidocaine Topical (lidocaine 5% topical film)?1?patch(es)?Topically?Daily?remove patches after 12 hours Ondansetron (ondansetron 4 mg oral tablet, disintegrating)?1?tab(s)?4?Milligram?By Mouth?Every 8 hours?as needed?as needed for nausea/vomiting Pantoprazole (pantoprazole 40 mg oral delayed release tablet)?1?tab(s)?40?Milligram?By Mouth?Daily riociguat (Adempas 1 mg oral tablet)?1?tab(s)?1?Milligram?By Mouth?3 times a day Trazodone (traZODone 50 mg oral tablet)?50?Milligram?1?tablet?By Mouth?Daily at bedtime Ziprasidone (ziprasidone 80 mg oral capsule)?1?capsule?80?Milligram?By Mouth?2 times a day Zolpidem (Ambien 10 mg oral tablet)?1?tab(s)?10?Milligram?By Mouth?Daily at bedtime?as needed?for sleep ? Inpatient Medications Medications (7) Active SCHEDULED: (3) Pantoprazole 40 mg Inj (Pantoprazole Inj) ??40 mg, IV Push Slowly, Every 12 hours Trazodone 50 mg Tablet (traZODone 50 mg oral tablet) ??50 mg, By Mouth, Daily at bedtime Ziprasidone 80mg Capsule (ziprasidone 80 mg oral capsule) ??80 mg, By Mouth, 2 times a day CONTINUOUS: (0) PRN: (4) Bisacodyl 10 mg Suppository (Bisacodyl Supp) ??10 mg 1 supp, Rectally, 2 times a day Clonazepam 1 mg Tablet (KlonoPIN 1 mg oral tablet) ??1 mg, By Mouth, 2 times a day Ondansetron 2mg/mL Inj (2mL Vial) (Zofran Inj) ??4 mg, IV Push, Once Zolpidem 5 mg Tablet (Ambien 5 mg oral tablet) ??10 mg, By Mouth, Daily at bedtime ? Results Recent Labs BLOOD BANK Blood Type AB Positive ()?? 07/11/2024 06:37 Antibody Screen Negative ()?? 07/11/2024 06:37 FFP Unit ID [id number] ()?? 07/11/2024 10:58 FFP Available XM ()?? 07/11/2024 10:58 PLT Unit ID [id number] ()?? 07/11/2024 10:47 PLT Available XM ()?? 07/11/2024 10:47 RBC Unit ID [id number] ()?? 07/11/2024 12:42 RBC Available IS ()?? 07/11/2024 12:42 ?? BLOOD COUNT & DIFF WBC 12.0 k/mm3 (High)?? 07/11/2024 06:46 RBC 1.83 m/mm3 (Low)?? 07/11/2024 06:46 Hgb 4.7 Gm/dL (Critical)?? 07/11/2024 06:46 Hct 14.7 % (Critical)?? 07/11/2024 06:46 MCV 80.3 femtoliters ()?? 07/11/2024 06:46 MCH 25.7 pg (Low)?? 07/11/2024 06:46 MCHC 32.0 Gm/dL (Low)?? 07/11/2024 06:46 Platelet Count 297 k/mm3 ()?? 07/11/2024 06:46 RDW-SD 50.7 femtoliters (High)?? 07/11/2024 06:46 MPV 12.2 femtoliters ()?? 07/11/2024 06:46 Nucleated RBC (Automated) 1.0 #/100 WBC'S ()?? 07/11/2024 06:46 Abs. NRBC 0.1 k/mm3 ()?? 07/11/2024 06:46 Abs. Neut 10.2 k/mm3 (High)?? 07/11/2024 06:46 Abs. Lymph 0.8 k/mm3 ()?? 07/11/2024 06:46 Abs. Pine 0.9 k/mm3 ()?? 07/11/2024 06:46 Abs. Eo 0.0 k/mm3 ()?? 07/11/2024 06:46 Abs. Baso 0.0 k/mm3 ()?? 07/11/2024 06:46 Neut % 84.8 % (High)?? 07/11/2024 06:46 Lymph % 6.7 % (Low)?? 07/11/2024 06:46 Pine % 7.6 % ()?? 07/11/2024 06:46 Eos % 0.1 % ()?? 07/11/2024 06:46 Baso % 0.2 % ()?? 07/11/2024 06:46 Hematocrit (POC) POC Cartridge <15 % (Critical)?? 07/11/2024 06:46 Imm Gran 0.6 % ()?? 07/11/2024 06:46 Abs. Imm Gran 0.1 k/mm3 ()?? 07/11/2024 06:46 ?? BLOOD GAS pH Venous (POC) POC Cartridge 7.51 (High)?? 07/11/2024 06:46 pCO2 Venous (POC) POC Cartridge 33.5 mm Hg (Low)?? 07/11/2024 06:46 pO2 Venous (POC) POC Cartridge 19 mm Hg (Low)?? 07/11/2024 06:46 Est Bicarbonate (POC) POC Cartridge 26.8 mmol/L ()?? 07/11/2024 06:46 % O2 Sat Venous (POC) POC Cartridge 36 ()?? 07/11/2024 06:46 Base Excess (POC) POC Cartridge 4 ()?? 07/11/2024 06:46 Specimen Type - Blood Gas VENOUS ()?? 07/11/2024 06:46 ?? CHEM GENERAL Sodium 140 mmol/L ()?? 07/11/2024 06:46 Potassium 3.8 mmol/L ()?? 07/11/2024 06:46 Chloride 101 mmol/L ()?? 07/11/2024 06:46 Bicarbonate Level 25 mmol/L ()?? 07/11/2024 06:46 Anion Gap 14 ()?? 07/11/2024 06:46 Sodium (POC) POC Cartridge 138 mmol/L ()?? 07/11/2024 06:46 Potassium (POC) POC Cartridge 3.6 mmol/L ()?? 07/11/2024 06:46 Glucose Level 143 mg/dL (High)?? 07/11/2024 06:46 Glucose (POC) POC Cartridge 137 (High)?? 07/11/2024 06:46 Glucose, POC 164 mg/dL (High)?? 07/11/2024 06:37 BUN 55 mg/dL (High)?? 07/11/2024 06:46 Creatinine-Blood 1.30 mg/dL (High)?? 07/11/2024 06:46 Estimated GFR Creatinine 47 ML/MIN/1.73 M2 ()?? 07/11/2024 06:46 Calcium 9.7 mg/dL ()?? 07/11/2024 06:46 Ionized Calcium (POC) POC Cartridge 1.24 mmol/L ()?? 07/11/2024 06:46 Protein, Total 5.6 Gm/dL (Low)?? 07/11/2024 06:46 Albumin 3.3 Gm/dL (Low)?? 07/11/2024 06:46 AG Ratio 1.4 ()?? 07/11/2024 06:46 Alkaline Phosphatase 48 units/L ()?? 07/11/2024 06:46 AST (SGOT) 17 units/L ()?? 07/11/2024 06:46 ALT (SGPT) 13 units/L ()?? 07/11/2024 06:46 Bilirubin, Total 0.5 mg/dL ()?? 07/11/2024 06:46 Lactate 2.9 mmol/L (High)?? 07/11/2024 08:25 ?? COAG INR 1.1 ()?? 07/11/2024 06:46 Protime (PT) 12.2 seconds (High)?? 07/11/2024 06:46 ?? MISC. CHEMISTRY Hold Gel Top SPECIMEN DISCARDED AFTER 1 WEEK ()?? 07/11/2024 06:46 ?? URINE OTHER Est Creatinine Clearance 40.03 mL/min ()?? 07/11/2024 11:06 ?? VIROLOGY COVID-19 by RT-PCR NEGATIVE ()?? 07/11/2024 10:23 ? * Danny Goldman DO: PERFORM Event Display: Admission Note Authored Date: I have seen and evaluated this patient.?? I have discussed the case and its management with the house staff/fellow/OVEN DUMPER/PA on rounds and agree with the documentation of the assessment and plan of care we developed together with the following highlights/additions/modifications. ?? Impression: 58F with PMH of CTEPH on apixaban and riociguat, GERD/PUD, depression/anxiety, polysubstance abuse,and h/o pseudomonas osteomyelitis, who was admitted 07/11/24 for coffee ground emesis, found to have acute blood loss anemia from UGIB. Her shock index was >1.0 this morning with elevated lactate and while she was receiving her first unit of trauma blood, there was concern for febrile reaction due to temp up to 100.3 per documented vitals. GI was able to scope her in the MICU and found erosiveesophagitis. Otherwise, she has remained stable and appears well on examination, however, has been given apixaban, and has unknown baseline regarding her PH and RV function. We were unable to get in touch with her PH provider in [place]. ?? Problems: Hemorrhagic shock Acute blood loss anemia KATIE - likely ischemic ATN Lactic acidosis UGIB 2/2 erosive esophagitis CTEPH ?? Plan: - Continue resuscitation for goal 4u RBCs total in addition to 1u FFP and 1u platelets (already s/papixaban) - Repeat CBC post-transfusions - Continue IV PPI BID - Continue home PRN clonazepam, zolpidem, and trazodone - Continue home riociguat for now - Will attempt to reach out again to PH provider tomorrow - Maribel for now - SCDs for DVT ppx - Hold home apixaban ?? This patient is critically ill due to the problems and diagnoses listed above, with a high probability of life-threatening deterioration or . I personally spent 90 minutes of non-overlapping critical care time evaluating and managing the patient, excluding time spent teaching or performing separately billable procedures. EKG study * Event Display: ECG 12-Lead Authored Date: Please click on pdf link to open report * Event Display: ECG 12-Lead Authored Date: Ventricular Rate: 87 BPM Atrial Rate: 87 BPM P-R Interval: 150 ms QRS Duration: 92 ms Q-T Interval: 408 ms QTC Calculation(Bazett): 490 ms P Lawton: -16 degrees R Lawton: 0 degrees T Lawton: 74 degrees Normal sinus rhythm Nonspecific ST and T wave abnormality Inferior infarct Prolonged of QT interval Abnormal ECG When compared with ECG of 14-Jul-2024 12:33, QT interval has lengthened Confirmed by Darnell Walker ([id number]) on 07/15/2024 7:51:34 AM Pope: Darnell Walker * Event Display: ECG 12-Lead Authored Date: Please click on pdf link to open report * Event Display: ECG 12-Lead Authored Date: Ventricular Rate: 87 BPM Atrial Rate: 87 BPM P-R Interval: 146 ms QRS Duration: 92 ms Q-T Interval: 390 ms QTC Calculation(Bazett): 469 ms P Lawton: -13 degrees R Lawton: 6 degrees T Lawton: 51 degrees Normal sinus rhythm Possible Inferior infarct , age undetermined Abnormal ECG When compared with ECG of 11-Jul-2024 07:51, Borderline criteria for Inferior infarct are now Present ST no longer depressed in Inferior leads Confirmed by Darnell Walker ([id number]) on 07/15/2024 7:50:33 AM Pope: Darnell Walker * Event Display: EKG Authored Date: * Event Display: ECG 12-Lead Authored Date: Please click on pdf link to open report * Event Display: ECG 12-Lead Authored Date: Ventricular Rate: 119 BPM Atrial Rate: 119 BPM P-R Interval: 140 ms QRS Duration: 88 ms Q-T Interval: 354 ms QTC Calculation(Bazett): 497 ms P Lawton: 72 degrees R Lawton: 38 degrees T Lawton: 21 degrees Sinus tachycardia Nonspecific ST and T wave abnormality Abnormal ECG When compared with ECG of 20-MAY-2024 10:21, No significant change was found Confirmed by ILANA NUÑEZ MD ([id number]) on 07/11/2024 9:28:37 AM Pope: LIANA NUÑEZ MD Cardiology * Event Display: Cardiac Rhythm Strips Authored Date: Hospital Progress note * Florecita Cardenas DO: PERFORM Event Display: Progress Note Hospital Authored Date: Patient: ??NADIA LOPEZ ? Age:??58 Years?Sex:??Female?:??1965?? Subjective Summary: Hospital day 4 , after??MICU??3 days ?? Ventilation:??Room Air ?? Vitals: Yesterday afternoon 1 blood pressure of 183/64, resolved to pain medications Overnight 110 over 70s to 80s Heart rate has been in 80s to 90s past 24 hours Room air, afebrile ?? I&O: X 5 stools yesterday- soft ?? Interval Updates: No acute events overnight.? This morning reports improvement of her abdominal pain, right chest pain.?? Still feeling right chest pain as it is exacerbated every time she coughs, but it is not as intense.?? Asking to advance her diet.?? Denying nausea, vomiting, fever, chills. ? Review of Systems Complete ROS reviewed, pertinent findings listed in HPI.?? Allergies Allergies ?(Active and Proposed Allergies Only) penicillins? (Severity: Unknown severity, Onset: Unknown) ?Reactions: Rash acetaminophen? (Severity: Unknown severity, Onset: Unknown) ? Past Medical History No problems documented. ? Social History Substance Abuse Details:??Use: Current. ??Type: Cocaine. ? Family History No Family History documented. ? Objective Vital Signs?? Temperature: 97.6 DegF (07/15/24 15:04:00) Temperature Route: Oral (07/15/24 15:04:00) Pulse Rate: 78 bpm (07/15/24 15:04:00) Respiratory Rate: 16 br/min (07/15/24 15:04:00) Systolic Blood Pressure: 118 mm Hg (07/15/24 15:04:00) Diastolic Blood Pressure: 74 mm Hg (07/15/24 15:04:00) Blood pressure sites: Arm, right (07/15/24 15:04:00) Mean Arterial Pressure: 89 mm Hg (07/15/24 15:04:00) Pulse Pressure: 44 mm Hg (07/15/24 15:04:00) Oxygen Saturation: 99 % (07/15/24 15:04:00) Mode of Delivery (Oxygen): Room air (07/15/24 15:04:00) Early Warning Score: 2 (07/15/24 16:27:16) ? Physical Exam General: Alert, in no distress. AO x3 HEENT:??PERRLA. EOMI. Anicteric sclera. Mucous membranes moist. Trachea midline. Neck: Supple, Full range of motion. No lymphadenopathy. Respiratory: Crackles at the right lung base. No wheezing, rales or rhonchi. Cardiovascular: S1 S2 present regular rate rhythm. No murmurs, rubs or gallops. Gastrointestinal: Abdomen soft, slightly tender to palpation in epigastric region improved from yesterday, non-distended. Normal bowel sounds. Neurologic: Cranial nerves II-XII grossly intact. No focal neurological deficits. Sensation intact bilaterally. Skin: No visible rashes or lesions. No petechiae or purpura.?? Musculoskeletal: Reproducible??right sided chest pain with palpation. No cyanosis or clubbing. No gross deformities. Normal range of motion. Lymphatics: No bilateral pitting edema. Psychiatric: Appropriate mood and congruent affect _ Home Medications apixaban (Eliquis 5 mg oral tablet)?1?tab(s)?5?Milligram?By Mouth?2 times a day Cetirizine (cetirizine 10 mg oral tablet)?1?tab(s)?10?Milligram?By Mouth?Daily Clonazepam (Klonopin 1 mg oral tablet)?1?Milligram?1?tab(s)?By Mouth?Daily at Bedtime?0.5?0.5?1?1?twice a day?as needed?Anxiety Ferrous Sulfate (ferrous sulfate 324 mg (65 mg elemental iron) oral delayed release tablet)?1?tab(s)?324?Milligram?By Mouth?Daily Fluticasone-Salmeterol (Advair Diskus 250 mcg-50 mcg inhalation powder)?1?puff(s)?Inhalation?2 times a day Furosemide (furosemide 20 mg oral tablet)?20?Milligram?1?tablet?By Mouth?Daily Ibuprofen (ibuprofen 200 mg oral tablet)?400?Milligram?2?tablet?By Mouth?2 times a day?as needed?for pain Lidocaine Topical (lidocaine 5% topical film)?1?patch(es)?Topically?Daily?remove patches after 12 hours Ondansetron (ondansetron 4 mg oral tablet, disintegrating)?1?tab(s)?4?Milligram?By Mouth?Every 8 hours?as needed?as needed for nausea/vomiting Pantoprazole (pantoprazole 40 mg oral delayed release tablet)?1?tab(s)?40?Milligram?By Mouth?Daily riociguat (Adempas 1 mg oral tablet)?1?tab(s)?1?Milligram?By Mouth?3 times a day Trazodone (traZODone 50 mg oral tablet)?50?Milligram?1?tablet?By Mouth?Daily at bedtime Ziprasidone (ziprasidone 80 mg oral capsule)?1?capsule?80?Milligram?By Mouth?2 times a day Zolpidem (Ambien 10 mg oral tablet)?1?tab(s)?10?Milligram?By Mouth?Daily at bedtime?as needed?for sleep ? Inpatient Medications Medications (14) Active SCHEDULED: (8) Breo Ellipta 100 mcg / 25 mcg Inhaler (Breo Ellipta 100 mcg-25 mcg Inhaler) ??1 puffs, Inhalation, Daily Cefepime 2 Gm Inj (Cefepime Extended IVPB) ??2,000 mg, IVPB, Every 12 hours Lidocaine 5% Topical Patch (Lidocaine 5% Patch) ??1 each, Topically, Daily Pantoprazole 40 mg EC Tablet (pantoprazole 40 mg oral delayed release tablet) ??40 mg, By Mouth, 2 times a day Remove Patch (Remove Lidocaine Patch) ??1 each, Topically, Daily at bedtime Sucralfate 1 Gm /10 mL susp (Carafate Suspension) ??1 Gm 10 mL, By Mouth, 3 times a day with meals and bedtime Trazodone 50 mg Tablet (traZODone 50 mg oral tablet) ??50 mg, By Mouth, Daily at bedtime Ziprasidone 80mg Capsule (ziprasidone 80 mg oral capsule) ??80 mg, By Mouth, 2 times a day CONTINUOUS: (1) Lactated Ringers (1000 mL) Cont IV 1,000 mL (LR 1,000 mL) ??1,000 mL, IV Infusion, 75 mL/hr PRN: (5) Bisacodyl 10 mg Suppository (Bisacodyl Supp) ??10 mg 1 supp, Rectally, 2 times a day Clonazepam 1 mg Tablet (KlonoPIN 1 mg oral tablet) ??1 mg, By Mouth, 2 times a day Dextromethorphan-Guaifenesin 20 mg-200 mg/10 mL Liqu UD (GuaiFENEsin /Dextromethorphan Liquid) ??5 mL, By Mouth, Every 4 hours TraMADOL 50 mg Tablet (traMADol 50 mg oral tablet) ??25 mg, By Mouth, Every 6 hours Zolpidem 5 mg Tablet (Ambien 5 mg oral tablet) ??10 mg, By Mouth, Daily at bedtime ? 72 Hour Antibiotic History Active Antibiotics Calendar Day Last Administered First Administered Cefepime??2,000 mg, 33.33 mL/hr, IVPB, Every 12 hours ?2 07/15/2024 15:50 07/14/2024 16:27 ? Stopped Antibiotics Stop Date/Time Last Administered First Administered Vancomycin??1,000 mg, 200 mL, 200 mL/hr, IVPB, Every 24 hours 07/15/2024 07:44 07/14/2024 10:49 07/12/2024 11:03 Cefepime??2,000 mg, 33.33 mL/hr, IVPB, Every 12 hours 07/14/2024 11:22 07/14/2024 05:28 07/12/2024 11:03 ? Results Recent Labs BLOOD BANK Blood Type AB Positive ()?? 07/14/2024 11:25 Antibody Screen Negative ()?? 07/14/2024 11:25 ?? BLOOD COUNT & DIFF WBC 5.9 k/mm3 ()?? 07/15/2024 08:32 RBC 3.47 m/mm3 (Low)?? 07/15/2024 08:32 Hgb 9.7 Gm/dL (Low)?? 07/15/2024 08:32 Hct 30.2 % (Low)?? 07/15/2024 08:32 MCV 87.0 femtoliters ()?? 07/15/2024 08:32 MCH 28.0 pg ()?? 07/15/2024 08:32 MCHC 32.1 Gm/dL (Low)?? 07/15/2024 08:32 Platelet Count 180 k/mm3 ()?? 07/15/2024 08:32 RDW-SD 52.5 femtoliters (High)?? 07/15/2024 08:32 MPV 11.5 femtoliters ()?? 07/15/2024 08:32 Nucleated RBC (Automated) 0.5 #/100 WBC'S ()?? 07/15/2024 08:32 Abs. NRBC 0.0 k/mm3 ()?? 07/15/2024 08:32 ?? CHEM GENERAL Sodium 139 mmol/L ()?? 07/15/2024 08:32 Potassium 3.6 mmol/L ()?? 07/15/2024 08:32 Chloride 107 mmol/L ()?? 07/15/2024 08:32 Bicarbonate Level 21 mmol/L (Low)?? 07/15/2024 08:32 Anion Gap 11 ()?? 07/15/2024 08:32 Glucose Level 108 mg/dL (High)?? 07/15/2024 08:32 BUN 19 mg/dL ()?? 07/15/2024 08:32 Creatinine-Blood 1.21 mg/dL (High)?? 07/15/2024 08:32 Estimated GFR Creatinine 51 ML/MIN/1.73 M2 ()?? 07/15/2024 08:32 Calcium 8.5 mg/dL (Low)?? 07/15/2024 08:32 Phosphorus 3.0 mg/dL ()?? 07/14/2024 08:34 Magnesium 1.8 mg/dL ()?? 07/14/2024 08:34 ?? TOXICOLOGY/TDM Vancomycin Level, Random 10.9 mg/L ()?? 07/15/2024 11:35 ?? URINE OTHER Est Creatinine Clearance 43.01 mL/min ()?? 07/15/2024 09:37 ? 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 Received 4 units pRBCs, 1 unit FFP, 1 unit platelets.??Admitted to MICU for??hemorrhagic shock in the setting of acute to subacute GI bleed, managed with transfusion and did not receive pressors. GI EGD revealed??LA grade D with clean-based distal esophageal ulcer that likely source of bleed. Transferred out of MICU 07/13. ?? Erosive esophagitis (K22.10):??, severe Hemorrhagic shock (R57.8):??resolved ABLA (acute blood loss anemia) (D62):??improving GI bleed (K92.2):? Presented with melena and significant drop in H&H to 4.7 Received 4 units pRBCs, 1 unit FFP, 1 unit platelets, hgb improved to 10.5 Admitted to the MICU for hypotension, tachycardia, transfusion requirements. Did not recieve pressors. Received KCentra for reversal of apixaban EGD with severe erosive esophagitis??LA grade D with clean-based distal esophageal ulcer Hgb now 9.7 ?? Plan: - CBC daily Per GI: - IV PPI??BID??during inpatient stay.??BID??on discharge for the next 3 months.??Once daily until repeat endoscopy in 3 to 4 months. - Carafate slurry, 1 g mixed with 10 cc warm water taken by mouth at mealtime and bedtime for 3 weeks - Advance diet as tolerated - Transfuse for hemoglobin less than 7 or if actively bleeding and hemodynamically unstable? Chest pain, non-cardiac ??(R07.89) Reproducible with palpation Likely in the setting of referred esophageal pain, gastric pain as this chest pain and new this admission Allergy to acetaminophen ?? Plan: -Decrease tramadol to 25: Holding parameters for somnolence in place, plan to wean - Cough suppressant dextromethorphan/guaifenesin with caveat that patient will use incentive spirometer - If continued pain, will consider changing to muscle relaxant.??Hestiant because of somnolence. ?? KATIE (acute kidney injury) (N17.9): improving?? Cr increase from 0.9 to 1.25 within 24 hours Likely prerenal etiology as decreased PO, physical exam hypovolemic Consider ATN as recent decrease BP Downtrending, today 1.21 ?? Plan: - 1 L IVF maintenance at 75mL/hr - Monitor BMP ? Fever (R50.9) resolved SIRS Criteria (R65.1): ?? Fever up to 104.4 with tachycardia and leukocytosis 12 hours after presentation source not clear; CXR no acute findings, UA not suggestive infection patient was being treated for maxillary sinus osteomyelitis with pseudomonas Per patient, completed course of antibiotics Vancomycin and cefepime were commenced and patient has defervesced with improvement in WCC Possibility fever could be 2/2 to acute withdrawal, however less likely. ?? Plan: - Follow up [facility] -??Discontinue vancomycin; continue cefepime and??will try to contact [place] for treatment history ?? CTEPH (chronic thromboembolic pulmonary hypertension) (I27.24):? Recent diagnosis this year Followed in [place] Consulted pulmonary, Dr. Chakraborty saw appreciate recs ?? Plan: - Hold apixaban for 1 week - Plan to restart apixaban at 2.5mg BID - Restart??riociguat??if family??brings it in? Anxiety (F41.9):??. Depression (F32.A):? Continue home ziprasidone 80 mg BID and trazodone 50 mg qHS, clonazepam 1 mg BID PRN, zolpidem 10 mg qHS PRN Patient continues??to be somnolent after receiving??clonazepam; monitor for somnolence, hold tramadol for somnolence ?? Quality Measures Diet:??Regular diet Access: Peripheral IV Anticoagulation:??Pneumoboots Code status:??FULL CODE ?? Florecita Cardenas, DO Internal Medicine and Pediatrics PGY-1 ?? Patient case and plan discussed with attending,??Apoorva Blue MD ? * Apoorva Blue MD: PERFORM Event Display: Progress Note Hospital Authored Date: [id number] Attending Attestation: I have seen and evaluated this patient. I have discussed the case and its management with the resident and agree with the findings and plan as documented in the resident???s note. * Luana Lyles RN: PERFORM, SIGN, VERIFY Event Display: Progress Note Hospital Authored Date: Patient: NADIA LOPEZ Age: 58 years Sex: Female : 1965 Associated Diagnoses: None Author: Luana Lyles RN Findings Problem Related to Alteration in Gastrointestinal : Alteration in Gastrointestinal Func/new 07/15/2024 11:00 EST Alteration in GI status Related to Gastric Hemorrhage, Other: UGIB 2/2 erosiveesophagitis Goals & Outcomes, Gastrointestinal Pt will maintain adequate GI function appropriate for pt, Ptwill resume/maintain adequate hemodynamic status, Gastric drainage will exhibit progressive clearing, Tissue perfusion will return to baseline Interventions, Gastrointestinal Assess/monitor abdomen for distention, tenderness, Assess/monitor abdominal girth & bowel function, Assess/monitor bowel pattern, bowel sounds, flatus, Assess/monitor number of bowel movements, Assess/monitor color, quantity, quality, consistency of stoo, Assess/monitor pt for nausea, vomiting, Assess/monitor effects of re-hydration, Assess/monitor intake &output, Assess if pt tolerating diet, Collaborate/Consult with Lettuce Trimmer; review recommendations, DVT prophylaxis as ordered, Elevate HOB to facilitate lung expansion, prevent aspiration, Establish toileting schedule for patient, Taking PO: Encourage/monitor intake & swallowing ability, Nasogastric to LWS as ordered;care per Standards of Practice, Provide info on community resources for education, support, Provide/encourage oral care if NPO, Teach Pt/caregiver diet & give copy of dietary instructions, Teach Pt/caregiver on bowel elimination interventions, Teach Pt/caregiver re: importance of bowel regime, Teach Pt/caregiver re: nutritional intake & dietary restrict, Teach/encourage deep breath & cough exercises, Teach/encourage use of incentive spirometer BH Goals/Interventions, Gastrointestinal Yes Gastrointestinal, Problem Start 07/12/2024 9:30 Reviewed plan with, Gastrointestinal Patient Patient Progression, Gastrointestinal Pt progressing according to plan . Nursing Data Cardiac Data. : Cardiac Data. 07/15/2024 11:00 EST Cardiovascular Symptoms None Nail Bed Color, Fingers [place] Skin Temperature Upper Extremities Warm Skin Temperature Lower Extremities Warm Heart Sounds S1, S2 Capillary Refill < 3 seconds . Gastrointestinal Data. : Gastrointestinal Data. 07/15/2024 11:00 EST Abdomen Soft, Tender RUQ Tenderness To palpation Bowel Sounds LUQ Present Bowel Sounds RUQ Present Bowel Sounds LLQ Present Bowel Sounds RLQ Present . Genitourinary Data. : Genitourinary Data. 07/15/2024 11:55 EST WNL . HEENT Data. : HEENT Assessment 07/15/2024 11:55 EST HEENT, Adult WNL . Integumentary Data. : Integumentary Data. 07/15/2024 11:54 EST Skin Color Normal for ethnicity Skin Description Fragile Skin Temperature Clammy Skin Integrity Intact Skin Turgor Elastic Mucous Membrane Color [place] Mucous Membrane Description Moist Integumentary WNL 07/15/2024 11:53 EST Sensory Perception No impairment Moisture Rarely moist Activity Walks frequently Mobility Completely limited Nutrition Probably inadequate Friction and Shear Potential problem Rigo Score 17 Nursing Care Plan initiated/updated Yes . Musculoskeletal Data. : Musculoskeletal Data. 07/15/2024 11:55 EST Musculoskeletal Symptoms Weakness Musculoskeletal WNL except 07/15/2024 11:00 EST Range of Motion Description Full motion . Neurological Data. : Neurological Data. 07/15/2024 11:55 EST Neurological Symptoms Lack of coordination Orientated to person, place, time Person, Place, Event Neuro WNL except 07/15/2024 11:00 EST Level of Consciousness Lethargy Facial Symmetry Symmetric Characteristics of Speech Slurred Memory Intact Swallow - Neuro Normal . Vital Signs : VITAL SIGNS SECTION 07/15/2024 8:17 EST Temperature 97.9 DegF Temperature Route Oral Pulse Rate 92 bpm H Respiratory Rate 18 br/min Systolic Blood Pressure 103 mm Hg Diastolic Blood Pressure 68 mm Hg Blood pressure sites Arm, left Mean Arterial Pressure 80 mm Hg Pulse Pressure 35 mm Hg Oxygen Saturation 91 % L Mode of Delivery (Oxygen) Room air . Narrative/Incidental Patient is A+O x4. Lungs rhonchorous bases on RA. Patient encouraged to use oxygen and educated on use of incentive spirometer. She is continent of both bladder and bowels and ambulates with standby assistance to the bathroom. PRN Klonopin and Tramadol given for anxiety and 8/10 ABD pain. LR running at 75ml/hr via L upper arm IV. Last BM 07/15. NSR on instrument maker and repairer #[id number]. Patient denies sob, and further episodes of pain. Patient tolerates regular diet well, and takes medications whole. Bed is locked and in lowest position with bed alarm engaged and call rodrigues within reach.. Discharge Information Rehabilitation Discharge : Rehab Discharge Index 07/14/2024 8:51 EST Comments on treatment indicated 58 y/o F adm with coffee- ground emesis. No acute PT indicated. I with all functional mobility. Rec home. Full chart review completed Yes * Luana Lyles RN: PERFORM, SIGN, VERIFY Event Display: Progress Note Hospital Authored Date: Patient: NADIA LOPEZ Age: 58 years Sex: Female : 1965 Associated Diagnoses: None Author: Luana Lyles RN Findings Problem Related to Alteration in Gastrointestinal : Alteration in Gastrointestinal Func/new 07/14/2024 19:00 EST Alteration in GI status Related to Gastric Hemorrhage, Other: UGIB 2/2 erosiveesophagitis Goals & Outcomes, Gastrointestinal Pt will maintain adequate GI function appropriate for pt, Ptwill resume/maintain adequate hemodynamic status, Gastric drainage will exhibit progressive clearing, Tissue perfusion will return to baseline Interventions, Gastrointestinal Assess/monitor abdomen for distention, tenderness, Assess/monitor abdominal girth & bowel function, Assess/monitor bowel pattern, bowel sounds, flatus, Assess/monitor number of bowel movements, Assess/monitor color, quantity, quality, consistency of stoo, Assess/monitor pt for nausea, vomiting, Assess/monitor effects of re-hydration, Assess/monitor intake &output, Collaborate/Consult with Lettuce Trimmer; review recommendations, DVT prophylaxis as ordered, Elevate HOB to facilitate lung expansion, prevent aspiration, Establish toileting schedule for patient,Taking PO: Encourage/monitor intake & swallowing ability, Enteral nutrition;check residuals; HOB >30 degrees, Nasogastric to LWS as ordered;care per Standards of Practice, Provide info on community resources for education, support, Teach Pt/caregiver diet & give copy of dietary instructions, Teach Pt/caregiver on bowel elimination interventions, Teach Pt/caregiver re: importance of bowel regime, Teach Pt/caregiver re: nutritional intake & dietary restrict, Teach/encourage deep breath & cough exercises, Teach/encourage use of incentive spirometer BH Goals/Interventions, Gastrointestinal Yes Gastrointestinal, Problem Start 07/12/2024 9:30 Reviewed plan with, Gastrointestinal Patient Patient Progression, Gastrointestinal Pt progressing according to plan . Nursing Data Cardiac Data. : Cardiac Data. 07/14/2024 18:50 EST Cardiovascular Symptoms None Heart Sounds S1, S2 Heart Rhythm Regular Pacemaker No Capillary Refill < 3 seconds attendant honor bar Yes Cardiovascular WNL except 07/14/2024 18:00 EST Nail Bed Color, Fingers [place] Skin Temperature Upper Extremities Warm Skin Temperature Lower Extremities Warm . Gastrointestinal Data. : Gastrointestinal Data. 07/14/2024 18:00 EST Gastrointestinal Symptoms Diarrhea Abdomen Tender Bowel Sounds LUQ Present Bowel Sounds RUQ Present Bowel Sounds LLQ Present Bowel Sounds RLQ Present . Genitourinary Data. : Genitourinary Data. 07/14/2024 18:50 EST WNL . Integumentary Data. : Integumentary Data. 07/14/2024 19:03 EST Sensory Perception Slightly limited Moisture Occasionally moist Activity Walks frequently Mobility Slightly limited Nutrition Probably inadequate Friction and Shear Potential problem Rigo Score 17 Nursing Care Plan initiated/updated Yes 07/14/2024 18:50 EST Sensory Perception No impairment 07/14/2024 18:49 EST Skin Color Normal for ethnicity Skin Description Fragile Skin Temperature Dry Skin Integrity Intact Skin Turgor Non-elastic Mucous Membrane Color [place] Mucous Membrane Description Moist Integumentary WNL . Musculoskeletal Data. : Musculoskeletal Data. 07/14/2024 18:50 EST Musculoskeletal WNL . Neurological Data. : Neurological Data. 07/14/2024 18:50 EST Neurological Symptoms None Level of Consciousness Full Consciousness Neuro WNL except Memory Short term loss . Vital Signs : VITAL SIGNS SECTION 07/14/2024 13:19 EST Temperature 97.7 DegF Temperature Route Oral Pulse Rate 90 bpm Respiratory Rate 16 br/min Systolic Blood Pressure 183 mm Hg H Diastolic Blood Pressure 64 mm Hg Blood pressure sites Arm, right Mean Arterial Pressure 104 mm Hg Pulse Pressure 119 mm Hg Oxygen Saturation 89 % L Mode of Delivery (Oxygen) Room air . Narrative/Incidental Patient is A+O x4, lethargic but appropriately arousable after receiving PRN Klonopin, provider made aware. Patient complains of chest pain from coughing Provider Florecita Cardenas made aware. EKG done, and vitals taken. No further interventions ordered. LCTA on RA. Patient tolerates full liquid diet and is requesting for diet to be advanced and takes medications whole. She ambulates with standby assistance to the bathroom. PRN tramadol given for abd pain with positive effect. L F IV and surrounding skin CDI. Bed is locked and in lowest position with call rodrigues within reach. . Discharge Information Rehabilitation Discharge : Rehab Discharge Index 07/14/2024 8:51 EST Comments on treatment indicated 58 y/o F adm with coffee- ground emesis. No acute PT indicated. I with all functional mobility. Rec home. Full chart review completed Yes Note * Israel Calvo RN: PERFORM Event Display: Discharge/Transfer Note Hospital Authored Date: [id number] Nursing Discharge Note Entered On: 07/16/2024 18:23 EST Performed On: 07/16/2024 18:22 EST by Israel Calvo RN Nursing Discharge Note 2 Discharge Time : 07/16/2024 17:30 EST Discharge Level of Care at Discharge : Homehealth/VNA Discharge VNA/Hospice/Home Care(v001) : [facility] [phone] Patient Left Unit Via : Wheelchair Patient Accompanied Off Unit with : Responsible adult DC Instructions Provided & Signed by Pt : Yes Patient Understands D/C Instructions : Yes Patient Instructions Discharge Signed : Yes Did Pt have Specialty Bed or Wound Vac : No Israel Calvo RN - 07/16/2024 18:22 EST * Florecita Cardenas DO: MODIFY, PERFORM Event Display: Discharge/Transfer Note Hospital Authored Date: [id number] Patient: ??NADIA LOPEZ ? Age:??58 Years?Sex:??Female?:??1965?? 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) Vomiting ([id number]) GI bleed (K92.2) Hypotension (I95.9) Melena (K92.1) Esophagitis (K20.90) ABLA (acute blood loss anemia) (D62) Hemorrhagic shock (R57.8) CTEPH (chronic thromboembolic pulmonary hypertension) (I27.24) Sepsis (A41.9) KATIE (acute kidney injury) (N17.9) Chest pain, non-cardiac (R07.89) Depression (F32.A) Anxiety (F41.9) Erosive esophagitis (K22.10) _ Discharge Medications apixaban (apixaban 2.5 mg oral tablet)?1?tab(s)?2.5?Milligram?By Mouth?2 times a day?Start on 07/19 Cetirizine (cetirizine 10 mg oral tablet)?1?tab(s)?10?Milligram?By Mouth?Daily Clonazepam (Klonopin 1 mg oral tablet)?1?Milligram?1?tab(s)?By Mouth?Daily at Bedtime?0.5?0.5?1?1?twice a day?as needed?Anxiety Ferrous Sulfate (ferrous sulfate 324 mg (65 mg elemental iron) oral delayed release tablet)?1?tab(s)?324?Milligram?By Mouth?Daily Fluticasone-Salmeterol (Advair Diskus 250 mcg-50 mcg inhalation powder)?1?puff(s)?Inhalation?2 times a day Furosemide (furosemide 20 mg oral tablet)?20?Milligram?1?tablet?By Mouth?Daily Lidocaine Topical (lidocaine 5% topical film)?1?patch(es)?Topically?Daily?remove patches after 12 hours Ondansetron (ondansetron 4 mg oral tablet, disintegrating)?1?tab(s)?4?Milligram?By Mouth?Every 8 hours?as needed?as needed for nausea/vomiting Pantoprazole (pantoprazole 40 mg oral delayed release tablet)?40?Milligram?By Mouth?2 times a day?for 90?Days riociguat (Adempas 1 mg oral tablet)?1?tab(s)?1?Milligram?By Mouth?3 times a day Sucralfate (sucralfate 1 gm/10 ml oral suspension)?10?Milliliter?1?gram?By Mouth?3 times a day with meals and bedtime?for 21?Days Tramadol (traMADol 50 mg oral tablet)?25?Milligram?By Mouth?Every 8 hours?as needed?Pain , Moderate?for 3?Days Trazodone (traZODone 50 mg oral tablet)?50?Milligram?1?tablet?By Mouth?Daily at bedtime Ziprasidone (ziprasidone 80 mg oral capsule)?1?capsule?80?Milligram?By Mouth?2 times a day Zolpidem (Ambien 10 mg oral tablet)?1?tab(s)?10?Milligram?By Mouth?Daily at bedtime?as needed?for sleep ? Inpatient Medications Medications (13) Active SCHEDULED: (8) Breo Ellipta 100 mcg / 25 mcg Inhaler (Breo Ellipta 100 mcg-25 mcg Inhaler) ??1 puffs, Inhalation, Daily Cefepime 2 Gm Inj (Cefepime Extended IVPB) ??2,000 mg, IVPB, Every 12 hours Lidocaine 5% Topical Patch (Lidocaine 5% Patch) ??1 each, Topically, Daily Pantoprazole 40 mg EC Tablet (pantoprazole 40 mg oral delayed release tablet) ??40 mg, By Mouth, 2 times a day Remove Patch (Remove Lidocaine Patch) ??1 each, Topically, Daily at bedtime Sucralfate 1 Gm /10 mL susp (Carafate Suspension) ??1 Gm 10 mL, By Mouth, 3 times a day with meals and bedtime Trazodone 50 mg Tablet (traZODone 50 mg oral tablet) ??50 mg, By Mouth, Daily at bedtime Ziprasidone 80mg Capsule (ziprasidone 80 mg oral capsule) ??80 mg, By Mouth, 2 times a day CONTINUOUS: (0) PRN: (5) Bisacodyl 10 mg Suppository (Bisacodyl Supp) ??10 mg 1 supp, Rectally, 2 times a day Clonazepam 1 mg Tablet (KlonoPIN 1 mg oral tablet) ??1 mg, By Mouth, 2 times a day Dextromethorphan-Guaifenesin 20 mg-200 mg/10 mL Liqu UD (GuaiFENEsin /Dextromethorphan Liquid) ??5 mL, By Mouth, Every 4 hours TraMADOL 50 mg Tablet (traMADol 50 mg oral tablet) ??25 mg, By Mouth, Every 6 hours Zolpidem 5 mg Tablet (Ambien 5 mg oral tablet) ??10 mg, By Mouth, Daily at bedtime ? Medications Started Pantoprazole (pantoprazole 40 mg oral delayed release tablet)?40?Milligram?By Mouth?2 times a day?for 90?Days Sucralfate (sucralfate 1 gm/10 ml oral suspension)?10?Milliliter?1?gram?By Mouth?3 times a day with meals and bedtime?for 21?Days Tramadol (traMADol 50 mg oral tablet)?25?Milligram?By Mouth?Every 8 hours?as needed?Pain , Moderate?for 3?Days Medications Discontinued Ibuprofen (ibuprofen 200 mg oral tablet)?400?Milligram?2?tablet?By Mouth?2 times a day?as needed?for pain Doses Changed apixaban (Eliquis 5 mg oral tablet)?1?tab(s)?5?Milligram?By Mouth?2 times a day was changed to apixaban (apixaban 2.5 mg oral tablet)?1?tab(s)?2.5?Milligram?By Mouth?2 times a day?Start on 07/19 PCP Follow-Up/Heads-Up Nadia presented to the hospital with coffee-ground emesis.?? Admitted to the ICU for managementof upper GI bleed.?? She required 4 units of blood cells however did not require pressors.?? She was evaluated by GI will follow-up with endoscopy in 3 to 4 months. ?? Of note, she had 1 fever during admission.?? No source identified, also in the setting of acute cardiogenic shock.?? She did receive vancomycin and cefepime.?? Her history of Pseudomonas osteomyelitis is complicated, patient reported completion of antibiotics on 06/26.?? However reached out to her [facility] clinic at which reviewed infectious disease notes in [place], that she had not completed additional cefepime treatment, left with a PICC line, and never represented for additional treatment.?? They removed her from their service.?? Our infectious disease team evaluated her and determined that she has no need for acute treatment, however she will need to follow-up with [facility] to track her progress. ?? On discharge he has minimal chest wall pain and we were able to decrease pain medication to tramadol 25.?? Discharged on 3-day course, but may benefit from switching to muscle relaxer if she continues to have pain. 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 Of note, presented to hospital with right PICC line in place. Removed. Received 4 units pRBCs, 1 unit FFP, 1 unit platelets.??Admitted to MICU for??hemorrhagic shock inthe setting of acute to subacute GI bleed, managed with transfusion and did not receive pressors. GI EGD revealed??LA grade D with clean-based distal esophageal ulcer that likely source of bleed. Notably, also had 1 fever on 07/11 for which she was treated with vancomycin and cefepime due to her history of Pseudomonas osteomyelitis. Transferred out of MICU 07/13. Her hemoglobin steadily up trended while on the medical floor. Remained afebrile, discontinued IV antibiotics. On 07/16 vital signs were stable, she was eating normally, voiding and stooling normally, and hemoglobin stabilized and she was determined to be safe for discharge to home with services. ?? Assessment and Plan Erosive esophagitis (K22.10):??, severe Hemorrhagic shock (R57.8):??resolved ABLA (acute blood loss anemia) (D62):??improving GI bleed (K92.2):? Presented with melena and significant drop in H&H to 4.7 Received 4 units pRBCs, 1 unit FFP, 1 unit platelets, hgb improved to 10.5 Admitted to the MICU for hypotension, tachycardia, transfusion requirements. Did not receive pressors. Received KCentra for reversal of apixaban EGD with severe erosive esophagitis??LA grade D with clean-based distal esophageal ulcer Hemoglobin improved to 9.7, stable ?? Recommendations: - IV PPI??BID??during inpatient stay.??BID??on discharge for the next 3 months.??Once daily until repeat endoscopy in 3 to 4 months. - Carafate slurry, 1 g mixed with 10 cc warm water taken by mouth at mealtime and bedtime for 3 weeks ? Chest pain, non-cardiac??(R07.89) Reproducible with palpation Likely in the setting of referred esophageal pain, gastric pain as this chest pain and new this admission Allergy to acetaminophen, cautious with NSAIDs as KATIE during admission ?? Recommendations: -Sent home on tramadol 25mg 3 day course to be used for acute pain - Cough suppressant dextromethorphan/guaifenesin?? - Follow up with PCP to track chest pain ?? KATIE (acute kidney injury) (N17.9):??resolved Cr increase from 0.9 to 1.25 within 24 hours Likely prerenal etiology as decreased PO, physical exam hypovolemic Improved after fluids ?? Recommendations: - Follow up with PCP in 3 days, repeat BMP at that time ? Fever (R50.9)??resolved SIRS Criteria (R65.1):?? Fever up to 104.4 with tachycardia and leukocytosis 12 hours after presentation CXR no acute findings, UA not suggestive infection, blood cultures no growth 48 hours Patient was being treated for maxillary sinus osteomyelitis with pseudomonas Vancomycin and cefepime were commenced and patient improved Possibility fever could be 2/2 to acute withdrawal, however less likely. Connected with [place] [facility] team who revealed that patient did not complete second IV antibiotic course recommended for pseudomonas, and that she was discharge from [place] ID service due to not following up/active drug use with PICC Consulted ID team here, recommended no need for antibiotics at this time as appears to be well treated, follow up with ENT ?? Recommendations: - Follow up final result blood culture -??Follow up with [place] [facility] for further tracking of osteomyelitis.? CTEPH (chronic thromboembolic pulmonary hypertension) (I27.24):? Followed in [place] Consulted pulmonary,??Dr. Chakraborty saw??while inpatient ?? Recommendations: - Hold apixaban for 1 week - Restart apixaban at 2.5mg BID on 07/19 - Follow up with [place] pulmonology? Anxiety (F41.9):??. Depression (F32.A):? Continued home ziprasidone 80 mg BID and trazodone 50 mg qHS, clonazepam 1 mg BID PRN, zolpidem 10 mg qHS PRN Follow up with PCP ? Objective Vital Signs?? Temperature: 97.5 DegF (07/16/24 07:00:00) Temperature Route: Axillary (07/16/24 07:00:00) Pulse Rate: 80 bpm (07/16/24 07:00:00) Respiratory Rate: 16 br/min (07/16/24 09:07:00) Systolic Blood Pressure: 132 mm Hg (07/16/24 07:00:00) Diastolic Blood Pressure: 77 mm Hg (07/16/24 07:00:00) Blood pressure sites: Arm, left (07/16/24 07:00:00) Pulse Pressure: 55 mm Hg (07/16/24 07:00:00) Oxygen Saturation:??90 %??Low (07/16/24 07:00:00) Mode of Delivery (Oxygen): Room air (07/16/24 07:00:00) Early Warning Score: 4 (07/16/24 09:59:36) ? Intake/Output? 07/11 09:07 07/16 07:00 07/15 07:00 07/14 07:00 07/13 07:00 ?? 07/16 16:02 07/16 16:02 07/16 06:59 07/15 06:59 07/14 06:59 Intake ? 2754.0 ?0 ?586 ?200 ?200 Output ?690 ?0 ?0 ?0 ?0 Net Total ? 2064.0 ?0 ?586 ?200 ?200 ? Urine Count ? 20 ?0 ?6 ?9 ?5 ? . Physical Exam General: Alert, in no distress. AO x3 HEENT:??EOMI. Anicteric sclera. Mucous membranes moist. Trachea midline. Neck: Supple, Full range of motion. No lymphadenopathy. Respiratory: Lungs bilateral clear to auscultation. No wheezing, rales or rhonchi. Cardiovascular: S1 S2 present regular rate rhythm. No murmurs, rubs or gallops. Gastrointestinal: Abdomen soft, non-tender, non-distended. Normal bowel sounds. Neurologic: Cranial nerves II-XII grossly intact. No focal neurological deficits. Sensation intact bilaterally. Skin: No visible rashes or lesions. No petechiae or purpura.?? Musculoskeletal: No cyanosis or clubbing. No gross deformities. Normal range of motion. Lymphatics: No bilateral pitting edema. Psychiatric: Appropriate mood and congruent affect Consultants Infectious disease Pulmonology Gastroenterology Patient Education Titles [employer] Patient Education - Esophageal Ulcer?? [employer] Patient Education - Upper GI (Gastrointestinal) Series?? [employer] Patient Education - When You Have Gastrointestinal (GI) Bleeding?? [employer] Patient Education - Upper Gastrointestinal (GI) Bleeding, Stable?? [employer] Patient Education - Esophagitis?? Patient Instructions DIAGNOSIS:??Upper GI bleed, esophagitis ? TEST RESULTS:??Endoscopy showing severe irritation to esophagus ? Your specific PATIENT CARE INSTRUCTIONS (what to do / when to return): You were diagnosed with a gastrointestinal bleed caused by severe irritation to your esophagus. Youwere treated with medications that reduce the acidity of your stomach juices, and coat the lining of your stomach and esophagus. You also received??blood transfusions to help replace what was lost from the bleeding. ?? Return for??evaluation??if you develop??vomiting??with??blood or??severe??pain in??your??stomach.??Avoid??medications like NSAIDs??that could??cause??bleeding. ?? You will??need to??follow??up with??GI??for another??endoscopy in??3-4 months ?? MEDICATIONS (what medications you should start (or stop) taking): - Take pantoprazole 40mg in the morning and at night before food for 3 months. - Talk??Carafate slurry, 1 g mixed with 10mL warm water taken by mouth at mealtime and bedtime for 3 weeks ?? DIAGNOSIS:??Chronic thromboembolic pulmonary hypertension, high blood pressure in your lung blood vessels caused by clots ?? Your specific PATIENT CARE INSTRUCTIONS (what to do / when to return): You were seen by of pulmonary hypertension specialist while in the hospital to follow-up on this chronic issue.?? Because of your bleeding, we stopped your Eliquis for 1 week.?? That 1 week will be up on 07/19. ? MEDICATIONS (what medications you should start (or stop) taking): Start taking Eliquis 2.5 mg twice daily on 1125 ?? DIAGNOSIS: Pseudomonas osteomyelitis of the nasal cavity ?? Your specific PATIENT CARE INSTRUCTIONS (what to do / when to return): You have been treated recently with IV antibiotics for a difficult to treat infection affecting thebones in your nose.?? While in the hospital we gave several days of this antibiotic antibiotic.?? Our infectious disease team here saw you and determined that you would not need further treatment at this point. ?? You will need to follow-up with your ENT (ears nose throat) doctor in [place] to determine if you need further treatment.??This is a hard to treat infection in a dangerous location that could result in if not completely treated.?? It is very important that you follow-up. Home Health Face to Face *Denotes mandatory curtis ?? *I certify that this patient is under my care and that I or an allowed non- physician working with me had a face to face encounter with the patient on this date:??07/16/2024 16:34 ?? *The encounter with the patient was in whole, or in part, for the following medical condition, which is the primary diagnosis(es) for home health care:??Osteomyelitis of maxilla (M27.2) Vomiting ([id number]) GI bleed (K92.2) Hypotension (I95.9) Melena (K92.1) Esophagitis (K20.90) ABLA (acute blood loss anemia) (D62) Hemorrhagic shock (R57.8) CTEPH (chronic thromboembolic pulmonary hypertension) (I27.24) Sepsis (A41.9) KATIE (acute kidney injury) (N17.9) Chest pain, non-cardiac (R07.89) Depression (F32.A) Anxiety (F41.9) Erosive esophagitis (K22.10) ?? *Select the indications for the discipline/s that are being arranged for this patient. Nursing (select all that apply): [_] None [_x] Medication management (reconciliation, teaching)?? [_x] Chronic disease management?? [_] Wound care and treatment?? [_] Home safety evaluation [_] Administer SQ/IM/IV medications?? [_] Cath care?? [_] Drain care?? [_] Trach or GT care?? Other _ Occupation Therapy (select all that apply): [x_] None [_] ADL Management [_] Fall prevention training [_] Energy conservation [_] Cognitive training Other _ Physical Therapy (select all that apply): [_x] None [_] Functional mobility training [_] Home exercise program to strengthen [_] Increase ROM?? [_] Falls prevention training [_] Home maintenance program for chronic disease Other _ Speech Therapy (select all that apply): [x_] None [_] Swallow evaluation and training [_] Speech and language training [_] Cognitive training to process, organize, and/or recall information Other _ ? *Homebound due to (select all that apply): [x_] Inability to leave home without assistance/supervision [x_] Inability to ambulate without assistance [_] Pain [_] Decreased strength and endurance [_] Unsteady gait [_] Severe SOB and fatigue [_] Impaired transfers [_] Inability to negotiate stairs [_] Limited weight bearing [_] Mental status change? *Physician Signature:??Florecita Cardenas, DO ?? *By signing this, I certify that I have personally evaluated the patient and agree with the findings and recommendations as documented above. ? Results Discharge Labs BACTERIOLOGY Blood Culture Results Preliminary report ()?? 07/12/2024 12:09 Blood Culture Specimen Source BLOOD ()?? 07/12/2024 12:09 Blood Culture Isolate 1 Comment ()?? 07/12/2024 12:09 Blood Cult 2 Results Preliminary report ()?? 07/12/2024 12:09 Blood Culture 2 Specimen Source BLOOD ()?? 07/12/2024 12:09 Blood Culture 2 Isolate 1 Comment ()?? 07/12/2024 12:09 ?? BLOOD BANK Blood Type AB Positive ()?? 07/14/2024 11:25 Antibody Screen Negative ()?? 07/14/2024 11:25 Transfusion Reaction Workup Provisional Dx: Possible TACO; Rpt to follow. ()?? 07/11/2024 19:34 FFP Unit ID [id number] ()?? 07/11/2024 10:58 FFP Available RE ()?? 07/11/2024 10:58 PLT Unit ID [id number] ()?? 07/11/2024 10:47 PLT Available RE ()?? 07/11/2024 10:47 RBC Unit ID [id number] ()?? 07/11/2024 12:42 RBC Available PT ()?? 07/11/2024 12:42 ? BLOOD COUNT & DIFF WBC 6.3 k/mm3 ()?? 07/16/2024 08:50 RBC 3.45 m/mm3 (Low)?? 07/16/2024 08:50 Hgb 9.7 Gm/dL (Low)?? 07/16/2024 08:50 Hct 30.1 % (Low)?? 07/16/2024 08:50 MCV 87.2 femtoliters ()?? 07/16/2024 08:50 MCH 28.1 pg ()?? 07/16/2024 08:50 MCHC 32.2 Gm/dL (Low)?? 07/16/2024 08:50 Platelet Count 192 k/mm3 ()?? 07/16/2024 08:50 RDW-SD 53.1 femtoliters (High)?? 07/16/2024 08:50 MPV 12.4 femtoliters ()?? 07/16/2024 08:50 Nucleated RBC (Automated) 0.3 #/100 WBC'S ()?? 07/16/2024 08:50 Abs. NRBC 0.0 k/mm3 ()?? 07/16/2024 08:50 Abs. Neut 8.5 k/mm3 (High)?? 07/13/2024 09:53 Abs. Lymph 0.4 k/mm3 (Low)?? 07/13/2024 09:53 Abs. Pine 0.9 k/mm3 ()?? 07/13/2024 09:53 Abs. Eo 0.1 k/mm3 ()?? 07/13/2024 09:53 Abs. Baso 0.0 k/mm3 ()?? 07/13/2024 09:53 Neut % 85.0 % (High)?? 07/13/2024 09:53 Lymph % 3.9 % (Low)?? 07/13/2024 09:53 Pine % 8.5 % ()?? 07/13/2024 09:53 Eos % 1.1 % ()?? 07/13/2024 09:53 Baso % 0.4 % ()?? 07/13/2024 09:53 Metamyelocyte % 0.9 % ()?? 07/12/2024 04:42 Band % 11.2 % (High)?? 07/12/2024 04:42 RBC Morphology SLIGHT ()?? 07/12/2024 04:42 Platelet Estimate ADEQUATE ()?? 07/12/2024 04:42 Hematocrit (POC) POC Cartridge <15 % (Critical)?? 07/11/2024 06:46 Retic Count 2.7 % (High)?? 07/11/2024 19:48 Retic Count Corrected 1.8 % ()?? 07/11/2024 19:48 Retic Production Index 1.2 % ()?? 07/11/2024 19:48 Imm Gran 1.1 % ()?? 07/13/2024 09:53 Abs. Imm Gran 0.1 k/mm3 ()?? 07/13/2024 09:53 ?? BLOOD GAS pH Venous (POC) POC Cartridge 7.51 (High)?? 07/11/2024 06:46 pCO2 Venous (POC) POC Cartridge 33.5 mm Hg (Low)?? 07/11/2024 06:46 pO2 Venous (POC) POC Cartridge 19 mm Hg (Low)?? 07/11/2024 06:46 Est Bicarbonate (POC) POC Cartridge 26.8 mmol/L ()?? 07/11/2024 06:46 % O2 Sat Venous (POC) POC Cartridge 36 ()?? 07/11/2024 06:46 Base Excess (POC) POC Cartridge 4 ()?? 07/11/2024 06:46 Specimen Type - Blood Gas VENOUS ()?? 07/11/2024 06:46 ? CARDIAC Nt-Probnp 45455 pg/mL (High)?? 07/12/2024 04:42 ? CHEM GENERAL Sodium 140 mmol/L ()?? 07/16/2024 08:50 Potassium 3.5 mmol/L (Low)?? 07/16/2024 08:50 Chloride 109 mmol/L (High)?? 07/16/2024 08:50 Bicarbonate Level 18 mmol/L (Low)?? 07/16/2024 08:50 Anion Gap 13 ()?? 07/16/2024 08:50 Sodium (POC) POC Cartridge 138 mmol/L ()?? 07/11/2024 06:46 Potassium (POC) POC Cartridge 3.6 mmol/L ()?? 07/11/2024 06:46 Glucose Level 113 mg/dL (High)?? 07/16/2024 08:50 Glucose (POC) POC Cartridge 137 (High)?? 07/11/2024 06:46 Glucose, POC 102 mg/dL (High)?? 07/13/2024 00:51 BUN 13 mg/dL ()?? 07/16/2024 08:50 Creatinine-Blood 1.17 mg/dL (High)?? 07/16/2024 08:50 Estimated GFR Creatinine 53 ML/MIN/1.73 M2 ()?? 07/16/2024 08:50 Calcium 8.3 mg/dL (Low)?? 07/16/2024 08:50 Ionized Calcium (POC) POC Cartridge 1.24 mmol/L ()?? 07/11/2024 06:46 Phosphorus 3.0 mg/dL ()?? 07/14/2024 08:34 Magnesium 1.8 mg/dL ()?? 07/14/2024 08:34 Protein, Total 5.8 Gm/dL (Low)?? 07/13/2024 09:54 Albumin 3.2 Gm/dL (Low)?? 07/13/2024 09:54 AG Ratio 1.2 ()?? 07/13/2024 09:54 LDH 248 units/L ()?? 07/11/2024 19:48 Alkaline Phosphatase 54 units/L ()?? 07/13/2024 09:54 AST (SGOT) 29 units/L ()?? 07/13/2024 09:54 ALT (SGPT) 24 units/L ()?? 07/13/2024 09:54 Bilirubin, Total 1.0 mg/dL ()?? 07/13/2024 09:54 Lactate 2.9 mmol/L (High)?? 07/11/2024 08:25 ?? COAG INR 1.1 ()?? 07/13/2024 09:53 Protime (PT) 11.4 seconds ()?? 07/13/2024 09:53 ?? IMMUNOLOGY GENERAL Haptoglobin 148 mg/dL ()?? 07/11/2024 19:48 ? MISC. CHEMISTRY Procalcitonin 6.10 ng/mL ()?? 07/12/2024 04:42 Hold Gel Top SPECIMEN DISCARDED AFTER 1 WEEK ()?? 07/11/2024 06:46 ?? TOXICOLOGY/TDM Vancomycin Level, Random 10.9 mg/L ()?? 07/15/2024 11:35 ? UA/URINALYSIS Appear/Color, Urine YELLOW ()?? 07/12/2024 13:11 Specific [place], Urine 1.021 ()?? 07/12/2024 13:11 pH, Urine 6.5 ()?? 07/12/2024 13:11 Albumin, Urine TRACE (Abnormal)?? 07/12/2024 13:11 Glucose, Urine NEGATIVE ()?? 07/12/2024 13:11 Ketones, Urine NEGATIVE ()?? 07/12/2024 13:11 Bilirubin, Urine NEGATIVE ()?? 07/12/2024 13:11 Hemoglobin, Urine NEGATIVE ()?? 07/12/2024 13:11 Nitrite, Urine NEGATIVE ()?? 07/12/2024 13:11 Leukocyte, Urine NEGATIVE ()?? 07/12/2024 13:11 Urobilinogen NORMAL mg/dL ()?? 07/12/2024 13:11 WBC's, Urine 4 /HPF ()?? 07/12/2024 13:11 RBC's, Urine <1 /HPF ()?? 07/12/2024 13:11 Squamous Epith 3 /HPF ()?? 07/12/2024 13:11 ?? URINE OTHER Est Creatinine Clearance 44.48 mL/min ()?? 07/16/2024 09:59 ? VIROLOGY COVID-19 by RT-PCR NEGATIVE ()?? 07/11/2024 10:23 ? 60 minutes spent on discharge ?? Florecita Cardenas, DO Internal Medicine and Pediatrics PGY-1 ?? Patient case and plan discussed with attending,??Apoorva Blue MD * Apoorva Blue MD: PERFORM Event Display: Discharge/Transfer Note Hospital Authored Date: Attending Attestation: I have seen and evaluated this patient. I have discussed the case and its management with the resident and agree with the findings and plan as documented in the resident???s note. * Israel Calvo RN: PERFORM Event Display: Patient Education/Instruction Authored Date: Inpatient Adult Discharge Instructions. [address] [id number] Name: NADIA LOPEZ : 1965?? Visit: 07/11/2024 09:07?? Current Date: 07/16/2024 16:47 ?? Account: [id number]?? Inpatient Adult Discharge Instructions We would like to thank you for allowing us to assist you with your healthcare needs. The following includes patient education materials and information regarding your injury/illness. Our entire staffstrives to provide an excellent experience for our patients and their families. PLEASE ENSURE YOU FOLLOW-UP PER THE INSTRUCTIONS BELOW! ?? YOUR OPINION IS IMPORTANT TO US! Please complete the survey you may receive by mail or email. Your feedback will be used to make improvements to the healthcare experiences of our patients and their families. Surveys are administered by [employer] ?? If further treatment with your primary care physician or another doctor is recommended, it is important for you to keep the appointment. Call your primary care physician or return to the Emergency Department immediately if your condition worsens, fails to improve, or new symptoms develop. If you need to find a doctor, you can call [facility] Link for a referral at [phone] or toll free at [phone] ([phone]) or log in to [email or web address].. ?? [facility], in keeping with [facility] guidance, no longer requires face masks for staff, patientsor visitors in most situations. Similiar to time spent indoors at other locations, there is the chance that you were exposed to repiratory viruses during your time with us (such as flu or COVID-19). If you develop symptoms concerning for a viral respiratory infection, please seek testing (and treatment if indicated) from your medical provider or home test kit. ?? You can view and manage your care through the patient portal or by using a health care genia of your choosing. [employer] is a website that allows you to securely view your medical information including your hospital discharge summary, office visit summaries, medications and follow-up visits. You can also request appointments, renew medications, and request access to your medical information using a health care genia of your choosing, or just ask a question. You can enroll at [email or web address] or register during your next office visit. You have been discharged from [facility], Patient Care Unit: D6A??. If you have any questions regarding these instructions, including results of studies pending, afteryou leave, please call us and we will be happy to assist you 17/03. [facility] Your Care Team Attending Physician Apoorva Blue MD?? Consulting Providers Apoorva Blue MD?? Discharging Providers Florecita Cardenas DO Reason for Your Visit GI bleed, hypotension?? Your Diagnosis Osteomyelitis of maxilla ABLA (acute blood loss anemia) KATIE (acute kidney injury) Anxiety Chest pain, non-cardiac CTEPH (chronic thromboembolic pulmonary hypertension) Depression Erosive esophagitis Hemorrhagic shock Sepsis Vomiting Tests Performed Below is a partial list of the tests performed during your hospitalization. You may have had other tests and procedures not included in this list. Please discuss all test results with your provider. BASE EXCESS POC CARTRIDGE Basic Metabolic Panel Blood Culture Blood Culture #2 Blood Culture 2 Results Blood Culture Result Blood Urea Nitrogen CALCIUM IONIZED POC CART CBC CBC w/ Differential Comprehensive Metabolic Panel COVID-19 (Novel Coronavirus), Rapid PCR Electrolytes GLUCOSE POC GLUCOSE POC CARTRIDGE Haptoglobin HEMATOCRIT POC CARTRIDGE HOLD GEL TUBE INR Lactic Acid Level LDH Magnesium Level Mg Level Phosphorus Level POTASSIUM POC CARTRIDGE PROBNP PROCALCITONIN PT (INR) Reticulocyte Ct SODIUM POC CARTRIDGE Transfusion Reaction Workup Type and Screen Urinalysis Complete Vancomycin Random VBG POC CARTRIDGE Portable Chest Add On Lab Order?? B Type Natriuretic Peptide (PROBNP)?? BUN (Blood Urea Nitrogen)?? Base Excess (Lab) POC Cartridge (BASE EXCESS POC CARTRIDGE)?? Basic Metabolic Panel?? Blood Culture?? Blood Culture #2?? Blood Culture 2 Results?? Blood Culture Result?? CBC?? CBC w/ Differential?? COVID-19 (Novel Coronavirus), Rapid PCR?? Complete Urinalysis (Urinalysis Complete)?? Comprehensive Metabolic Panel?? Creatinine?? Electrolytes?? Glucose (Lab) POC Cartridge (GLUCOSE POC CARTRIDGE)?? Glucose POC?? Haptoglobin?? Hematocrit (Lab) POC Cartridge (HEMATOCRIT POC CARTRIDGE)?? Hemoglobin (Lab) POC Cartridge (HEMOGLOBIN POC CARTRIDGE)?? Hold Gel Top Tube (HOLD GEL TUBE)?? Hold Lavender Tube (BB)?? INR (PT (INR))?? Ionized Calcium(POC) POC Cartridge (CALCIUM IONIZED POC CART)?? LDH?? Lactic Acid Level?? Magnesium Level?? Phosphorus Level?? Potassium (Lab) POC Cartridge (POTASSIUM POC CARTRIDGE)?? Procalcitonin Level (PROCALCITONIN)?? Reticulocyte Ct?? Sodium (Lab) POC Cartridge (SODIUM POC CARTRIDGE)?? Transfuse FFP (FFP, Transfuse)?? Transfuse Platelets (Platelets, Transfuse)?? Transfuse RBCs?? Transfusion Reaction Workup?? Type and Screen?? VBG (Lab) POC Cartridge (VBG POC CARTRIDGE)?? Vancomycin Random?? Chest Portable (Portable Chest)?? Primary Care Provider Dave Wray NP? Advance Directive Health Care Proxy on File Yes - Health Care Proxy Discharge Vitals Temperature: 97.5 DegF Height: 163 cm Pulse Rate: 80 bpm Weight: 64.7 kg Respiratory Rate: 16 br/min Body Mass Index: 24.35 kg/m2 Systolic Blood Pressure: 132 mm Hg Body surface area: 1.71 Diastolic Blood Pressure: 77 mm Hg ?? Oxygen Saturation:??90 %??Low ?? Studies Pending All studies ordered during this hospital stay have been completed unless listed below. Please discuss all pending results with your provider listed above in these instructions. ?? Add On Lab Order?? Creatinine?? Hold Lavender Tube (BB)?? Transfuse FFP (FFP, Transfuse)?? Transfuse Platelets (Platelets, Transfuse)?? Transfuse RBCs?? What to do next Instructions From Your Doctor DIAGNOSIS:??Upper GI bleed, esophagitis ? TEST RESULTS:??Endoscopy showing severe irritation to esophagus ? Your specific PATIENT CARE INSTRUCTIONS (what to do / when to return): You were diagnosed with a gastrointestinal bleed caused by severe irritation to your esophagus. Youwere treated with medications that reduce the acidity of your stomach juices, and coat the lining of your stomach and esophagus. You also received??blood transfusions to help replace what was lost from the bleeding. ?? Return for??evaluation??if you develop??vomiting??with??blood or??severe??pain in??your??stomach.??Avoid??medications like NSAIDs??that could??cause??bleeding. ?? You will??need to??follow??up with??GI??for another??endoscopy in??3-4 months ?? MEDICATIONS (what medications you should start (or stop) taking): - Take pantoprazole 40mg in the morning and at night before food for 3 months. - Talk??Carafate slurry, 1 g mixed with 10mL warm water taken by mouth at mealtime and bedtime for 3 weeks ?? DIAGNOSIS:??Chronic thromboembolic pulmonary hypertension, high blood pressure in your lung blood vessels caused by clots ?? Your specific PATIENT CARE INSTRUCTIONS (what to do / when to return): You were seen by of pulmonary hypertension specialist while in the hospital to follow-up on this chronic issue.?? Because of your bleeding, we stopped your Eliquis for 1 week.?? That 1 week will be up on 07/19. ? MEDICATIONS (what medications you should start (or stop) taking): Start taking Eliquis 2.5 mg twice daily on 1125 ?? DIAGNOSIS: Pseudomonas osteomyelitis of the nasal cavity ?? Your specific PATIENT CARE INSTRUCTIONS (what to do / when to return): You have been treated recently with IV antibiotics for a difficult to treat infection affecting thebones in your nose.?? While in the hospital we gave several days of this antibiotic antibiotic.?? Our infectious disease team here saw you and determined that you would not need further treatment at this point. ?? You will need to follow-up with your ENT (ears nose throat) doctor in [place] to determine if you need further treatment.??This is a hard to treat infection in a dangerous location that could result in if not completely treated.?? It is very important that you follow-up. ?? Orders? 07/16/24 16:36:00 EST?? Prescriptions??, ??07/16/24 16:36:00 EST?? You Need to Schedule the Following Appointments Follow Up with??Kamala EMMANUEL , Dave Javier When:??Within 3 to 5 days Where: [address] [place] [id number]- Discharge Medications JOHNSHIRLEYTRINA :1965 Visit Date:07/11/2024 Medications: Please continue your medications until treatment is completed or stopped by your provider. Medications not listed below should be discontinued. Discuss any questions related to medications with your provider. What How Much When Instructions Next Dose New Sucralfate (sucralfate 1 gm/ 10 ml oral suspension) 10 Milliliter Oral 3 times a day with meals and bedtime Duration: 21 Days Pickup at [place] [address] before dinner New Tramadol (traMADol 50 mg oral tablet) 25 Milligram Oral Every 8 hours as needed for Pain , Moderate Duration: 3 Days Pickup at [place] [address] as needed Changed Pantoprazole (pantoprazole 40 mg oral delayed release tablet) 40 Milligram Oral Twice a day Duration: 90 Days Pickup at [place] [address] tonight Changed apixaban (apixaban 2.5 mg oral tablet) 1 tab(s) Oral Twice a day Start on ?? Pickup at [place] [address] tonight Unchanged Cetirizine (cetirizine 10 mg oral tablet) 1 tab(s) Oral Daily tomorrow morning Unchanged Cholecalciferol (cholecalciferol 2000 intl units oral tablet) Unchanged Clonazepam (Klonopin 1 mg oral tablet) 1 tab(s) Oral Twice a day as needed for Anxiety as needed Unchanged Ferrous Sulfate (ferrous sulfate 324 mg (65 mg elemental iron) oral delayed release tablet) 1 tab(s) Oral Daily tomorrow morning Unchanged Fluticasone-Salmeterol (Advair Diskus 250 mcg-50 mcg inhalation powder) 1 puff(s) Inhalation Twice a day tonight Unchanged Furosemide (furosemide 20 mg oral tablet) 1 tab(s) Oral Daily tomorrow morning Unchanged Lidocaine Topical (lidocaine 5% topical film) 1 patch(es) Topically Daily remove patches after 12 hours ?? tomorrow morning Unchanged Ondansetron (ondansetron 4 mg oral tablet, disintegrating) 1 tab(s) Oral Every 8 hours as needed for as needed for nausea/vomiting as needed Unchanged riociguat (Adempas 1 mg oral tablet) 1 tab(s) Oral 3 times a day tonight Unchanged Trazodone (traZODone 50 mg oral tablet) 1 tab(s) Oral Daily at Bedtime tonight Unchanged Ziprasidone (ziprasidone 80 mg oral capsule) 1 capsule Oral Twice a day tonight Unchanged Zolpidem (Ambien 10 mg oral tablet) 1 tab(s) Oral Daily at Bedtime as needed for for sleep tonight Pharmacy Information [facility] 3: [address], [place] [id number] [phone] ?? What How Much When Comments Stop Taking Ibuprofen (ibuprofen 200 mg oral tablet) 2 tab(s) Oral Twice a day as needed for for pain Stop Taking Meloxicam (meloxicam 15 mg oral tablet) 1 tab(s) Oral Daily as needed for Pain , Mild Prescription Given During Visit Pantoprazole (pantoprazole 40 mg oral delayed release tablet) - 40 mg, By Mouth, 2 times a day, # 180 tablet, 0 Refills, [facility], [address] [place] [address] [phone]?? Sucralfate (sucralfate 1 gm/10 ml oral suspension) - 10 mL = 1 Gm, By Mouth, 3 times a day with meals and bedtime, # 840 mL, 0 Refills, [facility] 3, [address] [place] [address] [phone]?? Tramadol (traMADol 50 mg oral tablet) - 25 mg, By Mouth, Every 8 hours, # 7 tablet, 0 Refills, [facility], [address] [place] [address] [phone]?? apixaban (apixaban 2.5 mg oral tablet) - 1 tablet = 2.5 mg, By Mouth, 2 times a day, # 60 tablet, 0Refills, Start on 07/19, [facility] [address] [address] [phone]?? Laboratory Results Below is a partial list of the most recent Laboratory test results done prior to this discharge. You may have had other tests and procedures not included in this list. Please discuss all test resultswith your provider. Est Creatinine Clearance - 44.48 mL/min (07/16/2024) FFP Available - RE (07/11/2024) FFP Unit ID - [id number] (07/11/2024) PLT Available - RE (07/11/2024) PLT Unit ID - [id number] (07/11/2024) RBC Available - PT (07/11/2024) RBC Unit ID - [id number] (07/11/2024) Transfusion Reaction Workup - Provisional Dx: No Hemolytic Rxn; Rpt to follow. (07/11/2024) BASE EXCESS POC CARTRIDGE (07/11/2024) ???Base Excess (POC) POC Cartridge - 4 Basic Metabolic Panel (07/16/2024) ???Sodium - 140 mmol/L???Potassium - 3.5 mmol/L???Chloride - 109 mmol/L???Bicarbonate Level - 18 mmol/L???Anion Gap - 13???Glucose Level - 113 mg/dL???BUN - 13 mg/dL???Creatinine-Blood - 1.17 mg/dL???Estimated GFR Creatinine - 53 ML/MIN/1.73 M2???Calcium - 8.3 mg/dL Blood Culture (07/12/2024) ???Blood Culture Results - Preliminary report???Blood Culture Specimen Source - BLOOD Blood Culture #2 (07/12/2024) ???Blood Cult 2 Results - Preliminary report???Blood Culture 2 Specimen Source - BLOOD Blood Culture 2 Results (07/12/2024) ???Blood Culture 2 Isolate 1 - Comment Blood Culture Result (07/12/2024) ???Blood Culture Isolate 1 - Comment Blood Urea Nitrogen (07/14/2024) ???BUN - 23 mg/dL CALCIUM IONIZED POC CART (07/11/2024) ???Ionized Calcium (POC) POC Cartridge - 1.24 mmol/L CBC (07/16/2024) ???WBC - 6.3 k/mm3???RBC - 3.45 m/mm3???Hgb - 9.7 Gm/dL???Hct - 30.1 %???MCV - 87.2 femtoliters???MCH - 28.1 pg???MCHC - 32.2 Gm/dL???Platelet Count - 192 k/mm3???RDW-SD - 53.1 femtoliters???MPV - 12.4 femtoliters???Nucleated RBC (Automated) - 0.3 #/100 WBC'S???Abs. NRBC - 0.0 k/mm3 CBC w/ Differential (07/13/2024) ???WBC - 10.0 k/mm3???RBC - 3.45 m/mm3???Hgb - 9.6 Gm/dL???Hct - 29.0 %???MCV - 84.1 femtoliters???MCH - 27.8 pg???MCHC - 33.1 Gm/dL???Platelet Count - 182 k/mm3???RDW-SD - 49.1 femtoliters???MPV - 12.0 femtoliters???Nucleated RBC (Automated) - 1.9 #/100 WBC'S???Abs. NRBC - 0.2 k/mm3???Abs. Neut - 8.5 k/mm3???Abs. Lymph - 0.4 k/mm3???Abs. Pine - 0.9 k/mm3???Abs. Eo - 0.1 k/mm3???Abs. Baso - 0.0 k/mm3???Neut % - 85.0 %???Lymph % - 3.9 %???Pine % - 8.5 %???Eos % - 1.1 %???Baso % - 0.4 %???Imm Gran - 1.1 %???Abs. Imm Gran - 0.1 k/mm3 Comprehensive Metabolic Panel (07/13/2024) ???Sodium - 137 mmol/L???Potassium - 3.3 mmol/L???Chloride - 104 mmol/L???Bicarbonate Level - 19 mmol/L???Anion Gap - 14???Glucose Level - 114 mg/dL???BUN - 23 mg/dL???Creatinine-Blood - 0.90 mg/dL???Estimated GFR Creatinine - 73 ML/MIN/1.73 M2???Calcium - 8.3 mg/dL???Protein, Total - 5.8 Gm/dL???Albumin - 3.2 Gm/dL???AG Ratio - 1.2???Alkaline Phosphatase - 54 units/L???AST (SGOT) - 29 units/L???ALT (SGPT) - 24 units/L???Bilirubin, Total - 1.0 mg/dL COVID-19 (Novel Coronavirus), Rapid PCR (07/11/2024) ???COVID-19 by RT-PCR - NEGATIVE Electrolytes (07/14/2024) ???Sodium - 135 mmol/L???Potassium - 3.8 mmol/L???Chloride - 104 mmol/L???Bicarbonate Level - 19 mmol/L???Anion Gap - 12 GLUCOSE POC (07/13/2024) ???Glucose, POC - 102 mg/dL GLUCOSE POC CARTRIDGE (07/11/2024) ???Glucose (POC) POC Cartridge - 137 Haptoglobin (07/11/2024) ???Haptoglobin - 148 mg/dL HEMATOCRIT POC CARTRIDGE (07/11/2024) ? ?Hematocrit (POC) POC Cartridge - <15 % HOLD GEL TUBE (07/11/2024) ???Hold Gel Top - SPECIMEN DISCARDED AFTER 1 WEEK INR (07/11/2024) ???INR - 1.1???Protime (PT) - 12.2 seconds Lactic Acid Level (07/11/2024) ???Lactate - 2.9 mmol/L LDH (07/11/2024) ???LDH - 248 units/L Magnesium Level (07/14/2024) ???Magnesium - 1.8 mg/dL Mg Level (07/13/2024) ???Magnesium - 1.8 mg/dL Phosphorus Level (07/14/2024) ???Phosphorus - 3.0 mg/dL POTASSIUM POC CARTRIDGE (07/11/2024) ???Potassium (POC) POC Cartridge - 3.6 mmol/L PROBNP (07/12/2024) ???Nt-Probnp - 89373 pg/mL PROCALCITONIN (07/12/2024) ???Procalcitonin - 6.10 ng/mL PT (INR) (07/13/2024) ???INR - 1.1???Protime (PT) - 11.[address] (07/11/2024) ???Retic Count - 2.7 %???Retic Count Corrected - 1.8 %???Retic Production Index - 1.2 % SODIUM POC CARTRIDGE (07/11/2024) ???Sodium (POC) POC Cartridge - 138 mmol/L Transfusion Reaction Workup (07/11/2024) ???Transfusion Reaction Workup - Provisional Dx: Possible TACO; Rpt to follow. Type and Screen (07/14/2024) ???Blood Type - AB Positive???Antibody Screen - Negative Urinalysis Complete (07/12/2024) ???Appear/Color, Urine - YELLOW???Specific [place], Urine - 1.021???pH, Urine - 6.5???Albumin, Urine - TRACE???Glucose, Urine - NEGATIVE???Ketones, Urine - NEGATIVE???Bilirubin, Urine - NEGATIVE???Hemoglobin, Urine - NEGATIVE???Nitrite, Urine - NEGATIVE???Leukocyte, Urine - NEGATIVE???Urobilinogen - NORMAL? ?WBC's, Urine - 4 /HPF? ?RBC's, Urine - <1 /HPF? ?Squamous Epith - 3 /HPF Vancomycin Random (07/15/2024) ???Vancomycin Level, Random - 10.9 mg/L VBG POC CARTRIDGE (07/11/2024) ???pH Venous (POC) POC Cartridge - 7.51???pCO2 Venous (POC) POC Cartridge - 33.5 mm Hg???pO2 Venous(POC) POC Cartridge - 19 mm Hg???Est Bicarbonate (POC) POC Cartridge - 26.8 mmol/L???% O2 Sat Venous (POC) POC Cartridge - 36???Specimen Type - Blood Gas - VENOUS You will be contacted within 72 hours with your results. Allergies (NKA means No Known Allergies) acetaminophen penicillins??(Rash) Problems No qualifying data available Education Materials Below is the list of Educational Leaflet Providered with your Discharge Instructions. [employer] Patient Education - Esophageal Ulcer?? [employer] Patient Education - Upper GI (Gastrointestinal) Series?? [employer] Patient Education - When You Have Gastrointestinal (GI) Bleeding?? [employer] Patient Education - Upper Gastrointestinal (GI) Bleeding, Stable?? [employer] Patient Education - Esophagitis?? Valuables and Belongings I fully understand and agree that [facility] accepts no responsibility for all my personal property including clothing, toilet articles, radios, jewelry, dentures, hearing aids, rings, money, or any other property that is in my possession or is brought to me after admission. I understand certain valuables may be placed in a hospital safe for a short period of time. I understand that the hospital is not liable for loss or damage due to accident, fire, or other natural occurrence while said property is in the safe. I accept full responsibility for any personal property that I keep with me, and will not hold the hospital responsible in case of loss or disappearance. I acknowledge that i have been encouraged to send valuables and belongings home. ?? Review of Valuable and Belonging List: With witness Date for Pt to Sign Valuables/Belongings: 07/11/24 07:10:00 ?? Other Discharge Information ? Case Management Discharge Plan?? Discharge Plan?? Discharge Agency Information?? Discharge Level of Care at Discharge: Homehealth/VNA Name of Agency #1: [facility] Discharge VNA/Hospice/Home Care: [facility] [phone] Service Categories #1: Usp ?? Service Comments #1: Patient discharging home with [facility] detention. ??The agency will be in contact with you. If you do not hear from them in 1-2 days, please call the agency directly. ?? Pulmonary Rehab Status?? Pulmonary Rehab Discharge Status?? Respiratory Rate: 16 br/min ? Common Emergency Awareness Tips IS IT A STROKE? Act FAST and Check for these signs: FACE Does the face look uneven? ARM Does one arm drift down? SPEECH Does their speech sound strange? TIME Call at any sign of stroke ?? Heart Attack Signs Chest discomfort: Most heart attacks involve discomfort in the center of the chest and lasts more than a few minutes, or goes away and comes back. It can feel like uncomfortable pressure, squeezing, fullness or pain. Discomfort in upper body: Symptoms can include pain or discomfort in one or both arms, back, neck, jaw or stomach. Shortness of breath: With or without discomfort. Other signs: Breaking out in a cold sweat, nausea, or lightheaded. Remember, MINUTES DO MATTER. If you experience any of these heart attack warning signs, call to get immediate medical attention! ?? Smoking can increase your chances of developing chronic health problems and can cause harmful effects to other family members in your house. If you smoke, you are strongly encouraged to quit. Please call [facility] at [phone] or [phone]-[facility] ([phone]) or log in to [email or web address] for referrals to smoking cessation programs. ?? 303 Suicide & Crisis Lifeline is available 17/03 if you or someone you know needs to find a reason to keep living. By calling 363 you'll be connected to a skilled, trained counselor at a crisis center in your area. INPATIENT DISCHARGE INSTRUCTIONS SIGNATURE NADIA STUART Location:[facility] Registration Date and Time:07/11/2024 09:07 EST Primary Care Physician: Kamala EMMANUEL , Dave Javier, Attending Physician: Mirza MARS, Apoorva, I NADIA LOPEZ, have received the above patient education materials/instructions and have verbalized understanding. If ambulance or transport services are being used I further acknowledge being given a choice of service. ?? If you need to contact me, please call me at this number: . 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 10317 Esophageal Ulcer An esophageal ulcer is an open sore in the lining of the esophagus. The??esophagus??is the tube that carries food and liquid from your mouth to your stomach. This sheet tells you more about esophageal ulcers and how they're treated. Causes of an esophageal ulcer Esophageal ulcers can be caused by: ??? GERD (gastroesophageal reflux disease) or heartburn. This condition occurs when stomach acid flows back into the esophagus, creating irritation or discomfort. It's the most common cause of esophageal ulcers. ??? Infection of the esophagus. This is caused by certain types of fungus and bacteria. It's also caused by common viruses, such as herpes simplex virus 1 (HSV-1) or cytomegalovirus (CMV). ??? Irritants that damage the esophagus. These include cigarette smoke, alcohol, lye, acids, and some medicines. ??? Certain types of treatments done on the esophagus. These include chemotherapy and radiation. ??? Excessive vomiting. ?? Symptoms of an esophageal ulcer Esophageal ulcer symptoms can include: ??? Pain when you swallow or trouble swallowing ??? Pain behind your breastbone (heartburn) ??? Feeling of food sticking in your throat or not going down right ??? Upset stomach (nausea) and vomiting? Vomiting blood ??? Chest pain ?? Diagnosing an esophageal ulcer Your healthcare provider will ask about your symptoms and health history. They'll also give you a full exam. Tests will be done as well. These can include: ??? Upper endoscopy. This is done to see inside your esophagus. This lets your provider check for ulcers. During the test, an endoscope (scope)is used. This is a thin, flexible tube with a tiny camera and light on the end. The scope is placedinto your mouth. It's then guided down the esophagus. Small brushes may be passed through the scopeto loosen cells from the lining of the esophagus. Other tools may also be passed through the scope to remove tiny tissue samples (biopsy). These samples are then sent to a lab to be looked at and fordiagnosis. ??? Barium swallow. This is done to take X-rays of your esophagus. This helps your provider check for ulcers. For this test, you???ll drink a chalky liquid that contains a substance calledbarium. The barium coats your esophagus so that it'll show up clearly on X-rays. ??? Blood tests. These check for infection, such as HSV-1, H. Pylori, and CMV??in the esophagus. For a blood test, a small sample of your blood is taken and sent to a lab. ?? Treating an esophageal ulcer Treatment focuses on giving the ulcer time to heal, easing symptoms, and preventing further damage.Treatment may include: ??? Medicines to reduce the amount of acid your stomach makes ??? Medicines to treat infection ??? Quitting smoking and not drinking alcohol ??? Not taking irritating medicines, such as aspirin,??ibuprofen, potassium, tetracyclines, doxycycline, quinidine, iron, and alendronate ?? Recovery and follow-up With treatment, an esophageal ulcer takes a few weeks or longer to heal. A follow-up endoscopy may be done to check the ulcer???s healing. Let your provider know if your symptoms don't get better or if they come back again. If you have GERD, work with your provider to manage it. You can take steps to help keep your esophagus healthy and prevent future problems. ?? When to call your healthcare provider Call your provider right away if you have any of these: ??? Fever of 100.4?? F ( 38??C) or higher, or as advised by your provider ??? Chills ??? Pain continues or gets worse, or you have trouble swallowing ??? Coughing up blood ??? Frequent nausea or vomiting that looks like bloody coffee grounds ??? Dark, tarry, or bloody stools ?? Last Reviewed Date: 2023 ?? [id number] The [employer]. All rights reserved. This information is not intended as a substitute for professional medical care. Always follow your healthcare professional's instructions. ?? * Florecita Cardenas DO: PERFORM Event Display: Patient Education Leaflets Authored Date: [id number] Upper GI (Gastrointestinal) Series ?? 06417 Upper GI (Gastrointestinal) Series An upper gastrointestinal (GI) series is an X-ray exam of the esophagus, stomach, and duodenum. Theduodenum is the start of your small intestine. This test uses a type of real-time X-ray (fluoroscopy) that can show organs in motion. This test helps your healthcare provider find problems such as dif ficulty swallowing, ulcers, tumors, and certain diseases. How do I get ready for an upper GI series? Follow any directions you are given for not eating or drinking before your test. ??? Be sure to mention the??medicines you take, and ask if it???s OK totake them before your test. ??? Don't smoke the morning of the test. ??? The test usually takes about 30??minutes. Allow extra time to check in. ?? What to tell the technologist Tell the technologist if: ??? You have any allergies ??? You ate or drank within the last 8??hours ??? You???re or think you may be ??? You???ve had any previous surgery ??? You take any medicines ?? What happens during an upper GI series? You will drink a liquid (barium) that improves X-ray images. ??? You also may swallow fizzies. This is a substance that makes air build up in your stomach. Don???t burp, even if you feel you have to. ??? You may need to stand. You will also lie in different positions or have your exam table tilted in various directions. ??? You will be asked to hold your breath for a short time during the X-ray. ?? What happens after an upper GI series? Your stool may appear white or refinery operator visbreaking than normal for2 to 3 days. ??? You may have constipation caused by the barium. You can relieve this by taking an jhxm-jet-uoxsrnj laxative or stool softener and drinking lots of fluids for several days after the exam. Talk with your healthcare provider if you have serious bowel movement problems after the test. ??? Your healthcare provider will discuss the test results with you during a follow-up appointment or over the phone. ??? Your next appointment is: ?? Last Reviewed Date: 2022 ?? [id number] The [employer]. All rights reserved. This information is not intended as a substitute for professional medical care. Always follow your healthcare professional's instructions. ?? * Florecita Cardenas DO: PERFORM Event Display: Patient Education Leaflets Authored Date: [id number] When You Have Gastrointestinal (GI) Bleeding ?? 78474 When You Have Gastrointestinal (GI) Bleeding Blood in your vomit or stool can be a sign of gastrointestinal (GI) bleeding. GI bleeding can be scary. But the cause may not be serious. You should??always??see your healthcare provider if you have GI bleeding. The GI tract is the path through which??food travels in the body. Food passes from the mouth down the esophagus. This is the tube from the mouth to the stomach. Food starts to break down in the stomach. It then moves through the duodenum, the first part of the small intestine. Nutrients are absorbed as food travels through the small intestine. What is left passes into the colon (large intestine) as waste. The colon removes water from the waste. Waste continues from the colon to the rectum (where stool is stored). Waste then leaves the body through the anus. The upper GI tract is from the mouth through the duodenum. The lower GI tract is from the end of the duodenum to the anus. Causes of GI bleeding GI bleeding can be caused by many different problems. Some of the more common causes include: ??? Swollen veins in the anus (hemorrhoids) ??? Swollen veins in the esophagus (varices) ??? Sores (ulcers) on the lining of the GI tract ??? Cuts or scrapes in the mouth or throat ??? Infection caused by germs such as bacteria or parasites ??? Food allergies, such as milk allergy in young children ??? Medicines, especially aspirin, blood thinners, and NSAIDs (non-steroidal anti-inflammatory drugs) such as ibuprofen ??? Inflammation of the GI tract (gastritis or esophagitis) ??? Colitis (Crohn's disease or ulcerative colitis) ??? Cancer (tumors or polyps) ??? Abnormal pouches in the colon (diverticula) ??? Tears in the esophagus or anus ??? Nosebleed ??? Abnormal blood vessels in the GI tract (angiodysplasia) ?? Diagnosing the cause of blood in stool If blood is coming out in your stool, you may have a lower GI tract problem??or a very fast upper GI tract bleed. Bleeding from the GI tract can be bright red. Or it may look dark and tarry.??Tests may also find blood in your stool that can???t be seen with the eye (occult blood). To find out the cause, tests that may be ordered include: ??? Blood tests. A blood sample is taken and sent to a lab for exam. ??? Hemoccult test. Checks a stool sample for blood. ??? Stool culture and other stool-based tests. These check a stool sample for bacteria or parasites, inflammation, and other problems. ??? X-ray, ultrasound, nuclear scan, or CT scan. Imaging tests that take pictures of the digestive tract. ??? Colonoscopy or sigmoidoscopy. This test uses a flexible tube with a tiny camera. The tube isinserted through your anus into your rectum to see the inside of your colon. Your healthcare provider can also take a tiny tissue sample (biopsy) to be looked at in a lab. They can also treat a bleeding source. ??? Capsule endoscopy. This test uses a tiny camera that is swallowed, passes through the intestine, and takes pictures of the small intestine. This is harder to reach with scopes. ?? Diagnosing the cause of blood in vomit If you are vomiting blood or something that looks like coffee grounds,??you may have an upper GI tract problem. To find the cause, tests that may be done include: ??? Upper endoscopy. A flexible tubewith a tiny camera is inserted through your mouth and throat to see inside your upper GI tract. This lets your healthcare provider take a tiny tissue sample (biopsy) to be looked at in a lab. They can also treat a bleeding source. ??? Nasogastric lavage and aspiration. The provider may withdraw some of the fluid in the stomach to test it for bleeding. This can sometimes tell if you have upper GI or lower GI bleeding. ??? X-ray, ultrasound, nuclear scan, or CT scan. Imaging tests that take pictures of your digestive tract. ??? Upper GI series. X-rays of the upper part of your GI tract that aretaken after you swallow a contrast drink. ??? Enteroscopy. This sends a flexible tube or a small, swallowed capsule camera into your small intestine. ?? Call 911 Call 911 if any of these occur: ??? Bleeding from your mouth or anus that can't be stopped ??? Bleeding along with feeling lightheaded or dizzy ?? When to call your healthcare provider Call your healthcare provider right away if you have any of the following: ??? Fever of 100.4?? F??( 38.0??) C or above, or as advised by your provider ??? Signs of fluid loss (dehydration). These include a dry, sticky mouth, decreased urine output, and very dark urine. ??? Belly (abdominal) pain ?? Last Reviewed Date: 2023 ?? [id number] [employer]. All rights reserved. This information is not intended as a substitute for professional medical care. Always follow your healthcare professional's instructions. ?? Patient Care team information Care Team Personnel Name: Yaneth Gracia RN Position: S RN Member Role: Primary Care Nurse Name: Randa King RN Position: S RN Member Role: Primary Care Nurse Name: Ana Flores RN Position: [facility] RN Supv Member Role: Primary Care Nurse Name: Theresa Horner RN Position: S RN Member Role: Primary Care Nurse Name: Kate West RN Position: S RN Member Role: Primary Care Nurse Name: Dave Wray NP Position: Reference Physician Member Role: PCP Address: [address] [place] [id number] Telecom: Name: Scout Gore RN Position: [facility] RN Member Role: Primary Care Nurse Name: Radha Aguillon RN Position: S RN Member Role: Primary Care Nurse Name: Ayesha Boucher RN Position: S RN Member Role: Primary Care Nurse Name: Mariama Reed RN Position: [facility] RN Member Role: Primary Care Nurse Name: Mia Sevilla Position: [facility] RN Member Role: Primary Care Nurse Name: Israel Calvo RN Position: S RN Member Role: Primary Care Nurse Care Team Related Persons Name: KAVITA PENN Name: ALEX LOPEZ Insurance Providers Guarantor name: [facility] Health Plan Information #: 1 Payer: [employer] Member Number: [id number] Policy Number: NA Group Number: [facility] Health Plan Information #: 2 Payer: [employer] Member Number: [id number] Policy Number: NA Group Number: [id number]
== END 2024-08-02 16:50 | disposition home or self-care (01) ==
PROVIDERS: PCP Nurse Practitioner Family; Visit Provider Nurse Practitioner Family
DX: I27.24 Chronic thromboembolic pulmonary hypertension (principal); F14.10 Cocaine abuse, uncomplicated; M86.9 Osteomyelitis, unspecified; K22.89 Other specified disease of esophagus; D64.9 Anemia, unspecified

== ENCOUNTER → 2024-08-02 15:34 | Outpatient (BNVA) | payer OTHER, SELFPAY | PROVIDERS: PCP Nurse Practitioner Family; Visit Provider Nurse Practitioner Family | DX: I27.24 Chronic thromboembolic pulmonary hypertension (principal); F14.10 Cocaine abuse, uncomplicated; M86.9 Osteomyelitis, unspecified; K22.89 Other specified disease of esophagus; D64.9 Anemia, unspecified | CPT/HCPCS: 99212 ==

== ENCOUNTER 2024-09-13 15:29 | Outpatient (AMB) | payer OTHER, SELFPAY ==
[2024-09-13 15:37] VITALS: BP 110/70; PULSE 96; O2SAT 98; BMI 24.9
--- NOTE | 2024-09-13 15:37 | A.OFFPC_ITS ---
Vital Signs 09/13/24 15:37 Height 5 ft 4 in Weight 145 lb BMI 24.9 BP 110/70 Blood Pressure Location Rt brachial Position Sitting Pulse 96 Pulse Source Pulse Oximeter Pulse Oximetry (%) 98 Intake Visit Reasons: HDF per Dave Allergies Sulfa (Sulfonamide Antibiotics) Allergy (Severe, Verified 09/13/24 15:37) Swelling azithromycin [Zithromax] Allergy (Intermediate, Verified 09/13/24 15:37) hives/GI upset hydrocodone [From VICODIN] Allergy (Intermediate, Verified 09/13/24 15:37) Rash naproxen [Aleve] Allergy (Intermediate, Verified 09/13/24 15:37) Rash oxycodone [OXYCODONE] Allergy (Intermediate, Verified 09/13/24 15:37) Rash acetaminophen [From TYLENOL] Adverse Reaction (Intermediate, Verified 09/13/24 15:37) RASH ALL OVER BODY Tobacco use date assessed: 09/13/24 Dental Screening Dental Screen Date: 09/13/24 Did you have a dental visit in the last 12 months?: Yes Did you have a dental problem in the last 6 months where you did not have access to dental care?: No Was dental information given to patient?: Patient has dentist HPI HDF per Dave HPI Details Chief Complaint The patient presents for follow-up care after surgery with concerns regarding fatigue and postoperative pain management. History of Present Illness The patient is a 58-year-old female presenting with follow-up care needs after a recent history of chronic thromboembolic pulmonary hypertension (CTEPH). She has undergone bilateral pulmonary thromboendarterectomy on August 12, 2024, with subsequent discharge on September 04, 2024. The initial symptom of shortness of breath led to the surgical intervention at [facility]. Postoperative complications included mild hypotension managed with midodrine. She was weaned off sedation, extubated, and transitioned to a cardiac surgical step-down unit with improved perfusion on post-operation scans. Her postoperative echocardiogram revealed normal left ventricular size and function and a dilated right ventricle with impaired systolic function. Concerns for adequate follow-up with warfarin prompted a switch to rivaroxaban, initially dosed at 15 mg twice daily, scheduled to change on September 16, 2024. She was discharged on furosemide with weight monitoring parameters and advised on activity restrictions, including no heavy lifting, swimming, or supine sleeping. A history of substance use was noted, with a current positive screen for fentanyl, likely from cocaine use. Mirtazapine has been prescribed to aid with cravings, alongside education on naloxone use. Presently, the patient denies persistent drug use and reports adherence to prescribed medications. She notes resolved fever and chills, and reports general improvement post-discharge. Social History - Substance Use: History of cocaine use; fentanyl positive screen. - Medication Adherence: Promising adhere nce to current prescriptions including rivaroxaban. - Support Systems: Engaged with the card iology and pulmonary hypertension care teams for follow-up care. Health Maintenance - Encouraged monitoring of weight and re porting significant changes. - Educated on naloxone use in light of s ubstance use history. - Reinforced avoidance of heavy lifting and specific physical activities as part of post-surgical recovery. Review of Systems - General: Denies fevers, chills. - Respiratory: Denies increased shortnes s of breath. - Neurological: Fatigue present but impr oving. Physical Exam General: Cooperative, fatigued appearing, though ambulating independently. skinny stature Orientation: Patient oriented x3 Limitations: No limitations Head: Normal to inspection Ears: Hearing grossly normal bilaterally Nose: Normal external nose present Eyes: Appearance normal, both eyes and all related structures Neck: Normal visual inspection and Yes full ROM Respiratory: Normal respiratory effort and able to speak in complete sentences. Clear to auscultation bilaterally Cardiovascular: Regular rate and rhythm. Normal S1 and S2 GI: Normal to inspection. Soft to palpation and nontender Skin: No rashes or lesions noted Neuro: Patient oriented x3 Extremities: Normal to inspection, no edema noted Results - Tests/Imaging: Postoperative echocardi ogram showed a dilated right ventricle with impaired systolic function. - VQ scan: Improved perfusion with small residual clot burden. Plan 1. - Ongoing use of mirtazapine to manag e substance cravings: - Oxycodone prescribed for postoperative chest discomfort. knows not to share it, take as prescribed only, and i will not continue this for a long duration. - Repeat laboratory studies including el ectrolytes, BNP, and CBC. - Maintain furosemide therapy with weigh t monitoring. - Follow-up appointments scheduled with cardiology and pulmonary teams. Patient was informed and verbally consented to the use of an ambient scribe for clinic note documentation during this visit. Discussion Notes I discussed with the patient the current status of her chronic thromboembolic pulmonary hypertension and the positive recovery indicators post- thromboendarterectomy. We reviewed the ongoing medical management plan, including the transition to rivaroxaban and corresponding dosing schedule. The potential risks and benefits of continuing mirtazapine therapy for substance cravings were discussed, alongside the importance of naloxone education due to past substance use incidents. Emphasis was placed on the importance of follow-up with her cardiology and pulmonary teams, underscoring the need for comprehensive care. The patient was informed about the surgical incision care guidelines and the necessity of gradual weight monitoring protocols to prevent further cardiovascular stress. Overall, the patient appears to be following an encouraging recovery trajectory, with ongoing management being closely adhered to. Patient Instructions - Continue prescribed rivaroxaban as dir ected, transitioning dose on September 16, 2024, pt is made aware and verbalized understanding (20mg at night). - Adhere to daily intake of furosemide a nd monitor weight for sudden changes. - Take prescribed oxycodone for discomfo rt related to surgery; avoid overuse. - Monitor incision site for signs of inf ection and avoid strenuous activities. - Follow up with cardiology and pulmonar y specialists as scheduled. - Abstain from illicit substance use and pt refused addiction resources . [facility] Medical History Osteomyelitis of facial bone Cocaine use disorder Right leg pain Joint pain Herniated disc Urinary retention Sprain of left knee Sprain of right knee Arthritis Physical exam Screening for cervical cancer SOB (shortness of breath) Anxiety Carcinoma of nasal cavity Ulcer, nasal, septum Excessive cerumen in both ear canals Pre-operative clearance Nasal septum perforation Disorder of lung parenchyma Lumbar herniated disc Back pain GERD (gastroesophageal reflux disease) Hx pulmonary embolism Erosive esophagitis Hx of ulcer disease Depression Panic attacks History of bipolar disorder COPD (chronic obstructive pulmonary disease) Asthma Surgical History History of lung surgery Hx of cholecystectomy Hx of colonoscopy H/O esophagogastroduodenoscopy Hx of appendectomy History of hysterectomy Family History Father No problems noted. 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 1. Little interest or pleasure in doing things: not at all 2. Feeling down, depressed, or hopeless: not at all 3. Trouble falling or staying asleep, or sleeping too much: not at all 4. Feeling tired or having little energy: several days 5. Poor appetite or overeating: several days 6. Feeling bad about yourself - or that you are a failure or have let yourself or your family down: not at all 7. Trouble concentrating on things, such as reading the newspaper or watching television: not at all 8. Moving or speaking so slowly that other people could have noticed. Or the opposite - being so fidgety or restless that you have been moving around a lot more than usual: not at all 9. Thoughts that you would be better off or of hurting yourself in some way: not at all Total score: 2 Depression Screening Interpretation: Negative Depression Screening Done: Yes 95493 - PHQ-9 Billing: Yes Source: Developed by Drs. Ovi Portillo, Tila Herrera, Sam Montesinos and colleagues, with an educational sherine from [employer]. Thrive Questionnaire Date Thrive assessed: 09/13/24 AUDIT C Alcohol Use Questionnaire (AUDIT-C) 1. How often do you have a drink containing alcohol?: 2-4 times a month 2. How many drinks containing alcohol do you have on a typical day when you are drinking?: 1 or 2 3. How often do you have six or more drinks on one occasion?: Never Total Score: 2 Score Reviewed/Action Taken: Yes ANTOINETTE-7 AMB Questionnaire ANTOINETTE-7 Date ANTOINETTE - 7 assessed: 09/13/24 Feeling nervous, anxious, or on edge: 1 = Several days Not being able to stop or control worryin = Several days Worrying too much about different things: 1 = Several days Trouble relaxin = Several days Being so restless that it is hard to sit still: 2 = More than half the days Becoming easily annoyed or irritable: 1 = Several days Feeling afraid as if something awful might happen: 1 = Several days Total ANTOINETTE-7 score (0-4 normal; 5-9 mild; 10-14 moderate; 15-21 severe): 8 Source: Developed by Drs. Ovi Portillo, Tila Herrera, Sam Montesinos and colleagues, with an educational sherine from [employer]. ANTOINETTE-7 Assessment Billing ANTOINETTE-7 Assessment Tool: ANTOINETTE-7 Assessment 69311 Physical exam (Primary Care) Vital Signs: Last Vital Signs Pulse 96 09/13/24 15:37 BP 110/70 09/13/24 15:37 Pulse Ox 98 09/13/24 15:37 BMI result Body Mass Index 24.9 Tobacco/Smoking Status: Tobacco use Status Tobacco use date assessed 09/13/24 09/13/24 15:40 Patient Tobacco Use Status Former Tobacco user 09/13/24 15:40 e-Cigarette/Vaping Use Currently Using 09/13/24 15:40 PHQ-9: PHQ-9 Score PHQ-9: Total score 2 09/13/24 15:47 Depression Screening Interpretation: Negative Thrive Assessment: Date of Thrive Assessment Date Thrive assessed 09/13/24 09/13/24 15:40 Coding Level of Care Code Est Pt Level 4 (82286) Diagnoses Pulmonary HTN I27.20 Cocaine abuse F14.10 CTEPH (chronic thromboembolic pulmonary hypertension) I27.24 Additional Codes ANTOINETTE-7 Assessment Billing - ANTOINETTE-7 Assessment Tool: ANTOINETTE-7 Assessment 61260 ([id number]) PHQ-9 - 90291 - PHQ-9 Billing: Yes ([id number]) Assessment & Plan Assessment & Plan (1) Pulmonary HTN: Code(s): I27.20 - Pulmonary hypertension, unspecified Category: Medical (2) Cocaine abuse: Code(s): F14.10 - Cocaine abuse, uncomplicated Category: Medical (3) CTEPH (chronic thromboembolic pulmonary hypertension): Code(s): I27.24 - Chronic thromboembolic pulmonary hypertension Category: Medical (4) Pulmonary HTN: Code(s): I27.20 - Pulmonary hypertension, unspecified Category: Medical (5) CTEPH (chronic thromboembolic pulmonary hypertension): Code(s): I27.24 - Chronic thromboembolic pulmonary hypertension Category: Medical Plan . Orders: Orders Comprehensive Met. Panel Today F14.10 - Cocaine abuse, uncomplicated, I27.20 - Pulmonary hypertension, unspecified, I27.24 - Chronic thromboembolic pulmonary hypertension TSH reflex Free T4 Today F14.10 - Cocaine abuse, uncomplicated, I27.20 - Pulmonary hypertension, unspecified, I27.24 - Chronic thromboembolic pulmonary hypertension Magnesium Today I27.20 - Pulmonary hypertension, unspecified, I27.24 - Chronic thromboembolic pulmonary hypertension Complete Blood Count Auto Diff Today F14.10 - Cocaine abuse, uncomplicated, I27.20 - Pulmonary hypertension, unspecified, I27.24 - Chronic thromboembolic pulmonary hypertension UA CC w/rflx Micro + Cult Today F14.10 - Cocaine abuse, uncomplicated, I27.20 - Pulmonary hypertension, unspecified, I27.24 - Chronic thromboembolic pulmonary hypertension B Type Natriuretic Peptide Today I27.20 - Pulmonary hypertension, unspecified, I27.24 - Chronic thromboembolic pulmonary hypertension
== END 2024-09-13 17:01 | disposition home or self-care (01) ==
PROVIDERS: PCP Nurse Practitioner Family; Visit Provider Nurse Practitioner Family
DX: I27.20 Pulmonary hypertension, unspecified (principal); F14.10 Cocaine abuse, uncomplicated; I27.24 Chronic thromboembolic pulmonary hypertension

== ENCOUNTER → 2024-09-13 15:29 | Outpatient (BNVA) | payer OTHER, SELFPAY | PROVIDERS: PCP Nurse Practitioner Family; Visit Provider Nurse Practitioner Family | DX: I27.20 Pulmonary hypertension, unspecified (principal); F14.10 Cocaine abuse, uncomplicated; I27.24 Chronic thromboembolic pulmonary hypertension | CPT/HCPCS: 96127; 99212 ==

== ENCOUNTER 2025-01-06 10:21 | Outpatient (AMB) | payer OTHER, SELFPAY ==
--- NOTE | 2025-01-06 10:54 | AM.OFFWIN_ITS ---
Intake Vital Signs 01/06/25 10:56 Height 5 ft 4 in Weight 150 lb BMI 25.7 BP 122/80 Blood Pressure Location Rt brachial Position Sitting Pulse 105 H Pulse Source Pulse Oximeter Pulse Oximetry (%) 95 Oxygen Delivery Method Room Air Intake Visit Reasons: EP allergy symptoms, sinus pressure Intake Note: Patient here for head pressure, sinus pressure, itching all over body that has been present for about 1 month Patient Tobacco Use Status: Former Tobacco user Allergies Sulfa (Sulfonamide Antibiotics) Allergy (Severe, Verified 01/06/25 10:57) Swelling azithromycin [Zithromax] Allergy (Intermediate, Verified 01/06/25 10:57) hives/GI upset hydrocodone [From VICODIN] Allergy (Intermediate, Verified 01/06/25 10:57) Rash naproxen [Aleve] Allergy (Intermediate, Verified 01/06/25 10:57) Rash oxycodone [OXYCODONE] Allergy (Intermediate, Verified 01/06/25 10:57) Rash acetaminophen [From TYLENOL] Adverse Reaction (Intermediate, Verified 01/06/25 10:57) RASH ALL OVER BODY Do you need a note to return to daycare/school/sports/work: No HPI HPI Comments History of Present Illness Details History - The patient is a 59-year-old female pr esenting with an acute exacerbation of allergic rhinitis. - She reports unrelenting itchy, burning eyes with tearing, clear nasal discharge along with nasal itching and burning, despite one month of [id number] treatments. - She has utilized cetirizine daily and Afrin for the last 7 days for relief, noting a lack of effectiveness and potential exacerbation of symptoms due to prolonged Afrin use. - Flonase was tried without proper appli cation technique. - Denies fever or clear signs of infecti on but reports gum itching and cranial fluid sensation as additional symptoms. - A significant past medical history of cardiac surgery and restrictions due to postoperative status is noted. Physical Exam General: Cooperative, healthy appearing, comfortable and no acute distress Orientation/consciousness: Patient oriented x3 Limitations: No limitations Head: Normal to inspection Ears: Hearing grossly normal bilaterally, external ears normal and TM's normal bilaterally Nose: Normal external nose present, Normal nares present and Clear nasal discharge present Face and sinus: Normal facial exam and Yes frontal sinuses tender Mouth: Normal oral and palatal mucosa present and moist mucous membranes Throat: Yes tonsils normal, Yes uvula midline. Posterior oropharynx erythema with cobblestoning Eyes: Appearance normal, both eyes and all related structures, but patient reports itching and tearing Neck: Normal visual inspection Respiratory: Normal respiratory effort, able to speak in complete sentences, no respiratory distress, not tachypneic, no tripod positioning and no use of accessory muscles Skin: No rashes or lesions noted Neuro: Patient oriented x3 Extremities: Normal to inspection and Yes no clubbing, cyanosis or edema PFSH Medical History Osteomyelitis of facial bone Cocaine use disorder Right leg pain Joint pain Herniated disc Urinary retention Sprain of left knee Sprain of right knee Arthritis Physical exam Screening for cervical cancer SOB (shortness of breath) Anxiety Carcinoma of nasal cavity Ulcer, nasal, septum Excessive cerumen in both ear canals Pre-operative clearance Nasal septum perforation Disorder of lung parenchyma Lumbar herniated disc Back pain GERD (gastroesophageal reflux disease) Hx pulmonary embolism Erosive esophagitis Hx of ulcer disease Depression Panic attacks History of bipolar disorder COPD (chronic obstructive pulmonary disease) Asthma Surgical History History of lung surgery Hx of cholecystectomy Hx of colonoscopy H/O esophagogastroduodenoscopy Hx of appendectomy History of hysterectomy Family History Father No problems noted. 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) Alcohol intake: current Alcohol intake frequency: holidays/special occasions only Alcohol type: beer and wine Patient Tobacco Use Status: Former Tobacco user Cigarettes Per Day: 2 Years Smoked: 10+ e-Cigarette/Vaping Use: Currently Using Second Hand Smoke Exposure: No Substance Use Type: Crack/Cocaine service: No Current occupational status: unemployed Cognitive needs: No Hearing needs: No Vision needs: Yes Review of Systems Const All systems reviewed & are unremarkable except as noted in HPI and below Physical Exam Vital Signs: Last Vital Signs Pulse 105 H 05/15/25 10:56 BP 122/80 01/06/25 10:56 Pulse Ox 95 01/06/25 10:56 Oxygen Delivery Method Room Air 01/06/25 10:56 BMI result Body Mass Index 25.7 Assessment & Plan Assessment & Plan (1) Seasonal allergies: Code(s): J30.2 - Other seasonal allergic rhinitis Plan: VSS, pt well appearing and PE remarkable for cobblestoning. The patient will discontinue Afrin due to rebound congestion concerns and employ Flonase with instructions centered on effectiveness in sinus administration. Cetirizine will be substituted with levocetirizine due to its augmented efficacy for allergenic symptoms. Pataday eye drops will be issued to alleviate ocular itching. She confirms understanding of, and agreement with, these strategies. Patient was informed and verbally consented to the use of an ambient scribe for clinic note documentation during this visit Medications: New fluticasone propionate 50 mcg/actuation administer into each nostril 1 spray intranasal Q12H 90 days 16 grams 0RF olopatadine 0.7% (Pataday Once Daily Relief) 1 drp ophthalmic (eye) Q24H PRN 5 mL 0RF itching levocetirizine 5 mg PO DAILY 30 tabs 2RF Discontinued cetirizine Discontinued Reason: Doctor's Order 10 mg PO DAILY 90 tabs 1RF Coding Level of Care Code Est Pt Level 3 (14429) Diagnoses Seasonal allergies J30.2
[2025-01-06 10:56] VITALS: BP 122/80; PULSE 105; O2SAT 95; BMI 25.7
--- OUTSIDE RECORDS SUMMARY | 2025-01-06 11:26 | XMS_ITS | Data Portability ---
Author Organization [place] - [facility], [address] Address [address] [place] [address] Care Team Providers Care Dealmaker Name Role Phone RAMON WILD Primary Care Provider [phone] Assessment No assessment recorded. Plan of Treatment Reminders Order Date Submit Date Provider Last Modified By Organization Details Last Modified Time Details Appointments None recorded. Lab None recorded. Referral None recorded. Procedures None recorded. Surgeries None recorded. Imaging None recorded. Medication Orders Augmentin 875 mg-125 mg tablet 2022 023 [facility]/Pharmacy #[id number], [address] [place], [address], 3 19:19:30 ibuprofen 600 mg tablet 2022 023 [facility]/Pharmacy #[id number], [address] [place], [address], 3 03:31:37 Patient TargetsNo targets recorded. Patient Instructions Encounter Date Encounter Id Patient Instructions Last Modified By Organization Details Last Modified Time 08/25/2022 [id number] learning about dental care and your health problem vijaya Not available 08/25/2022 19:19:28 Ut, It was nice meeting you today. Here is a summary of your visit: -It looks like you have an infection of your teeth. Please take the following antibiotics. -You may take Ibuprofen or extra strength Tylenol over the counter for tooth pain. -Oral hygiene is turner to improving dental health. You must brush your teeth twice a day, and floss as needed after a meal. - Swish with warm salt water every 4 hours. -This is merely a temporary fix. You have to create an appointment with a dentist for intervention to remove the infected teeth . -The infection may move to your jaw, head, or neck. Monitor for any concerning symptoms, such as high fever, neck pain/ridgidity, shortness of breath, throat swelling. You will need to see a dentist for follow up care within 1-2 days. vijaya Not available 08/25/2022 19:19:47 Reason for Referral None Reported. Problems Name Problem SNOMED Code Status Onset Date Resolution Date Notes Provider Name and Address Organization Details Recorded Time Bipolar disorder 28298313 Active 2022 DARRYL DEPINTO null, [place] - [facility] 3 19:01:54 Posttraumatic stress disorder 20215539 Active 2022 DARRYL DEPINTO null, [place] - [facility] 3 19:02:01 Anxiety 48218238 Active 2022 DARRYL DEPINTO null, [place] - [facility] 3 19:02:06 Gastric ulcer 720773984 Active 2022 DARRYL DEPINTO null, [place] - [facility] 3 19:02:15 Problem Notes None recorded. Procedures Surgical History Date Name Laterality Status Provider Name and Address Organization Details Recorded Time cholecystectomy completed DARRYL DEPINTO P A - [facility] 08/25/2022 19:02:50 hysterectomy completed DARRYL DEPINTO [place] - [facility] 08/25/2022 19:02:57 Imaging Results None recorded. Procedure Notes None recorded. Medical Equipment None Reported. Medications Name Sig Start Date Stop Date Status Note LastModified by Organization Details LastModified Time cyclobenzap rine 10 mg tablet TAKE 1 TABLET BY MOUTH TWICE A DAY NEEDED FOR MUSCLE SPASM 08/25 completed Not Available Not Available Not Available amoxicillin 500 mg capsule TAKE 1 CAPSULE BY MOUTH EVERY 8 HOURS UNTIL FINISHED 08/25 completed Not Available Not Available Not Available Augmentin 875 mg-125 mg tablet Take 1 tablet every 12 hours by oral route for 10 days. 2022 active Not Available Not Available Not Avai lable trazodone 50 mg tablet TAKE 1 TO 2 TABLETS BY MOUTH AT BEDTIME active Not Available Not Available No t Available cetirizine 10 mg tablet TAKE 1 TABLET BY MOUTH EVERY DAY 08/25 completed Not Available Not Available Not Available ibuprofen 800 mg tablet TAKE 1 TABLET BY MOUTH EVERY 8 HOURS FOR 5 DAYS active Not Available Not Available No t Available senna 8.6 mg tablet TAKE 1 TABLET BY MOUTH AT BEDTIME NEEDED FOR CONSTIPAT ION 08/25 completed Not Available Not Available Not Available meloxicam 15 mg tablet TAKE 1 TABLET BY MOUTH DAILY NEEDED FOR FOR JOINT PAIN active Not Available Not Available No t Available prednisone 20 mg tablet TAKE 1 TABLET BY MOUTH EVERY DAY FOR 5 DAYS 08/25 completed Not Available Not Available Not Available clonazepam 0.5 mg tablet TAKE 1 TABLET BY MOUTH TWICE A DAY NEEDED active Not Available Not Available No t Available terazosin 1 mg capsule TAKE 1 CAPSULE BY MOUTH AT BEDTIME active Not Available Not Available No t Available tramadol 50 mg tablet TAKE 1 TAB DAILY NEEDED FOR PAIN FOR 30 DAYS *USE SPARINGLY +IT IS NOT TO BE USED ON A DAILY BASIS active Not Available Not Available No t Available cephalexin 500 mg capsule TAKE 1 CAPSULE BY MOUTH THREE TIMES A DAY 08/25 completed Not Available Not Available Not Available pantoprazol e 40 mg tablet,deepak yed release TAKE 1 TABLET BY MOUTH TWICE A DAY active Not Available Not Available No t Available Advair Diskus 250 mcg-50 mcg/dose powder for inhalation INHALE 1 PUFF EVERY 12 HOURS active Not Available Not Available No t Available amoxicillin 250 mg capsule TAKE 1 CAPSULE BY MOUTH EVERY 8 HOURS FOR 7 DAYS 08/25 completed Not Available Not Available Not Available ibuprofen 600 mg tablet Take 1 tablet 3 times a day by oral route as needed for 7 days. 2022 active Not Available Not Available Not Avai lable zolpidem 10 mg tablet TAKE 1 TABLET BY MOUTH EVERYDAY AT BEDTIME active Not Available Not Available No t Available ziprasidone 60 mg capsule TAKE 1 CAPSULE BY MOUTH TWICE A DAY active Not Available Not Available No t Available fluticasone propionate 50 mcg/actuati on nasal spray,suspe nsion SPRAY 1 SPRAY INTO EACH NOSTRIL DAILY 08/25 completed Not Available Not Available Not Available Ventolin HFA 90 mcg/actuati on aerosol inhaler INHALE 2 PUFFS BY MOUTH EVERY 4 TO 6 HRS NEEDED FOR SHORTNESS OF BREATH OR WHEEZING active Not Available Not Available No t Available Vitamin D3 50 mcg (2,000 unit) tablet TAKE 1 TABLET BY MOUTH DAILY FOR 30 DAYS active Not Available Not Available No t Available Myrbetriq 50 mg tablet,exte nded release TAKE 1 TABLET BY MOUTH EVERY DAY 08/25 completed Not Available Not Available Not Available Paxlovid 300 mg (150 mg x 2)-100 mg tablets in a dose pack TAKE 2 TABLETS BY MOUTH OF NIRMATREL VIR WITH 1 TABLET OF RITONAVIR TWICE A DAY FOR 5 DAYS 08/25 completed Not Available Not Available Not Available Vitals Date Recorded Body height Body mass index (BMI) Body weight Pain severity - 0-10 verbal numeric rating [Score] - Reported Body temperature Respiratory rate Heart rate Oxygen saturation Oxygen saturation in Arterial blood by Pulse oximetry Systolic blood pressure Diastolic blood pressure Provider Name and Address Organization Details Last Updated DateTime 3 162.56 cm 26.6 kg/m2 61536.8 2 g 9 98.9 [degF] 18 /min 86 /min 98 % 98 % 126 mm[Hg] 85 mm[Hg] DARRYL VENCES [place] - [facility] 3 19:05:19 Social History Question Answer Notes LastModified by Sticky[employer] Details LastModified Time Tobacco Smoking Status Former Smoker DARRYL zhang [place] - [facility] 08/25/2022 19:02:38 When Did You Quit Smoking? 1-5yearssinc elastcigaret te Information not available 08/25/2022 Have You Recently Traveled Abroad? No Information not available 08/25/2022 Sex: Unknown Functional Status Question Answer Note LastModified by [employer] Details LastModified Time Do you use any illicit or recreational drugs? No Information not available 08/25/2022 Do you or have you ever used any other forms of tobacco or nicotine? No Information not available 08/25/2022 What is your level of alcohol consumption? None Information not available 08/25/2022 Mental Status None recorded. Family History Relationship Description Onset Age of this Age Resolved Age Notes LastModified by Organization Details LastModified Time Father No current problems or disability Not available 08/25 19:02:18 Mother No current problems or disability Not available 08/25 19:02:18 Medical History No medical history recorded. Gynecological HistoryNo gynecological history recorded. Obstetrics History GPAL:G 0 P 0 0 0 0 Past Encounters Encounter ID Performer Location Encounter Start Date Encounter Closed Date Diagnosis/Indication Diagnosis SNOMED-CT Code Diagnosis ICD10 Code Diagnosis Note [id number] [address] [place] [address] 05/18/2019 17:36:10 05/18/2019 18:05:19 [id number] [address] [place] [address] 12/27/2016 17:40:41 12/27/2016 18:28:30 [id number] [address] [place] [address] 06/24/2016 10:28:37 06/24/2016 11:35:03 [id number] [address] [place] [address] 02/16/2017 16:54:08 02/16/2017 17:11:26 [id number] [address] [place] [address] 01/28/2017 12:03:16 01/28/2017 13:34:42 [id number] [address] [place] [address] 12/24/2016 11:49:53 12/24/2016 12:35:32 [id number] [address] [place] [address] 05/05/2017 17:44:55 05/05/2017 19:21:41 [id number] [address] [place] [address] 08/03/2016 11:20:02 08/03/2016 12:16:40 [id number] [address] [place] [address] 08/20/2015 13:20:03 08/20/2015 14:10:24 [id number] [address] [place] [address] 01/03/2018 13:27:43 01/03/2018 14:32:11 [id number] [address] [place] [address] 04/13/2016 17:23:42 04/13/2016 18:02:10 [id number] [address] [place] [address] 12/08/2016 16:13:52 12/08/2016 18:13:10 [id number] [address] [place] [address] 06/24/2017 09:24:14 06/24/2017 11:13:05 [id number] [address] [place] [address] 05/28/2020 13:20:51 05/28/2020 15:17:33 [id number] [address] [place] [address] 06/14/2020 13:08:46 06/14/2020 14:37:07 [id number] [address] [place] [address] 07/25/2016 08:27:26 07/25/2016 09:05:55 [id number] [address] [place] [address] 04/20/2017 12:25:17 04/20/2017 14:05:46 [id number] [address] [place] [address] 05/23/2016 09:42:19 05/23/2016 10:28:18 [id number] [address] [place] [address] 08/22/2015 11:11:21 08/22/2015 11:50:29 [id number] [address] [place] [address] 07/06/2016 08:06:19 07/06/2016 08:37:26 [id number] ELISA KAM [address] [place] [address] 08/25/2022 18:01:27 08/25/2022 19:22:46 Infection of tooth 806634450 K04.7 Health Concerns Section Related Observation LastModified by Organization Detai ls LastModified Time None Recorded Concern Status LastModified by Organization Details LastModified Time None Recorded Advance Directives Directive None Recorded Payers Insurance Date Sequence Insurance Name Policy Number Policy Hayward Covered Member ID Hayward Member ID Guarantor Name 08/25/2022 1 [employer] - [facility] (MEDICAID REPLACEMENT - HMO) MYCHAL Coffman [id number] Heather Coffman Notes Date Note Type Note Provider Name and Address Organization Details Recorded Time 08/25/2022 text/html Heather is a 3 8 yo F here for evaluation of dental pain onset a few days ago. Was seen by a dentist 11 days ago-removed teeth on left side-x 4 days now has swelling, headache. was given antibiotic and finished but now feels pain, trouble speaking and chewing food. No fevers, chills, sweats, severe CHU. ELISA RAO [address] [place], [address], [place] - [facility] 08/25/2022 19:20:54 OBGyn Episode No OBEpisode recorded.
== END 2025-01-06 11:43 | disposition home or self-care (01) ==
PROVIDERS: PCP Nurse Practitioner Family; Visit Provider Physician Assistant
DX: J30.2 Other seasonal allergic rhinitis (principal)

== ENCOUNTER → 2025-01-06 10:21 | Outpatient (BNVA) | payer OTHER, SELFPAY | PROVIDERS: PCP Nurse Practitioner Family; Visit Provider Physician Assistant | DX: J30.2 Other seasonal allergic rhinitis (principal) | CPT/HCPCS: 99212 ==

== ENCOUNTER 2025-01-25 11:47 | Outpatient (REF) | payer OTHER, SELFPAY ==
--- NOTE | ~2025-01-25 | XR_ITS ---
EXAMINATION: 3 view XR HAND, RIGHT CLINICAL INFORMATION: M79.641 - Pain in right hand COMPARISON: None available. TECHNIQUE: PA, lateral, and oblique views of the right hand. FINDINGS: No erosions are evident. Bone mineralization is within normal limits. Ulnar variance measures +3 mm. There is no joint diastases or offset. Pain calcific density is present projecting in the soft tissues just distal to the ulnar styloid. XR/XR hand RT min 3V IMPRESSION: Faint calcific density is present distal to the ulnar styloid. While this could be chronic, an acute avulsion fracture is not ruled out (ulnar lunate abutment syndrome) Ulnar plus variance. Correlate for chronic ulnar-sided symptoms. Electronically signed by: Luiz Linton MD 01/25/2025 12:39 PM EDT
== END 2025-01-25 11:48 | disposition home or self-care (01) ==
LOC: HO.HMGCX 11:47
PROVIDERS: PCP Nurse Practitioner Family; Visit Provider Physician Assistant Medical
DX: M79.641 Pain in right hand (principal)
CPT/HCPCS: 73130; 99212

== ENCOUNTER 2025-01-25 11:47 | Outpatient (AMB) | payer OTHER, SELFPAY ==
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
[2025-01-25 11:55] VITALS: BP 122/80; PULSE 97; O2SAT 97; BMI 27.8
--- OUTSIDE RECORDS SUMMARY | 2025-01-25 13:18 | XMS_ITS | Data Portability ---
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 Plan of Treatment Reminders Order Date Submit Date Provider Last Modified By Organization Details Last Modified Time Details Appointments None recorded. Lab None recorded. Referral None recorded. Procedures None recorded. Surgeries None recorded. Imaging None recorded. Medication Orders Augmentin 875 mg-125 mg tablet 2022 023 [facility]/Pharmacy #[id number], [address] [place], [address], 3 19:19:30 ibuprofen 600 mg tablet 2022 023 [facility] #[id number], [address] [place], [address], 3 03:31:37 Patient TargetsNo targets recorded. Patient Instructions Encounter Date Encounter Id Patient Instructions Last Modified By Organization Details Last Modified Time 08/25/2022 [id number] learning about dental care and your health problem vijaya Not available 08/25/2022 19:19:28 La, It was nice meeting you today. Here [...] Address Organization Details Recorded Time Bipolar disorder 31327730 Active 2022 DARRYL DEPINTO null, [place] - [facility] 3 19:01:54 Posttraumatic stress disorder 37067613 Active 2022 DARRYL DEPINTO null, [place] - [facility] 3 19:02:01 Anxiety 85110991 Active 2022 DARRYL DEPINTO null, [place] - [facility] 3 19:02:06 Gastric ulcer 724027995 Active 2022 DARRYL DEPINTO null, PA - [...] height Body mass index (BMI) Body weight Body temperature Respiratory rate Heart rate Oxygen saturation Oxygen saturation in Arterial blood by Pulse oximetry Systolic blood pressure Diastolic blood pressure Provider Name and Address Organization Details Last Updated DateTime 3 162.56 cm 26.6 kg/m2 81977.8 2 g 98.9 [degF] 18 /min 86 /min 98 % 98 % 126 mm[Hg] 85 mm[Hg] DARRYL VENCES [facility] 3 19:05:19 Social History Question Answer Notes LastModified by Present Details LastModified Time Tobacco Smoking Status Former Smoker DARRYL zhang PA [employer] [facility] 08/25/2022 19:02:38 When Did You Quit Smoking? 1-5yearssinc elastcigaret te Information not available 08/25/2022 Have You Recently Traveled Abroad? No Information not available 08/25/2022 Sex: Unknown Functional Status Question Answer Note LastModified by Present Details LastModified Time Do you use any [...] SNOMED-CT Code Diagnosis ICD10 Code Diagnosis Note [id number] [address] [place] [address] 05/18/2019 17:36:10 05/18/2019 18:05:19 [id number] [address] [place] [address] 12/27/2016 17:40:41 12/27/2016 18:28:30 [id number] [address] [place] [address] 06/24/2016 10:28:37 06/24/2016 11:35:03 [id number] [address] [place] [address] 02/16/2017 16:54:08 02/16/2017 17:11:26 [id number] [address] [place] [address] 01/28/2017 12:03:16 01/28/2017 13:34:42 [id number] [address] [place] [address] 12/24/2016 11:49:53 12/24/2016 12:35:32 [id number] [address] [place] [address] 05/05/2017 17:44:55 05/05/2017 19:21:41 [id number] [address] [address] [place] [address] 08/03/2016 11:20:02 08/03/2016 12:16:40 [id number] [address] [address] [place] [address] 08/20/2015 13:20:03 08/20/2015 14:10:24 [id number] [address] [place] [address] 01/03/2018 13:27:43 01/03/2018 14:32:11 [id number] [address] [place] [address] 04/13/2016 17:23:42 04/13/2016 18:02:10 [id number] [address] [place] [address] 12/08/2016 16:13:52 12/08/2016 18:13:10 [id number] [address] [address] [place] [address] 06/24/2017 09:24:14 06/24/2017 11:13:05 [id number] [address] [address] [place] [address] 05/28/2020 13:20:51 05/28/2020 15:17:33 [id number] [address] [address] [place] [address] 06/14/2020 13:08:46 06/14/2020 14:37:07 [id number] [address] [address] [address] [place] [address] 07/25/2016 08:27:26 07/25/2016 09:05:55 [id number] [address] [address] [address] [place] [address] 04/20/2017 12:25:17 04/20/2017 14:05:46 [id number] [address] [address] [address] [place] [address] 05/23/2016 09:42:19 05/23/2016 10:28:18 [id number] [facility] [place] [address] 08/22/2015 11:11:21 08/22/2015 11:50:29 [id number] [facility] [address] [place] [address] 07/06/2016 08:06:19 07/06/2016 08:37:26 [id number] ELISA KAM [address] [address] [place] [address] 08/25/2022 18:01:27 08/25/2022 19:22:46 Infection of tooth 522236325 K04.7 Health Concerns Section Related Observation LastModified by Organization Detai ls LastModified Time None Recorded Concern Status LastModified by Organization Details LastModified Time None Recorded Advance Directives Directive None Recorded Payers Insurance Date Sequence Insurance Name Policy Number Policy Hayward Covered Member ID Hayward Member ID Guarantor Name 08/25/2022 1 [facility] (MEDICAID REPLACEMENT - HMO) MYCHAL Coffman [id number] Heather Coffman Notes Date Note Type Note [...] chills, sweats, severe CHU. ELISA RA[address] [place], [address], [place] - [facility] 08/25/2022 19:20:54 OBGyn Episode No OBEpisode recorded.
== END 2025-01-25 13:06 | disposition home or self-care (01) ==
PROVIDERS: PCP Nurse Practitioner Family; Visit Provider Physician Assistant Medical
DX: M79.641 Pain in right hand (principal)

== ENCOUNTER → 2025-01-25 12:21 | Outpatient (BNV) | payer OTHER, SELFPAY | PROVIDERS: PCP Nurse Practitioner Family; Visit Provider Radiology Diagnostic Radiology | DX: M61.58 Other ossification of muscle, other site (principal) | CPT/HCPCS: 73130 ==

== ENCOUNTER 2025-03-30 15:25 | Outpatient (AMB) | payer OTHER, SELFPAY ==
[2025-03-30 15:29] VITALS: BP 150/80; PULSE 106; RESP 16; TEMP 36.8; O2SAT 98; BMI 28.8
--- NOTE | 2025-03-30 15:29 | MHC.PC.OV ---
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: No Accompanied by: Self / Same As Patient Allergies Sulfa (Sulfonamide Antibiotics) Allergy (Severe, Verified 03/30/25 17:07) Swelling azithromycin (Zithromax) Allergy (Intermediate, Verified 03/30/25 17:07) hives/GI upset hydrocodone (From VICODIN) Allergy (Intermediate, Verified 03/30/25 17:07) Rash naproxen (Aleve) Allergy (Intermediate, Verified 03/30/25 17:07) Rash oxycodone (OXYCODONE) Allergy (Intermediate, Verified 03/30/25 17:07) Rash acetaminophen (From TYLENOL) Adverse Reaction (Intermediate, Verified 03/30/25 17:07) RASH ALL OVER BODY Medication List - Last Reconciled 03/30/25 by Dave Wray, 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-BC albuterol sulfate 90 mcg/actuation (Ventolin HFA) 2 puffs inhalation Q6H PRN clonazepam 1 mg PO BID PRN ferrous sulfate 324 mg PO DAILY fluticasone propion-salmeterol 250-50 mcg/dose (Advair Diskus) 1 inh inhalation Q12H fluticasone propionate 50 mcg/actuation 1 spray intranasal Q12H 90 days furosemide 20 mg PO DAILY 60 days [handheld showerhead As directed] levocetirizine 5 mg PO DAILY mirtazapine 15 mg PO DAILY 30 days naloxone 4 mg/actuation 1 spray intranasal Q2M olopatadine 0.7% (Pataday Once Daily Relief) 1 drp ophthalmic (eye) Q24H PRN ondansetron 4 mg PO Q8H PRN 10 days pantoprazole 40 mg PO BID polyethylene glycol 3350 17 grams PO DAILY rivaroxaban (Xarelto) 20 mg PO DAILY 30 days Shower Chair As directed sodium chloride 0.65% (Saline Nasal) 2 sprays intranasal PRN sucralfate mL PO tizanidine 4 mg PO BEDTIME PRN 10 days tramadol 50 mg PO BID PRN 7 days trazodone mg PO ziprasidone HCl 80 mg PO BID zolpidem 10 mg PO BEDTIME PRN Tobacco use date assessed: 03/30/25 Dental Screening Dental Screen Date: 03/30/25 Did you have a dental visit in the last 12 months?: No Did you have a dental problem in the last 6 months where you did not have access to dental care?: No Was dental information given to patient?: Patient has dentist HPI follow up HPI Details Chief Complaint The patient presents with anxiety and insomnia. History of Present Illness The patient is a 59-year-old female presenting with anxiety and insomnia. 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 She has taken legal action by obtaining a restraining order against him due to threatening behavior, which necessitated changing the locks at her residence. pt is anxious/rambling The patient exhibits signs of medication-seeking behavior, particularly for benzodiazepines, as she believes they will help her sleep. Despite calming down after speaking with behavioral health personnel, she continues to request medication for sleep, what are you going to give me . She has been advised to consult with her psychiatrist regarding her medication needs, as she is already under their care. She reports seeing her therapist regularly. Additionally, she is followed by pulmonary and cardiology specialists in [place], although recent documentation from these visits is missing. During the examination, she initially complained of chest discomfort, which was associated with her anxiety, she reports. An electrocardiogram (EKG) was performed and found to be benign. Social History - Family status: Recently from ex-, who was her CUSTODY OFFICER. Health Maintenance Review of Systems - Cardiovascular: Reports chest discomfort when anxious. Denies palpitations or syncope. - Psychiatric: Reports anxiety and insomnia. Denies hallucinations or suicidal ideation. Physical Exam General: Cooperative, healthy appearing, though anxious, no acute distress and well developed. Orientation: Patient oriented x3 Limitations: No limitations Head: Normal to inspection Ears: Hearing grossly normal bilaterally Nose: Normal external nose present Face and sinus: Normal facial exam Eyes: Appearance normal, both eyes and all related structures Neck: Normal visual inspection and Yes full ROM Respiratory: Normal respiratory effort and able to speak in complete sentences. Clear to auscultation bilaterally Cardiovascular: Regular rate and rhythm. Normal S1 and S2, faint systolic murmur GI: Normal to inspection. Soft to palpation and nontender Skin: No rashes or lesions noted Neuro: Patient oriented x3 Extremities: Normal to inspection Results - EKG: Benign findings Plan The patient was advised to continue consulting with her psychiatrist for medication management, particularly regarding her request for benzodiazepines to aid sleep. Behavioral health support was provided during the visit, which helped in calming her anxiety. She was reminded of the importance of maintaining follow-up appointments with her pulmonary and cardiology specialists in [place]. any worsening chest pains, ER. Pt is aware. encouraged follow up with psychiatrist and therapist Discussion Notes I discussed with the patient the need to address her medication concerns with her psychiatrist, emphasizing the importance of professional guidance in managing her anxiety and insomnia. We also talked about the role of behavioral health support in managing her anxiety, which she found beneficial during the visit. Patient Instructions - Continue to see your psychiatrist for medication management. - Follow up with your pulmonary and cardiology specialists as scheduled. - Utilize behavioral health resources for anxiety management. [facility], [facility] Medical History Anxiety Osteomyelitis of facial bone Cocaine use disorder Right leg pain Joint pain Herniated disc Urinary retention Sprain of left knee Sprain of right knee Arthritis Physical exam Screening for cervical cancer SOB (shortness of breath) Carcinoma of nasal cavity Ulcer, nasal, septum Excessive cerumen in both ear canals Pre-operative clearance Nasal septum perforation Disorder of lung parenchyma Lumbar herniated disc Back pain GERD (gastroesophageal reflux disease) Hx pulmonary embolism Erosive esophagitis Hx of ulcer disease Depression Panic attacks History of bipolar disorder COPD (chronic obstructive pulmonary disease) Asthma Surgical History History of lung surgery Hx of cholecystectomy Hx of colonoscopy H/O esophagogastroduodenoscopy Hx of appendectomy History of hysterectomy Family History Father No problems noted. 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 Ovi Portillo, Tila Herrera, Sam Montesinos and colleagues, with an educational sherine from [employer]. Physical exam (Primary Care) Vital Signs: Last Vital Signs Temp 98.2 F 03/30/25 15:29 Pulse 106 H 03/30/25 15:29 Resp 16 03/30/25 15:29 BP 150/80 H 03/30/25 15:29 Pulse Ox 98 03/30/25 15:29 Oxygen Delivery Method Room Air 03/30/25 15:29 BMI result Body Mass Index 28.8 Tobacco/Smoking Status: Tobacco use Status Tobacco use date assessed 03/30/25 03/30/25 15:34 Patient Tobacco Use Status Former Tobacco user 03/30/25 15:34 e-Cigarette/Vaping Use Currently Using 03/30/25 15:34 Thrive Assessment: Date of Thrive Assessment Date Thrive assessed 09/13/24 03/30/25 15:34 Coding Level of Care Code Est Pt Level 3 (60241) Diagnoses Bipolar affective disorder, remission status unspecified F31.9 Active/Remission status: remission status unspecified Anxiety F41.9 Chest discomfort R07.89 Assessment & Plan Assessment & Plan (1) Bipolar disorder: Comment: has a therapist and psychiatrist Code(s): F31.9 - Bipolar disorder, unspecified Category: Medical Qualifiers: Active/Remission status: remission status unspecified Qualified Code(s): F31.9 - Bipolar disorder, unspecified (2) Anxiety: Code(s): F41.9 - Anxiety disorder, unspecified Category: Medical (3) Chest discomfort: Code(s): R07.89 - Other chest pain Category: Medical Plan . Orders: Orders AMB EKG-In Office Today R07.89 - Other chest pain
[2025-03-30 17:04] VITALS: BP 136/78; PULSE 90
== END 2025-03-30 16:30 ==
LOC: HO.HMCC 15:25
PROVIDERS: PCP Nurse Practitioner Family; Visit Provider Nurse Practitioner Family
DX: F31.9 Bipolar disorder, unspecified (principal); F41.9 Anxiety disorder, unspecified; R07.89 Other chest pain

== ENCOUNTER → 2025-03-30 15:25 | Outpatient (BNVA) | payer OTHER, SELFPAY | PROVIDERS: PCP Nurse Practitioner Family; Visit Provider Nurse Practitioner Family | DX: K21.9 Gastro-esophageal reflux disease without esophagitis (principal); F41.9 Anxiety disorder, unspecified; G47.00 Insomnia, unspecified; F31.9 Bipolar disorder, unspecified; R07.89 Other chest pain | CPT/HCPCS: 99212 ==

== ENCOUNTER 2025-06-16 13:05 | Outpatient (AMB) | payer OTHER, SELFPAY ==
[2025-06-16 13:07] VITALS: BP 116/80; PULSE 100; TEMP 36.6; O2SAT 96; BMI 29.0
--- NOTE | 2025-06-16 13:07 | AM.OFFWIN_ITS ---
Intake Vital Signs 06/16/25 13:07 Height 5 ft 4 in Weight 169 lb BMI 29.0 BP 116/80 Blood Pressure Location Rt brachial Position Sitting Pulse 100 Pulse Source Pulse Oximeter Temp 98 F Temp Source Oral Pulse Oximetry (%) 96 Oxygen Delivery Method Room Air Intake Visit Reasons: EP - Dizziness, Vestibular Pain, x episodic Intake Note: Dizziness, fainting, headache and difficulty in maintaining balance for four months. Patient Tobacco Use Status: Former Tobacco user Allergies Sulfa (Sulfonamide Antibiotics) Allergy (Severe, Verified 06/16/25 13:19) Swelling azithromycin (Zithromax) Allergy (Intermediate, Verified 06/16/25 13:19) hives/GI upset hydrocodone (From VICODIN) Allergy (Intermediate, Verified 06/16/25 13:19) Rash naproxen (Aleve) Allergy (Intermediate, Verified 06/16/25 13:19) Rash oxycodone (OXYCODONE) Allergy (Intermediate, Verified 06/16/25 13:19) Rash acetaminophen (From TYLENOL) Adverse Reaction (Intermediate, Verified 06/16/25 13:19) RASH ALL OVER BODY Do you need a note to return to daycare/school/sports/work: No HPI HPI Comments History of Present Illness Details 59 y/o Female patient who presents to [facility] walk in clinic with c/o Dizziness, headaches, and generalized weakness for 3 months now. Pt has a complex medical history; significant for osteomyelitis facial bone, Chronic sinusitis, substance abuse (Cocaine), acid reflux, pulmonary embolism currently on Xarelto, COPD/asthma, bipolar disorder, Pulmonary Hypertension, and d epression. Pt goes to [facility] for management of Vertigo and Chronic Sinusitis due to long-term Cocaine use. She just had nasal/sinus Biopsy due to chronic Mass and Nasal Septum Perforation. She is going to have Nasal reconstruction surgery when she is cleared by Cardiology. Pt previously had Open Heart Surgery for Pulmonary Thromboendarterectomy 08/24 Today states that she has not used Cocaine for 2 years - per [facility] notes - last use was 07/27/2024. [facility] Medical History (Updated 06/16/25 @ 14:20 by Aleyda Zimmerman NP) Dizziness Anxiety Osteomyelitis of facial bone Cocaine use disorder Right leg pain Joint pain Herniated disc Urinary retention Sprain of left knee Sprain of right knee Arthritis Physical exam Screening for cervical cancer SOB (shortness of breath) Carcinoma of nasal cavity Ulcer, nasal, septum Excessive cerumen in both ear canals Pre-operative clearance Nasal septum perforation Disorder of lung parenchyma Lumbar herniated disc Back pain GERD (gastroesophageal reflux disease) Hx pulmonary embolism Erosive esophagitis Hx of ulcer disease Depression Panic attacks History of bipolar disorder COPD (chronic obstructive pulmonary disease) Asthma Surgical History History of lung surgery Hx of cholecystectomy Hx of colonoscopy H/O esophagogastroduodenoscopy Hx of appendectomy History of hysterectomy Family History Father No problems noted. 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) Alcohol intake: current Alcohol intake frequency: holidays/special occasions only Alcohol type: beer and wine Patient Tobacco Use Status: Former Tobacco user Cigarettes Per Day: 2 Years Smoked: 10+ e-Cigarette/Vaping Use: Currently Using Second Hand Smoke Exposure: No Substance Use Type: Crack/Cocaine service: No Current occupational status: unemployed Cognitive needs: No Hearing needs: No Vision needs: Yes Review of Systems Const All systems reviewed & are unremarkable except as noted in HPI and below Physical Exam Vital Signs: Last Vital Signs Temp 98 F 06/16/25 13:07 Pulse 100 06/16/25 13:07 BP 116/80 06/16/25 13:07 Pulse Ox 96 06/16/25 13:07 Oxygen Delivery Method Room Air 06/16/25 13:07 BMI result Body Mass Index 29.0 HEENT Head: Yes normocephalic Ears: external ears normal and TM abnormal with fluid behind the TM bilateral General nose exam: Abnormal external nose present nasal deviation, nasal erythema, nasal tenderness and other (Currently has a dressing over both Nares - septal deviated. ) and Epistaxis present bilaterally Face and sinus: Yes sinus tenderness Mouth: Abnormal oral and palatal mucosa present erythematous Throat: Yes uvula midline Resp Effort & Inspection: normal respiratory effort Auscultation: clear to auscultation bilaterally Cardio Heart sounds: S1 normal heart sound present and S2 normal heart sound present Assessment & Plan Assessment & Plan (1) Dizziness: Code(s): R42 - Dizziness and giddiness Plan: Hydrate?dehydration can worsen dizziness. Move slowly and do not change positions abruptly F/U with ENT at [facility]. She has an appointment with them 06/30/25. Ordered Meclizine 25 mg. Medications: New meclizine 25 mg PO DAILY 20 tabs 0RF motion sickness R42 - Dizziness and giddiness Coding Level of Care Code Est Pt Level 4 (21476) Diagnoses Dizziness R42 Time Spent (min) 20
== END 2025-06-16 14:00 | disposition home or self-care (01) ==
PROVIDERS: PCP Nurse Practitioner Family; Visit Provider Nurse Practitioner Family
DX: R42 Dizziness and giddiness (principal)

== ENCOUNTER → 2025-06-16 13:05 | Outpatient (BNVA) | payer OTHER, SELFPAY | PROVIDERS: PCP Nurse Practitioner Family; Visit Provider Nurse Practitioner Family | DX: R42 Dizziness and giddiness (principal); R51.9 Headache, unspecified; R53.1 Weakness; J44.9 Chronic obstructive pulmonary disease, unspecified; F31.9 Bipolar disorder, unspecified | CPT/HCPCS: 99212 ==

== ENCOUNTER 2025-07-25 12:44 | Emergency (ER) | payer OTHER, SELFPAY ==
[2025-07-25 12:55] VITALS: BP 178/96; PULSE 110; RESP 18; TEMP 36.6; O2SAT 94; BMI 29.0
--- NOTE | 2025-07-25 12:56 | ED_ITS ---
HPI - General Adult General Chief complaint: General Medical Stated complaint: uti? Related Data Home Medications ?Medication ?Instructions ?Recorded ?Confirmed zolpidem 10 mg tablet 10 mg PO BEDTIME PRN 02/15/2 4 03/30/25 clonazepam 1 mg tablet 1 mg PO BID PRN 08/02/2402/16 albuterol sulfate 90 mcg/actuation 2 puff inhalation Q 6H PRN 09/13/24 03/30/25 aerosol inhaler (Ventolin HFA) naloxone 4 mg/actuation nasal spray 1 spray intranasal Q2M 09/13/24 03/30/25 trazodone 50 mg tablet mg PO 09/13/24 03/30/25 ziprasidone HCl 80 mg capsule 80 mg PO BID 09/13/24 Previous Rx's ?Medication ?Instructions ?Recorded Shower Chair #1 ea 03/09/24 handheld showerhead #1 ea 03/09/24 tramadol 50 mg tablet 50 mg PO BID PRN pain 7 days #14 09/21/24 tabs furosemide 20 mg tablet 20 mg PO DAILY 60 days #60 t abs 11/14/24 ferrous sulfate 324 mg (65 mg 324 mg PO DAILY #90 tabs 01/26/25 iron) tablet,delayed release pantoprazole 40 mg tablet,delayed 40 mg PO BID #180 ta bs 03/30/25 release rivaroxaban 20 mg tablet (Xarelto) 20 mg PO DAILY 30 d ays #30 tabs 03/30/25 fluticasone propionate 50 1 spray intranasal Q12H 90 d ays 03/31/25 mcg/actuation nasal #16 grams spray,suspension ondansetron 4 mg disintegrating 4 mg PO Q8H PRN nausea and 05/30/25 tablet vomiting 10 days #30 tabs tizanidine 4 mg tablet 4 mg PO BEDTIME PRN muscle 1 spasticity 10 days #10 tabs cetirizine 10 mg tablet (All Day 10 mg PO DAILY PRN al lergy 06/03/25 Allergy (cetirizine)) symptoms #90 tabs meclizine 25 mg tablet 25 mg PO DAILY motion sickne ss #20 06/16/25 tabs fluticasone 250 mcg-salmeterol 50 1 inh inhalation Q12 H #180 ea 10/30/25 mcg/dose blistr powdr for inhalation (Advair Diskus) scopolamine base 1 mg over 3 days 1 patch transdermal Q3D PRN nausea 06/28/25 transdermal patch and vomiting #4 ea amoxicillin 875 mg-potassium 1 tab PO BID 10 days #20 tabs 07/26/25 clavulanate 125 mg tablet mirtazapine 15 mg tablet 15 mg PO DAILY 30 days #30 t abs 07/26/25 Allergies Allergy/AdvReac Type Severity Reaction Status Date / Time Sulfa (Sulfonamide Allergy Severe Swelling Verified 07/25/25 12:57 Antibiotics) azithromycin (Zithromax) Allergy Intermediate hives/GI Verified 07/25/25 12:57 upset hydrocodone (From VICODIN) Allergy Intermediate Rash Verified 07/25/25 12:57 naproxen (Aleve) Allergy Intermediate Rash Verified 07/25/25 12:57 oxycodone (OXYCODONE) Allergy Intermediate Rash Verified 07/25/25 12:57 acetaminophen (From TYLENOL) AdvReac Intermediate RASH ALL Verified 07/25/25 12:57 OVER BODY PMFSH Past Medical History Medical History (Updated 07/27/25 @ 08:50 by Neli Stanley NP) Dizziness Anxiety Osteomyelitis of facial bone Cocaine use disorder Right leg pain Joint pain Herniated disc Urinary retention Sprain of left knee Sprain of right knee Arthritis Physical exam Screening for cervical cancer SOB (shortness of breath) Carcinoma of nasal cavity Ulcer, nasal, septum Excessive cerumen in both ear canals Pre-operative clearance Nasal septum perforation Disorder of lung parenchyma Lumbar herniated disc Back pain GERD (gastroesophageal reflux disease) Hx pulmonary embolism Erosive esophagitis Hx of ulcer disease Depression Panic attacks History of bipolar disorder COPD (chronic obstructive pulmonary disease) Asthma Surgical History History of lung surgery Hx of cholecystectomy Hx of colonoscopy H/O esophagogastroduodenoscopy Hx of appendectomy History of hysterectomy Family History Family History Father No problems noted. 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) Alcohol intake: current Alcohol intake frequency: holidays/special occasions only Alcohol type: beer and wine Patient Tobacco Use Status: Former Tobacco user Cigarettes Per Day: 2 Years Smoked: 10+ e-Cigarette/Vaping Use: Currently Using Second Hand Smoke Exposure: No Substance Use Type: Crack/Cocaine Advance Directives: No Advance Directives Information Provided: No Do you have a plan to hurt others: No Plan service: No Current occupational status: unemployed Cognitive needs: No Hearing needs: No Vision needs: Yes Physical Exam ED Vital Signs: BMI result Body Mass Index 29.0 Course Course Course Narrative: This is a rapid medical exam performed by Marilin Stanley NP: Additional HPI, ROS, PE not included below will be deferred to primary provider. Patient is a 59y/o F presenting with complaint of wound to nasal area for several months. Wound under nose with septal erosion noted in triage. Also complains of dizziness. Plan: labs including cultures, ?CT Patient left the emergency department before myself or any of the other clinicians could review or explain physical exam findings, test results, need or lack there of for additional testing, treatment options, or a treatment plan. Medical Decision Making Lab Data 07/25/25 13:48 07/25/25 13:48 Labs: Lab Results 07/25/25 07/25/25 Range/Units 13:47 13:48 WBC 9.4 (4.8-10.8) X10*3/uL RBC 4.01 L (4.20-5.50) X10*6/uL Hgb 11.9 L (12.0-16.0) g/dl Hct 34.7 L (37.0-47.0) % MCV 86.5 (80.0-98.0) fL MCH 29.7 (27.0-33.0) pg MCHC 34.3 (31.0-35.0) g/dl RDW 15.7 (11.0-16.0) % Plt Count 321 (160-400) X10*3/uL MPV 11.9 (9.4-12.3) fL Immature Gran % (Auto) 0.4 (0.0-0.4) % Neut % (Auto) 70.4 (45-73) % Lymph % (Auto) 13.5 L (20-40) % Desha % (Auto) 8.1 (2-11) % Eos % (Auto) 7.2 H (0-4) % Baso % (Auto) 0.4 (0-2) % Lymph # (Auto) 1.3 (1.2-4.9) X10*3/uL Desha # (Auto) 0.8 (0.1-1.2) X10*3/uL Eos # (Auto) 0.7 H (0.0-0.4) X10*3/uL Baso # (Auto) 0.0 (0.0-0.2) X10*3/uL Abs Immat Gran (auto) 0.04 H (0.00-0.03) X10*3/uL Absolute Neuts (auto) 6.6 (2.0-8.3) x10*3/uL Absolute Nucleated RBC 0.000 (0.0-0.012) X10*3/uL Nucleated RBC % (auto) 0.0 (0.0-0.2) /100WBC ESR 51 H (0-20) MM/HR Sodium 140 (135-145) mmol/L Potassium 4.0 (3.3-5.1) mmol/L Chloride 106 (96-108) mmol/L Carbon Dioxide 26 (22-29) mmol/L Anion Gap 12 (12-20) BUN 11 (9-16) mg/dL Creatinine 1.05 (0.5-1.4) mg/dL Estim Creat Clear Calc 56.4 Estimated GFR 53 Random Glucose 101 (60-115) mg/dL Lactic Acid 1.9 (0.5-2.0) mmol/L Calcium 9.9 (8.4-10.2) mg/dL Total Bilirubin 0.4 (0.0-1.0) mg/dL AST 23 (5-31) U/L ALT 15 (0-31) U/L Alkaline Phosphatase 89 (39-117) U/L C-Reactive Protein 0.62 H (< or = 0.50) mg/dL Total Protein 8.4 H (6.5-8.0) g/dL Albumin 4.6 (3.5-5.0) g/dL Discharge Plan Discharge Clinical Impression: Open nasal wound Patient Disposition: Left W/O Completing Treatment Prescriptions: No Action (DME) Shower Chair Misc See Rx Instructions .Route Qty: 1 0RF Rx Instructions: As directed (DME) handheld showerhead See Rx Instructions .Route .MEDSUPPLY Qty: 1 0RF Rx Instructions: As directed tramadol 50 mg tablet 50 mg PO BID PRN (Reason: pain) 7 Days Qty: 14 0RF Rx Instructions: please take only as prescribed, do not share med, this is a Narcotic furosemide 20 mg tablet 20 mg PO DAILY 60 Days Qty: 60 0RF ferrous sulfate 324 mg (65 mg iron) tablet,delayed release (DR/EC) 324 mg PO DAILY Qty: 90 1RF Xarelto 20 mg tablet 20 mg PO DAILY 30 Days Qty: 30 1RF Rx Instructions: must administer with evening meal pantoprazole 40 mg tablet,delayed release (DR/EC) 40 mg PO BID Qty: 180 1RF fluticasone propionate 50 mcg/actuation spray,suspension 1 spray intranasal Q12H 90 Days Qty: 16 0RF Rx Instructions: administer into each nostril ondansetron 4 mg tablet,disintegrating 4 mg PO Q8H PRN (Reason: nausea and vomiting) 10 Days Qty: 30 0RF tizanidine 4 mg tablet 4 mg PO BEDTIME PRN (Reason: muscle spasticity) 10 Days Qty: 10 0RF cetirizine [All Day Allergy (cetirizine)] 10 mg tablet 10 mg PO DAILY PRN (Reason: allergy symptoms) Qty: 90 0RF fluticasone propion-salmeterol [Advair Diskus] 250-50 mcg/dose blister with device 1 inh inhalation Q12H Qty: 180 1RF scopolamine base 1 mg over 3 days patch 3 day 1 patch transdermal Q3D PRN (Reason: nausea and vomiting) Qty: 4 0RF mirtazapine 15 mg tablet 15 mg PO DAILY 30 Days Qty: 30 2RF amoxicillin-pot clavulanate 875-125 mg tablet 1 tab PO BID 10 Days Qty: 20 0RF zolpidem 10 mg tablet 10 mg PO BEDTIME PRN meclizine 25 mg tablet 25 mg PO DAILY Qty: 20 0RF clonazepam 1 mg tablet 1 mg PO BID PRN naloxone 4 mg/actuation spray,non-aerosol 1 spray intranasal Q2M Rx Instructions: spray 1 dose into ONE nostril; alternate nostrils w each dose until help arrives ziprasidone HCl 80 mg capsule 80 mg PO BID Rx Instructions: give with food (meal/snack) trazodone 50 mg tablet PO albuterol sulfate [Ventolin HFA] 90 mcg/actuation HFA aerosol inhaler 2 puff inhalation Q6H PRN Discharge Date/Time: 07/25/25 21:08
[2025-07-25 14:08] LABS: MANUAL DIFF FLAG NO
[2025-07-25 14:11] LABS: Hematocrit 34.7 % (37.0-47.0); Hemoglobin 11.9 g/dl (12.0-16.0); Imm Gran Abs Auto 0.04 X10*3/uL (0.00-0.03); Imm Gran Pct Auto 0.4 % (0.0-0.4); Lymphocytes Absolute Auto 1.3 X10*3/uL (1.2-4.9); Mean Corpuscular HGB Conc 34.3 g/dl (31.0-35.0); Mean Corpuscular Hemoglobin 29.7 pg (27.0-33.0); Mean Corpuscular Volume 86.5 fL (80.0-98.0); NRBC Abs Auto 0.000 X10*3/uL (0.0-0.012); NRBC Pct Auto 0.0 /100WBC (0.0-0.2); Platelet Count 321 X10*3/uL (160-400); Red Blood Count 4.01 X10*6/uL (4.20-5.50); White Blood Count 9.4 X10*3/uL (4.8-10.8)
[2025-07-25 14:30] LABS: Alanine Aminotransferase 15 U/L (0-31); Albumin Level 4.6 g/dL (3.5-5.0); Alkaline Phosphatase 89 U/L (39-117); Anion Gap 12 (12-20); Aspartate Amino Transferase 23 U/L (5-31); Blood Urea Nitrogen 11 mg/dL (9-16); Calcium 9.9 mg/dL (8.4-10.2); Carbon Dioxide 26 mmol/L (22-29); Chloride 106 mmol/L (96-108); Creatinine Clr Calc Pharmacy 56.4; Estimated Glomerular Filt Rate 53; Potassium 4.0 mmol/L (3.3-5.1); Sodium 140 mmol/L (135-145); Total Protein 8.4 g/dL (6.5-8.0)
[2025-07-25 14:52] LABS: Erythrocyte Sedimentation Rate 51 MM/HR (0-20)
--- OUTSIDE RECORDS SUMMARY | 2025-07-25 19:48 | XMS_ITS | Data Portability ---
Author Organization [facility] - [facility], [address] Address [address] [place] [address] Care Team Providers Care Sample Tester Name Role Phone RAMON WILD Primary Care Provider [phone] Assessment No assessment recorded. Plan of Treatment Reminders Order Date Submit Date Provider Last Modified By Organization Details Last Modified Time Details Appointments None recorded. Lab None recorded. Referral None recorded. Procedures None recorded. Surgeries None recorded. Imaging None recorded. Medication Orders Augmentin 875 mg-125 mg tablet 2022 023 [facility] #[id number], [address] [place], [address], 3 19:19:30 ibuprofen 600 mg tablet 2022 023 [facility][id number], [address] [place], [address], 3 03:31:37 Patient TargetsNo targets recorded. Patient Instructions Encounter Date Encounter Id Patient Instructions Last Modified By Organization Details Last Modified Time 08/25/2022 [id number] learning about dental care and your health problem vijaya Not available 08/25/2022 19:19:28 Pa, It was nice meeting you today. Here [...] Address Organization Details Recorded Time Bipolar disorder 40727719 Active 023 DARRYL DEPINTO null, PA - [facility] 3 19:01:54 Post-traum atic stress disorder 82661099 Active 023 DARRYL DEPINTO null, PA - [facility] 3 19:02:01 Anxiety 71118140 Active 023 DARRYL DEPINTO null, PA - [facility] 3 19:02:06 Gastric ulcer 727911393 Active 023 DARRYL DEPINTO null, PA - [facility] [...] temperature Respiratory rate Heart rate Oxygen saturation Systolic And Diastolic Provider Name and Address Organization Details Last Updated DateTime 3 162.56 cm 26.6 kg/m2 37815.8 2 g 9 98.9 [degF] 18 /min 86 /min 98 % 126/85 mm[Hg] DARRYL VENCES PA - [facility] 3 19:05:19 Social History Question Answer Notes LastModified by Mango DSP Details LastModified Time Tobacco Smoking Status Former Smoker DARRYL zhang PA - [facility] 08/25/2022 19:02:38 When Did You Quit Smoking? 1-5yearssinc elastcigaret te Information not available 08/25/2022 Have You Recently Traveled Abroad? No Information not available 08/25/2022 Sex: Unknown Functional Status Question Answer Note LastModified by Mango DSP Details LastModified Time Do you use any [...] Diagnosis SNOMED-CT Code Diagnosis ICD10 Code Diagnosis IMO Codes Diagnosis Note [id number] [address] [place] [address] 05/18/2019 17:36:10 05/18/2019 18:05:19 [id number] [address] [place] [address] 12/27/2016 17:40:41 12/27/2016 18:28:30 [id number] [address] [place] [address] 06/24/2016 10:28:37 06/24/2016 11:35:03 [id number] [address] [place] [address] 02/16/2017 16:54:08 02/16/2017 17:11:26 [id number] [address] [place] [address] 01/28/2017 12:03:16 01/28/2017 13:34:42 [id number] [address] [place] [address] 12/24/2016 11:49:53 12/24/2016 12:35:32 [id number] [address] [place] [address] 05/05/2017 17:44:55 05/05/2017 19:21:41 [id number] [address] [place] [address] 08/03/2016 11:20:02 08/03/2016 12:16:40 [id number] [address] [place] [address] 08/20/2015 13:20:03 08/20/2015 14:10:24 [id number] [address] [place] [address] 01/03/2018 13:27:43 01/03/2018 14:32:11 [id number] [address] [place] [address] 04/13/2016 17:23:42 04/13/2016 18:02:10 [id number] [address] [place] [address] 12/08/2016 16:13:52 12/08/2016 18:13:10 [id number] [address] [place] [address] 06/24/2017 09:24:14 06/24/2017 11:13:05 [id number] [address] [place] [address] 05/28/2020 13:20:51 05/28/2020 15:17:33 [id number] [address] [place] [address] 06/14/2020 13:08:46 06/14/2020 14:37:07 [id number] [address] [place] [address] 07/25/2016 08:27:26 07/25/2016 09:05:55 [id number] [address] [place] [address] 04/20/2017 12:25:17 04/20/2017 14:05:46 [id number] [address] [place] [address] 05/23/2016 09:42:19 05/23/2016 10:28:18 [id number] [address] [place] [address] 08/22/2015 11:11:21 08/22/2015 11:50:29 [id number] [address] [place] [address] 07/06/2016 08:06:19 07/06/2016 08:37:26 [id number] [facility] [address] [place] [address] 08/25/2022 18:01:27 08/25/2022 19:22:46 Infection of tooth 748277725 K04.7 Health Concerns Section Related Observation LastModified by Organization Detai ls LastModified Time None Recorded Concern Status LastModified by Organization Details LastModified Time None Recorded Advance Directives Directive None Recorded Payers Insurance Date Sequence Insurance Name Policy Number Policy [place] Covered Member ID [place] Member ID Guarantor Name 08/25/2022 1 [facility] - [facility] (MEDICAID REPLACEMENT - HMO) MYCHAL Coffman [id number] Heather Coffman Notes Date Note Type Note Provider Name and Address Organization Details Recorded Time 08/25/2022 text/html Heather is a 56 yo F here for evaluation of dental pain onset a few days ago. Was seen by a dentist 11 days ago-removed teeth on left side-x 4 days now has swelling, headache. was given antibiotic and finished but now feels pain, trouble speaking and chewing food. No fevers, chills, sweats, severe CHU. [facility] [address] [place], [address], [place] - [facility] 08/25/2022 19:20:54 OBGyn Episode No OBEpisode recorded.
== END 2025-07-25 21:08 | disposition left against medical advice (07) ==
PROVIDERS: Registered Nurse Emergency; Emergency Provider Student in an Organized Health Care Education/Training Program
DX: S01.20XA Unspecified open wound of nose, initial encounter (principal); Z53.21 Procedure and treatment not carried out due to patient leaving prior to being seen by health care provider
CPT/HCPCS: 36415; 80053; 83605; 85025; 85652; 86140; 87040; 99281; 99283